=== PATIENT | female | born 1935 | race Caucasian/White ===

== ENCOUNTER 2020-07-31 12:13 | Inpatient (IN) | payer MEDICARE ==
[~2020-07-31] VITALS: Ht 152.4 cm; Wt 54.7 kg
[2020-07-31] MEDS ORDERED: MAGNESIUM HYDROXIDE 2,400 MG/30 ML ORAL.SUSP. PO PRN ×2 (13:15→14:15)
[2020-07-31] MEDS ORDERED: MAG HYDROX/AL HYDROX/SIMETH 30 ML ORAL.SUSP PO PRN ×2 (13:15→14:15)
[2020-07-31] MEDS ORDERED: METHYL SALICYLATE/MENTHOL TOPICAL OINTMENT 57GM TUBE. TP PRN (13:15)
[2020-07-31 13:17] VITALS: BP 157/71
--- NOTE | 2020-07-31 13:22 | NUR ---
Admission Note with Justification for Admission to [facility] Patient admitted to [facility] for protective oversight for emergency stabilization of acute psychiatric crisis. Pt admitted from: [facility] Mode of arrival: Secure Transport Accompanied By: Secure Transport Precipitating behaviors that initiated intake and admission: threatens to kill staff, name calling, belligerent, aggressive towards staff, throws stuff at staff, enters others rooms & gets agitated with redirection, pacing, restless Description of failure of out patient attempts at stabilization in previous setting list behavior and medication trials: intervene & redirect, started seroquel, treated for UTI in hospital Behaviors and assessment findings upon admission: Pt is pleasantly confused, oriented to self only. Pt stated she was living in [place] before she came here. She is cooperative with assessment. No skin issues noted. Pt denies having any pain or discomfort. She was given her lunch tray and is currently sitting quietly in her room eating lunch. Will continue to monitor. Plan: Admit for protective oversight for adjustment and stabilization of medications, behaviors and mood. Intense treatment regimen including groups, medication adjustments, therapy, consistent regimen for ADL's, self care, and sleep hygiene. Daily monitoring by Inpatient staff, Psychiatry, and Medical Physician. Addendum: 07/31/20 at 1435 by JAJA BRADLEY RN When attempting to get lab draws, pt began screaming and became combative with staff. Staff x3 assisted with both lab draws and Covid swab.
[2020-07-31 13:50] LABS: BASO # 0.1 x10^3/uL (0.0-0.2); BASO % 0 % (0-3); EOS # 0.2 x10^3/uL (0.0-0.7); EOS % 1 % (0-3); HEMATOCRIT 37.3 % (36.0-47.0); HEMOGLOBIN 12.4 g/dL (12.0-15.5); LYMPH # 15.3 x10^3/uL (1.0-4.8); LYMPH % 68 % (24-48); MEAN CORPUSCULAR HEMOGLOBIN 30 pg (25-35); MEAN CORPUSCULAR HGB CONC 33 g/dL (31-37); MEAN CORPUSCULAR VOLUME 90 fL (79-100); MONO # 0.8 x10^3/uL (0.0-1.1); MONO % 4 % (0-9); NEUT # 6.2 x10^3uL (1.8-7.7); NEUT % 27 % (31-73); PLATELET COUNT 328 x10^3/uL (140-400); RED BLOOD COUNT 4.14 x10^6/uL (3.50-5.40); RED CELL DISTRIBUTION WIDTH 14.3 % (11.5-14.5); WHITE BLOOD COUNT 22.5 x10^3/uL (4.0-11.0)
[2020-07-31 14:00] LABS: ALBUMIN 3.4 g/dL (3.4-5.0); ALBUMIN/GLOBULIN RATIO 0.8 (1.0-1.7); CALCIUM 8.7 mg/dL (8.5-10.1); CREATININE 0.9 mg/dL (0.6-1.0); GFR 59.7; MAGNESIUM 2.1 mg/dL (1.8-2.4); POTASSIUM 3.7 mmol/L (3.5-5.1); TOTAL BILIRUBIN 0.3 mg/dL (0.2-1.0); TOTAL PROTEIN 7.7 g/dL (6.4-8.2)
[2020-07-31] MEDS ORDERED: QUET25TA5 PO (14:11)
[2020-07-31] MEDS ORDERED: LOPE-101 PO ×2 (14:11→14:28)
[2020-07-31] MEDS ORDERED: MAG-115 PO (14:11)
[2020-07-31] MEDS ORDERED: ACET650S11 RC (14:11)
[2020-07-31] MEDS ORDERED: POLY17PO28 PO (14:11)
[2020-07-31] MEDS ORDERED: SENN8.6T11 PO (14:11)
[2020-07-31] MEDS ORDERED: MAGN400O7 PO (14:11)
[2020-07-31] MEDS ORDERED: ACET325T21 PO (14:11)
[2020-07-31] MEDS ORDERED: MELA5TAB20 PO (14:11)
[2020-07-31] MEDS ORDERED: TRAZ-120 PO (14:11)
[2020-07-31] MEDS ORDERED: BISA10SU4 RC (14:11)
[2020-07-31] MEDS ORDERED: CYAN250T PO (14:11)
[2020-07-31] MEDS ORDERED: QUET50TA5 PO (14:11)
[2020-07-31] MEDS ORDERED: BISACODYL 10 MG SUPP.RECT RC PRN (14:15)
[2020-07-31] MEDS ORDERED: ACETAMINOPHEN 650 MG SUPP.RECT. RC PRN (14:15)
[2020-07-31] MEDS ORDERED: LOPERAMIDE 2 MG CAPSULE PO PRN ×2 (14:15→14:45)
[2020-07-31] MEDS ORDERED: ACETAMINOPHEN 325 MG TABLET PO PRN (14:15)
[2020-07-31 14:26] LABS: % LYMPHS 69 % (24-48); % MONOS 4 % (0-10); % SEGS 27 % (35-66)
[2020-07-31 14:27] LABS: PLT ESTIMATE ADEQUATE (ADEQUATE)
--- NOTE | 2020-07-31 16:23 | RAD ---
EXAM: CT HEAD WITHOUT CONTRAST. HISTORY: Subdural hematoma. TECHNIQUE: Computed tomography of the head was performed without intravenous contrast. One or more of the following individualized dose reduction techniques were utilized for this examination: 1. Automated exposure control. 2. Adjustment of the mA and/or kV according to patient size. 3. Use of iterative reconstruction technique. COMPARISON: None. FINDINGS: A right frontal subdural hematoma is mostly low-attenuation, with a few high attenuation el ements along its periphery. It measures up to 2.2 cm in thickness. Leftward midline shift measures 5 mm. The right-sided sulci are relatively compressed. Hypoattenuation within the periventricular white matter indicates mild to moderate chronic microangio pathic change. Prominence of the lateral ventricles and hemispheric sulci indicates moderate atrophy. The visualized paranasal sinuses appear clear. There are changes of bilateral cataract surgery. The t emporal bones are unremarkable. The calvarium reveals no suspicious lesions. A small metallic object is noted along the right temporal inner table. IMPRESSION: 1. A right frontal subdural hematoma has elements of different ages, but is mostly subacute or chroni c. It measures 2.2 cm in thickness with 5 mm leftward midline shift. Comparison with older studies is recommended to assess stability. Ongoing follow-up is recommended. 2. Moderate atrophy and mild to moderate chronic microangiopathic white matter change. Electronically signed by: Katherin Stringer MD (07/31/2020 4:20 PM) [id number]
[2020-07-31 17:37] VITALS: BP 143/81
[2020-07-31 18:16] LABS: BILIRUBIN,URINE NEG (NEG); CLARITY,URINE CLEAR; COLOR,URINE YELLOW; GLUCOSE,URINE NEG (NEG)
[2020-07-31 18:17] LABS: BACTERIA,URINE 0 /HPF (0-FEW); NITRITE,URINE NEG (NEG); RBC,URINE OCC /HPF (0-2); SQUAMOUS EPITHELIAL CELL,UR MANY /LPF; UROBILINOGEN,URINE 0.2 mg/dL (0.2 mg/dL)
--- NOTE | 2020-07-31 19:39 | CONS ---
DATE OF CONSULTATION: 07/31/2020 REASON FOR CONSULTATION: Medical management. HISTORY OF PRESENT ILLNESS: The patient is an 85-year-old female patient, a resident at [facility] who was [facility] on account of threatening to kill staff, name calling, belligerent, aggressive towards staff, throws stuff at staff, enters other's rooms and gets agitated with redirection, and pacing restless, all this in a background of Lewy body dementia, Alzheimer's disease with behavioral disorder. She is here for inpatient psychiatric stabilization. The patient herself is very confused, disoriented, does not give any useful information. PAST MEDICAL HISTORY: Significant for Alzheimer's dementia with behavioral disturbances, essential hypertension, hyperlipidemia, hyponatremia. She has a fall with subdural hematoma. She is also known to have sleep disorder, urinary incontinence, and impaired mobility and activities of daily living. PAST SURGICAL HISTORY: Unobtainable. ALLERGIES: She has no known drug allergies. MEDICATIONS: She is currently on following medications: She is on acetaminophen 650 mg every 6 hours and she is also on acetaminophen suppository 650 mg rectally every 4 hours, trazodone 50 mg at bedtime, quetiapine fumarate 50 mg daily and quetiapine fumarate 25 mg at bedtime, Mylanta maximum strength in 15 mL after meals and as needed, loperamide 2 mg as needed for diarrhea, loperamide 4 mg as needed for diarrhea, bisacodyl 10 mg suppository rectally daily p.r.n. for constipation, milk of magnesia 30 mL p.o. daily p.r.n. for constipation, polyethylene glycol 17 grams daily, senna 1 tablet twice a day, cyanocobalamin 250 mcg once a day, melatonin 5 mg at bedtime. FAMILY HISTORY: Unobtainable. SOCIAL HISTORY: She is a resident at [facility]. No further information available. REVIEW OF SYSTEMS: Also is unobtainable. PHYSICAL EXAMINATION: GENERAL: When I examined her, she looked well and was clearly in no apparent respiratory distress. There is no pallor, jaundice, cyanosis or thyromegaly. No jugular venous distention. No lower limb edema. VITAL SIGNS: Her heart rate was 77, blood pressure was 157/71, temperature was 97.8, respiratory rate was 18, and oxygen saturation was 99% on room air. HEAD, EYES, EARS, NOSE AND THROAT: Showed normocephalic, atraumatic. NECK: Supple. HEART: Normal first and second heart sounds. No gallop, rub or murmur. CHEST: Clear to auscultation. No crepitation or rhonchi. ABDOMEN: Distended, soft, nontender. NEUROLOGIC: She is demented, but without any obvious lateralizing sign. All her cranial nerves are intact. EXTREMITIES: She moves extremities without difficulty. She ambulates without assistance or assistive devices. LABORATORY DATA: Showed a white cell count of 22,500, hemoglobin 12.4, hematocrit 37.3, MCV 90, and platelet count 327,000 with a manual differential showed 27% polymorphs, 68% lymphocytes and 4% monocytes. Her D-dimer was high at 4.31. Her chemistry showed a serum sodium 138, potassium 3.7, chloride 103, bicarbonate 26, anion gap of 9, BUN 8, creatinine 0.9, estimated GFR was 59 mL per minute. Her glucose was 153, calcium was 8.7, magnesium was 2.1. Total bilirubin, AST, ALT, and alkaline phosphatase were normal. Total protein was 7.7, albumin was 3.4. IMPRESSION AND PLAN: In summary, this is an 85-year-old female patient, a resident at [facility] in [place], [place], who was admitted on account of threatening to kill staff, name calling, belligerent, aggressive towards staff, throws stuff at staff, enters other residents' rooms, and gets agitated with the redirection, pacing and restless. She apparently was treated for UTI in the hospital and was started on Seroquel without much improvement and, therefore, she was [facility] for inpatient psychiatric stabilization. Her past medical history significant for hypertension and hyperlipidemia. She probably has chronic lymphatic leukemia, had had a fall and subdural hematoma. Past psychiatric history significant for Lewy body dementia and sleep disorder. From the medical point of view, the patient seems to be all in all stable. Her vital signs are stable. All her lab work seems to be within acceptable range except that she has leukocytosis with predominance of lymphocytes, indicating probably she has chronic lymphatic leukemia. Her chemistry is within acceptable range. I would probably order a CT scan of the head as a baseline for comparison and perhaps get some more information about the patient regarding her leukocytosis as a differential diagnosis as more consistent with chronic lymphatic leukemia, which is common in the elderly people. Thank you, Dr. Hernandez, for allowing me to participate in the care of this patient. MICHELLE LEBLANC MD DR: LAUREN/marcin JOB#: [id number] / [id number]
[2020-07-31] MEDS: SENNOSIDES 8.6 MG TABLET PO SCH (20:18)
[2020-07-31] MEDS: QUEtiapine 25 MG TABLET. PO SCH (20:19)
[2020-07-31] MEDS: MELATONIN 3 MG TABLET PO SCH (20:19)
[2020-07-31] MEDS: traZODone 50 MG TABLET. PO SCH (20:19)
--- NOTE | 2020-07-31 20:49 | PDOC ---
Exam Note: Andrés Note: Please also refer to the separate dictated note~for this date of service dictated separately.~Patient seen individually. Discussed the patient with Nursing staff reviewed the chart.~Reviewed interim history and current functioning. Reviewed vital signs,~Labs/ Radiology~and current medications noted below. Continue current treatment with the changes noted in the dictated addendum note Assessment: Vital Signs/I&O: Vital Signs Date Time Temp Pulse Resp B/P (MAP) Pulse Ox O2 Delivery O2 Flow Rate FiO2 07/31/20 17:37 98.5 82 20 143/81 (101) 98 Labs: Laboratory Tests Test 07/31/20 13:35 07/31/20 17:46 White Blood Count 22.5 x10^3/uL (4.0-11.0) H Red Blood Count 4.14 x10^6/uL (3.50-5.40) Hemoglobin 12.4 g/dL (12.0-15.5) Hematocrit 37.3 % (36.0-47.0) Mean Corpuscular Volume 90 fL (79-100) Mean Corpuscular Hemoglobin 30 pg (25-35) Mean Corpuscular Hemoglobin Concent 33 g/dL (31-37) Red Cell Distribution Width 14.3 % (11.5-14.5) Platelet Count 328 x10^3/uL (140-400) Neutrophils (%) (Auto) 27 % (31-73) L Lymphocytes (%) (Auto) 68 % (24-48) H Monocytes (%) (Auto) 4 % (0-9) Eosinophils (%) (Auto) 1 % (0-3) Basophils (%) (Auto) 0 % (0-3) Neutrophils # (Auto) 6.2 x10^3uL (1.8-7.7) Lymphocytes # (Auto) 15.3 x10^3/uL (1.0-4.8) H Monocytes # (Auto) 0.8 x10^3/uL (0.0-1.1) Eosinophils # (Auto) 0.2 x10^3/uL (0.0-0.7) Basophils # (Auto) 0.1 x10^3/uL (0.0-0.2) Segmented Neutrophils % 27 % (35-66) L Lymphocytes % 69 % (24-48) H Monocytes % 4 % (0-10) Platelet Estimate Adequate (ADEQUATE) D-Dimer (Norma) 4.31 mg/L (0.00-0.50) H Sodium Level 138 mmol/L (136-145) Potassium Level 3.7 mmol/L (3.5-5.1) Chloride Level 103 mmol/L (98-107) Carbon Dioxide Level 26 mmol/L (21-32) Anion Gap 9 (6-14) Blood Urea Nitrogen 8 mg/dL (7-20) Creatinine 0.9 mg/dL (0.6-1.0) Estimated GFR (Cockcroft-Gault) 59.7 BUN/Creatinine Ratio 9 (6-20) Glucose Level 153 mg/dL (70-99) H Calcium Level 8.7 mg/dL (8.5-10.1) Magnesium Level 2.1 mg/dL (1.8-2.4) Total Bilirubin 0.3 mg/dL (0.2-1.0) Aspartate Amino Transferase (AST) 17 U/L (15-37) Alanine Aminotransferase (ALT) 23 U/L (14-59) Alkaline Phosphatase 77 U/L (46-116) Total Protein 7.7 g/dL (6.4-8.2) Albumin 3.4 g/dL (3.4-5.0) Albumin/Globulin Ratio 0.8 (1.0-1.7) L Urine Collection Type Unknown Urine Color Yellow Urine Clarity Clear Urine pH 6.0 Urine Specific [place] 1.015 Urine Protein Neg (NEG-TRACE) Urine Glucose (UA) Neg mg/dL (NEG) Urine Ketones (Stick) Neg mg/dL (NEG) Urine Blood Neg (NEG) Urine Nitrite Neg (NEG) Urine Bilirubin Neg (NEG) Urine Urobilinogen Dipstick 0.2 mg/dL (0.2 mg/dL) Urine Leukocyte Esterase Trace (NEG) Urine RBC Occ /HPF (0-2) Urine WBC 5-10 /HPF (0-4) Urine Squamous Epithelial Cells Many /LPF Urine Bacteria 0 /HPF (0-FEW) Current Medications: Meds: Current Medications Medications (Trade) Dose Ordered Sig/Stephenie Route PRN Reason Start Time Stop Time Status Last Admin Dose Admin Quetiapine Fumarate (SEROquel) 25 mg QHS PO 07/31/20 21:00 07/31/20 20:19 Sennosides (Senna) 8.6 mg BID PO 07/31/20 21:00 07/31/20 20:18 Trazodone HCl (Desyrel) 50 mg QHS PO 07/31/20 21:00 07/31/20 20:19 Melatonin (Melatonin) 3 mg QHS PO 07/31/20 21:00 07/31/20 20:19 I have reviewed the current psychotropics carefully including drug interactions. Risk benefit ratio favors no change other than as noted in my dictated progress note. Diagnosis: Problems: (1) Major neurocognitive disorder (2) Dementia of the Alzheimer's type with early onset with behavioral disturbance FARSHAD CHEEMA MD Jul 31, 2020 20:49
--- NOTE | 2020-07-31 21:28 | HP ---
ADMIT DATE: 07/31/2020 ADMISSION HISTORY/EVALUATION This note covers elements not covered in my initial note of 07/31/2020. SUBJECTIVE: I met with the patient evening of 07/31/2020, discussed with nursing staff, previously discussed with Cathi White, clinic office coordinator. IDENTIFYING DATA: The patient is an 85-year-old female referred to us from [facility], referred by her psychiatrist/primary care physician on account of worsening confusion, paranoia, delusions, threatening to kill staff. She is extremely agitated, name calling, belligerent, aggressive towards staff, throwing different things at staff members, could have injured them. She is getting into the room of other residents, getting agitated with redirection, pacing, restless. She had failed outpatient psychiatric interventions resulting in this referral. CHIEF COMPLAINT: "No." The patient is quite confused. Before I met with the patient, I had been called as an emergency by the nursing staff due to her agitation. We did add a p.r.n. to assist with this. HISTORY OF PRESENT ILLNESS: The patient reportedly has a history of Lewy body dementia versus dementia, Alzheimer's, vascular with delusion, depression, behavioral disturbance. Additionally, she had a recent subdural hematoma, status post fall, which has since reportedly resolved, but resulted in increased agitation as well. She has had some sleep and appetite changes. No active suicidal or homicidal ideation. No clear history of bipolar disorder. PAST PSYCHIATRIC HISTORY: As above. MEDICAL HISTORY: Hypertension, hyperlipidemia, anemia, elevated WBC, hypomagnesemia, hypo-osmolality, history of hyponatremia. ALLERGIES: Negative. CODE STATUS: DNR. DIET: Regular, mechanical soft. CURRENT PSYCHOTROPICS: Melatonin 3 mg at bedtime, Seroquel 50 mg a.m., 25 mg at bedtime, trazodone 50 mg at bedtime. FAMILY HISTORY: Noncontributory. SOCIAL HISTORY: No history of alcohol, drug abuse, physical, sexual or elder abuse. She is not known to be a perpetrator. REACTION TO HOSPITALIZATION: The patient oblivious of this. ASSETS: Supportive, living at the above facility. REVIEW OF SYSTEMS: No CV, , pulmonary, eye system symptoms on review. Reliability poor. MENTAL STATUS EXAMINATION: Oriented to herself. Insight, judgment, recent and remote memory, attention, concentration, fund of knowledge poor, consistent with her diagnoses. IMPRESSION: Major neurocognitive disorder, Alzheimer, vascular with delusion, depression, behavioral disturbance; anxiety disorder, unspecified; impulse control disorder, unspecified; abnormal WBCs, defer to Dr. Nguyen. Rest unchanged. PLAN: Admit to Geropsychiatry Unit at [facility]. I will see the patient daily individually from a psychiatric standpoint. Medical followup with Dr. Nguyen/Dr. Vieyra. Continue the patient on her current psychotropics. Observe baseline. Consider CT head given a history of subdural hematoma and falls. We will make further adjustments as clinically indicated. ESTIMATED LENGTH OF STAY: 10-12 days. DISPOSITION: Plans back to shelter when stable. MAN Jessica CHEEMA MD DR: JOEL/marcin JOB#: [id number] / [id number]
[2020-08-01 01:07] LABS: HEMOGLOBIN A1C 5.9 % (4.8-5.6)
--- NOTE | 2020-08-01 01:22 | NUR ---
Last evening pt sat quietly in the day room. She was pleasant and cooperative meds were taken whole with prompting. She is only able to give first name and year of . She has had no behaviors tonight and has been sleeping.
[2020-08-01 06:18] VITALS: BP 113/63
[2020-08-01] MEDS: SENNOSIDES 8.6 MG TABLET PO SCH ×2 (08:40→19:47)
[2020-08-01] MEDS: POLYETHYLENE GLYCOL 3350 17 GM PACKET. PO SCH (08:40)
[2020-08-01] MEDS: QUEtiapine 50 MG TABLET. PO SCH (08:40)
[2020-08-01] MEDS: CYANOCOBALAMIN (VITAMIN B-12) 250 MCG TABLET. PO SCH (08:40)
--- NOTE | 2020-08-01 10:46 | NUR ---
WEEKLY ACTIVITY THERAPY NOTE Date of Admission: 07/31/2020 Date of AT Assessment: TBD Precipitating behaviors that initiated intake and admission: threatens to kill staff, name calling, belligerent, aggressive towards staff, throws stuff at staff, enters others rooms & gets agitated with redirection, pacing, restless Goal aimed: TBD Initial Goal: TBD Weekly progress towards goal: NA Group participation level: 1 min Weekly highlights: arrived on unit Behaviors observed: new admit Plan: meet/ assess Pt Beneficial adaptations:
[2020-08-01 14:23] LABS: THYROID STIM HORMONE (TSH) 3.586 uIU/mL (0.358-3.740)
--- NOTE | 2020-08-01 15:44 | NUR ---
Treatment team was held today as pt was admitted last night. Pt is combative, door checking and appears at times, to be looking for her baby. Pt can take her meds whole but needs prompting in the process; however, this morning, pt refused medications and had to be given by oral syringe. Pt does do some door checking and is not so easily redirected. Pt was calm this morning during her CT. At this time pt will start Zoloft 25mg for three days then increase 50mg, Exelon Patch 4.6mg with an increase after 3 days to 9.5mg. Pt did not have a PRN established; Zyprexa 2.5mg q 2 hours was ordered; as well as Trazodone to aid in sleep. Pt SW will return tomorrow and will complete the Psychosocial Assessment.
[2020-08-01] MEDS ORDERED: CHOLECALCIFEROL (VITAMIN D3) 50,000 UNIT CAPSULE PO SCH (17:00)
--- NOTE | 2020-08-01 17:45 | NUR ---
Nursing note: Pt has been very restless, anxious and uncooperative this shift. Pt's AM meds were attempted to be given whole, she began yelling and cursing, swinging her hands at this nurse and knocked the pill cup away. Pt then became disruptive in group and had to be escorted out. Pt's AM seroquel was crushed and administered sublingually with staff x3 assistance as pt was screaming, kicking, hitting and attempting to bite staff. Pt later began door checking, looking for her baby, and causing disruption to other pt's on the unit. Pt was brought to the [facility] where she continued to curse and yell at staff. Treatment team was held and received new PRN orders. Pt continued to be agitated at lunch time. PRN was attempted to be given whole and pt refused slapping her butt stating "oh kiss my ass!" PRN was syringed staff x3 assist with no effect. Pt began hallucinating this afternoon, she watched her dog run away and was worried about it, wanting to find it. A second PRN was administered with staff x3 assist with very little effect. Dr. Hernandez notified of pt's continued behaviors and new order received to increase Zyprexa Zydis to 5mg PRN Q2HRS max 20mg/24hrs. Will continue to monitor and report to oncoming shift.
[2020-08-01] MEDS: MELATONIN 3 MG TABLET PO SCH (19:47)
[2020-08-01] MEDS: traZODone 50 MG TABLET. PO SCH (19:47)
[2020-08-01] MEDS: QUEtiapine 25 MG TABLET. PO SCH (19:47)
--- NOTE | 2020-08-01 21:03 | PDOC ---
Exam Note: Andrés Note: Please also refer to the separate dictated note~for this date of service dictated separately.~Patient seen individually. Discussed the patient with Nursing staff reviewed the chart.~Reviewed interim history and current functioning. Reviewed vital signs,~Labs/ Radiology~and current medications noted below. Continue current treatment with the changes noted in the dictated addendum note Assessment: Vital Signs/I&O: Vital Signs Date Time Temp Pulse Resp B/P (MAP) Pulse Ox O2 Delivery O2 Flow Rate FiO2 08/01/20 06:18 97.8 69 16 113/63 (80) 97 Room Air I & O 07/31/20 07/31/20 08/01/20 15:00 23:00 07:00 Intake Total 80 ml 460 ml Balance 80 ml 460 ml Current Medications: Meds: Current Medications Medications (Trade) Dose Ordered Sig/Stephenie Route PRN Reason Start Time Stop Time Status Last Admin Dose Admin Acetaminophen (Tylenol) 650 mg PRN Q6HRS PRN PO MILD PAIN / TEMP > 100.3'F 07/31/20 13:15 Multi-Ingredient Ointment (Analgesic Coden) 1 han PRN QID PRN TP MUSCLE PAIN 07/31/20 13:15 Al Hydroxide/Mg Hydroxide (Mylanta Plus Xs) 15 ml PRN AFTMEALHC PRN PO DYSPEPSIA 07/31/20 13:15 Magnesium Hydroxide (Milk Of Magnesia) 2,400 mg PRN QHS PRN PO CONSTIPATION 07/31/20 13:15 Acetaminophen (Tylenol) 650 mg PRN Q6HRS PRN PO MILD PAIN / TEMP > 100.3'F 07/31/20 14:15 Cancel Acetaminophen (Tylenol Supp) 650 mg PRN Q4HRS PRN RC MILD PAIN / TEMP > 100.3'F 07/31/20 14:15 Bisacodyl (Dulcolax Supp) 10 mg PRN DAILY PRN RC CONSTIPATION 07/31/20 14:15 Cyanocobalamin (Vitamin B-12) 250 mcg DAILY PO 08/01/20 09:00 08/01/20 08:40 Loperamide HCl (Imodium) 2 mg PRN Q1HR PRN PO DIARRHEA 07/31/20 14:15 Al Hydroxide/Mg Hydroxide (Mylanta Plus Xs) 15 ml PRN AFTMEALHC PRN PO INDIGESTION 07/31/20 14:15 Cancel Magnesium Hydroxide (Milk Of Magnesia) 2,400 mg PRN QHS PRN PO constipation 07/31/20 14:15 Cancel Polyethylene Glycol (miraLAX) 17 gm DAILY PO 08/01/20 09:00 08/01/20 08:40 Quetiapine Fumarate (SEROquel) 25 mg QHS PO 07/31/20 21:00 08/01/20 19:47 Quetiapine Fumarate (SEROquel) 50 mg DAILY PO 08/01/20 09:00 08/01/20 08:40 Sennosides (Senna) 8.6 mg BID PO 07/31/20 21:00 08/01/20 19:47 Trazodone HCl (Desyrel) 50 mg QHS PO 07/31/20 21:00 08/01/20 19:47 Melatonin (Melatonin) 3 mg QHS PO 07/31/20 21:00 08/01/20 19:47 Loperamide HCl (Imodium) 4 mg PRN DAILY PRN PO DIARRHEA 07/31/20 14:45 Rivastigmine (Exelon) 1 patch DAILY TD 08/02/20 09:00 08/05/20 21:00 Rivastigmine (Exelon) 1 patch DAILY TD 08/06/20 09:00 Sertraline HCl (Zoloft) 25 mg DAILY PO 08/02/20 09:00 08/05/20 21:00 Sertraline HCl (Zoloft) 50 mg DAILY PO 08/06/20 09:00 Olanzapine (ZyPREXA ZYDIS) 2.5 mg PRN Q2HRS PRN PO PSYCHOSIS 08/01/20 11:15 08/01/20 18:34 DC 08/01/20 17:17 Trazodone HCl (Desyrel) 50 mg PRN QHS PRN PO INSOMNIA, MAY REPEAT IN 1HR 08/01/20 11:15 Vitamin D (Vitamin D3) 50,000 unit WEEKLY PO 08/01/20 17:00 08/01/20 17:31 DC Vitamin D (Vitamin D3) 50,000 unit WEEKLY PO 08/02/20 09:00 Olanzapine (ZyPREXA ZYDIS) 5 mg PRN Q2HRS PRN PO PSYCHOSIS 08/01/20 18:45 Current Medications Medications (Trade) Dose Ordered Sig/Stephenie Route PRN Reason Start Time Stop Time Status Last Admin Dose Admin Cyanocobalamin (Vitamin B-12) 250 mcg DAILY PO 08/01/20 09:00 08/01/20 08:40 Polyethylene Glycol (miraLAX) 17 gm DAILY PO 08/01/20 09:00 08/01/20 08:40 Quetiapine Fumarate (SEROquel) 50 mg DAILY PO 08/01/20 09:00 08/01/20 08:40 Olanzapine (ZyPREXA ZYDIS) 2.5 mg PRN Q2HRS PRN PO PSYCHOSIS 08/01/20 11:15 08/01/20 18:34 DC 08/01/20 17:17 I have reviewed the current psychotropics carefully including drug interactions. Risk benefit ratio favors no change other than as noted in my dictated progress note. Diagnosis: Problems: (1) Dementia in Alzheimer's disease with delusions (2) Dementia in Alzheimer's disease with depression (3) Dementia, vascular, with delusions (4) Dementia, vascular, with depression (5) Anxiety disorder, unspecified (6) Impulse control disorder, unspecified (7) Abnormal WBC count (8) Dementia of the Alzheimer's type with early onset with behavioral dis turbance (9) Major neurocognitive disorder FARSHAD CHEEMA MD Aug 01, 2020 21:03
--- NOTE | 2020-08-02 02:00 | NUR ---
Last evening pt walked around unit at times she would go into peers rooms, she remains very confused. Meds were taken whole with prompting she has had no aggression tonight. After getting her settled into her room she has been sleeping.
[2020-08-02 06:02] VITALS: BP 136/83
--- NOTE | 2020-08-02 07:30 | PDOC ---
Exam Note: Andrés Note: This note is a late entry for 08/01/2020 covers elements not covered in my initial note. Subjective: The patient was seen face to face in the evening of 08/01/2020 with Myah JAMESON. Discussed with nursing staff, reviewed the chart. The patient slept 3-3/4 hours previous night. Previous night the patient was extremely agitated, aggressive, disruptive, verbally, physically threatening and demanding, swatting at staff, looking for a baby screaming, yelling, had to be in the West hallway. CT head is clinically insignificant. She is running up and down the hallway. It is difficult to redirect. On evening rounds, she continues to be combative, hallucinating, agitated. Medications had to be syringed but Zyprexa 2.5 mg p.r.n. has little effect. We will increase to 5 mg q.2h. p.r.n. psychosis and agitation, max 20 mg in 24 hours. Review of Systems: Ambulation impaired. No CV, , pulmonary, eye, ENT system symptoms on review. Mental Status Exam: The patient is reasonably oriented. I met with her in her room. She was confused, not able to figure out how to switch the lights on or off and I assisted her with this. Insight and judgment, recent and remote memory, attention and concentration, fund of knowledge is poor consistent with her diagnoses. Laboratory Data: Reviewed. 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 Anxiety disorder unspecified. Impulse control disorder unspecified. Status post subdural hematoma. Current CT head non-contributory. Rest unchanged from previous note. Plan: Given her diagnosis of Lewy body dementia, we will start Exelon patch 4.6 mg a day for 3 days and 9.5 mg a day. Start Zoloft 25 mg a day for 3 days and 50 mg a day for mood and anxiety symptoms. Zyprexa is being used p.r.n. Maintain melatonin, Seroquel at current dosage, trazodone p.r.n. Adjust further as clinically indicated. Assessment: Vital Signs/I&O: Vital Signs Date Time Temp Pulse Resp B/P (MAP) Pulse Ox O2 Delivery O2 Flow Rate FiO2 08/02/20 06:02 98.4 65 20 136/83 (100) 98 Room Air I & O 08/01/20 08/01/20 08/02/20 15:00 23:00 07:00 Intake Total 360 ml 240 ml Balance 360 ml 240 ml Current Medications: Meds: Current Medications Medications (Trade) Dose Ordered Sig/Stephenie Route PRN Reason Start Time Stop Time Status Last Admin Dose Admin Acetaminophen (Tylenol) 650 mg PRN Q6HRS PRN PO MILD PAIN / TEMP > 100.3'F 07/31/20 13:15 Multi-Ingredient Ointment (Analgesic [place]) 1 han PRN QID PRN TP MUSCLE PAIN 07/31/20 13:15 Al Hydroxide/Mg Hydroxide (Mylanta Plus Xs) 15 ml PRN AFTMEALHC PRN PO DYSPEPSIA 07/31/20 13:15 Magnesium Hydroxide (Milk Of Magnesia) 2,400 mg PRN QHS PRN PO CONSTIPATION 07/31/20 13:15 Acetaminophen (Tylenol) 650 mg PRN Q6HRS PRN PO MILD PAIN / TEMP > 100.3'F 07/31/20 14:15 Cancel Acetaminophen (Tylenol Supp) 650 mg PRN Q4HRS PRN RC MILD PAIN / TEMP > 100.3'F 07/31/20 14:15 Bisacodyl (Dulcolax Supp) 10 mg PRN DAILY PRN RC CONSTIPATION 07/31/20 14:15 Cyanocobalamin (Vitamin B-12) 250 mcg DAILY PO 08/01/20 09:00 08/01/20 08:40 Loperamide HCl (Imodium) 2 mg PRN Q1HR PRN PO DIARRHEA 07/31/20 14:15 Al Hydroxide/Mg Hydroxide (Mylanta Plus Xs) 15 ml PRN AFTMEALHC PRN PO INDIGESTION 07/31/20 14:15 Cancel Magnesium Hydroxide (Milk Of Magnesia) 2,400 mg PRN QHS PRN PO constipation 07/31/20 14:15 Cancel Polyethylene Glycol (miraLAX) 17 gm DAILY PO 08/01/20 09:00 08/01/20 08:40 Quetiapine Fumarate (SEROquel) 25 mg QHS PO 07/31/20 21:00 08/01/20 19:47 Quetiapine Fumarate (SEROquel) 50 mg DAILY PO 08/01/20 09:00 08/01/20 08:40 Sennosides (Senna) 8.6 mg BID PO 07/31/20 21:00 08/01/20 19:47 Trazodone HCl (Desyrel) 50 mg QHS PO 07/31/20 21:00 08/01/20 19:47 Melatonin (Melatonin) 3 mg QHS PO 07/31/20 21:00 08/01/20 19:47 Loperamide HCl (Imodium) 4 mg PRN DAILY PRN PO DIARRHEA 07/31/20 14:45 Rivastigmine (Exelon) 1 patch DAILY TD 08/02/20 09:00 08/05/20 21:00 Rivastigmine (Exelon) 1 patch DAILY TD 08/06/20 09:00 Sertraline HCl (Zoloft) 25 mg DAILY PO 08/02/20 09:00 08/05/20 21:00 Sertraline HCl (Zoloft) 50 mg DAILY PO 08/06/20 09:00 Olanzapine (ZyPREXA ZYDIS) 2.5 mg PRN Q2HRS PRN PO PSYCHOSIS 08/01/20 11:15 08/01/20 18:34 DC 08/01/20 17:17 Trazodone HCl (Desyrel) 50 mg PRN QHS PRN PO INSOMNIA, MAY REPEAT IN 1HR 08/01/20 11:15 Vitamin D (Vitamin D3) 50,000 unit WEEKLY PO 08/01/20 17:00 08/01/20 17:31 DC Vitamin D (Vitamin D3) 50,000 unit WEEKLY PO 08/02/20 09:00 Olanzapine (ZyPREXA ZYDIS) 5 mg PRN Q2HRS PRN PO PSYCHOSIS 08/01/20 18:45 Current Medications Medications (Trade) Dose Ordered Sig/Stephenie Route PRN Reason Start Time Stop Time Status Last Admin Dose Admin Cyanocobalamin (Vitamin B-12) 250 mcg DAILY PO 08/01/20 09:00 08/01/20 08:40 Polyethylene Glycol (miraLAX) 17 gm DAILY PO 08/01/20 09:00 08/01/20 08:40 Quetiapine Fumarate (SEROquel) 50 mg DAILY PO 08/01/20 09:00 08/01/20 08:40 Olanzapine (ZyPREXA ZYDIS) 2.5 mg PRN Q2HRS PRN PO PSYCHOSIS 08/01/20 11:15 08/01/20 18:34 DC 08/01/20 17:17 I have reviewed the current psychotropics carefully including drug interactions. Risk benefit ratio favors no change other than as noted in my dictated progress note. Diagnosis: Problems: (1) Major neurocognitive disorder (2) Impulse control disorder, unspecified (3) Anxiety disorder, unspecified (4) Dementia, vascular, with depression (5) Dementia, vascular, with delusions (6) Dementia in Alzheimer's disease with depression (7) Dementia in Alzheimer's disease with delusions (8) Lewy body dementia with behavioral disturbance FARSHAD CHEEMA MD Aug 02, 2020 07:30
[2020-08-02] MEDS: SENNOSIDES 8.6 MG TABLET PO SCH ×2 (08:25→21:09)
[2020-08-02] MEDS: CYANOCOBALAMIN (VITAMIN B-12) 250 MCG TABLET. PO SCH (08:25)
[2020-08-02] MEDS: QUEtiapine 50 MG TABLET. PO SCH (08:25)
[2020-08-02] MEDS: POLYETHYLENE GLYCOL 3350 17 GM PACKET. PO SCH (08:25)
[2020-08-02] MEDS: RIVASTIGMINE 4.6MG PATCH. TD SCH (08:27)
[2020-08-02] MEDS: SERTRALINE 25 MG TABLET. PO SCH (08:27)
[2020-08-02] MEDS: CHOLECALCIFEROL (VITAMIN D3) 50,000 UNIT CAPSULE PO SCH (08:27)
--- NOTE | 2020-08-02 15:03 | NUR ---
Pt angry and tearful. Stated a staff member made her angry but did not elaborate. Zydis given dissolved in punch.
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
--- NOTE | 2020-08-02 21:05 | PDOC ---
Exam Note: Andrés Note: Please also refer to the separate dictated note~for this date of service dictated separately.~Patient seen individually. Discussed the patient with Nursing staff reviewed the chart.~Reviewed interim history and current functioning. Reviewed vital signs,~Labs/ Radiology~and current medications noted below. Continue current treatment with the changes noted in the dictated addendum note Assessment: Vital Signs/I&O: Vital Signs Date Time Temp Pulse Resp B/P (MAP) Pulse Ox O2 Delivery O2 Flow Rate FiO2 08/02/20 06:02 98.4 65 20 136/83 (100) 98 Room Air I & O 08/01/20 08/01/20 08/02/20 15:00 23:00 07:00 Intake Total 360 ml 240 ml Balance 360 ml 240 ml Current Medications: Meds: Current Medications Medications (Trade) Dose Ordered Sig/Stephenie Route PRN Reason Start Time Stop Time Status Last Admin Dose Admin Acetaminophen (Tylenol) 650 mg PRN Q6HRS PRN PO MILD PAIN / TEMP > 100.3'F 07/31/20 13:15 Multi-Ingredient Ointment (Analgesic [place]) 1 han PRN QID PRN TP MUSCLE PAIN 07/31/20 13:15 Al Hydroxide/Mg Hydroxide (Mylanta Plus Xs) 15 ml PRN AFTMEALHC PRN PO DYSPEPSIA 07/31/20 13:15 Magnesium Hydroxide (Milk Of Magnesia) 2,400 mg PRN QHS PRN PO CONSTIPATION 07/31/20 13:15 Acetaminophen (Tylenol) 650 mg PRN Q6HRS PRN PO MILD PAIN / TEMP > 100.3'F 07/31/20 14:15 Cancel Acetaminophen (Tylenol Supp) 650 mg PRN Q4HRS PRN RC MILD PAIN / TEMP > 100.3'F 07/31/20 14:15 Bisacodyl (Dulcolax Supp) 10 mg PRN DAILY PRN RC CONSTIPATION 07/31/20 14:15 Cyanocobalamin (Vitamin B-12) 250 mcg DAILY PO 08/01/20 09:00 08/02/20 08:25 Loperamide HCl (Imodium) 2 mg PRN Q1HR PRN PO DIARRHEA 07/31/20 14:15 Al Hydroxide/Mg Hydroxide (Mylanta Plus Xs) 15 ml PRN AFTMEALHC PRN PO INDIGESTION 07/31/20 14:15 Cancel Magnesium Hydroxide (Milk Of Magnesia) 2,400 mg PRN QHS PRN PO constipation 07/31/20 14:15 Cancel Polyethylene Glycol (miraLAX) 17 gm DAILY PO 08/01/20 09:00 08/02/20 08:25 Quetiapine Fumarate (SEROquel) 25 mg QHS PO 07/31/20 21:00 08/01/20 19:47 Quetiapine Fumarate (SEROquel) 50 mg DAILY PO 08/01/20 09:00 08/02/20 08:25 Sennosides (Senna) 8.6 mg BID PO 07/31/20 21:00 08/02/20 08:25 Trazodone HCl (Desyrel) 50 mg QHS PO 07/31/20 21:00 08/01/20 19:47 Melatonin (Melatonin) 3 mg QHS PO 07/31/20 21:00 08/01/20 19:47 Loperamide HCl (Imodium) 4 mg PRN DAILY PRN PO DIARRHEA 07/31/20 14:45 Rivastigmine (Exelon) 1 patch DAILY TD 08/02/20 09:00 08/05/20 21:00 08/02/20 08:27 Rivastigmine (Exelon) 1 patch DAILY TD 08/06/20 09:00 Sertraline HCl (Zoloft) 25 mg DAILY PO 08/02/20 09:00 08/05/20 21:00 08/02/20 08:27 Sertraline HCl (Zoloft) 50 mg DAILY PO 08/06/20 09:00 Olanzapine (ZyPREXA ZYDIS) 2.5 mg PRN Q2HRS PRN PO PSYCHOSIS 08/01/20 11:15 08/01/20 18:34 DC 08/01/20 17:17 Trazodone HCl (Desyrel) 50 mg PRN QHS PRN PO INSOMNIA, MAY REPEAT IN 1HR 08/01/20 11:15 Vitamin D (Vitamin D3) 50,000 unit WEEKLY PO 08/01/20 17:00 08/01/20 17:31 DC Vitamin D (Vitamin D3) 50,000 unit WEEKLY PO 08/02/20 09:00 08/02/20 08:27 Olanzapine (ZyPREXA ZYDIS) 5 mg PRN Q2HRS PRN PO PSYCHOSIS 08/01/20 18:45 08/02/20 18:05 Current Medications Medications (Trade) Dose Ordered Sig/Stephenie Route PRN Reason Start Time Stop Time Status Last Admin Dose Admin Rivastigmine (Exelon) 1 patch DAILY TD 08/02/20 09:00 08/05/20 21:00 08/02/20 08:27 Sertraline HCl (Zoloft) 25 mg DAILY PO 08/02/20 09:00 08/05/20 21:00 08/02/20 08:27 Vitamin D (Vitamin D3) 50,000 unit WEEKLY PO 08/02/20 09:00 08/02/20 08:27 I have reviewed the current psychotropics carefully including drug interactions. Risk benefit ratio favors no change other than as noted in my dictated progress note. Diagnosis: Problems: (1) Major neurocognitive disorder (2) Impulse control disorder, unspecified (3) Anxiety disorder, unspecified (4) Dementia, vascular, with depression (5) Dementia, vascular, with delusions (6) Dementia in Alzheimer's disease with depression (7) Dementia in Alzheimer's disease with delusions (8) Lewy body dementia with behavioral disturbance FARSHAD CHEEMA MD Aug 02, 2020 21:05
[2020-08-02] MEDS: QUEtiapine 25 MG TABLET. PO SCH (21:08)
[2020-08-02] MEDS: traZODone 50 MG TABLET. PO SCH (21:09)
[2020-08-02] MEDS: MELATONIN 3 MG TABLET PO SCH (21:09)
--- NOTE | 2020-08-02 22:12 | NUR ---
This evening pt has been quiet on unit mainly walking around doing some exit seeking and looking for something familiar. HS meds were taken whole without as much prompting tonight. After meds she sat and was social with nurse and has been walking around in her room.
[2020-08-03 06:04] VITALS: BP 148/74
[2020-08-03] MEDS: CYANOCOBALAMIN (VITAMIN B-12) 250 MCG TABLET. PO SCH (07:46)
[2020-08-03] MEDS: SERTRALINE 25 MG TABLET. PO SCH (07:46)
[2020-08-03] MEDS: RIVASTIGMINE 4.6MG PATCH. TD SCH (07:46)
[2020-08-03] MEDS: QUEtiapine 50 MG TABLET. PO SCH (07:46)
[2020-08-03] MEDS: SENNOSIDES 8.6 MG TABLET PO SCH ×2 (07:46→20:40)
[2020-08-03] MEDS: POLYETHYLENE GLYCOL 3350 17 GM PACKET. PO SCH (07:46)
--- NOTE | 2020-08-03 11:20 | NUR ---
ACTIVITY THERAPY ASSESSMENT completed based on notes, observation and interview. Pt was labile, restless, tearful and became agitated with redirection during time of the assessment. Pt was standing in the hallway holding a brown paper sack. Pt at this time was restless and tearful. Pt had spilt water in her room and tried to clean it up. AT assured pt that staff would help her clean it up.Another pt was sitting outside of pt's room and was influencing what pt was saying. The other pt was not redirectable and made it harder to redirect pt. Pt had accepted magazines from the activity cart earlier on so AT grabbed another magazine to help redirect pt. Pt took magazine from AT and her mood changed. Pt started to wander down the torres so AT walked alongside the pt. Pt started to answer some of the questions for AT. Pt said that she likes baby-sitting, reading magazines and watching movies. Per notes pt also likes dancing, being outdoors, keeping busy, doing yard work and car rides. Pt continued to wander through the halls as AT followed next to her. During this time pt became restless and tearful. AT tried to ask pt about her family and pt often responded with "Why should I tell you?" AT explained why she would like this information and pt became agitated with redirection. Pt gave minimal answers about her family during time of assessment. Pt said that she was and had three children. Pt said that her oldest was 55 and when AT asked later on pt said that her oldest was not 55 and said that was too old as she laughed. Pt has participated in Activity Therapy groups and remained calm and controlled. Initial goal aimed to increase time management and stress management/relaxation skills. Pt will participate in at least three individual or group Activity Therapy sessions per week. Addendum: 08/08/20 at 1151 by ISAAC BEE ACT Goal changed 08/08: Pt. will participate in at least one Activity Therapy group per day
[2020-08-03 15:00] VITALS: BP 150/81
--- NOTE | 2020-08-03 16:58 | NUR ---
Pt up adl in halls. Has been pleasantly confused. Compliant with meds and cares thus far. Pt spoke with family. Visit went well but staff had difficulty getting her to give back the phone.
[2020-08-03] MEDS: QUEtiapine 25 MG TABLET. PO SCH (20:40)
[2020-08-03] MEDS: traZODone 50 MG TABLET. PO SCH (20:40)
[2020-08-03] MEDS: MELATONIN 3 MG TABLET PO SCH (20:40)
--- NOTE | 2020-08-03 20:58 | PDOC ---
Exam Note: Andrés Note: Please also refer to the separate dictated note~for this date of service dictated separately.~Patient seen individually. Discussed the patient with Nursing staff reviewed the chart.~Reviewed interim history and current functioning. Reviewed vital signs,~Labs/ Radiology~and current medications noted below. Continue current treatment with the changes noted in the dictated addendum note Assessment: Vital Signs/I&O: Vital Signs Date Time Temp Pulse Resp B/P (MAP) Pulse Ox O2 Delivery O2 Flow Rate FiO2 08/03/20 15:00 97.6 72 18 150/81 (104) 97 Room Air I & O 08/02/20 08/02/20 08/03/20 14:59 22:59 06:59 Intake Total 720 ml 120 ml Balance 720 ml 120 ml Current Medications: Meds: Current Medications Medications (Trade) Dose Ordered Sig/Stephenie Route PRN Reason Start Time Stop Time Status Last Admin Dose Admin Acetaminophen (Tylenol) 650 mg PRN Q6HRS PRN PO MILD PAIN / TEMP > 100.3'F 07/31/20 13:15 Multi-Ingredient Ointment (Analgesic [place]) 1 han PRN QID PRN TP MUSCLE PAIN 07/31/20 13:15 Al Hydroxide/Mg Hydroxide (Mylanta Plus Xs) 15 ml PRN AFTMEALHC PRN PO DYSPEPSIA 07/31/20 13:15 Magnesium Hydroxide (Milk Of Magnesia) 2,400 mg PRN QHS PRN PO CONSTIPATION 07/31/20 13:15 Acetaminophen (Tylenol) 650 mg PRN Q6HRS PRN PO MILD PAIN / TEMP > 100.3'F 07/31/20 14:15 Cancel Acetaminophen (Tylenol Supp) 650 mg PRN Q4HRS PRN RC MILD PAIN / TEMP > 100.3'F 07/31/20 14:15 Bisacodyl (Dulcolax Supp) 10 mg PRN DAILY PRN RC CONSTIPATION 07/31/20 14:15 Cyanocobalamin (Vitamin B-12) 250 mcg DAILY PO 08/01/20 09:00 08/03/20 07:46 Loperamide HCl (Imodium) 2 mg PRN Q1HR PRN PO DIARRHEA 07/31/20 14:15 Al Hydroxide/Mg Hydroxide (Mylanta Plus Xs) 15 ml PRN AFTMEALHC PRN PO INDIGESTION 07/31/20 14:15 Cancel Magnesium Hydroxide (Milk Of Magnesia) 2,400 mg PRN QHS PRN PO constipation 07/31/20 14:15 Cancel Polyethylene Glycol (miraLAX) 17 gm DAILY PO 08/01/20 09:00 08/03/20 07:46 Quetiapine Fumarate (SEROquel) 25 mg QHS PO 07/31/20 21:00 08/03/20 20:40 Quetiapine Fumarate (SEROquel) 50 mg DAILY PO 08/01/20 09:00 08/03/20 07:46 Sennosides (Senna) 8.6 mg BID PO 07/31/20 21:00 08/03/20 20:40 Trazodone HCl (Desyrel) 50 mg QHS PO 07/31/20 21:00 08/03/20 20:40 Melatonin (Melatonin) 3 mg QHS PO 07/31/20 21:00 08/03/20 20:40 Loperamide HCl (Imodium) 4 mg PRN DAILY PRN PO DIARRHEA 07/31/20 14:45 Rivastigmine (Exelon) 1 patch DAILY TD 08/02/20 09:00 08/05/20 21:00 08/03/20 07:46 Rivastigmine (Exelon) 1 patch DAILY TD 08/06/20 09:00 Sertraline HCl (Zoloft) 25 mg DAILY PO 08/02/20 09:00 08/05/20 21:00 08/03/20 07:46 Sertraline HCl (Zoloft) 50 mg DAILY PO 08/06/20 09:00 Olanzapine (ZyPREXA ZYDIS) 2.5 mg PRN Q2HRS PRN PO PSYCHOSIS 08/01/20 11:15 08/01/20 18:34 DC 08/01/20 17:17 Trazodone HCl (Desyrel) 50 mg PRN QHS PRN PO INSOMNIA, MAY REPEAT IN 1HR 08/01/20 11:15 Vitamin D (Vitamin D3) 50,000 unit WEEKLY PO 08/01/20 17:00 08/01/20 17:31 DC Vitamin D (Vitamin D3) 50,000 unit WEEKLY PO 08/02/20 09:00 08/02/20 08:27 Olanzapine (ZyPREXA ZYDIS) 5 mg PRN Q2HRS PRN PO PSYCHOSIS 08/01/20 18:45 08/03/20 07:48 I have reviewed the current psychotropics carefully including drug interactions. Risk benefit ratio favors no change other than as noted in my dictated progress note. Diagnosis: Problems: (1) Major neurocognitive disorder (2) Impulse control disorder, unspecified (3) Anxiety disorder, unspecified (4) Dementia, vascular, with depression (5) Dementia, vascular, with delusions (6) Dementia in Alzheimer's disease with depression (7) Dementia in Alzheimer's disease with delusions (8) Lewy body dementia with behavioral disturbance FARSHAD CHEEMA MD Aug 03, 2020 20:58
--- NOTE | 2020-08-03 23:12 | NUR ---
Pt located in her room this evening. Pt in bed asleep. A/O to name, . Compliant with whole medications. No behaviors, pt went right back to sleep.
[2020-08-04] MEDS: traZODone 50 MG TABLET. PO PRN (00:21)
[2020-08-04 06:25] VITALS: BP 151/80
[2020-08-04] MEDS: POLYETHYLENE GLYCOL 3350 17 GM PACKET. PO SCH (07:45)
[2020-08-04] MEDS: QUEtiapine 50 MG TABLET. PO SCH (07:45)
[2020-08-04] MEDS: CYANOCOBALAMIN (VITAMIN B-12) 250 MCG TABLET. PO SCH (07:45)
[2020-08-04] MEDS: RIVASTIGMINE 4.6MG PATCH. TD SCH (07:45)
[2020-08-04] MEDS: SERTRALINE 25 MG TABLET. PO SCH (07:46)
[2020-08-04] MEDS: SENNOSIDES 8.6 MG TABLET PO SCH ×2 (07:46→20:38)
[2020-08-04 16:33] VITALS: BP 138/68
--- NOTE | 2020-08-04 17:42 | NUR ---
Pt up adl in halls. Pt tearful at breakfast. Zydis given. Has wandered in halls with another peer. Has been pleasantly confused. Compliant with meds and cares.
[2020-08-04] MEDS: traZODone 50 MG TABLET. PO SCH (20:38)
[2020-08-04] MEDS: QUEtiapine 25 MG TABLET. PO SCH (20:38)
[2020-08-04] MEDS: MELATONIN 3 MG TABLET PO SCH (20:38)
[2020-08-04] MEDS: DIVALPROEX 125 MG CAP.SPRINK PO SCH (20:40)
--- NOTE | 2020-08-04 20:51 | PDOC ---
Exam Note: Andrés Note: This note is a late entry for 08/02/2020 covers elements not covered in my initial note. Subjective: The patient was seen face to face in the evening of 08/02/2020 with Adriana JAMESON. Discussed with nursing staff, reviewed the chart. The patient slept 7 hours previous night. The patient remains confused, was joking in the morning. She was agitated for a couple of hours earlier in the day since she was upset Bingo was being played for fun rather than for money. Review of Systems: Ambulation impaired. No CV, , pulmonary, eye, ENT system symptoms on review. Reliability poor. Mental Status Exam: The patient is oriented to herself. Insight and judgment, recent and remote memory, attention and concentration, fund of knowledge is poor consistent with her diagnoses. Laboratory Data: Reviewed. 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 Anxiety disorder unspecified. Impulse control disorder unspecified. Plan: We will increase the Exelon patch given her diagnosis of Lewy body dementia. Maintain Zoloft, trazodone, melatonin, Seroquel. Adjust further as clinically indicated. Assessment: Vital Signs/I&O: Vital Signs Date Time Temp Pulse Resp B/P (MAP) Pulse Ox O2 Delivery O2 Flow Rate FiO2 08/04/20 16:33 97.5 85 18 138/68 (91) 97 08/04/20 06:25 Room Air I & O 08/03/20 08/03/20 08/04/20 15:00 23:00 07:00 Intake Total 480 ml 360 ml Balance 480 ml 360 ml Current Medications: Meds: Current Medications Medications (Trade) Dose Ordered Sig/Stephenie Route PRN Reason Start Time Stop Time Status Last Admin Dose Admin Acetaminophen (Tylenol) 650 mg PRN Q6HRS PRN PO MILD PAIN / TEMP > 100.3'F 07/31/20 13:15 Multi-Ingredient Ointment (Analgesic [place]) 1 han PRN QID PRN TP MUSCLE PAIN 07/31/20 13:15 Al Hydroxide/Mg Hydroxide (Mylanta Plus Xs) 15 ml PRN AFTMEALHC PRN PO DYSPEPSIA 07/31/20 13:15 Magnesium Hydroxide (Milk Of Magnesia) 2,400 mg PRN QHS PRN PO CONSTIPATION 07/31/20 13:15 Acetaminophen (Tylenol) 650 mg PRN Q6HRS PRN PO MILD PAIN / TEMP > 100.3'F 07/31/20 14:15 Cancel Acetaminophen (Tylenol Supp) 650 mg PRN Q4HRS PRN RC MILD PAIN / TEMP > 100.3'F 07/31/20 14:15 Bisacodyl (Dulcolax Supp) 10 mg PRN DAILY PRN RC CONSTIPATION 07/31/20 14:15 Cyanocobalamin (Vitamin B-12) 250 mcg DAILY PO 08/01/20 09:00 08/04/20 07:45 Loperamide HCl (Imodium) 2 mg PRN Q1HR PRN PO DIARRHEA 07/31/20 14:15 Al Hydroxide/Mg Hydroxide (Mylanta Plus Xs) 15 ml PRN AFTMEALHC PRN PO INDIGESTION 07/31/20 14:15 Cancel Magnesium Hydroxide (Milk Of Magnesia) 2,400 mg PRN QHS PRN PO constipation 07/31/20 14:15 Cancel Polyethylene Glycol (miraLAX) 17 gm DAILY PO 08/01/20 09:00 08/04/20 07:45 Quetiapine Fumarate (SEROquel) 25 mg QHS PO 07/31/20 21:00 08/04/20 20:38 Quetiapine Fumarate (SEROquel) 50 mg DAILY PO 08/01/20 09:00 08/04/20 07:45 Sennosides (Senna) 8.6 mg BID PO 07/31/20 21:00 08/04/20 20:38 Trazodone HCl (Desyrel) 50 mg QHS PO 07/31/20 21:00 08/04/20 20:38 Melatonin (Melatonin) 3 mg QHS PO 07/31/20 21:00 08/04/20 20:38 Loperamide HCl (Imodium) 4 mg PRN DAILY PRN PO DIARRHEA 07/31/20 14:45 Rivastigmine (Exelon) 1 patch DAILY TD 08/02/20 09:00 08/05/20 21:00 08/04/20 07:45 Rivastigmine (Exelon) 1 patch DAILY TD 08/06/20 09:00 Sertraline HCl (Zoloft) 25 mg DAILY PO 08/02/20 09:00 08/05/20 21:00 08/04/20 07:46 Sertraline HCl (Zoloft) 50 mg DAILY PO 08/06/20 09:00 Olanzapine (ZyPREXA ZYDIS) 2.5 mg PRN Q2HRS PRN PO PSYCHOSIS 08/01/20 11:15 08/01/20 18:34 DC 08/01/20 17:17 Trazodone HCl (Desyrel) 50 mg PRN QHS PRN PO INSOMNIA, MAY REPEAT IN 1HR 08/01/20 11:15 08/04/20 00:21 Vitamin D (Vitamin D3) 50,000 unit WEEKLY PO 08/01/20 17:00 08/01/20 17:31 DC Vitamin D (Vitamin D3) 50,000 unit WEEKLY PO 08/02/20 09:00 08/02/20 08:27 Olanzapine (ZyPREXA ZYDIS) 5 mg PRN Q2HRS PRN PO PSYCHOSIS 08/01/20 18:45 08/04/20 07:47 Divalproex Sodium (Depakote Sprinkles) 250 mg HS PO 08/04/20 21:00 08/04/20 20:40 Current Medications Medications (Trade) Dose Ordered Sig/Stephenie Route PRN Reason Start Time Stop Time Status Last Admin Dose Admin Divalproex Sodium (Depakote Sprinkles) 250 mg HS PO 08/04/20 21:00 08/04/20 20:40 I have reviewed the current psychotropics carefully including drug interactions. Risk benefit ratio favors no change other than as noted in my dictated progress note. Diagnosis: Problems: (1) Major neurocognitive disorder (2) Impulse control disorder, unspecified (3) Anxiety disorder, unspecified (4) Dementia, vascular, with depression (5) Dementia, vascular, with delusions (6) Abnormal WBC count (7) Dementia in Alzheimer's disease with depression (8) Dementia in Alzheimer's disease with delusions (9) Lewy body dementia with behavioral disturbance FARSHAD CEHEMA MD Aug 04, 2020 20:51
--- NOTE | 2020-08-04 21:26 | PDOC ---
Exam Note: Andrés Note: This note is a late entry for 08/03/2020 covers elements not covered in my initial note. Subjective: The patient was seen face to face in the evening of 08/03/2020 with Adriana JAMESON. Discussed with nursing staff, reviewed the chart. The patient slept 6 hours previous night. She remains confused, spends much time in her room, restless, anxious. She received Zyprexa in the morning which was helpful. She had a telephone call from what appeared to be her grandson and she did well during the call. Review of Systems: Ambulation impaired. No CV, , pulmonary, eye, ENT system symptoms on review. Reliability poor. Mental Status Exam: The patient is reasonably oriented. Insight and judgment, recent and remote memory, attention and concentration, fund of knowledge is poor consistent with her diagnoses. Laboratory Data: Reviewed. 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 Anxiety disorder unspecified. Impulse control disorder unspecified. Plan: No change from initial note. Continue to adjust the psychotropics gradually. Assessment: Vital Signs/I&O: Vital Signs Date Time Temp Pulse Resp B/P (MAP) Pulse Ox O2 Delivery O2 Flow Rate FiO2 08/04/20 16:33 97.5 85 18 138/68 (91) 97 08/04/20 06:25 Room Air I & O 08/03/20 08/03/20 08/04/20 14:59 22:59 06:59 Intake Total 480 ml 360 ml Balance 480 ml 360 ml Current Medications: Meds: Current Medications Medications (Trade) Dose Ordered Sig/Stephenie Route PRN Reason Start Time Stop Time Status Last Admin Dose Admin Acetaminophen (Tylenol) 650 mg PRN Q6HRS PRN PO MILD PAIN / TEMP > 100.3'F 07/31/20 13:15 Multi-Ingredient Ointment (Analgesic [place]) 1 han PRN QID PRN TP MUSCLE PAIN 07/31/20 13:15 Al Hydroxide/Mg Hydroxide (Mylanta Plus Xs) 15 ml PRN AFTMEALHC PRN PO DYSPEPSIA 07/31/20 13:15 Magnesium Hydroxide (Milk Of Magnesia) 2,400 mg PRN QHS PRN PO CONSTIPATION 07/31/20 13:15 Acetaminophen (Tylenol) 650 mg PRN Q6HRS PRN PO MILD PAIN / TEMP > 100.3'F 07/31/20 14:15 Cancel Acetaminophen (Tylenol Supp) 650 mg PRN Q4HRS PRN RC MILD PAIN / TEMP > 100.3'F 07/31/20 14:15 Bisacodyl (Dulcolax Supp) 10 mg PRN DAILY PRN RC CONSTIPATION 07/31/20 14:15 Cyanocobalamin (Vitamin B-12) 250 mcg DAILY PO 08/01/20 09:00 08/04/20 07:45 Loperamide HCl (Imodium) 2 mg PRN Q1HR PRN PO DIARRHEA 07/31/20 14:15 Al Hydroxide/Mg Hydroxide (Mylanta Plus Xs) 15 ml PRN AFTMEALHC PRN PO INDIGESTION 07/31/20 14:15 Cancel Magnesium Hydroxide (Milk Of Magnesia) 2,400 mg PRN QHS PRN PO constipation 07/31/20 14:15 Cancel Polyethylene Glycol (miraLAX) 17 gm DAILY PO 08/01/20 09:00 08/04/20 07:45 Quetiapine Fumarate (SEROquel) 25 mg QHS PO 07/31/20 21:00 08/04/20 20:38 Quetiapine Fumarate (SEROquel) 50 mg DAILY PO 08/01/20 09:00 08/04/20 07:45 Sennosides (Senna) 8.6 mg BID PO 07/31/20 21:00 08/04/20 20:38 Trazodone HCl (Desyrel) 50 mg QHS PO 07/31/20 21:00 08/04/20 20:38 Melatonin (Melatonin) 3 mg QHS PO 07/31/20 21:00 08/04/20 20:38 Loperamide HCl (Imodium) 4 mg PRN DAILY PRN PO DIARRHEA 07/31/20 14:45 Rivastigmine (Exelon) 1 patch DAILY TD 08/02/20 09:00 08/05/20 21:00 08/04/20 07:45 Rivastigmine (Exelon) 1 patch DAILY TD 08/06/20 09:00 Sertraline HCl (Zoloft) 25 mg DAILY PO 08/02/20 09:00 08/05/20 21:00 08/04/20 07:46 Sertraline HCl (Zoloft) 50 mg DAILY PO 08/06/20 09:00 Olanzapine (ZyPREXA ZYDIS) 2.5 mg PRN Q2HRS PRN PO PSYCHOSIS 08/01/20 11:15 08/01/20 18:34 DC 08/01/20 17:17 Trazodone HCl (Desyrel) 50 mg PRN QHS PRN PO INSOMNIA, MAY REPEAT IN 1HR 08/01/20 11:15 08/04/20 00:21 Vitamin D (Vitamin D3) 50,000 unit WEEKLY PO 08/01/20 17:00 08/01/20 17:31 DC Vitamin D (Vitamin D3) 50,000 unit WEEKLY PO 08/02/20 09:00 08/02/20 08:27 Olanzapine (ZyPREXA ZYDIS) 5 mg PRN Q2HRS PRN PO PSYCHOSIS 08/01/20 18:45 08/04/20 07:47 Divalproex Sodium (Depakote Sprinkles) 250 mg HS PO 08/04/20 21:00 08/04/20 20:40 Current Medications Medications (Trade) Dose Ordered Sig/Stephenie Route PRN Reason Start Time Stop Time Status Last Admin Dose Admin Divalproex Sodium (Depakote Sprinkles) 250 mg HS PO 08/04/20 21:00 08/04/20 20:40 I have reviewed the current psychotropics carefully including drug interactions. Risk benefit ratio favors no change other than as noted in my dictated progress note. Diagnosis: Problems: (1) Major neurocognitive disorder (2) Impulse control disorder, unspecified (3) Anxiety disorder, unspecified (4) Dementia, vascular, with depression (5) Dementia, vascular, with delusions (6) Abnormal WBC count (7) Dementia in Alzheimer's disease with depression (8) Dementia in Alzheimer's disease with delusions (9) Lewy body dementia with behavioral disturbance FARSHAD CHEEMA MD Aug 04, 2020 21:26
--- NOTE | 2020-08-04 21:27 | PDOC ---
Exam Note: Andrés Note: Please also refer to the separate dictated note~for this date of service dictated separately.~Patient seen individually. Discussed the patient with Nursing staff reviewed the chart.~Reviewed interim history and current functioning. Reviewed vital signs,~Labs/ Radiology~and current medications noted below. Continue current treatment with the changes noted in the dictated addendum note Assessment: Vital Signs/I&O: Vital Signs Date Time Temp Pulse Resp B/P (MAP) Pulse Ox O2 Delivery O2 Flow Rate FiO2 08/04/20 16:33 97.5 85 18 138/68 (91) 97 08/04/20 06:25 Room Air I & O 08/03/20 08/03/20 08/04/20 14:59 22:59 06:59 Intake Total 480 ml 360 ml Balance 480 ml 360 ml Current Medications: Meds: Current Medications Medications (Trade) Dose Ordered Sig/Stephenie Route PRN Reason Start Time Stop Time Status Last Admin Dose Admin Acetaminophen (Tylenol) 650 mg PRN Q6HRS PRN PO MILD PAIN / TEMP > 100.3'F 07/31/20 13:15 Multi-Ingredient Ointment (Analgesic [place]) 1 han PRN QID PRN TP MUSCLE PAIN 07/31/20 13:15 Al Hydroxide/Mg Hydroxide (Mylanta Plus Xs) 15 ml PRN AFTMEALHC PRN PO DYSPEPSIA 07/31/20 13:15 Magnesium Hydroxide (Milk Of Magnesia) 2,400 mg PRN QHS PRN PO CONSTIPATION 07/31/20 13:15 Acetaminophen (Tylenol) 650 mg PRN Q6HRS PRN PO MILD PAIN / TEMP > 100.3'F 07/31/20 14:15 Cancel Acetaminophen (Tylenol Supp) 650 mg PRN Q4HRS PRN RC MILD PAIN / TEMP > 100.3'F 07/31/20 14:15 Bisacodyl (Dulcolax Supp) 10 mg PRN DAILY PRN RC CONSTIPATION 07/31/20 14:15 Cyanocobalamin (Vitamin B-12) 250 mcg DAILY PO 08/01/20 09:00 08/04/20 07:45 Loperamide HCl (Imodium) 2 mg PRN Q1HR PRN PO DIARRHEA 07/31/20 14:15 Al Hydroxide/Mg Hydroxide (Mylanta Plus Xs) 15 ml PRN AFTMEALHC PRN PO INDIGESTION 07/31/20 14:15 Cancel Magnesium Hydroxide (Milk Of Magnesia) 2,400 mg PRN QHS PRN PO constipation 07/31/20 14:15 Cancel Polyethylene Glycol (miraLAX) 17 gm DAILY PO 08/01/20 09:00 08/04/20 07:45 Quetiapine Fumarate (SEROquel) 25 mg QHS PO 07/31/20 21:00 08/04/20 20:38 Quetiapine Fumarate (SEROquel) 50 mg DAILY PO 08/01/20 09:00 08/04/20 07:45 Sennosides (Senna) 8.6 mg BID PO 07/31/20 21:00 08/04/20 20:38 Trazodone HCl (Desyrel) 50 mg QHS PO 07/31/20 21:00 08/04/20 20:38 Melatonin (Melatonin) 3 mg QHS PO 07/31/20 21:00 08/04/20 20:38 Loperamide HCl (Imodium) 4 mg PRN DAILY PRN PO DIARRHEA 07/31/20 14:45 Rivastigmine (Exelon) 1 patch DAILY TD 08/02/20 09:00 08/05/20 21:00 08/04/20 07:45 Rivastigmine (Exelon) 1 patch DAILY TD 08/06/20 09:00 Sertraline HCl (Zoloft) 25 mg DAILY PO 08/02/20 09:00 08/05/20 21:00 08/04/20 07:46 Sertraline HCl (Zoloft) 50 mg DAILY PO 08/06/20 09:00 Olanzapine (ZyPREXA ZYDIS) 2.5 mg PRN Q2HRS PRN PO PSYCHOSIS 08/01/20 11:15 08/01/20 18:34 DC 08/01/20 17:17 Trazodone HCl (Desyrel) 50 mg PRN QHS PRN PO INSOMNIA, MAY REPEAT IN 1HR 08/01/20 11:15 08/04/20 00:21 Vitamin D (Vitamin D3) 50,000 unit WEEKLY PO 08/01/20 17:00 08/01/20 17:31 DC Vitamin D (Vitamin D3) 50,000 unit WEEKLY PO 08/02/20 09:00 08/02/20 08:27 Olanzapine (ZyPREXA ZYDIS) 5 mg PRN Q2HRS PRN PO PSYCHOSIS 08/01/20 18:45 08/04/20 07:47 Divalproex Sodium (Depakote Sprinkles) 250 mg HS PO 08/04/20 21:00 08/04/20 20:40 Current Medications Medications (Trade) Dose Ordered Sig/Stephenie Route PRN Reason Start Time Stop Time Status Last Admin Dose Admin Divalproex Sodium (Depakote Sprinkles) 250 mg HS PO 08/04/20 21:00 08/04/20 20:40 I have reviewed the current psychotropics carefully including drug interactions. Risk benefit ratio favors no change other than as noted in my dictated progress note. Diagnosis: Problems: (1) Major neurocognitive disorder (2) Impulse control disorder, unspecified (3) Anxiety disorder, unspecified (4) Dementia, vascular, with depression (5) Dementia, vascular, with delusions (6) Dementia in Alzheimer's disease with depression (7) Dementia in Alzheimer's disease with delusions (8) Lewy body dementia with behavioral disturbance FARSHAD CHEEMA MD Aug 04, 2020 21:27
--- NOTE | 2020-08-04 23:17 | NUR ---
Pt located in her room this evening. Calm and pleasantly confused. Compliant with whole medications.
[2020-08-05 06:09] VITALS: BP 145/76
--- NOTE | 2020-08-05 08:13 | PDOC ---
Exam Note: Andrés Note: This note is a late entry for 08/04/2020 covers elements not covered in my initial note. Subjective: The patient was seen face to face in the evening of 08/04/2020 with Adriana JAMESON. Discussed with nursing staff, reviewed the chart. The patient slept 8 hours previous night. She remains confused, compliant with her medications, tearful at times, irritable at other times. She was holding hands with one of the other demented patients on the unit. She seems to have a [place] accent. Review of Systems: Ambulation impaired. No CV, , pulmonary, eye, ENT system symptoms on review. Reliability poor. Mental Status Exam: The patient is oriented to herself. I met with the patient in her room. Insight and judgment, recent and remote memory, attention and concentration, fund of knowledge is poor consistent with her diagnoses. Laboratory Data: Reviewed. 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 Anxiety disorder unspecified. Impulse control disorder unspecified. Plan: Continue psychotropics from initial note. Start Depakote Sprinkles 250 mg h.s. Check CBC, CMP, valproic acid level in 3 days. Rest unchanged for now. Adjust to reach therapeutic level. Assessment: Vital Signs/I&O: Vital Signs Date Time Temp Pulse Resp B/P (MAP) Pulse Ox O2 Delivery O2 Flow Rate FiO2 08/05/20 06:09 98.5 65 18 145/76 (99) 98 Room Air I & O 08/04/20 08/04/20 08/05/20 14:59 22:59 06:59 Intake Total 480 ml 240 ml Balance 480 ml 240 ml Current Medications: Meds: Current Medications Medications (Trade) Dose Ordered Sig/Stephenie Route PRN Reason Start Time Stop Time Status Last Admin Dose Admin Acetaminophen (Tylenol) 650 mg PRN Q6HRS PRN PO MILD PAIN / TEMP > 100.3'F 07/31/20 13:15 Multi-Ingredient Ointment (Analgesic [place]) 1 han PRN QID PRN TP MUSCLE PAIN 07/31/20 13:15 Al Hydroxide/Mg Hydroxide (Mylanta Plus Xs) 15 ml PRN AFTMEALHC PRN PO DYSPEPSIA 07/31/20 13:15 Magnesium Hydroxide (Milk Of Magnesia) 2,400 mg PRN QHS PRN PO CONSTIPATION 07/31/20 13:15 Acetaminophen (Tylenol) 650 mg PRN Q6HRS PRN PO MILD PAIN / TEMP > 100.3'F 07/31/20 14:15 Cancel Acetaminophen (Tylenol Supp) 650 mg PRN Q4HRS PRN RC MILD PAIN / TEMP > 100.3'F 07/31/20 14:15 Bisacodyl (Dulcolax Supp) 10 mg PRN DAILY PRN RC CONSTIPATION 07/31/20 14:15 Cyanocobalamin (Vitamin B-12) 250 mcg DAILY PO 08/01/20 09:00 08/04/20 07:45 Loperamide HCl (Imodium) 2 mg PRN Q1HR PRN PO DIARRHEA 07/31/20 14:15 Al Hydroxide/Mg Hydroxide (Mylanta Plus Xs) 15 ml PRN AFTMEALHC PRN PO INDIGESTION 07/31/20 14:15 Cancel Magnesium Hydroxide (Milk Of Magnesia) 2,400 mg PRN QHS PRN PO constipation 07/31/20 14:15 Cancel Polyethylene Glycol (miraLAX) 17 gm DAILY PO 08/01/20 09:00 08/04/20 07:45 Quetiapine Fumarate (SEROquel) 25 mg QHS PO 07/31/20 21:00 08/04/20 20:38 Quetiapine Fumarate (SEROquel) 50 mg DAILY PO 08/01/20 09:00 08/04/20 07:45 Sennosides (Senna) 8.6 mg BID PO 07/31/20 21:00 08/04/20 20:38 Trazodone HCl (Desyrel) 50 mg QHS PO 07/31/20 21:00 08/04/20 20:38 Melatonin (Melatonin) 3 mg QHS PO 07/31/20 21:00 08/04/20 20:38 Loperamide HCl (Imodium) 4 mg PRN DAILY PRN PO DIARRHEA 07/31/20 14:45 Rivastigmine (Exelon) 1 patch DAILY TD 08/02/20 09:00 08/05/20 21:00 08/04/20 07:45 Rivastigmine (Exelon) 1 patch DAILY TD 08/06/20 09:00 Sertraline HCl (Zoloft) 25 mg DAILY PO 08/02/20 09:00 08/05/20 21:00 08/04/20 07:46 Sertraline HCl (Zoloft) 50 mg DAILY PO 08/06/20 09:00 Olanzapine (ZyPREXA ZYDIS) 2.5 mg PRN Q2HRS PRN PO PSYCHOSIS 08/01/20 11:15 08/01/20 18:34 DC 08/01/20 17:17 Trazodone HCl (Desyrel) 50 mg PRN QHS PRN PO INSOMNIA, MAY REPEAT IN 1HR 08/01/20 11:15 08/04/20 00:21 Vitamin D (Vitamin D3) 50,000 unit WEEKLY PO 08/01/20 17:00 08/01/20 17:31 DC Vitamin D (Vitamin D3) 50,000 unit WEEKLY PO 08/02/20 09:00 08/02/20 08:27 Olanzapine (ZyPREXA ZYDIS) 5 mg PRN Q2HRS PRN PO PSYCHOSIS 08/01/20 18:45 08/04/20 07:47 Divalproex Sodium (Depakote Sprinkles) 250 mg HS PO 08/04/20 21:00 08/04/20 20:40 Current Medications Medications (Trade) Dose Ordered Sig/Stephenie Route PRN Reason Start Time Stop Time Status Last Admin Dose Admin Divalproex Sodium (Depakote Sprinkles) 250 mg HS PO 08/04/20 21:00 08/04/20 20:40 I have reviewed the current psychotropics carefully including drug interactions. Risk benefit ratio favors no change other than as noted in my dictated progress note. Diagnosis: Problems: (1) Major neurocognitive disorder (2) Impulse control disorder, unspecified (3) Anxiety disorder, unspecified (4) Dementia, vascular, with depression (5) Dementia, vascular, with delusions (6) Abnormal WBC count (7) Dementia in Alzheimer's disease with depression (8) Dementia in Alzheimer's disease with delusions (9) Lewy body dementia with behavioral disturbance FARSHAD CHEEMA MD Aug 05, 2020 08:13
[2020-08-05] MEDS: POLYETHYLENE GLYCOL 3350 17 GM PACKET. PO SCH ×2 (09:00→09:22)
[2020-08-05] MEDS: CYANOCOBALAMIN (VITAMIN B-12) 250 MCG TABLET. PO SCH ×2 (09:00→09:23)
[2020-08-05] MEDS: RIVASTIGMINE 4.6MG PATCH. TD SCH ×2 (09:00→09:23)
[2020-08-05] MEDS: SENNOSIDES 8.6 MG TABLET PO SCH ×3 (09:00→20:29)
[2020-08-05] MEDS: SERTRALINE 25 MG TABLET. PO SCH (09:22)
[2020-08-05] MEDS: QUEtiapine 50 MG TABLET. PO SCH (09:22)
--- NOTE | 2020-08-05 14:56 | NUR ---
Faxed current notes, medication list, and labs to Maria Luisa at [facility] per request for review.
--- NOTE | 2020-08-05 15:05 | NUR ---
Nursing note: Pt in her room at time of AM med pass and assessment. She was very resistive with her meds, yelling at staff and refusing her meds. Psych meds were crushed and given sublingually with staff assist x3. Pt has been socializing and spending most of the shift with another female pt on the unit. Will continue to monitor.
[2020-08-05 16:16] VITALS: BP 184/74
[2020-08-05] MEDS: MELATONIN 3 MG TABLET PO SCH (20:29)
[2020-08-05] MEDS: DIVALPROEX 125 MG CAP.SPRINK PO SCH (20:29)
[2020-08-05] MEDS: QUEtiapine 25 MG TABLET. PO SCH (20:29)
[2020-08-05] MEDS: traZODone 50 MG TABLET. PO SCH (20:29)
--- NOTE | 2020-08-05 21:00 | PDOC ---
Exam Note: Andrés Note: Please also refer to the separate dictated note~for this date of service dictated separately.~Patient seen individually. Discussed the patient with Nursing staff reviewed the chart.~Reviewed interim history and current functioning. Reviewed vital signs,~Labs/ Radiology~and current medications noted below. Continue current treatment with the changes noted in the dictated addendum note Assessment: Vital Signs/I&O: Vital Signs Date Time Temp Pulse Resp B/P (MAP) Pulse Ox O2 Delivery O2 Flow Rate FiO2 08/05/20 16:16 98.1 81 20 184/74 (110) 96 08/05/20 06:09 Room Air I & O 08/04/20 08/04/20 08/05/20 15:00 23:00 07:00 Intake Total 480 ml 240 ml Balance 480 ml 240 ml Current Medications: Meds: Current Medications Medications (Trade) Dose Ordered Sig/Stephenie Route PRN Reason Start Time Stop Time Status Last Admin Dose Admin Acetaminophen (Tylenol) 650 mg PRN Q6HRS PRN PO MILD PAIN / TEMP > 100.3'F 07/31/20 13:15 Multi-Ingredient Ointment (Analgesic [place]) 1 han PRN QID PRN TP MUSCLE PAIN 07/31/20 13:15 Al Hydroxide/Mg Hydroxide (Mylanta Plus Xs) 15 ml PRN AFTMEALHC PRN PO DYSPEPSIA 07/31/20 13:15 Magnesium Hydroxide (Milk Of Magnesia) 2,400 mg PRN QHS PRN PO 1ST CHOICE CONSTIPATION 07/31/20 13:15 Acetaminophen (Tylenol) 650 mg PRN Q6HRS PRN PO MILD PAIN / TEMP > 100.3'F 07/31/20 14:15 Cancel Acetaminophen (Tylenol Supp) 650 mg PRN Q4HRS PRN RC MILD PAIN / TEMP > 100.3'F 07/31/20 14:15 Bisacodyl (Dulcolax Supp) 10 mg PRN DAILY PRN RC 2ND CHOICE CONSTIPATION 07/31/20 14:15 Cyanocobalamin (Vitamin B-12) 250 mcg DAILY PO 08/01/20 09:00 08/04/20 07:45 Loperamide HCl (Imodium) 2 mg PRN Q1HR PRN PO MOD-SEVERE DIARRHEA 07/31/20 14:15 Al Hydroxide/Mg Hydroxide (Mylanta Plus Xs) 15 ml PRN AFTMEALHC PRN PO INDIGESTION 07/31/20 14:15 Cancel Magnesium Hydroxide (Milk Of Magnesia) 2,400 mg PRN QHS PRN PO constipation 07/31/20 14:15 Cancel Polyethylene Glycol (miraLAX) 17 gm DAILY PO 08/01/20 09:00 08/04/20 07:45 Quetiapine Fumarate (SEROquel) 25 mg QHS PO 07/31/20 21:00 08/05/20 20:29 Quetiapine Fumarate (SEROquel) 50 mg DAILY PO 08/01/20 09:00 08/05/20 09:22 Sennosides (Senna) 8.6 mg BID PO 07/31/20 21:00 08/05/20 20:29 Trazodone HCl (Desyrel) 50 mg QHS PO 07/31/20 21:00 08/05/20 20:29 Melatonin (Melatonin) 3 mg QHS PO 07/31/20 21:00 08/05/20 20:29 Loperamide HCl (Imodium) 4 mg PRN DAILY PRN PO MILD DIARRHEA 07/31/20 14:45 Rivastigmine (Exelon) 1 patch DAILY TD 08/02/20 09:00 08/05/20 21:00 08/04/20 07:45 Rivastigmine (Exelon) 1 patch DAILY TD 08/06/20 09:00 Sertraline HCl (Zoloft) 25 mg DAILY PO 08/02/20 09:00 08/05/20 21:00 08/05/20 09:22 Sertraline HCl (Zoloft) 50 mg DAILY PO 08/06/20 09:00 Olanzapine (ZyPREXA ZYDIS) 2.5 mg PRN Q2HRS PRN PO PSYCHOSIS 08/01/20 11:15 08/01/20 18:34 DC 08/01/20 17:17 Trazodone HCl (Desyrel) 50 mg PRN QHS PRN PO INSOMNIA, MAY REPEAT IN 1HR 08/01/20 11:15 08/04/20 00:21 Vitamin D (Vitamin D3) 50,000 unit WEEKLY PO 08/01/20 17:00 08/01/20 17:31 DC Vitamin D (Vitamin D3) 50,000 unit WEEKLY PO 08/02/20 09:00 08/02/20 08:27 Olanzapine (ZyPREXA ZYDIS) 5 mg PRN Q2HRS PRN PO PSYCHOSIS 08/01/20 18:45 08/04/20 07:47 Divalproex Sodium (Depakote Sprinkles) 250 mg HS PO 08/04/20 21:00 08/05/20 20:29 Current Medications Medications (Trade) Dose Ordered Sig/Stephenie Route PRN Reason Start Time Stop Time Status Last Admin Dose Admin Divalproex Sodium (Depakote Sprinkles) 250 mg HS PO 08/04/20 21:00 08/05/20 20:29 I have reviewed the current psychotropics carefully including drug interactions. Risk benefit ratio favors no change other than as noted in my dictated progress note. Diagnosis: Problems: (1) Major neurocognitive disorder (2) Impulse control disorder, unspecified (3) Anxiety disorder, unspecified (4) Dementia, vascular, with depression (5) Dementia, vascular, with delusions (6) Dementia in Alzheimer's disease with depression (7) Dementia in Alzheimer's disease with delusions (8) Lewy body dementia with behavioral disturbance FARSHAD CHEEMA MD Aug 05, 2020 21:00
--- NOTE | 2020-08-05 23:02 | NUR ---
Pt was in her room all evening sleeping in bed. Pt pleasant when woken up and was compliant with whole medications. No agitation this evening.
[2020-08-06 06:27] VITALS: BP 116/69
[2020-08-06] MEDS: SENNOSIDES 8.6 MG TABLET PO SCH ×2 (07:57→20:33)
[2020-08-06] MEDS: CYANOCOBALAMIN (VITAMIN B-12) 250 MCG TABLET. PO SCH (07:57)
[2020-08-06] MEDS: QUEtiapine 50 MG TABLET. PO SCH (07:57)
[2020-08-06] MEDS: POLYETHYLENE GLYCOL 3350 17 GM PACKET. PO SCH (07:58)
[2020-08-06] MEDS: RIVASTIGMINE 9.5MG PATCH. TD SCH (08:01)
[2020-08-06] MEDS: SERTRALINE 50 MG TABLET. PO SCH (08:01)
[2020-08-06] MEDS: QUEtiapine 25 MG TABLET. PO SCH ×2 (12:35→20:33)
[2020-08-06 15:34] VITALS: BP 115/52
[2020-08-06] MEDS: MELATONIN 3 MG TABLET PO SCH (20:33)
[2020-08-06] MEDS: DIVALPROEX 125 MG CAP.SPRINK PO SCH (20:33)
[2020-08-06] MEDS: traZODone 50 MG TABLET. PO SCH (20:33)
--- NOTE | 2020-08-06 20:55 | PDOC ---
Exam Note: Andrés Note: Please also refer to the separate dictated note~for this date of service dictated separately.~Patient seen individually. Discussed the patient with Nursing staff reviewed the chart.~Reviewed interim history and current functioning. Reviewed vital signs,~Labs/ Radiology~and current medications noted below. Continue current treatment with the changes noted in the dictated addendum note Assessment: Vital Signs/I&O: Vital Signs Date Time Temp Pulse Resp B/P (MAP) Pulse Ox O2 Delivery O2 Flow Rate FiO2 08/06/20 15:34 97.2 71 16 115/52 (73) 95 08/06/20 06:27 Room Air I & O 08/05/20 08/05/20 08/06/20 15:00 23:00 07:00 Intake Total 360 ml 320 ml Balance 360 ml 320 ml Current Medications: Meds: Current Medications Medications (Trade) Dose Ordered Sig/Stephenie Route PRN Reason Start Time Stop Time Status Last Admin Dose Admin Acetaminophen (Tylenol) 650 mg PRN Q6HRS PRN PO MILD PAIN / TEMP > 100.3'F 07/31/20 13:15 Multi-Ingredient Ointment (Analgesic [place]) 1 han PRN QID PRN TP MUSCLE PAIN 07/31/20 13:15 Al Hydroxide/Mg Hydroxide (Mylanta Plus Xs) 15 ml PRN AFTMEALHC PRN PO DYSPEPSIA 07/31/20 13:15 Magnesium Hydroxide (Milk Of Magnesia) 2,400 mg PRN QHS PRN PO 1ST CHOICE CONSTIPATION 07/31/20 13:15 Acetaminophen (Tylenol) 650 mg PRN Q6HRS PRN PO MILD PAIN / TEMP > 100.3'F 07/31/20 14:15 Cancel Acetaminophen (Tylenol Supp) 650 mg PRN Q4HRS PRN RC MILD PAIN / TEMP > 100.3'F 07/31/20 14:15 Bisacodyl (Dulcolax Supp) 10 mg PRN DAILY PRN RC 2ND CHOICE CONSTIPATION 07/31/20 14:15 Cyanocobalamin (Vitamin B-12) 250 mcg DAILY PO 08/01/20 09:00 08/06/20 07:57 Loperamide HCl (Imodium) 2 mg PRN Q1HR PRN PO MOD-SEVERE DIARRHEA 07/31/20 14:15 Al Hydroxide/Mg Hydroxide (Mylanta Plus Xs) 15 ml PRN AFTMEALHC PRN PO INDIGESTION 07/31/20 14:15 Cancel Magnesium Hydroxide (Milk Of Magnesia) 2,400 mg PRN QHS PRN PO constipation 07/31/20 14:15 Cancel Polyethylene Glycol (miraLAX) 17 gm DAILY PO 08/01/20 09:00 08/06/20 07:58 Quetiapine Fumarate (SEROquel) 25 mg QHS PO 07/31/20 21:00 08/06/20 20:33 Quetiapine Fumarate (SEROquel) 50 mg DAILY PO 08/01/20 09:00 08/06/20 07:57 Sennosides (Senna) 8.6 mg BID PO 07/31/20 21:00 08/06/20 20:33 Trazodone HCl (Desyrel) 50 mg QHS PO 07/31/20 21:00 08/06/20 20:33 Melatonin (Melatonin) 3 mg QHS PO 07/31/20 21:00 08/06/20 20:33 Loperamide HCl (Imodium) 4 mg PRN DAILY PRN PO MILD DIARRHEA 07/31/20 14:45 Rivastigmine (Exelon) 1 patch DAILY TD 08/02/20 09:00 08/05/20 21:00 DC 08/04/20 07:45 Rivastigmine (Exelon) 1 patch DAILY TD 08/06/20 09:00 08/06/20 08:01 Sertraline HCl (Zoloft) 25 mg DAILY PO 08/02/20 09:00 08/05/20 21:00 DC 08/05/20 09:22 Sertraline HCl (Zoloft) 50 mg DAILY PO 08/06/20 09:00 08/06/20 08:01 Olanzapine (ZyPREXA ZYDIS) 2.5 mg PRN Q2HRS PRN PO PSYCHOSIS 08/01/20 11:15 08/01/20 18:34 DC 08/01/20 17:17 Trazodone HCl (Desyrel) 50 mg PRN QHS PRN PO INSOMNIA, MAY REPEAT IN 1HR 08/01/20 11:15 08/04/20 00:21 Vitamin D (Vitamin D3) 50,000 unit WEEKLY PO 08/01/20 17:00 08/01/20 17:31 DC Vitamin D (Vitamin D3) 50,000 unit WEEKLY PO 08/02/20 09:00 08/02/20 08:27 Olanzapine (ZyPREXA ZYDIS) 5 mg PRN Q2HRS PRN PO PSYCHOSIS 08/01/20 18:45 08/04/20 07:47 Divalproex Sodium (Depakote Sprinkles) 250 mg HS PO 08/04/20 21:00 08/06/20 20:33 Quetiapine Fumarate (SEROquel) 25 mg DAILY@1300 PO 08/06/20 13:00 08/06/20 12:35 Current Medications Medications (Trade) Dose Ordered Sig/Stephenie Route PRN Reason Start Time Stop Time Status Last Admin Dose Admin Rivastigmine (Exelon) 1 patch DAILY TD 08/06/20 09:00 08/06/20 08:01 Sertraline HCl (Zoloft) 50 mg DAILY PO 08/06/20 09:00 08/06/20 08:01 Quetiapine Fumarate (SEROquel) 25 mg DAILY@1300 PO 08/06/20 13:00 08/06/20 12:35 I have reviewed the current psychotropics carefully including drug interactions. Risk benefit ratio favors no change other than as noted in my dictated progress note. Diagnosis: Problems: (1) Major neurocognitive disorder (2) Impulse control disorder, unspecified (3) Anxiety disorder, unspecified (4) Dementia, vascular, with depression (5) Dementia, vascular, with delusions (6) Dementia in Alzheimer's disease with depression (7) Dementia in Alzheimer's disease with delusions (8) Lewy body dementia with behavioral disturbance FARSHAD CHEEMA MD Aug 06, 2020 20:55
--- NOTE | 2020-08-06 21:00 | NUR ---
Last evening pt was up and around in her room. She took HS meds without difficulty and put her self in bed when she was ready, She remains confused and has had no behaviors tonight.
[2020-08-07 06:18] VITALS: BP 143/81
[2020-08-07 07:06] LABS: ALBUMIN 2.8 g/dL (3.4-5.0); ALBUMIN/GLOBULIN RATIO 0.8 (1.0-1.7); ALK PHOS 58 U/L (46-116); ALT (SGPT) 17 U/L (14-59); ANION GAP 6 (6-14); AST (SGOT) 15 U/L (15-37); BLOOD UREA NITROGEN 8 mg/dL (7-20); BUN/CREATININE RATIO 10 (6-20); CALCIUM 8.2 mg/dL (8.5-10.1); CARBON DIOXIDE 28 mmol/L (21-32); CHLORIDE 106 mmol/L (98-107); CREATININE 0.8 mg/dL (0.6-1.0); GFR 68.3; GLUCOSE 99 mg/dL (70-99); SODIUM 140 mmol/L (136-145); TOTAL BILIRUBIN 0.4 mg/dL (0.2-1.0); TOTAL PROTEIN 6.5 g/dL (6.4-8.2)
[2020-08-07 08:07] LABS: BASO % 0 % (0-3); EOS # 0.2 x10^3/uL (0.0-0.7); EOS % 2 % (0-3); HEMATOCRIT 36.2 % (36.0-47.0); HEMOGLOBIN 11.7 g/dL (12.0-15.5); LYMPH # 7.6 x10^3/uL (1.0-4.8); LYMPH % 64 % (24-48); MEAN CORPUSCULAR HEMOGLOBIN 30 pg (25-35); MEAN CORPUSCULAR HGB CONC 32 g/dL (31-37); MEAN CORPUSCULAR VOLUME 92 fL (79-100); MONO # 0.6 x10^3/uL (0.0-1.1); MONO % 5 % (0-9); NEUT # 3.4 x10^3uL (1.8-7.7); NEUT % 28 % (31-73); PLATELET COUNT 193 x10^3/uL (140-400); RED BLOOD COUNT 3.95 x10^6/uL (3.50-5.40); RED CELL DISTRIBUTION WIDTH 14.3 % (11.5-14.5); WHITE BLOOD COUNT 11.8 x10^3/uL (4.0-11.0)
[2020-08-07 08:16] LABS: VAL ACID 28 mcg/mL (50-100)
[2020-08-07] MEDS: POLYETHYLENE GLYCOL 3350 17 GM PACKET. PO SCH (08:30)
[2020-08-07] MEDS: CYANOCOBALAMIN (VITAMIN B-12) 250 MCG TABLET. PO SCH (08:30)
[2020-08-07] MEDS: RIVASTIGMINE 9.5MG PATCH. TD SCH (08:30)
[2020-08-07] MEDS: QUEtiapine 50 MG TABLET. PO SCH (08:30)
[2020-08-07] MEDS: SERTRALINE 50 MG TABLET. PO SCH (08:30)
[2020-08-07] MEDS: SENNOSIDES 8.6 MG TABLET PO SCH ×2 (08:30→20:30)
--- NOTE | 2020-08-07 08:40 | PDOC ---
Exam Note: Andrés Note: This note is a late entry for 08/05/2020 covers elements not covered in my initial note. Subjective: The patient was seen face to face in the evening of 08/05/2020 with Lily JAMESON. Discussed with nursing staff, reviewed the chart. The patient slept 7 hours previous night. She was somewhat agitated in the afternoon. Received Seroquel at 1 p.m. She is compliant with her medications. Later in the day she was irritable, angry, hitting Myah the nursing staff, yelling. She needed her medications syringed for p.r.n., less psychotic after that. Review of Systems: Ambulation impaired. No CV, , pulmonary, eye, ENT system symptoms on review. Reliability poor. Mental Status Exam: The patient is oriented to herself. I met with the patient in her room. Insight and judgment, recent and remote memory, attention and concentration, fund of knowledge is poor consistent with her diagnoses. Laboratory Data: Reviewed. 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 Anxiety disorder unspecified. Impulse control disorder unspecified. Plan: Continue psychotropics from initial note. Use the p.r.n.s as needed. Check labs level on the Depakote on Aug 07 and then adjust to reach therapeutic level. We may need to increase Seroquel as well. Assessment: Vital Signs/I&O: Vital Signs Date Time Temp Pulse Resp B/P (MAP) Pulse Ox O2 Delivery O2 Flow Rate FiO2 08/07/20 06:18 97.8 74 19 143/81 (101) 97 Room Air I & O 08/06/20 08/06/20 08/07/20 15:00 23:00 07:00 Intake Total 720 ml 340 ml Balance 720 ml 340 ml Labs: Laboratory Tests Test 08/07/20 06:30 White Blood Count 11.8 x10^3/uL (4.0-11.0) H Red Blood Count 3.95 x10^6/uL (3.50-5.40) Hemoglobin 11.7 g/dL (12.0-15.5) L Hematocrit 36.2 % (36.0-47.0) Mean Corpuscular Volume 92 fL (79-100) Mean Corpuscular Hemoglobin 30 pg (25-35) Mean Corpuscular Hemoglobin Concent 32 g/dL (31-37) Red Cell Distribution Width 14.3 % (11.5-14.5) Platelet Count 193 x10^3/uL (140-400) Neutrophils (%) (Auto) 28 % (31-73) L Lymphocytes (%) (Auto) 64 % (24-48) H Monocytes (%) (Auto) 5 % (0-9) Eosinophils (%) (Auto) 2 % (0-3) Basophils (%) (Auto) 0 % (0-3) Neutrophils # (Auto) 3.4 x10^3uL (1.8-7.7) Lymphocytes # (Auto) 7.6 x10^3/uL (1.0-4.8) H Monocytes # (Auto) 0.6 x10^3/uL (0.0-1.1) Eosinophils # (Auto) 0.2 x10^3/uL (0.0-0.7) Basophils # (Auto) 0.0 x10^3/uL (0.0-0.2) Platelet Estimate Pending Sodium Level 140 mmol/L (136-145) Potassium Level 4.0 mmol/L (3.5-5.1) Chloride Level 106 mmol/L (98-107) Carbon Dioxide Level 28 mmol/L (21-32) Anion Gap 6 (6-14) Blood Urea Nitrogen 8 mg/dL (7-20) Creatinine 0.8 mg/dL (0.6-1.0) Estimated GFR (Cockcroft-Gault) 68.3 BUN/Creatinine Ratio 10 (6-20) Glucose Level 99 mg/dL (70-99) Calcium Level 8.2 mg/dL (8.5-10.1) L Total Bilirubin 0.4 mg/dL (0.2-1.0) Aspartate Amino Transferase (AST) 15 U/L (15-37) Alanine Aminotransferase (ALT) 17 U/L (14-59) Alkaline Phosphatase 58 U/L (46-116) Total Protein 6.5 g/dL (6.4-8.2) Albumin 2.8 g/dL (3.4-5.0) L Albumin/Globulin Ratio 0.8 (1.0-1.7) L Valproic Acid Level 28 mcg/mL (50-100) L Valproic Acid Last Dose Date 08/06/20 Valproic Acid Last Dose Time 2100 Current Medications: Meds: Laboratory Tests Test 08/07/20 06:30 White Blood Count 11.8 x10^3/uL Red Blood Count 3.95 x10^6/uL Hemoglobin 11.7 g/dL Hematocrit 36.2 % Mean Corpuscular Volume 92 fL Mean Corpuscular Hemoglobin 30 pg Mean Corpuscular Hemoglobin Concent 32 g/dL Red Cell Distribution Width 14.3 % Platelet Count 193 x10^3/uL Neutrophils (%) (Auto) 28 % Lymphocytes (%) (Auto) 64 % Monocytes (%) (Auto) 5 % Eosinophils (%) (Auto) 2 % Basophils (%) (Auto) 0 % Neutrophils # (Auto) 3.4 x10^3uL Lymphocytes # (Auto) 7.6 x10^3/uL Monocytes # (Auto) 0.6 x10^3/uL Eosinophils # (Auto) 0.2 x10^3/uL Basophils # (Auto) 0.0 x10^3/uL Platelet Estimate Pending Sodium Level 140 mmol/L Potassium Level 4.0 mmol/L Chloride Level 106 mmol/L Carbon Dioxide Level 28 mmol/L Anion Gap 6 Blood Urea Nitrogen 8 mg/dL Creatinine 0.8 mg/dL Estimated GFR (Cockcroft-Gault) 68.3 BUN/Creatinine Ratio 10 Glucose Level 99 mg/dL Calcium Level 8.2 mg/dL Total Bilirubin 0.4 mg/dL Aspartate Amino Transf (AST/SGOT) 15 U/L Alanine Aminotransferase (ALT/SGPT) 17 U/L Alkaline Phosphatase 58 U/L Total Protein 6.5 g/dL Albumin 2.8 g/dL Albumin/Globulin Ratio 0.8 Valproic Acid (Depakene) Level 28 mcg/mL Valproic Acid Last Dose Date 08/06/20 Valproic Acid Last Dose Time 2100 Current Medications Medications (Trade) Dose Ordered Sig/Stephenie Route PRN Reason Start Time Stop Time Status Last Admin Dose Admin Acetaminophen (Tylenol) 650 mg PRN Q6HRS PRN PO MILD PAIN / TEMP > 100.3'F 07/31/20 13:15 Multi-Ingredient Ointment (Analgesic [place]) 1 han PRN QID PRN TP MUSCLE PAIN 07/31/20 13:15 Al Hydroxide/Mg Hydroxide (Mylanta Plus Xs) 15 ml PRN AFTMEALHC PRN PO DYSPEPSIA 07/31/20 13:15 Magnesium Hydroxide (Milk Of Magnesia) 2,400 mg PRN QHS PRN PO 1ST CHOICE CONSTIPATION 07/31/20 13:15 Acetaminophen (Tylenol) 650 mg PRN Q6HRS PRN PO MILD PAIN / TEMP > 100.3'F 07/31/20 14:15 Cancel Acetaminophen (Tylenol Supp) 650 mg PRN Q4HRS PRN RC MILD PAIN / TEMP > 100.3'F 07/31/20 14:15 Bisacodyl (Dulcolax Supp) 10 mg PRN DAILY PRN RC 2ND CHOICE CONSTIPATION 07/31/20 14:15 Cyanocobalamin (Vitamin B-12) 250 mcg DAILY PO 08/01/20 09:00 08/07/20 08:30 Loperamide HCl (Imodium) 2 mg PRN Q1HR PRN PO MOD-SEVERE DIARRHEA 07/31/20 14:15 Al Hydroxide/Mg Hydroxide (Mylanta Plus Xs) 15 ml PRN AFTMEALHC PRN PO INDIGESTION 07/31/20 14:15 Cancel Magnesium Hydroxide (Milk Of Magnesia) 2,400 mg PRN QHS PRN PO constipation 07/31/20 14:15 Cancel Polyethylene Glycol (miraLAX) 17 gm DAILY PO 08/01/20 09:00 08/07/20 08:30 Quetiapine Fumarate (SEROquel) 25 mg QHS PO 07/31/20 21:00 08/06/20 20:33 Quetiapine Fumarate (SEROquel) 50 mg DAILY PO 08/01/20 09:00 08/07/20 08:30 Sennosides (Senna) 8.6 mg BID PO 07/31/20 21:00 08/07/20 08:30 Trazodone HCl (Desyrel) 50 mg QHS PO 07/31/20 21:00 08/06/20 20:33 Melatonin (Melatonin) 3 mg QHS PO 07/31/20 21:00 08/06/20 20:33 Loperamide HCl (Imodium) 4 mg PRN DAILY PRN PO MILD DIARRHEA 07/31/20 14:45 Rivastigmine (Exelon) 1 patch DAILY TD 08/02/20 09:00 08/05/20 21:00 DC 08/04/20 07:45 Rivastigmine (Exelon) 1 patch DAILY TD 08/06/20 09:00 08/07/20 08:30 Sertraline HCl (Zoloft) 25 mg DAILY PO 08/02/20 09:00 08/05/20 21:00 DC 08/05/20 09:22 Sertraline HCl (Zoloft) 50 mg DAILY PO 08/06/20 09:00 08/07/20 08:30 Olanzapine (ZyPREXA ZYDIS) 2.5 mg PRN Q2HRS PRN PO PSYCHOSIS 08/01/20 11:15 08/01/20 18:34 DC 08/01/20 17:17 Trazodone HCl (Desyrel) 50 mg PRN QHS PRN PO INSOMNIA, MAY REPEAT IN 1HR 08/01/20 11:15 08/04/20 00:21 Vitamin D (Vitamin D3) 50,000 unit WEEKLY PO 08/01/20 17:00 08/01/20 17:31 DC Vitamin D (Vitamin D3) 50,000 unit WEEKLY PO 08/02/20 09:00 08/02/20 08:27 Olanzapine (ZyPREXA ZYDIS) 5 mg PRN Q2HRS PRN PO PSYCHOSIS 08/01/20 18:45 08/04/20 07:47 Divalproex Sodium (Depakote Sprinkles) 250 mg HS PO 08/04/20 21:00 08/06/20 20:33 Quetiapine Fumarate (SEROquel) 25 mg DAILY@1300 PO 08/06/20 13:00 08/06/20 12:35 Current Medications Medications (Trade) Dose Ordered Sig/Stephenie Route PRN Reason Start Time Stop Time Status Last Admin Dose Admin Rivastigmine (Exelon) 1 patch DAILY TD 08/06/20 09:00 08/07/20 08:30 Sertraline HCl (Zoloft) 50 mg DAILY PO 08/06/20 09:00 08/07/20 08:30 Quetiapine Fumarate (SEROquel) 25 mg DAILY@1300 PO 08/06/20 13:00 08/06/20 12:35 I have reviewed the current psychotropics carefully including drug interactions. Risk benefit ratio favors no change other than as noted in my dictated progress note. Diagnosis: Problems: (1) Dementia of the Alzheimer's type with early onset with behavioral disturbance (2) Major neurocognitive disorder (3) Impulse control disorder, unspecified (4) Anxiety disorder, unspecified (5) Dementia, vascular, with depression (6) Dementia, vascular, with delusions (7) Dementia in Alzheimer's disease with depression (8) Dementia in Alzheimer's disease with delusions (9) Lewy body dementia with behavioral disturbance FARSHAD CHEEMA MD Aug 07, 2020 08:40
--- NOTE | 2020-08-07 09:04 | PDOC ---
Exam Note: Andrés Note: This note is a late entry for 08/06/2020 covers elements not covered in my initial note. Subjective: The patient was seen face to face in the evening of 08/06/2020 with Wilner JAMESON. Discussed with nursing staff, reviewed the chart. The patient slept 7-3/4 hours previous night. She remains confused. Frequently standing in her doorway. She did well in the morning but became more agitated in the afternoon. Received Seroquel at 1300 p.r.n. Review of Systems: Ambulation impaired. No CV, , pulmonary, eye, ENT system symptoms on review. Mental Status Exam: The patient is oriented to herself. The patient was able to read her name off the nameplate outside her room but very easily distracted and anxious. Short-term memory is impaired. No suicidal or homicidal ideation. Laboratory Data: Reviewed. 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 Anxiety disorder unspecified. Impulse control disorder unspecified. Plan: Continue psychotropics from initial note. Assessment: Vital Signs/I&O: Vital Signs Date Time Temp Pulse Resp B/P (MAP) Pulse Ox O2 Delivery O2 Flow Rate FiO2 08/07/20 06:18 97.8 74 19 143/81 (101) 97 Room Air I & O 08/06/20 08/06/20 08/07/20 15:00 23:00 07:00 Intake Total 720 ml 340 ml Balance 720 ml 340 ml Labs: Laboratory Tests Test 08/07/20 06:30 White Blood Count 11.8 x10^3/uL (4.0-11.0) H Red Blood Count 3.95 x10^6/uL (3.50-5.40) Hemoglobin 11.7 g/dL (12.0-15.5) L Hematocrit 36.2 % (36.0-47.0) Mean Corpuscular Volume 92 fL (79-100) Mean Corpuscular Hemoglobin 30 pg (25-35) Mean Corpuscular Hemoglobin Concent 32 g/dL (31-37) Red Cell Distribution Width 14.3 % (11.5-14.5) Platelet Count 193 x10^3/uL (140-400) Neutrophils (%) (Auto) 28 % (31-73) L Lymphocytes (%) (Auto) 64 % (24-48) H Monocytes (%) (Auto) 5 % (0-9) Eosinophils (%) (Auto) 2 % (0-3) Basophils (%) (Auto) 0 % (0-3) Neutrophils # (Auto) 3.4 x10^3uL (1.8-7.7) Lymphocytes # (Auto) 7.6 x10^3/uL (1.0-4.8) H Monocytes # (Auto) 0.6 x10^3/uL (0.0-1.1) Eosinophils # (Auto) 0.2 x10^3/uL (0.0-0.7) Basophils # (Auto) 0.0 x10^3/uL (0.0-0.2) Platelet Estimate Pending Sodium Level 140 mmol/L (136-145) Potassium Level 4.0 mmol/L (3.5-5.1) Chloride Level 106 mmol/L (98-107) Carbon Dioxide Level 28 mmol/L (21-32) Anion Gap 6 (6-14) Blood Urea Nitrogen 8 mg/dL (7-20) Creatinine 0.8 mg/dL (0.6-1.0) Estimated GFR (Cockcroft-Gault) 68.3 BUN/Creatinine Ratio 10 (6-20) Glucose Level 99 mg/dL (70-99) Calcium Level 8.2 mg/dL (8.5-10.1) L Total Bilirubin 0.4 mg/dL (0.2-1.0) Aspartate Amino Transferase (AST) 15 U/L (15-37) Alanine Aminotransferase (ALT) 17 U/L (14-59) Alkaline Phosphatase 58 U/L (46-116) Total Protein 6.5 g/dL (6.4-8.2) Albumin 2.8 g/dL (3.4-5.0) L Albumin/Globulin Ratio 0.8 (1.0-1.7) L Valproic Acid Level 28 mcg/mL (50-100) L Valproic Acid Last Dose Date 08/06/20 Valproic Acid Last Dose Time 2100 Current Medications: Meds: Laboratory Tests Test 08/07/20 06:30 White Blood Count 11.8 x10^3/uL Red Blood Count 3.95 x10^6/uL Hemoglobin 11.7 g/dL Hematocrit 36.2 % Mean Corpuscular Volume 92 fL Mean Corpuscular Hemoglobin 30 pg Mean Corpuscular Hemoglobin Concent 32 g/dL Red Cell Distribution Width 14.3 % Platelet Count 193 x10^3/uL Neutrophils (%) (Auto) 28 % Lymphocytes (%) (Auto) 64 % Monocytes (%) (Auto) 5 % Eosinophils (%) (Auto) 2 % Basophils (%) (Auto) 0 % Neutrophils # (Auto) 3.4 x10^3uL Lymphocytes # (Auto) 7.6 x10^3/uL Monocytes # (Auto) 0.6 x10^3/uL Eosinophils # (Auto) 0.2 x10^3/uL Basophils # (Auto) 0.0 x10^3/uL Platelet Estimate Pending Sodium Level 140 mmol/L Potassium Level 4.0 mmol/L Chloride Level 106 mmol/L Carbon Dioxide Level 28 mmol/L Anion Gap 6 Blood Urea Nitrogen 8 mg/dL Creatinine 0.8 mg/dL Estimated GFR (Cockcroft-Gault) 68.3 BUN/Creatinine Ratio 10 Glucose Level 99 mg/dL Calcium Level 8.2 mg/dL Total Bilirubin 0.4 mg/dL Aspartate Amino Transf (AST/SGOT) 15 U/L Alanine Aminotransferase (ALT/SGPT) 17 U/L Alkaline Phosphatase 58 U/L Total Protein 6.5 g/dL Albumin 2.8 g/dL Albumin/Globulin Ratio 0.8 Valproic Acid (Depakene) Level 28 mcg/mL Valproic Acid Last Dose Date 08/06/20 Valproic Acid Last Dose Time 2100 Current Medications Medications (Trade) Dose Ordered Sig/Stephenie Route PRN Reason Start Time Stop Time Status Last Admin Dose Admin Acetaminophen (Tylenol) 650 mg PRN Q6HRS PRN PO MILD PAIN / TEMP > 100.3'F 07/31/20 13:15 Multi-Ingredient Ointment (Analgesic [place]) 1 han PRN QID PRN TP MUSCLE PAIN 07/31/20 13:15 Al Hydroxide/Mg Hydroxide (Mylanta Plus Xs) 15 ml PRN AFTMEALHC PRN PO DYSPEPSIA 07/31/20 13:15 Magnesium Hydroxide (Milk Of Magnesia) 2,400 mg PRN QHS PRN PO 1ST CHOICE CONSTIPATION 07/31/20 13:15 Acetaminophen (Tylenol) 650 mg PRN Q6HRS PRN PO MILD PAIN / TEMP > 100.3'F 07/31/20 14:15 Cancel Acetaminophen (Tylenol Supp) 650 mg PRN Q4HRS PRN RC MILD PAIN / TEMP > 100.3'F 07/31/20 14:15 Bisacodyl (Dulcolax Supp) 10 mg PRN DAILY PRN RC 2ND CHOICE CONSTIPATION 07/31/20 14:15 Cyanocobalamin (Vitamin B-12) 250 mcg DAILY PO 08/01/20 09:00 08/07/20 08:30 Loperamide HCl (Imodium) 2 mg PRN Q1HR PRN PO MOD-SEVERE DIARRHEA 07/31/20 14:15 Al Hydroxide/Mg Hydroxide (Mylanta Plus Xs) 15 ml PRN AFTMEALHC PRN PO INDIGESTION 07/31/20 14:15 Cancel Magnesium Hydroxide (Milk Of Magnesia) 2,400 mg PRN QHS PRN PO constipation 07/31/20 14:15 Cancel Polyethylene Glycol (miraLAX) 17 gm DAILY PO 08/01/20 09:00 08/07/20 08:30 Quetiapine Fumarate (SEROquel) 25 mg QHS PO 07/31/20 21:00 08/06/20 20:33 Quetiapine Fumarate (SEROquel) 50 mg DAILY PO 08/01/20 09:00 08/07/20 08:30 Sennosides (Senna) 8.6 mg BID PO 07/31/20 21:00 08/07/20 08:30 Trazodone HCl (Desyrel) 50 mg QHS PO 07/31/20 21:00 08/06/20 20:33 Melatonin (Melatonin) 3 mg QHS PO 07/31/20 21:00 08/06/20 20:33 Loperamide HCl (Imodium) 4 mg PRN DAILY PRN PO MILD DIARRHEA 07/31/20 14:45 Rivastigmine (Exelon) 1 patch DAILY TD 08/02/20 09:00 08/05/20 21:00 DC 08/04/20 07:45 Rivastigmine (Exelon) 1 patch DAILY TD 08/06/20 09:00 08/07/20 08:30 Sertraline HCl (Zoloft) 25 mg DAILY PO 08/02/20 09:00 08/05/20 21:00 DC 08/05/20 09:22 Sertraline HCl (Zoloft) 50 mg DAILY PO 08/06/20 09:00 08/07/20 08:30 Olanzapine (ZyPREXA ZYDIS) 2.5 mg PRN Q2HRS PRN PO PSYCHOSIS 08/01/20 11:15 08/01/20 18:34 DC 08/01/20 17:17 Trazodone HCl (Desyrel) 50 mg PRN QHS PRN PO INSOMNIA, MAY REPEAT IN 1HR 08/01/20 11:15 08/04/20 00:21 Vitamin D (Vitamin D3) 50,000 unit WEEKLY PO 08/01/20 17:00 08/01/20 17:31 DC Vitamin D (Vitamin D3) 50,000 unit WEEKLY PO 08/02/20 09:00 08/02/20 08:27 Olanzapine (ZyPREXA ZYDIS) 5 mg PRN Q2HRS PRN PO PSYCHOSIS 08/01/20 18:45 08/04/20 07:47 Divalproex Sodium (Depakote Sprinkles) 250 mg HS PO 08/04/20 21:00 08/06/20 20:33 Quetiapine Fumarate (SEROquel) 25 mg DAILY@1300 PO 08/06/20 13:00 08/06/20 12:35 Current Medications Medications (Trade) Dose Ordered Sig/Stephenie Route PRN Reason Start Time Stop Time Status Last Admin Dose Admin Quetiapine Fumarate (SEROquel) 25 mg DAILY@1300 PO 08/06/20 13:00 08/06/20 12:35 I have reviewed the current psychotropics carefully including drug interactions. Risk benefit ratio favors no change other than as noted in my dictated progress note. Diagnosis: Problems: (1) Dementia of the Alzheimer's type with early onset with behavioral disturbance (2) Major neurocognitive disorder (3) Impulse control disorder, unspecified (4) Anxiety disorder, unspecified (5) Dementia, vascular, with depression (6) Dementia, vascular, with delusions (7) Dementia in Alzheimer's disease with depression (8) Dementia in Alzheimer's disease with delusions (9) Lewy body dementia with behavioral disturbance FARSHAD CHEEMA MD Aug 07, 2020 09:04
[2020-08-07] MEDS: QUEtiapine 25 MG TABLET. PO SCH ×2 (12:55→20:30)
--- NOTE | 2020-08-07 14:28 | NUR ---
Nursing note: Pt in her room at AM med pass and assessment. Pt was initially very pleasant and was cooperative with her assessment, but was refusing to take her meds. Pt stated "I believe in God and God will take care of me!" Pt roommate attempted to persuade pt to take her meds. After much encouragement, pt eventually was compliant in taking her psych meds whole. Pt is tearful at times, but is able to be redirected. She is currently sitting in her room socializing with her roommate. Will continue to monitor.
[2020-08-07 15:59] VITALS: BP 130/84
[2020-08-07] MEDS: DIVALPROEX 125 MG CAP.SPRINK PO SCH (20:30)
[2020-08-07] MEDS: traZODone 50 MG TABLET. PO SCH (20:30)
[2020-08-07] MEDS: MELATONIN 3 MG TABLET PO SCH (20:30)
--- NOTE | 2020-08-07 20:55 | PDOC ---
Exam Note: Andrés Note: Please also refer to the separate dictated note~for this date of service dictated separately.~Patient seen individually. Discussed the patient with Nursing staff reviewed the chart.~Reviewed interim history and current functioning. Reviewed vital signs,~Labs/ Radiology~and current medications noted below. Continue current treatment with the changes noted in the dictated addendum note Assessment: Vital Signs/I&O: Vital Signs Date Time Temp Pulse Resp B/P (MAP) Pulse Ox O2 Delivery O2 Flow Rate FiO2 08/07/20 15:59 98.0 65 19 130/84 (99) 96 08/07/20 06:18 Room Air I & O 08/06/20 08/06/20 08/07/20 15:00 23:00 07:00 Intake Total 720 ml 340 ml Balance 720 ml 340 ml Labs: Laboratory Tests Test 08/07/20 06:30 White Blood Count 11.8 x10^3/uL (4.0-11.0) H Red Blood Count 3.95 x10^6/uL (3.50-5.40) Hemoglobin 11.7 g/dL (12.0-15.5) L Hematocrit 36.2 % (36.0-47.0) Mean Corpuscular Volume 92 fL (79-100) Mean Corpuscular Hemoglobin 30 pg (25-35) Mean Corpuscular Hemoglobin Concent 32 g/dL (31-37) Red Cell Distribution Width 14.3 % (11.5-14.5) Platelet Count 193 x10^3/uL (140-400) Neutrophils (%) (Auto) 28 % (31-73) L Lymphocytes (%) (Auto) 64 % (24-48) H Monocytes (%) (Auto) 5 % (0-9) Eosinophils (%) (Auto) 2 % (0-3) Basophils (%) (Auto) 0 % (0-3) Neutrophils # (Auto) 3.4 x10^3uL (1.8-7.7) Lymphocytes # (Auto) 7.6 x10^3/uL (1.0-4.8) H Monocytes # (Auto) 0.6 x10^3/uL (0.0-1.1) Eosinophils # (Auto) 0.2 x10^3/uL (0.0-0.7) Basophils # (Auto) 0.0 x10^3/uL (0.0-0.2) Platelet Estimate Pending Sodium Level 140 mmol/L (136-145) Potassium Level 4.0 mmol/L (3.5-5.1) Chloride Level 106 mmol/L (98-107) Carbon Dioxide Level 28 mmol/L (21-32) Anion Gap 6 (6-14) Blood Urea Nitrogen 8 mg/dL (7-20) Creatinine 0.8 mg/dL (0.6-1.0) Estimated GFR (Cockcroft-Gault) 68.3 BUN/Creatinine Ratio 10 (6-20) Glucose Level 99 mg/dL (70-99) Calcium Level 8.2 mg/dL (8.5-10.1) L Total Bilirubin 0.4 mg/dL (0.2-1.0) Aspartate Amino Transferase (AST) 15 U/L (15-37) Alanine Aminotransferase (ALT) 17 U/L (14-59) Alkaline Phosphatase 58 U/L (46-116) Total Protein 6.5 g/dL (6.4-8.2) Albumin 2.8 g/dL (3.4-5.0) L Albumin/Globulin Ratio 0.8 (1.0-1.7) L Valproic Acid Level 28 mcg/mL (50-100) L Valproic Acid Last Dose Date 08/06/20 Valproic Acid Last Dose Time 2100 Current Medications: Meds: Laboratory Tests Test 08/07/20 06:30 White Blood Count 11.8 x10^3/uL Red Blood Count 3.95 x10^6/uL Hemoglobin 11.7 g/dL Hematocrit 36.2 % Mean Corpuscular Volume 92 fL Mean Corpuscular Hemoglobin 30 pg Mean Corpuscular Hemoglobin Concent 32 g/dL Red Cell Distribution Width 14.3 % Platelet Count 193 x10^3/uL Neutrophils (%) (Auto) 28 % Lymphocytes (%) (Auto) 64 % Monocytes (%) (Auto) 5 % Eosinophils (%) (Auto) 2 % Basophils (%) (Auto) 0 % Neutrophils # (Auto) 3.4 x10^3uL Lymphocytes # (Auto) 7.6 x10^3/uL Monocytes # (Auto) 0.6 x10^3/uL Eosinophils # (Auto) 0.2 x10^3/uL Basophils # (Auto) 0.0 x10^3/uL Platelet Estimate Pending Sodium Level 140 mmol/L Potassium Level 4.0 mmol/L Chloride Level 106 mmol/L Carbon Dioxide Level 28 mmol/L Anion Gap 6 Blood Urea Nitrogen 8 mg/dL Creatinine 0.8 mg/dL Estimated GFR (Cockcroft-Gault) 68.3 BUN/Creatinine Ratio 10 Glucose Level 99 mg/dL Calcium Level 8.2 mg/dL Total Bilirubin 0.4 mg/dL Aspartate Amino Transf (AST/SGOT) 15 U/L Alanine Aminotransferase (ALT/SGPT) 17 U/L Alkaline Phosphatase 58 U/L Total Protein 6.5 g/dL Albumin 2.8 g/dL Albumin/Globulin Ratio 0.8 Valproic Acid (Depakene) Level 28 mcg/mL Valproic Acid Last Dose Date 08/06/20 Valproic Acid Last Dose Time 2100 Current Medications Medications (Trade) Dose Ordered Sig/Stephenie Route PRN Reason Start Time Stop Time Status Last Admin Dose Admin Acetaminophen (Tylenol) 650 mg PRN Q6HRS PRN PO MILD PAIN / TEMP > 100.3'F 07/31/20 13:15 Multi-Ingredient Ointment (Analgesic [place]) 1 han PRN QID PRN TP MUSCLE PAIN 07/31/20 13:15 Al Hydroxide/Mg Hydroxide (Mylanta Plus Xs) 15 ml PRN AFTMEALHC PRN PO DYSPEPSIA 07/31/20 13:15 Magnesium Hydroxide (Milk Of Magnesia) 2,400 mg PRN QHS PRN PO 1ST CHOICE CONSTIPATION 07/31/20 13:15 Acetaminophen (Tylenol) 650 mg PRN Q6HRS PRN PO MILD PAIN / TEMP > 100.3'F 07/31/20 14:15 Cancel Acetaminophen (Tylenol Supp) 650 mg PRN Q4HRS PRN RC MILD PAIN / TEMP > 100.3'F 07/31/20 14:15 Bisacodyl (Dulcolax Supp) 10 mg PRN DAILY PRN RC 2ND CHOICE CONSTIPATION 07/31/20 14:15 Cyanocobalamin (Vitamin B-12) 250 mcg DAILY PO 08/01/20 09:00 08/07/20 08:30 Loperamide HCl (Imodium) 2 mg PRN Q1HR PRN PO MOD-SEVERE DIARRHEA 07/31/20 14:15 Al Hydroxide/Mg Hydroxide (Mylanta Plus Xs) 15 ml PRN AFTMEALHC PRN PO INDIGESTION 07/31/20 14:15 Cancel Magnesium Hydroxide (Milk Of Magnesia) 2,400 mg PRN QHS PRN PO constipation 07/31/20 14:15 Cancel Polyethylene Glycol (miraLAX) 17 gm DAILY PO 08/01/20 09:00 08/07/20 08:30 Quetiapine Fumarate (SEROquel) 25 mg QHS PO 07/31/20 21:00 08/07/20 20:30 Quetiapine Fumarate (SEROquel) 50 mg DAILY PO 08/01/20 09:00 08/07/20 08:30 Sennosides (Senna) 8.6 mg BID PO 07/31/20 21:00 08/07/20 20:30 Trazodone HCl (Desyrel) 50 mg QHS PO 07/31/20 21:00 08/07/20 20:30 Melatonin (Melatonin) 3 mg QHS PO 07/31/20 21:00 08/07/20 20:30 Loperamide HCl (Imodium) 4 mg PRN DAILY PRN PO MILD DIARRHEA 07/31/20 14:45 Rivastigmine (Exelon) 1 patch DAILY TD 08/02/20 09:00 08/05/20 21:00 DC 08/04/20 07:45 Rivastigmine (Exelon) 1 patch DAILY TD 08/06/20 09:00 08/07/20 08:30 Sertraline HCl (Zoloft) 25 mg DAILY PO 08/02/20 09:00 08/05/20 21:00 DC 08/05/20 09:22 Sertraline HCl (Zoloft) 50 mg DAILY PO 08/06/20 09:00 08/07/20 08:30 Olanzapine (ZyPREXA ZYDIS) 2.5 mg PRN Q2HRS PRN PO PSYCHOSIS 08/01/20 11:15 08/01/20 18:34 DC 08/01/20 17:17 Trazodone HCl (Desyrel) 50 mg PRN QHS PRN PO INSOMNIA, MAY REPEAT IN 1HR 08/01/20 11:15 08/04/20 00:21 Vitamin D (Vitamin D3) 50,000 unit WEEKLY PO 08/01/20 17:00 08/01/20 17:31 DC Vitamin D (Vitamin D3) 50,000 unit WEEKLY PO 08/02/20 09:00 08/02/20 08:27 Olanzapine (ZyPREXA ZYDIS) 5 mg PRN Q2HRS PRN PO PSYCHOSIS 08/01/20 18:45 08/04/20 07:47 Divalproex Sodium (Depakote Sprinkles) 250 mg HS PO 08/04/20 21:00 08/07/20 16:50 DC 08/06/20 20:33 Quetiapine Fumarate (SEROquel) 25 mg DAILY@1300 PO 08/06/20 13:00 08/07/20 12:55 Divalproex Sodium (Depakote Sprinkles) 500 mg HS PO 08/07/20 21:00 08/07/20 20:30 Current Medications Medications (Trade) Dose Ordered Sig/Stephenie Route PRN Reason Start Time Stop Time Status Last Admin Dose Admin Divalproex Sodium (Depakote Sprinkles) 500 mg HS PO 08/07/20 21:00 08/07/20 20:30 I have reviewed the current psychotropics carefully including drug interactions. Risk benefit ratio favors no change other than as noted in my dictated progress note. Diagnosis: Problems: (1) Dementia of the Alzheimer's type with early onset with behavioral disturbance (2) Major neurocognitive disorder (3) Impulse control disorder, unspecified (4) Anxiety disorder, unspecified (5) Dementia, vascular, with depression (6) Dementia, vascular, with delusions (7) Dementia in Alzheimer's disease with depression (8) Dementia in Alzheimer's disease with delusions (9) Lewy body dementia with behavioral disturbance FARSHAD CHEEMA MD Aug 07, 2020 20:55
[2020-08-07 21:10] LABS: % ATYL 26 % (0-0); % EOS 2 % (0-5); % LYMPHS 33 % (24-48); % MONOS 3 % (0-10); % SEGS 36 % (35-66); PLT ESTIMATE DECREASED (ADEQUATE)
--- NOTE | 2020-08-07 22:35 | PN ---
DATE: 08/07/2020 PSYCHIATRIC PROGRESS NOTE This note covers elements not covered in my initial note 08/07/2020. SUBJECTIVE: I met with the patient individually in her room. Discussed with nursing staff, reviewed the chart. Per GISELL Arce., the patient slept 7-3/4 hours previous night. She remains tearful in the morning, had difficulty accepting her medications, noncompliant, but later took it. REVIEW OF SYSTEMS: No CV, , pulmonary, eye, ENT system symptoms on review. Reliability poor. MENTAL STATUS EXAM: Oriented to herself. Insight, judgment, recent and remote memory, attention, concentration, fund of knowledge poor, consistent with her diagnosis. Valproic acid level today is 28, subtherapeutic on Depakote Sprinkles 250 mg at bedtime. LABORATORY DATA: Reviewed. IMPRESSION: Unchanged from initial note. PLAN: Increase Depakote Sprinkles to 500 mg at bedtime. Check CBC, CMP, valproic acid level in 3 days. Continue rest of the psychotropics unchanged. FARSHAD CHEEMA MD DR: JOEL/marcin JOB#: [id number] / [id number]
--- NOTE | 2020-08-08 02:14 | NUR ---
Pt has been in her room tonight mainly sleeping. She took meds whole without difficulty. She has had no behaviors and gets along with roommate well.
[2020-08-08 05:53] VITALS: BP 153/82
[2020-08-08] MEDS: POLYETHYLENE GLYCOL 3350 17 GM PACKET. PO SCH (07:57)
[2020-08-08] MEDS: SENNOSIDES 8.6 MG TABLET PO SCH ×2 (07:58→20:18)
[2020-08-08] MEDS: QUEtiapine 50 MG TABLET. PO SCH (07:58)
[2020-08-08] MEDS: RIVASTIGMINE 9.5MG PATCH. TD SCH (07:58)
[2020-08-08] MEDS: CYANOCOBALAMIN (VITAMIN B-12) 250 MCG TABLET. PO SCH (07:58)
[2020-08-08] MEDS: SERTRALINE 50 MG TABLET. PO SCH (07:58)
--- NOTE | 2020-08-08 10:44 | NUR ---
WEEKLY ACTIVITY THERAPY NOTE Date of Admission: 07/31/2020 Date of AT Assessment: 08/03 Precipitating behaviors that initiated intake and admission: threatens to kill staff, name calling, belligerent, aggressive towards staff, throws stuff at staff, enters others rooms & gets agitated with redirection, pacing, restless Goal aimed: increase time management and stress management/relaxation skills Initial Goal: Pt will participate in at least three individual or group Activity Therapy sessions per week. Weekly progress towards goal: exceeded 10/3 Group participation level: 6 min, 4 full Weekly highlights: engaged well over Wednesday and Wednesday morning Behaviors observed: enjoys a roommate but can sometimes be over helpful, group engagement varies, in secured hallway/ increased confusion towards the beginning of the week, struggles to express her concerns clearly but appeared to appreciate someone listening and consoling her Plan: change goal to: Pt. will participate in at least one Activity Therapy group per day Beneficial adaptations: direct prompting needed at times in group
--- NOTE | 2020-08-08 12:01 | TX PLAN ---
Interdisciplinary Tx Plan Admission Information Jul 31, 2020 at 12:35 Legal Status (on Admission): Voluntary, Court Appointed Guardian DPOA/Guardian Name: Piero Johnston- grandson-guardian Contact Other Contact Name: Stacy- clinical coordinator Other Contact Verified Code Status: DNR Allergies: Coded Allergies: No Known Drug Allergies (Unverified , 07/31/20) Estimated Length of Stay: 14 Diagnoses Primary Diagnosis: Major neurocognitive d/o, vascular, alzheimers with delusions, depression, BD Anxiety d/o unspecified Impulse Control D/O Reasons for Admission: Aggressive, Agitated, Angry, Grief, Anxiety/Panic, Combative, Homicidal Ideation, Confusion/Disoriented, Poor impulse control Problem in Patient's Words: Per Delbert, "I have to go home, where I live." Per family and care facility, see above description of mood and behavioral concerns. Additional Admission Comments: Per intake record, threatens to kill staff, name calling, belligerent, aggressive towards staff, throws stuff at staff, enters others rooms and gets agitated with re-direction, pacing, restless. Problems Active Problems: Agitated Aggressive Medication resistant Wandering/Pacing Inactive Problems: Adequate intake Pt Strengths/Limitations Ability for Hayes: Poor Cognitive Functioning/Ability: Poor Communication Skills/Ability: Fair Financial Resources: Fair Insight/Judgement: Poor Intellectual Ability: Fair Physical Health: Fair Social Skills: Fair Stability in Family: Fair Verbal Skills: Fair Discharge Criteria Discharge Criteria: Adequate arrangements @DC, Improved behavior, Improved mood/thought Preliminary Discharge Plan Preliminary DC Plan: Memory Care Other Arrangements: [facility] Special Precautions Special Precautions: Agitation/Assault Fall Risk: High Initial D/C Plan Delbert will return to [facility] once stable Identified Discharge Needs: F/U with PCP and out patient psychiatry if available. Currently Utilized Resources Currently Utilized Resources/P: PCP Referrals Community Resources: Out patient psychiatry if available Identified Problems/Hx/Goals Objectives/Short-Term Goals Short Term Goals: Control abnormal behavior, Dec. Aggression, Dec. Outbursts, Medication Stabilization, Monitor Med Effects, No Suicidal/Conor. ideation Short Term Goals in Patient's: When asked Delbert spoke about going home. Per lila, for Delbert to be "happy and comfortable." Interventions/Frequency Staff Interventions/Frequency&: Nursing to provide routine safety checks, medication administration, and ADL support. Psychiatry to see three times weekly. SW to see twice weekly. Recreational and SW groups as Delbert will be involved. 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 Social: Delbert enjoyes the outdoors, doing yard work, and going for car drives. Education: Delbert attended primary school in [place] from the age of [age]. 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 Her mood is labile with periods of tearfulness, agitation, and anxiousness. Delbert continues to have periods of pacing, yelling out, exit seeking, and needs staff encouragement to take her medications as prescribed. Delbert is in the quiet torres this morning due to increased agitation and need for decreased stimuli and she has received prn zydis. At other times, Delbert has attended group activities with minimal to full participation. Medications are being adjusted. Delbert will return to [facility] once stable. Fredrick, guardian/grandson, participated in team meeting via phone on this date. Fredrick reported that the weather has a real effect on Delbert's mood and that she prefers and does better on sujatha days. KENYETTA CERDA Aug 08, 2020 12:01
[2020-08-08] MEDS: QUEtiapine 25 MG TABLET. PO SCH ×2 (12:57→20:18)
--- NOTE | 2020-08-08 13:42 | NUR ---
Treatment team meeting was held this morning and Fredrick, grandson/guardian, participated via phone. SW updated Stacy, clinical coordinator and Sharee Shaffer, and faxed update for review.
--- NOTE | 2020-08-08 15:40 | NUR ---
Nursing note: Pt was in her room at time of AM med pass and assessment. She was very tearful and worried about her roommate. Pt was very resistive with her medications and began threatening to throw a cup of hot tea on me. Pt was left alone with the plan to attempt her meds again at a later time once she had relaxed a little bit more. Pt began pacing in the hallway, refusing to take a shower and yelling out calling staff names. Pt's meds were attempted to be crushed and mixed in ensure. Pt refused the drink and became screaming even more. She was escorted to the [facility] where she pounded on all the doors and shook the door handles. AM psych meds & zydis were given sublingually with staff assist x4. Pt eventually calmed down at lunch time and went to her room for lunch. She then was compliant with taking her 1300 seroquel and the rest of her AM meds whole. Pt has been very pleasant this afternoon. She continues to walk around the unit concerned about other pt's. Will continue to monitor.
[2020-08-08 15:56] VITALS: BP 108/70
[2020-08-08] MEDS: MELATONIN 3 MG TABLET PO SCH (20:18)
[2020-08-08] MEDS: traZODone 50 MG TABLET. PO SCH (20:18)
[2020-08-08] MEDS: DIVALPROEX 125 MG CAP.SPRINK PO SCH (20:19)
--- NOTE | 2020-08-08 21:03 | PDOC ---
Exam Note: Andrés Note: Please also refer to the separate dictated note~for this date of service dictated separately.~Patient seen individually. Discussed the patient with Nursing staff reviewed the chart.~Reviewed interim history and current functioning. Reviewed vital signs,~Labs/ Radiology~and current medications noted below. Continue current treatment with the changes noted in the dictated addendum note Assessment: Vital Signs/I&O: Vital Signs Date Time Temp Pulse Resp B/P (MAP) Pulse Ox O2 Delivery O2 Flow Rate FiO2 08/08/20 15:56 97.8 75 16 108/70 (83) 96 08/07/20 06:18 Room Air I & O 08/07/20 08/07/20 08/08/20 15:00 23:00 07:00 Intake Total 120 ml 120 ml Balance 120 ml 120 ml Current Medications: Meds: Current Medications Medications (Trade) Dose Ordered Sig/Stephenie Route PRN Reason Start Time Stop Time Status Last Admin Dose Admin Acetaminophen (Tylenol) 650 mg PRN Q6HRS PRN PO MILD PAIN / TEMP > 100.3'F 07/31/20 13:15 Multi-Ingredient Ointment (Analgesic [place]) 1 han PRN QID PRN TP MUSCLE PAIN 07/31/20 13:15 Al Hydroxide/Mg Hydroxide (Mylanta Plus Xs) 15 ml PRN AFTMEALHC PRN PO DYSPEPSIA 07/31/20 13:15 Magnesium Hydroxide (Milk Of Magnesia) 2,400 mg PRN QHS PRN PO 1ST CHOICE CONSTIPATION 07/31/20 13:15 Acetaminophen (Tylenol) 650 mg PRN Q6HRS PRN PO MILD PAIN / TEMP > 100.3'F 07/31/20 14:15 Cancel Acetaminophen (Tylenol Supp) 650 mg PRN Q4HRS PRN RC MILD PAIN / TEMP > 100.3'F 07/31/20 14:15 Bisacodyl (Dulcolax Supp) 10 mg PRN DAILY PRN RC 2ND CHOICE CONSTIPATION 07/31/20 14:15 Cyanocobalamin (Vitamin B-12) 250 mcg DAILY PO 08/01/20 09:00 08/08/20 07:58 Loperamide HCl (Imodium) 2 mg PRN Q1HR PRN PO MOD-SEVERE DIARRHEA 07/31/20 14:15 Al Hydroxide/Mg Hydroxide (Mylanta Plus Xs) 15 ml PRN AFTMEALHC PRN PO INDIGESTION 07/31/20 14:15 Cancel Magnesium Hydroxide (Milk Of Magnesia) 2,400 mg PRN QHS PRN PO constipation 07/31/20 14:15 Cancel Polyethylene Glycol (miraLAX) 17 gm DAILY PO 08/01/20 09:00 08/08/20 07:57 Quetiapine Fumarate (SEROquel) 25 mg QHS PO 07/31/20 21:00 08/08/20 20:18 Quetiapine Fumarate (SEROquel) 50 mg DAILY PO 08/01/20 09:00 08/08/20 07:58 Sennosides (Senna) 8.6 mg BID PO 07/31/20 21:00 08/08/20 20:18 Trazodone HCl (Desyrel) 50 mg QHS PO 07/31/20 21:00 08/08/20 20:18 Melatonin (Melatonin) 3 mg QHS PO 07/31/20 21:00 08/08/20 20:18 Loperamide HCl (Imodium) 4 mg PRN DAILY PRN PO MILD DIARRHEA 07/31/20 14:45 Rivastigmine (Exelon) 1 patch DAILY TD 08/02/20 09:00 08/05/20 21:00 DC 08/04/20 07:45 Rivastigmine (Exelon) 1 patch DAILY TD 08/06/20 09:00 08/08/20 07:58 Sertraline HCl (Zoloft) 25 mg DAILY PO 08/02/20 09:00 08/05/20 21:00 DC 08/05/20 09:22 Sertraline HCl (Zoloft) 50 mg DAILY PO 08/06/20 09:00 08/08/20 07:58 Olanzapine (ZyPREXA ZYDIS) 2.5 mg PRN Q2HRS PRN PO PSYCHOSIS 08/01/20 11:15 08/01/20 18:34 DC 08/01/20 17:17 Trazodone HCl (Desyrel) 50 mg PRN QHS PRN PO INSOMNIA, MAY REPEAT IN 1HR 08/01/20 11:15 08/04/20 00:21 Vitamin D (Vitamin D3) 50,000 unit WEEKLY PO 08/01/20 17:00 08/01/20 17:31 DC Vitamin D (Vitamin D3) 50,000 unit WEEKLY PO 08/02/20 09:00 08/02/20 08:27 Olanzapine (ZyPREXA ZYDIS) 5 mg PRN Q2HRS PRN PO PSYCHOSIS 08/01/20 18:45 08/08/20 10:17 Divalproex Sodium (Depakote Sprinkles) 250 mg HS PO 08/04/20 21:00 08/07/20 16:50 DC 08/06/20 20:33 Quetiapine Fumarate (SEROquel) 25 mg DAILY@1300 PO 08/06/20 13:00 08/08/20 12:57 Divalproex Sodium (Depakote Sprinkles) 500 mg HS PO 08/07/20 21:00 08/08/20 20:19 I have reviewed the current psychotropics carefully including drug interactions. Risk benefit ratio favors no change other than as noted in my dictated progress note. Diagnosis: Problems: (1) Major neurocognitive disorder (2) Impulse control disorder, unspecified (3) Anxiety disorder, unspecified (4) Dementia, vascular, with depression (5) Dementia, vascular, with delusions (6) Abnormal WBC count (7) Dementia in Alzheimer's disease with depression (8) Dementia in Alzheimer's disease with delusions (9) Lewy body dementia with behavioral disturbance FARSHAD CHEEMA MD Aug 08, 2020 21:03
--- NOTE | 2020-08-09 00:16 | NUR ---
Pt has been pleasant and cooperative tonight. She remains very confused and has had no behaviors tonight. Meds were taken whole without issues. After meds she went to bed and has been sleeping.
[2020-08-09] MEDS: SERTRALINE 50 MG TABLET. PO SCH (05:39)
[2020-08-09] MEDS: RIVASTIGMINE 9.5MG PATCH. TD SCH (05:39)
[2020-08-09] MEDS: SENNOSIDES 8.6 MG TABLET PO SCH ×2 (05:39→19:45)
[2020-08-09] MEDS: QUEtiapine 50 MG TABLET. PO SCH (05:39)
[2020-08-09] MEDS: CYANOCOBALAMIN (VITAMIN B-12) 250 MCG TABLET. PO SCH (05:39)
[2020-08-09] MEDS: POLYETHYLENE GLYCOL 3350 17 GM PACKET. PO SCH (05:39)
[2020-08-09 06:20] VITALS: BP 123/76
[2020-08-09] MEDS: QUEtiapine 25 MG TABLET. PO SCH ×2 (12:02→19:46)
[2020-08-09] MEDS: CHOLECALCIFEROL (VITAMIN D3) 50,000 UNIT CAPSULE PO SCH (12:02)
--- NOTE | 2020-08-09 12:48 | NUR ---
Nursing note: Pt is pleasant and med compliant. She is walking around the unit and is tearful at times as she is "looking for a way out". Will continue to monitor.
--- NOTE | 2020-08-09 15:34 | NUR ---
Delbert was wandering the unit this afternoon voicing an uncertainty of where she should go or what she should do. SW assisted her to locate her room and spent time socializing and providing reassurance to Delbert. While she has much difficulty recalling recent events, she remembers her grandson Fredrick and if prompted with questions is able to answer them. Delbert appeared more relaxed at end of visit and was going to rest for a while before dinner was served.
[2020-08-09 15:49] VITALS: BP 115/58
[2020-08-09] MEDS: traZODone 50 MG TABLET. PO SCH (19:45)
[2020-08-09] MEDS: MELATONIN 3 MG TABLET PO SCH (19:45)
[2020-08-09] MEDS: DIVALPROEX 125 MG CAP.SPRINK PO SCH (19:46)
--- NOTE | 2020-08-09 20:44 | PDOC ---
Exam Note: Andrés Note: Please also refer to the separate dictated note~for this date of service dictated separately.~Patient seen individually. Discussed the patient with Nursing staff reviewed the chart.~Reviewed interim history and current functioning. Reviewed vital signs,~Labs/ Radiology~and current medications noted below. Continue current treatment with the changes noted in the dictated addendum note Assessment: Vital Signs/I&O: Vital Signs Date Time Temp Pulse Resp B/P (MAP) Pulse Ox O2 Delivery O2 Flow Rate FiO2 08/09/20 15:49 97.8 68 18 115/58 (77) 97 08/07/20 06:18 Room Air I & O 08/08/20 08/08/20 08/09/20 15:00 23:00 07:00 Intake Total 720 ml 360 ml Balance 720 ml 360 ml Current Medications: Meds: Current Medications Medications (Trade) Dose Ordered Sig/Stephenie Route PRN Reason Start Time Stop Time Status Last Admin Dose Admin Acetaminophen (Tylenol) 650 mg PRN Q6HRS PRN PO MILD PAIN / TEMP > 100.3'F 07/31/20 13:15 Multi-Ingredient Ointment (Analgesic [place]) 1 han PRN QID PRN TP MUSCLE PAIN 07/31/20 13:15 Al Hydroxide/Mg Hydroxide (Mylanta Plus Xs) 15 ml PRN AFTMEALHC PRN PO DYSPEPSIA 07/31/20 13:15 Magnesium Hydroxide (Milk Of Magnesia) 2,400 mg PRN QHS PRN PO 1ST CHOICE CONSTIPATION 07/31/20 13:15 Acetaminophen (Tylenol) 650 mg PRN Q6HRS PRN PO MILD PAIN / TEMP > 100.3'F 07/31/20 14:15 Cancel Acetaminophen (Tylenol Supp) 650 mg PRN Q4HRS PRN RC MILD PAIN / TEMP > 100.3'F 07/31/20 14:15 Bisacodyl (Dulcolax Supp) 10 mg PRN DAILY PRN RC 2ND CHOICE CONSTIPATION 07/31/20 14:15 Cyanocobalamin (Vitamin B-12) 250 mcg DAILY PO 08/01/20 09:00 08/09/20 05:39 Loperamide HCl (Imodium) 2 mg PRN Q1HR PRN PO MOD-SEVERE DIARRHEA 07/31/20 14:15 Al Hydroxide/Mg Hydroxide (Mylanta Plus Xs) 15 ml PRN AFTMEALHC PRN PO INDIGESTION 07/31/20 14:15 Cancel Magnesium Hydroxide (Milk Of Magnesia) 2,400 mg PRN QHS PRN PO constipation 07/31/20 14:15 Cancel Polyethylene Glycol (miraLAX) 17 gm DAILY PO 08/01/20 09:00 08/09/20 05:39 Quetiapine Fumarate (SEROquel) 25 mg QHS PO 07/31/20 21:00 08/09/20 19:46 Quetiapine Fumarate (SEROquel) 50 mg DAILY PO 08/01/20 09:00 08/09/20 05:39 Sennosides (Senna) 8.6 mg BID PO 07/31/20 21:00 08/09/20 19:45 Trazodone HCl (Desyrel) 50 mg QHS PO 07/31/20 21:00 08/09/20 19:45 Melatonin (Melatonin) 3 mg QHS PO 07/31/20 21:00 08/09/20 19:45 Loperamide HCl (Imodium) 4 mg PRN DAILY PRN PO MILD DIARRHEA 07/31/20 14:45 Rivastigmine (Exelon) 1 patch DAILY TD 08/02/20 09:00 08/05/20 21:00 DC 08/04/20 07:45 Rivastigmine (Exelon) 1 patch DAILY TD 08/06/20 09:00 08/09/20 05:39 Sertraline HCl (Zoloft) 25 mg DAILY PO 08/02/20 09:00 08/05/20 21:00 DC 08/05/20 09:22 Sertraline HCl (Zoloft) 50 mg DAILY PO 08/06/20 09:00 08/09/20 05:39 Olanzapine (ZyPREXA ZYDIS) 2.5 mg PRN Q2HRS PRN PO PSYCHOSIS 08/01/20 11:15 08/01/20 18:34 DC 08/01/20 17:17 Trazodone HCl (Desyrel) 50 mg PRN QHS PRN PO INSOMNIA, MAY REPEAT IN 1HR 08/01/20 11:15 08/04/20 00:21 Vitamin D (Vitamin D3) 50,000 unit WEEKLY PO 08/01/20 17:00 08/01/20 17:31 DC Vitamin D (Vitamin D3) 50,000 unit WEEKLY PO 08/02/20 09:00 08/09/20 12:02 Olanzapine (ZyPREXA ZYDIS) 5 mg PRN Q2HRS PRN PO PSYCHOSIS 08/01/20 18:45 08/08/20 10:17 Divalproex Sodium (Depakote Sprinkles) 250 mg HS PO 08/04/20 21:00 08/07/20 16:50 DC 08/06/20 20:33 Quetiapine Fumarate (SEROquel) 25 mg DAILY@1300 PO 08/06/20 13:00 08/09/20 12:02 Divalproex Sodium (Depakote Sprinkles) 500 mg HS PO 08/07/20 21:00 08/09/20 19:46 I have reviewed the current psychotropics carefully including drug interactions. Risk benefit ratio favors no change other than as noted in my dictated progress note. Diagnosis: Problems: (1) Major neurocognitive disorder (2) Impulse control disorder, unspecified (3) Anxiety disorder, unspecified (4) Dementia, vascular, with depression (5) Dementia, vascular, with delusions (6) Dementia in Alzheimer's disease with depression (7) Dementia in Alzheimer's disease with delusions (8) Lewy body dementia with behavioral disturbance FASRHAD CHEEMA MD Aug 09, 2020 20:44
--- NOTE | 2020-08-09 22:23 | NUR ---
Patient is in her room on assumption of care, awake in bed. She is in pleasant spirits. Disorganized, confused. She has voiced no delusions so far this shift. No agitation. Denies any pain or discomfort. She appears to be sleeping comfortably at present time. Will continue to monitor.
[2020-08-10 06:21] VITALS: BP 129/65
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
--- NOTE | 2020-08-10 07:32 | PDOC ---
Exam Note: Andrés Note: This note is a late entry for 08/09/2020 covers elements not covered in my initial note. Subjective: The patient was seen face to face in the evening of 08/09/2020 with Myah JAMESON. Discussed with nursing staff, reviewed the chart. The patient slept 8-3/4 hours previous night. She remains somewhat delusional, believes this is her house, labile and tearful at times, anxious but redirects. Review of Systems: Ambulation impaired. No CV, , pulmonary, eye, ENT system symptoms on review. Reliability poor. Mental Status Exam: The patient is oriented to herself. Insight and judgment, recent and remote memory, attention and concentration, fund of knowledge is poor consistent with her diagnosis. Laboratory Data: Reviewed. 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 Anxiety disorder unspecified. Impulse control disorder unspecified. Plan: Continue psychotropics from initial note. Assessment: Vital Signs/I&O: Vital Signs Date Time Temp Pulse Resp B/P (MAP) Pulse Ox O2 Delivery O2 Flow Rate FiO2 08/10/20 06:21 97.8 58 18 129/65 (86) 99 08/07/20 06:18 Room Air I & O 08/09/20 08/09/20 08/10/20 15:00 23:00 07:00 Intake Total 480 ml 360 ml Balance 480 ml 360 ml Current Medications: Meds: Current Medications Medications (Trade) Dose Ordered Sig/Stephenie Route PRN Reason Start Time Stop Time Status Last Admin Dose Admin Acetaminophen (Tylenol) 650 mg PRN Q6HRS PRN PO MILD PAIN / TEMP > 100.3'F 07/31/20 13:15 Multi-Ingredient Ointment (Analgesic [place]) 1 han PRN QID PRN TP MUSCLE PAIN 07/31/20 13:15 Al Hydroxide/Mg Hydroxide (Mylanta Plus Xs) 15 ml PRN AFTMEALHC PRN PO DYSPEPSIA 07/31/20 13:15 Magnesium Hydroxide (Milk Of Magnesia) 2,400 mg PRN QHS PRN PO 1ST CHOICE CONSTIPATION 07/31/20 13:15 Acetaminophen (Tylenol) 650 mg PRN Q6HRS PRN PO MILD PAIN / TEMP > 100.3'F 07/31/20 14:15 Cancel Acetaminophen (Tylenol Supp) 650 mg PRN Q4HRS PRN RC MILD PAIN / TEMP > 100.3'F 07/31/20 14:15 Bisacodyl (Dulcolax Supp) 10 mg PRN DAILY PRN RC 2ND CHOICE CONSTIPATION 07/31/20 14:15 Cyanocobalamin (Vitamin B-12) 250 mcg DAILY PO 08/01/20 09:00 08/09/20 05:39 Loperamide HCl (Imodium) 2 mg PRN Q1HR PRN PO MOD-SEVERE DIARRHEA 07/31/20 14:15 Al Hydroxide/Mg Hydroxide (Mylanta Plus Xs) 15 ml PRN AFTMEALHC PRN PO INDIGESTION 07/31/20 14:15 Cancel Magnesium Hydroxide (Milk Of Magnesia) 2,400 mg PRN QHS PRN PO constipation 07/31/20 14:15 Cancel Polyethylene Glycol (miraLAX) 17 gm DAILY PO 08/01/20 09:00 08/09/20 05:39 Quetiapine Fumarate (SEROquel) 25 mg QHS PO 07/31/20 21:00 08/09/20 19:46 Quetiapine Fumarate (SEROquel) 50 mg DAILY PO 08/01/20 09:00 08/09/20 05:39 Sennosides (Senna) 8.6 mg BID PO 07/31/20 21:00 08/09/20 19:45 Trazodone HCl (Desyrel) 50 mg QHS PO 07/31/20 21:00 08/09/20 19:45 Melatonin (Melatonin) 3 mg QHS PO 07/31/20 21:00 08/09/20 19:45 Loperamide HCl (Imodium) 4 mg PRN DAILY PRN PO MILD DIARRHEA 07/31/20 14:45 Rivastigmine (Exelon) 1 patch DAILY TD 08/02/20 09:00 08/05/20 21:00 DC 08/04/20 07:45 Rivastigmine (Exelon) 1 patch DAILY TD 08/06/20 09:00 08/09/20 05:39 Sertraline HCl (Zoloft) 25 mg DAILY PO 08/02/20 09:00 08/05/20 21:00 DC 08/05/20 09:22 Sertraline HCl (Zoloft) 50 mg DAILY PO 08/06/20 09:00 08/09/20 05:39 Olanzapine (ZyPREXA ZYDIS) 2.5 mg PRN Q2HRS PRN PO PSYCHOSIS 08/01/20 11:15 08/01/20 18:34 DC 08/01/20 17:17 Trazodone HCl (Desyrel) 50 mg PRN QHS PRN PO INSOMNIA, MAY REPEAT IN 1HR 08/01/20 11:15 08/04/20 00:21 Vitamin D (Vitamin D3) 50,000 unit WEEKLY PO 08/01/20 17:00 08/01/20 17:31 DC Vitamin D (Vitamin D3) 50,000 unit WEEKLY PO 08/02/20 09:00 08/09/20 12:02 Olanzapine (ZyPREXA ZYDIS) 5 mg PRN Q2HRS PRN PO PSYCHOSIS 08/01/20 18:45 08/08/20 10:17 Divalproex Sodium (Depakote Sprinkles) 250 mg HS PO 08/04/20 21:00 08/07/20 16:50 DC 08/06/20 20:33 Quetiapine Fumarate (SEROquel) 25 mg DAILY@1300 PO 08/06/20 13:00 08/09/20 12:02 Divalproex Sodium (Depakote Sprinkles) 500 mg HS PO 08/07/20 21:00 08/09/20 19:46 I have reviewed the current psychotropics carefully including drug interactions. Risk benefit ratio favors no change other than as noted in my dictated progress note. Diagnosis: Problems: (1) Dementia of the Alzheimer's type with early onset with behavioral disturbance (2) Major neurocognitive disorder (3) Impulse control disorder, unspecified (4) Anxiety disorder, unspecified (5) Dementia, vascular, with depression (6) Dementia, vascular, with delusions (7) Dementia in Alzheimer's disease with depression (8) Dementia in Alzheimer's disease with delusions (9) Lewy body dementia with behavioral disturbance FARSHAD CHEEMA MD Aug 10, 2020 07:32
[2020-08-10] MEDS: QUEtiapine 50 MG TABLET. PO SCH (08:44)
[2020-08-10] MEDS: SERTRALINE 50 MG TABLET. PO SCH (08:44)
[2020-08-10] MEDS: SENNOSIDES 8.6 MG TABLET PO SCH ×2 (08:44→20:12)
[2020-08-10] MEDS: CYANOCOBALAMIN (VITAMIN B-12) 250 MCG TABLET. PO SCH (08:44)
[2020-08-10] MEDS: RIVASTIGMINE 9.5MG PATCH. TD SCH (08:45)
[2020-08-10] MEDS: POLYETHYLENE GLYCOL 3350 17 GM PACKET. PO SCH (08:45)
[2020-08-10] MEDS: ACETAMINOPHEN 325 MG TABLET PO PRN (10:53)
[2020-08-10 11:07] LABS: BASO % 0 % (0-3); EOS # 0.2 x10^3/uL (0.0-0.7); EOS % 1 % (0-3); HEMATOCRIT 40.3 % (36.0-47.0); HEMOGLOBIN 13.1 g/dL (12.0-15.5); LYMPH # 9.5 x10^3/uL (1.0-4.8); LYMPH % 64 % (24-48); MEAN CORPUSCULAR HEMOGLOBIN 30 pg (25-35); MEAN CORPUSCULAR HGB CONC 33 g/dL (31-37); MEAN CORPUSCULAR VOLUME 91 fL (79-100); MONO # 0.6 x10^3/uL (0.0-1.1); MONO % 4 % (0-9); NEUT # 4.6 x10^3uL (1.8-7.7); NEUT % 31 % (31-73); PLATELET COUNT 197 x10^3/uL (140-400); RED BLOOD COUNT 4.42 x10^6/uL (3.50-5.40); RED CELL DISTRIBUTION WIDTH 14.7 % (11.5-14.5); WHITE BLOOD COUNT 14.9 x10^3/uL (4.0-11.0)
[2020-08-10 11:17] LABS: ALBUMIN 3.3 g/dL (3.4-5.0); ALBUMIN/GLOBULIN RATIO 0.8 (1.0-1.7); ALK PHOS 66 U/L (46-116); ALT (SGPT) 16 U/L (14-59); ANION GAP 7 (6-14); AST (SGOT) 15 U/L (15-37); BLOOD UREA NITROGEN 14 mg/dL (7-20); BUN/CREATININE RATIO 16 (6-20); CALCIUM 8.9 mg/dL (8.5-10.1); CARBON DIOXIDE 27 mmol/L (21-32); CHLORIDE 105 mmol/L (98-107); CREATININE 0.9 mg/dL (0.6-1.0); GFR 59.7; GLUCOSE 110 mg/dL (70-99); POTASSIUM 4.8 mmol/L (3.5-5.1); SODIUM 139 mmol/L (136-145); TOTAL BILIRUBIN 0.4 mg/dL (0.2-1.0); TOTAL PROTEIN 7.4 g/dL (6.4-8.2)
[2020-08-10 11:25] LABS: VAL ACID 56 mcg/mL (50-100)
[2020-08-10 11:41] LABS: % ATYL 1 % (0-0); % BANDS 1 % (0-9); % EOS 2 % (0-5); % LYMPHS 66 % (24-48); % MONOS 3 % (0-10); % SEGS 27 % (35-66); PLT ESTIMATE ADEQUATE (ADEQUATE)
[2020-08-10] MEDS: QUEtiapine 25 MG TABLET. PO SCH ×2 (12:25→20:12)
[2020-08-10 15:53] VITALS: BP 122/78
[2020-08-10] MEDS: traZODone 50 MG TABLET. PO SCH (20:11)
[2020-08-10] MEDS: MELATONIN 3 MG TABLET PO SCH (20:12)
[2020-08-10] MEDS: DIVALPROEX 125 MG CAP.SPRINK PO SCH (20:13)
--- NOTE | 2020-08-10 20:59 | PDOC ---
Exam Note: Andrés Note: Please also refer to the separate dictated note~for this date of service dictated separately.~Patient seen individually. Discussed the patient with Nursing staff reviewed the chart.~Reviewed interim history and current functioning. Reviewed vital signs,~Labs/ Radiology~and current medications noted below. Continue current treatment with the changes noted in the dictated addendum note Assessment: Vital Signs/I&O: Vital Signs Date Time Temp Pulse Resp B/P (MAP) Pulse Ox O2 Delivery O2 Flow Rate FiO2 08/10/20 15:53 97.3 69 18 122/78 (93) 98 08/07/20 06:18 Room Air I & O 08/09/20 08/09/20 08/10/20 15:00 23:00 07:00 Intake Total 480 ml 360 ml Balance 480 ml 360 ml Labs: Laboratory Tests Test 08/10/20 10:40 White Blood Count 14.9 x10^3/uL (4.0-11.0) H Red Blood Count 4.42 x10^6/uL (3.50-5.40) Hemoglobin 13.1 g/dL (12.0-15.5) Hematocrit 40.3 % (36.0-47.0) Mean Corpuscular Volume 91 fL (79-100) Mean Corpuscular Hemoglobin 30 pg (25-35) Mean Corpuscular Hemoglobin Concent 33 g/dL (31-37) Red Cell Distribution Width 14.7 % (11.5-14.5) H Platelet Count 197 x10^3/uL (140-400) Neutrophils (%) (Auto) 31 % (31-73) Lymphocytes (%) (Auto) 64 % (24-48) H Monocytes (%) (Auto) 4 % (0-9) Eosinophils (%) (Auto) 1 % (0-3) Basophils (%) (Auto) 0 % (0-3) Neutrophils # (Auto) 4.6 x10^3uL (1.8-7.7) Lymphocytes # (Auto) 9.5 x10^3/uL (1.0-4.8) H Monocytes # (Auto) 0.6 x10^3/uL (0.0-1.1) Eosinophils # (Auto) 0.2 x10^3/uL (0.0-0.7) Basophils # (Auto) 0.0 x10^3/uL (0.0-0.2) Segmented Neutrophils % 27 % (35-66) L Band Neutrophils % 1 % (0-9) Lymphocytes % 66 % (24-48) H Atypical Lymphocytes % (Manual) 1 % (0-0) H Monocytes % 3 % (0-10) Eosinophils % 2 % (0-5) Platelet Estimate Adequate (ADEQUATE) Sodium Level 139 mmol/L (136-145) Potassium Level 4.8 mmol/L (3.5-5.1) Chloride Level 105 mmol/L (98-107) Carbon Dioxide Level 27 mmol/L (21-32) Anion Gap 7 (6-14) Blood Urea Nitrogen 14 mg/dL (7-20) Creatinine 0.9 mg/dL (0.6-1.0) Estimated GFR (Cockcroft-Gault) 59.7 BUN/Creatinine Ratio 16 (6-20) Glucose Level 110 mg/dL (70-99) H Calcium Level 8.9 mg/dL (8.5-10.1) Total Bilirubin 0.4 mg/dL (0.2-1.0) Aspartate Amino Transferase (AST) 15 U/L (15-37) Alanine Aminotransferase (ALT) 16 U/L (14-59) Alkaline Phosphatase 66 U/L (46-116) Total Protein 7.4 g/dL (6.4-8.2) Albumin 3.3 g/dL (3.4-5.0) L Albumin/Globulin Ratio 0.8 (1.0-1.7) L Valproic Acid Level 56 mcg/mL (50-100) Valproic Acid Last Dose Date 08/09/20 Valproic Acid Last Dose Time 2100 Current Medications: Meds: Laboratory Tests Test 08/10/20 10:40 White Blood Count 14.9 x10^3/uL Red Blood Count 4.42 x10^6/uL Hemoglobin 13.1 g/dL Hematocrit 40.3 % Mean Corpuscular Volume 91 fL Mean Corpuscular Hemoglobin 30 pg Mean Corpuscular Hemoglobin Concent 33 g/dL Red Cell Distribution Width 14.7 % Platelet Count 197 x10^3/uL Neutrophils (%) (Auto) 31 % Lymphocytes (%) (Auto) 64 % Monocytes (%) (Auto) 4 % Eosinophils (%) (Auto) 1 % Basophils (%) (Auto) 0 % Neutrophils # (Auto) 4.6 x10^3uL Lymphocytes # (Auto) 9.5 x10^3/uL Monocytes # (Auto) 0.6 x10^3/uL Eosinophils # (Auto) 0.2 x10^3/uL Basophils # (Auto) 0.0 x10^3/uL Segmented Neutrophils % 27 % Band Neutrophils % 1 % Lymphocytes % 66 % Atypical Lymphocytes % (Manual) 1 % Monocytes % 3 % Eosinophils % 2 % Platelet Estimate Adequate Sodium Level 139 mmol/L Potassium Level 4.8 mmol/L Chloride Level 105 mmol/L Carbon Dioxide Level 27 mmol/L Anion Gap 7 Blood Urea Nitrogen 14 mg/dL Creatinine 0.9 mg/dL Estimated GFR (Cockcroft-Gault) 59.7 BUN/Creatinine Ratio 16 Glucose Level 110 mg/dL Calcium Level 8.9 mg/dL Total Bilirubin 0.4 mg/dL Aspartate Amino Transf (AST/SGOT) 15 U/L Alanine Aminotransferase (ALT/SGPT) 16 U/L Alkaline Phosphatase 66 U/L Total Protein 7.4 g/dL Albumin 3.3 g/dL Albumin/Globulin Ratio 0.8 Valproic Acid (Depakene) Level 56 mcg/mL Valproic Acid Last Dose Date 08/09/20 Valproic Acid Last Dose Time 2100 Current Medications Medications (Trade) Dose Ordered Sig/Stephenie Route PRN Reason Start Time Stop Time Status Last Admin Dose Admin Acetaminophen (Tylenol) 650 mg PRN Q6HRS PRN PO MILD PAIN / TEMP > 100.3'F 07/31/20 13:15 08/10/20 10:53 Multi-Ingredient Ointment (Analgesic [place]) 1 han PRN QID PRN TP MUSCLE PAIN 07/31/20 13:15 Al Hydroxide/Mg Hydroxide (Mylanta Plus Xs) 15 ml PRN AFTMEALHC PRN PO DYSPEPSIA 07/31/20 13:15 Magnesium Hydroxide (Milk Of Magnesia) 2,400 mg PRN QHS PRN PO 1ST CHOICE CONSTIPATION 07/31/20 13:15 Acetaminophen (Tylenol) 650 mg PRN Q6HRS PRN PO MILD PAIN / TEMP > 100.3'F 07/31/20 14:15 Cancel Acetaminophen (Tylenol Supp) 650 mg PRN Q4HRS PRN RC MILD PAIN / TEMP > 100.3'F 07/31/20 14:15 Bisacodyl (Dulcolax Supp) 10 mg PRN DAILY PRN RC 2ND CHOICE CONSTIPATION 07/31/20 14:15 Cyanocobalamin (Vitamin B-12) 250 mcg DAILY PO 08/01/20 09:00 08/10/20 08:44 Loperamide HCl (Imodium) 2 mg PRN Q1HR PRN PO MOD-SEVERE DIARRHEA 07/31/20 14:15 Al Hydroxide/Mg Hydroxide (Mylanta Plus Xs) 15 ml PRN AFTMEALHC PRN PO INDIGESTION 07/31/20 14:15 Cancel Magnesium Hydroxide (Milk Of Magnesia) 2,400 mg PRN QHS PRN PO constipation 07/31/20 14:15 Cancel Polyethylene Glycol (miraLAX) 17 gm DAILY PO 08/01/20 09:00 08/10/20 08:45 Quetiapine Fumarate (SEROquel) 25 mg QHS PO 07/31/20 21:00 08/10/20 20:12 Quetiapine Fumarate (SEROquel) 50 mg DAILY PO 08/01/20 09:00 08/10/20 08:44 Sennosides (Senna) 8.6 mg BID PO 07/31/20 21:00 08/10/20 20:12 Trazodone HCl (Desyrel) 50 mg QHS PO 07/31/20 21:00 08/10/20 20:11 Melatonin (Melatonin) 3 mg QHS PO 07/31/20 21:00 08/10/20 20:12 Loperamide HCl (Imodium) 4 mg PRN DAILY PRN PO MILD DIARRHEA 07/31/20 14:45 Rivastigmine (Exelon) 1 patch DAILY TD 08/02/20 09:00 08/05/20 21:00 DC 08/04/20 07:45 Rivastigmine (Exelon) 1 patch DAILY TD 08/06/20 09:00 08/10/20 08:45 Sertraline HCl (Zoloft) 25 mg DAILY PO 08/02/20 09:00 08/05/20 21:00 DC 08/05/20 09:22 Sertraline HCl (Zoloft) 50 mg DAILY PO 08/06/20 09:00 08/10/20 18:28 DC 08/10/20 08:44 Olanzapine (ZyPREXA ZYDIS) 2.5 mg PRN Q2HRS PRN PO PSYCHOSIS 08/01/20 11:15 08/01/20 18:34 DC 08/01/20 17:17 Trazodone HCl (Desyrel) 50 mg PRN QHS PRN PO INSOMNIA, MAY REPEAT IN 1HR 08/01/20 11:15 08/04/20 00:21 Vitamin D (Vitamin D3) 50,000 unit WEEKLY PO 08/01/20 17:00 08/01/20 17:31 DC Vitamin D (Vitamin D3) 50,000 unit WEEKLY PO 08/02/20 09:00 08/09/20 12:02 Olanzapine (ZyPREXA ZYDIS) 5 mg PRN Q2HRS PRN PO PSYCHOSIS 08/01/20 18:45 08/10/20 10:53 Divalproex Sodium (Depakote Sprinkles) 250 mg HS PO 08/04/20 21:00 08/07/20 16:50 DC 08/06/20 20:33 Quetiapine Fumarate (SEROquel) 25 mg DAILY@1300 PO 08/06/20 13:00 08/10/20 12:25 Divalproex Sodium (Depakote Sprinkles) 500 mg HS PO 08/07/20 21:00 08/10/20 20:13 Sertraline HCl (Zoloft) 75 mg DAILY PO 08/11/20 09:00 I have reviewed the current psychotropics carefully including drug interactions. Risk benefit ratio favors no change other than as noted in my dictated progress note. Diagnosis: Problems: (1) Major neurocognitive disorder (2) Impulse control disorder, unspecified (3) Anxiety disorder, unspecified (4) Dementia, vascular, with depression (5) Dementia, vascular, with delusions (6) Dementia in Alzheimer's disease with depression (7) Dementia in Alzheimer's disease with delusions (8) Lewy body dementia with behavioral disturbance FARSHAD CHEEMA MD Aug 10, 2020 20:59
[2020-08-11 05:58] VITALS: BP 111/64
--- NOTE | 2020-08-11 08:01 | PDOC ---
Exam Note: Andrés Note: This note is a late entry for 08/10/2020 covers elements not covered in my initial note. Subjective: The patient was seen on telehealth rounds in the evening of 08/10/2020 with Nilesh JAMESON. Discussed with nursing staff, reviewed the chart. The patient slept 7-1/2 hours previous night. She remains confused, has been angry, anxious, yelling at staff, calling staff members whores. She was asleep in the evening on rounds but per observation by nursing staff assessment remains confused. She was later calmer. Review of Systems: No CV, , pulmonary, eye, ENT system symptoms on review. Mental Status Exam: The patient is oriented to herself. Insight and judgment, recent and remote memory, attention and concentration, fund of knowledge is poor consistent with her diagnosis per nursing assessment and my overall assessment. Laboratory Data: Reviewed. 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 Anxiety disorder unspecified. Impulse control disorder unspecified. Plan: Continue psychotropics from initial note. Increase Zoloft from 50 mg a day to 75 mg a day. Rest unchanged for now. We may need to increase Seroquel in due course. Assessment: Vital Signs/I&O: Vital Signs Date Time Temp Pulse Resp B/P (MAP) Pulse Ox O2 Delivery O2 Flow Rate FiO2 08/11/20 05:58 97.9 57 16 111/64 (80) 98 08/07/20 06:18 Room Air I & O 08/10/20 08/10/20 08/11/20 15:00 23:00 07:00 Intake Total 360 ml 360 ml Balance 360 ml 360 ml Labs: Laboratory Tests Test 08/10/20 10:40 White Blood Count 14.9 x10^3/uL (4.0-11.0) H Red Blood Count 4.42 x10^6/uL (3.50-5.40) Hemoglobin 13.1 g/dL (12.0-15.5) Hematocrit 40.3 % (36.0-47.0) Mean Corpuscular Volume 91 fL (79-100) Mean Corpuscular Hemoglobin 30 pg (25-35) Mean Corpuscular Hemoglobin Concent 33 g/dL (31-37) Red Cell Distribution Width 14.7 % (11.5-14.5) H Platelet Count 197 x10^3/uL (140-400) Neutrophils (%) (Auto) 31 % (31-73) Lymphocytes (%) (Auto) 64 % (24-48) H Monocytes (%) (Auto) 4 % (0-9) Eosinophils (%) (Auto) 1 % (0-3) Basophils (%) (Auto) 0 % (0-3) Neutrophils # (Auto) 4.6 x10^3uL (1.8-7.7) Lymphocytes # (Auto) 9.5 x10^3/uL (1.0-4.8) H Monocytes # (Auto) 0.6 x10^3/uL (0.0-1.1) Eosinophils # (Auto) 0.2 x10^3/uL (0.0-0.7) Basophils # (Auto) 0.0 x10^3/uL (0.0-0.2) Segmented Neutrophils % 27 % (35-66) L Band Neutrophils % 1 % (0-9) Lymphocytes % 66 % (24-48) H Atypical Lymphocytes % (Manual) 1 % (0-0) H Monocytes % 3 % (0-10) Eosinophils % 2 % (0-5) Platelet Estimate Adequate (ADEQUATE) Sodium Level 139 mmol/L (136-145) Potassium Level 4.8 mmol/L (3.5-5.1) Chloride Level 105 mmol/L (98-107) Carbon Dioxide Level 27 mmol/L (21-32) Anion Gap 7 (6-14) Blood Urea Nitrogen 14 mg/dL (7-20) Creatinine 0.9 mg/dL (0.6-1.0) Estimated GFR (Cockcroft-Gault) 59.7 BUN/Creatinine Ratio 16 (6-20) Glucose Level 110 mg/dL (70-99) H Calcium Level 8.9 mg/dL (8.5-10.1) Total Bilirubin 0.4 mg/dL (0.2-1.0) Aspartate Amino Transferase (AST) 15 U/L (15-37) Alanine Aminotransferase (ALT) 16 U/L (14-59) Alkaline Phosphatase 66 U/L (46-116) Total Protein 7.4 g/dL (6.4-8.2) Albumin 3.3 g/dL (3.4-5.0) L Albumin/Globulin Ratio 0.8 (1.0-1.7) L Valproic Acid Level 56 mcg/mL (50-100) Valproic Acid Last Dose Date 08/09/20 Valproic Acid Last Dose Time 2100 Current Medications: Meds: Laboratory Tests Test 08/10/20 10:40 White Blood Count 14.9 x10^3/uL Red Blood Count 4.42 x10^6/uL Hemoglobin 13.1 g/dL Hematocrit 40.3 % Mean Corpuscular Volume 91 fL Mean Corpuscular Hemoglobin 30 pg Mean Corpuscular Hemoglobin Concent 33 g/dL Red Cell Distribution Width 14.7 % Platelet Count 197 x10^3/uL Neutrophils (%) (Auto) 31 % Lymphocytes (%) (Auto) 64 % Monocytes (%) (Auto) 4 % Eosinophils (%) (Auto) 1 % Basophils (%) (Auto) 0 % Neutrophils # (Auto) 4.6 x10^3uL Lymphocytes # (Auto) 9.5 x10^3/uL Monocytes # (Auto) 0.6 x10^3/uL Eosinophils # (Auto) 0.2 x10^3/uL Basophils # (Auto) 0.0 x10^3/uL Segmented Neutrophils % 27 % Band Neutrophils % 1 % Lymphocytes % 66 % Atypical Lymphocytes % (Manual) 1 % Monocytes % 3 % Eosinophils % 2 % Platelet Estimate Adequate Sodium Level 139 mmol/L Potassium Level 4.8 mmol/L Chloride Level 105 mmol/L Carbon Dioxide Level 27 mmol/L Anion Gap 7 Blood Urea Nitrogen 14 mg/dL Creatinine 0.9 mg/dL Estimated GFR (Cockcroft-Gault) 59.7 BUN/Creatinine Ratio 16 Glucose Level 110 mg/dL Calcium Level 8.9 mg/dL Total Bilirubin 0.4 mg/dL Aspartate Amino Transf (AST/SGOT) 15 U/L Alanine Aminotransferase (ALT/SGPT) 16 U/L Alkaline Phosphatase 66 U/L Total Protein 7.4 g/dL Albumin 3.3 g/dL Albumin/Globulin Ratio 0.8 Valproic Acid (Depakene) Level 56 mcg/mL Valproic Acid Last Dose Date 08/09/20 Valproic Acid Last Dose Time 2100 Current Medications Medications (Trade) Dose Ordered Sig/Stephenie Route PRN Reason Start Time Stop Time Status Last Admin Dose Admin Acetaminophen (Tylenol) 650 mg PRN Q6HRS PRN PO MILD PAIN / TEMP > 100.3'F 07/31/20 13:15 08/10/20 10:53 Multi-Ingredient Ointment (Analgesic [place]) 1 han PRN QID PRN TP MUSCLE PAIN 07/31/20 13:15 Al Hydroxide/Mg Hydroxide (Mylanta Plus Xs) 15 ml PRN AFTMEALHC PRN PO DYSPEPSIA 07/31/20 13:15 Magnesium Hydroxide (Milk Of Magnesia) 2,400 mg PRN QHS PRN PO 1ST CHOICE CONSTIPATION 07/31/20 13:15 Acetaminophen (Tylenol) 650 mg PRN Q6HRS PRN PO MILD PAIN / TEMP > 100.3'F 07/31/20 14:15 Cancel Acetaminophen (Tylenol Supp) 650 mg PRN Q4HRS PRN RC MILD PAIN / TEMP > 100.3'F 07/31/20 14:15 Bisacodyl (Dulcolax Supp) 10 mg PRN DAILY PRN RC 2ND CHOICE CONSTIPATION 07/31/20 14:15 Cyanocobalamin (Vitamin B-12) 250 mcg DAILY PO 08/01/20 09:00 08/10/20 08:44 Loperamide HCl (Imodium) 2 mg PRN Q1HR PRN PO MOD-SEVERE DIARRHEA 07/31/20 14:15 Al Hydroxide/Mg Hydroxide (Mylanta Plus Xs) 15 ml PRN AFTMEALHC PRN PO INDIGESTION 07/31/20 14:15 Cancel Magnesium Hydroxide (Milk Of Magnesia) 2,400 mg PRN QHS PRN PO constipation 07/31/20 14:15 Cancel Polyethylene Glycol (miraLAX) 17 gm DAILY PO 08/01/20 09:00 08/10/20 08:45 Quetiapine Fumarate (SEROquel) 25 mg QHS PO 07/31/20 21:00 08/10/20 20:12 Quetiapine Fumarate (SEROquel) 50 mg DAILY PO 08/01/20 09:00 08/10/20 08:44 Sennosides (Senna) 8.6 mg BID PO 07/31/20 21:00 08/10/20 20:12 Trazodone HCl (Desyrel) 50 mg QHS PO 07/31/20 21:00 08/10/20 20:11 Melatonin (Melatonin) 3 mg QHS PO 07/31/20 21:00 08/10/20 20:12 Loperamide HCl (Imodium) 4 mg PRN DAILY PRN PO MILD DIARRHEA 07/31/20 14:45 Rivastigmine (Exelon) 1 patch DAILY TD 08/02/20 09:00 08/05/20 21:00 DC 08/04/20 07:45 Rivastigmine (Exelon) 1 patch DAILY TD 08/06/20 09:00 08/10/20 08:45 Sertraline HCl (Zoloft) 25 mg DAILY PO 08/02/20 09:00 08/05/20 21:00 DC 08/05/20 09:22 Sertraline HCl (Zoloft) 50 mg DAILY PO 08/06/20 09:00 08/10/20 18:28 DC 08/10/20 08:44 Olanzapine (ZyPREXA ZYDIS) 2.5 mg PRN Q2HRS PRN PO PSYCHOSIS 08/01/20 11:15 08/01/20 18:34 DC 08/01/20 17:17 Trazodone HCl (Desyrel) 50 mg PRN QHS PRN PO INSOMNIA, MAY REPEAT IN 1HR 08/01/20 11:15 08/04/20 00:21 Vitamin D (Vitamin D3) 50,000 unit WEEKLY PO 08/01/20 17:00 08/01/20 17:31 DC Vitamin D (Vitamin D3) 50,000 unit WEEKLY PO 08/02/20 09:00 08/09/20 12:02 Olanzapine (ZyPREXA ZYDIS) 5 mg PRN Q2HRS PRN PO PSYCHOSIS 08/01/20 18:45 08/10/20 10:53 Divalproex Sodium (Depakote Sprinkles) 250 mg HS PO 08/04/20 21:00 08/07/20 16:50 DC 08/06/20 20:33 Quetiapine Fumarate (SEROquel) 25 mg DAILY@1300 PO 08/06/20 13:00 08/10/20 12:25 Divalproex Sodium (Depakote Sprinkles) 500 mg HS PO 08/07/20 21:00 08/10/20 20:13 Sertraline HCl (Zoloft) 75 mg DAILY PO 08/11/20 09:00 I have reviewed the current psychotropics carefully including drug interactions. Risk benefit ratio favors no change other than as noted in my dictated progress note. Diagnosis: Problems: (1) Major neurocognitive disorder (2) Impulse control disorder, unspecified (3) Anxiety disorder, unspecified (4) Dementia, vascular, with depression (5) Dementia, vascular, with delusions (6) Dementia in Alzheimer's disease with depression (7) Dementia in Alzheimer's disease with delusions (8) Lewy body dementia with behavioral disturbance FARSHAD CHEEMA MD Aug 11, 2020 08:01
[2020-08-11] MEDS: SENNOSIDES 8.6 MG TABLET PO SCH ×2 (08:10→19:52)
[2020-08-11] MEDS: QUEtiapine 50 MG TABLET. PO SCH (08:10)
[2020-08-11] MEDS: CYANOCOBALAMIN (VITAMIN B-12) 250 MCG TABLET. PO SCH (08:10)
[2020-08-11] MEDS: RIVASTIGMINE 9.5MG PATCH. TD SCH (08:10)
[2020-08-11] MEDS: POLYETHYLENE GLYCOL 3350 17 GM PACKET. PO SCH (08:10)
[2020-08-11] MEDS: SERTRALINE 25 MG TABLET. PO SCH (09:44)
--- NOTE | 2020-08-11 11:18 | NUR ---
Nursing Note Pt in room crying loudly wanting her "momma" not able to be redirected. I validated her feelings and told her that her mother went out on errands and would return directly. The distraction worked long enough for the Zydis to start working. Zydis given with AM meds, seemed to be quite effective, no more crying or looking for her mother. Now wandering halls with peers.
[2020-08-11] MEDS: QUEtiapine 25 MG TABLET. PO SCH ×2 (12:14→19:53)
[2020-08-11 15:00] VITALS: BP 134/82
[2020-08-11] MEDS: MELATONIN 3 MG TABLET PO SCH (19:53)
[2020-08-11] MEDS: traZODone 50 MG TABLET. PO SCH (19:53)
[2020-08-11] MEDS: DIVALPROEX 125 MG CAP.SPRINK PO SCH (19:54)
--- NOTE | 2020-08-11 20:55 | PDOC ---
Exam Note: Andrés Note: Please also refer to the separate dictated note~for this date of service dictated separately.~Patient seen individually. Discussed the patient with Nursing staff reviewed the chart.~Reviewed interim history and current functioning. Reviewed vital signs,~Labs/ Radiology~and current medications noted below. Continue current treatment with the changes noted in the dictated addendum note Assessment: Vital Signs/I&O: Vital Signs Date Time Temp Pulse Resp B/P (MAP) Pulse Ox O2 Delivery O2 Flow Rate FiO2 08/11/20 15:00 98.2 72 20 134/82 (99) 98 Room Air I & O 08/10/20 08/10/20 08/11/20 15:00 23:00 07:00 Intake Total 360 ml 360 ml Balance 360 ml 360 ml Current Medications: Meds: Current Medications Medications (Trade) Dose Ordered Sig/Stephenie Route PRN Reason Start Time Stop Time Status Last Admin Dose Admin Acetaminophen (Tylenol) 650 mg PRN Q6HRS PRN PO MILD PAIN / TEMP > 100.3'F 07/31/20 13:15 08/10/20 10:53 Multi-Ingredient Ointment (Analgesic [place]) 1 han PRN QID PRN TP MUSCLE PAIN 07/31/20 13:15 Al Hydroxide/Mg Hydroxide (Mylanta Plus Xs) 15 ml PRN AFTMEALHC PRN PO DYSPEPSIA 07/31/20 13:15 Magnesium Hydroxide (Milk Of Magnesia) 2,400 mg PRN QHS PRN PO 1ST CHOICE CONSTIPATION 07/31/20 13:15 Acetaminophen (Tylenol) 650 mg PRN Q6HRS PRN PO MILD PAIN / TEMP > 100.3'F 07/31/20 14:15 Cancel Acetaminophen (Tylenol Supp) 650 mg PRN Q4HRS PRN RC MILD PAIN / TEMP > 100.3'F 07/31/20 14:15 Bisacodyl (Dulcolax Supp) 10 mg PRN DAILY PRN RC 2ND CHOICE CONSTIPATION 07/31/20 14:15 Cyanocobalamin (Vitamin B-12) 250 mcg DAILY PO 08/01/20 09:00 08/11/20 08:10 Loperamide HCl (Imodium) 2 mg PRN Q1HR PRN PO MOD-SEVERE DIARRHEA 07/31/20 14:15 Al Hydroxide/Mg Hydroxide (Mylanta Plus Xs) 15 ml PRN AFTMEALHC PRN PO INDIGESTION 07/31/20 14:15 Cancel Magnesium Hydroxide (Milk Of Magnesia) 2,400 mg PRN QHS PRN PO constipation 07/31/20 14:15 Cancel Polyethylene Glycol (miraLAX) 17 gm DAILY PO 08/01/20 09:00 08/11/20 08:10 Quetiapine Fumarate (SEROquel) 25 mg QHS PO 07/31/20 21:00 08/11/20 19:53 Quetiapine Fumarate (SEROquel) 50 mg DAILY PO 08/01/20 09:00 08/11/20 08:10 Sennosides (Senna) 8.6 mg BID PO 07/31/20 21:00 08/11/20 19:52 Trazodone HCl (Desyrel) 50 mg QHS PO 07/31/20 21:00 08/11/20 19:53 Melatonin (Melatonin) 3 mg QHS PO 07/31/20 21:00 08/11/20 19:53 Loperamide HCl (Imodium) 4 mg PRN DAILY PRN PO MILD DIARRHEA 07/31/20 14:45 Rivastigmine (Exelon) 1 patch DAILY TD 08/02/20 09:00 08/05/20 21:00 DC 08/04/20 07:45 Rivastigmine (Exelon) 1 patch DAILY TD 08/06/20 09:00 08/11/20 08:10 Sertraline HCl (Zoloft) 25 mg DAILY PO 08/02/20 09:00 08/05/20 21:00 DC 08/05/20 09:22 Sertraline HCl (Zoloft) 50 mg DAILY PO 08/06/20 09:00 08/10/20 18:28 DC 08/10/20 08:44 Olanzapine (ZyPREXA ZYDIS) 2.5 mg PRN Q2HRS PRN PO PSYCHOSIS 08/01/20 11:15 08/01/20 18:34 DC 08/01/20 17:17 Trazodone HCl (Desyrel) 50 mg PRN QHS PRN PO INSOMNIA, MAY REPEAT IN 1HR 08/01/20 11:15 08/04/20 00:21 Vitamin D (Vitamin D3) 50,000 unit WEEKLY PO 08/01/20 17:00 08/01/20 17:31 DC Vitamin D (Vitamin D3) 50,000 unit WEEKLY PO 08/02/20 09:00 08/09/20 12:02 Olanzapine (ZyPREXA ZYDIS) 5 mg PRN Q2HRS PRN PO PSYCHOSIS 08/01/20 18:45 08/11/20 08:56 Divalproex Sodium (Depakote Sprinkles) 250 mg HS PO 08/04/20 21:00 08/07/20 16:50 DC 08/06/20 20:33 Quetiapine Fumarate (SEROquel) 25 mg DAILY@1300 PO 08/06/20 13:00 08/11/20 12:14 Divalproex Sodium (Depakote Sprinkles) 500 mg HS PO 08/07/20 21:00 08/11/20 19:54 Sertraline HCl (Zoloft) 75 mg DAILY PO 08/11/20 09:00 08/11/20 09:44 Current Medications Medications (Trade) Dose Ordered Sig/Stephenie Route PRN Reason Start Time Stop Time Status Last Admin Dose Admin Sertraline HCl (Zoloft) 75 mg DAILY PO 08/11/20 09:00 08/11/20 09:44 I have reviewed the current psychotropics carefully including drug interactions. Risk benefit ratio favors no change other than as noted in my dictated progress note. Diagnosis: Problems: (1) Major neurocognitive disorder (2) Impulse control disorder, unspecified (3) Anxiety disorder, unspecified (4) Dementia, vascular, with depression (5) Dementia, vascular, with delusions (6) Dementia in Alzheimer's disease with depression (7) Dementia in Alzheimer's disease with delusions (8) Lewy body dementia with behavioral disturbance FARSHAD CHEEMA MD Aug 11, 2020 20:55
--- NOTE | 2020-08-11 21:44 | PN ---
DATE: 08/11/2020 PSYCHIATRIC PROGRESS NOTE This note covers elements not covered in my initial note 08/11/2020. SUBJECTIVE: I met with the patient evening of 08/11/2020 on telehealth rounds. Per GISELL Payton, the patient slept 9-3/4 hours previous night. Reviewed the chart and interim history. She has been anxious, restless, agitated and received p.r.n. Zyprexa in the morning at 8:30 a.m. She was later tearful, looking for her mother, believes people are stealing from her. REVIEW OF SYSTEMS: No CV, , pulmonary, eye, ENT system symptoms on review. Reliability poor. MENTAL STATUS EXAM: Oriented to herself. Insight, judgment, recent and remote memory, attention, concentration, fund of knowledge poor, consistent with her diagnosis. As I talked to her, I mentioned her grandson's name Piero and she had a spark in eyes. 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 LABORATORY DATA: Reviewed. IMPRESSION: Major neurocognitive disorder, Alzheimer, vascular with delusion, depression, behavioral disturbance. Rest unchanged. PLAN: Continue current psychotropics along with Zyprexa p.r.n. We will adjust Depakote post-labs level. Rest unchanged for now. Last valproic acid level subtherapeutic at 28. FARSHAD CHEEMA MD DR: JOEL/marcin JOB#: [id number] / [id number]
[2020-08-12 06:17] VITALS: BP 127/73
[2020-08-12] MEDS: SENNOSIDES 8.6 MG TABLET PO SCH ×2 (08:23→19:47)
[2020-08-12] MEDS: CYANOCOBALAMIN (VITAMIN B-12) 250 MCG TABLET. PO SCH (08:23)
[2020-08-12] MEDS: RIVASTIGMINE 9.5MG PATCH. TD SCH (08:23)
[2020-08-12] MEDS: QUEtiapine 50 MG TABLET. PO SCH (08:23)
[2020-08-12] MEDS: POLYETHYLENE GLYCOL 3350 17 GM PACKET. PO SCH (08:23)
[2020-08-12] MEDS: SERTRALINE 25 MG TABLET. PO SCH (08:23)
[2020-08-12] MEDS: QUEtiapine 25 MG TABLET. PO SCH ×2 (12:58→19:47)
[2020-08-12 15:14] VITALS: BP 121/73
--- NOTE | 2020-08-12 17:13 | NUR ---
Nursing note: Pt has remained in her room for the majority of the shift, but will occasionally walk around the unit. She is disorganized and can be tearful at times but is able to be redirected. Pt has been med resistive at times, but is compliant with meds whole with encouragement. She is currently in her room eating supper. Will continue to monitor.
[2020-08-12] MEDS: traZODone 50 MG TABLET. PO SCH (19:47)
[2020-08-12] MEDS: MELATONIN 3 MG TABLET PO SCH (19:47)
[2020-08-12] MEDS: DIVALPROEX 125 MG CAP.SPRINK PO SCH (19:47)
--- NOTE | 2020-08-12 21:28 | PDOC ---
Exam Note: Andrés Note: Please also refer to the separate dictated note~for this date of service dictated separately.~Patient seen individually. Discussed the patient with Nursing staff reviewed the chart.~Reviewed interim history and current functioning. Reviewed vital signs,~Labs/ Radiology~and current medications noted below. Continue current treatment with the changes noted in the dictated addendum note Assessment: Vital Signs/I&O: Vital Signs Date Time Temp Pulse Resp B/P (MAP) Pulse Ox O2 Delivery O2 Flow Rate FiO2 08/12/20 15:14 97.9 85 16 121/73 (89) 95 08/11/20 15:00 Room Air I & O 08/11/20 08/11/20 08/12/20 14:59 22:59 06:59 Intake Total 240 ml 300 ml Balance 240 ml 300 ml Current Medications: I have reviewed the current psychotropics carefully including drug interactions. Risk benefit ratio favors no change other than as noted in my dictated progress note. Diagnosis: Problems: (1) Major neurocognitive disorder (2) Impulse control disorder, unspecified (3) Anxiety disorder, unspecified (4) Dementia, vascular, with depression (5) Dementia, vascular, with delusions (6) Dementia in Alzheimer's disease with depression (7) Dementia in Alzheimer's disease with delusions (8) Lewy body dementia with behavioral disturbance FARSHAD CHEEMA MD Aug 12, 2020 21:28
--- NOTE | 2020-08-12 22:47 | NUR ---
Nursing Note Pt in her room at shift change, confused, seems to not know what to do with the meds. Moves them around in her mouth then finally swallows once I put the straw in her mouth. Improved over recent behaviors, has been crying for her parents as of yesterday but not today.
[2020-08-13 06:14] VITALS: BP 127/63
--- NOTE | 2020-08-13 08:25 | PDOC ---
Exam Note: Andrés Note: This note is a late entry for 08/12/2020 covers elements not covered in my initial note. Subjective: The patient was seen face to face in the evening of 08/12/2020 with Myah JAMESON, reviewed the chart. The patient slept 8-3/4 hours previous night. She remains confused, wanders the hallways, does redirect. She did get Zyprexa p.r.n. Review of Systems: No CV, , pulmonary, eye system symptoms on review. Reliability poor. Mental Status Exam: The patient is oriented to herself. Insight and judgment, recent and remote memory, attention and concentration, fund of knowledge is poor consistent with her diagnosis. Laboratory Data: Reviewed. 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 Anxiety disorder unspecified. Impulse control disorder unspecified. Plan: No change from initial note. Assessment: Vital Signs/I&O: Vital Signs Date Time Temp Pulse Resp B/P (MAP) Pulse Ox O2 Delivery O2 Flow Rate FiO2 08/13/20 06:14 97.9 55 16 127/63 (84) 98 08/11/20 15:00 Room Air I & O 08/12/20 08/12/20 08/13/20 15:00 23:00 07:00 Intake Total 400 ml 460 ml Balance 400 ml 460 ml Current Medications: Meds: Current Medications Medications (Trade) Dose Ordered Sig/Stephenie Route PRN Reason Start Time Stop Time Status Last Admin Dose Admin Acetaminophen (Tylenol) 650 mg PRN Q6HRS PRN PO MILD PAIN / TEMP > 100.3'F 07/31/20 13:15 08/10/20 10:53 Multi-Ingredient Ointment (Analgesic [place]) 1 han PRN QID PRN TP MUSCLE PAIN 07/31/20 13:15 Al Hydroxide/Mg Hydroxide (Mylanta Plus Xs) 15 ml PRN AFTMEALHC PRN PO DYSPEPSIA 07/31/20 13:15 Magnesium Hydroxide (Milk Of Magnesia) 2,400 mg PRN QHS PRN PO 1ST CHOICE CONSTIPATION 07/31/20 13:15 Acetaminophen (Tylenol) 650 mg PRN Q6HRS PRN PO MILD PAIN / TEMP > 100.3'F 07/31/20 14:15 Cancel Acetaminophen (Tylenol Supp) 650 mg PRN Q4HRS PRN RC MILD PAIN / TEMP > 100.3'F 07/31/20 14:15 Bisacodyl (Dulcolax Supp) 10 mg PRN DAILY PRN RC 2ND CHOICE CONSTIPATION 07/31/20 14:15 Cyanocobalamin (Vitamin B-12) 250 mcg DAILY PO 08/01/20 09:00 08/12/20 08:23 Loperamide HCl (Imodium) 2 mg PRN Q1HR PRN PO MOD-SEVERE DIARRHEA 07/31/20 14:15 Al Hydroxide/Mg Hydroxide (Mylanta Plus Xs) 15 ml PRN AFTMEALHC PRN PO INDIGESTION 07/31/20 14:15 Cancel Magnesium Hydroxide (Milk Of Magnesia) 2,400 mg PRN QHS PRN PO constipation 07/31/20 14:15 Cancel Polyethylene Glycol (miraLAX) 17 gm DAILY PO 08/01/20 09:00 08/12/20 08:23 Quetiapine Fumarate (SEROquel) 25 mg QHS PO 07/31/20 21:00 08/12/20 19:47 Quetiapine Fumarate (SEROquel) 50 mg DAILY PO 08/01/20 09:00 08/12/20 08:23 Sennosides (Senna) 8.6 mg BID PO 07/31/20 21:00 08/12/20 19:47 Trazodone HCl (Desyrel) 50 mg QHS PO 07/31/20 21:00 08/12/20 19:47 Melatonin (Melatonin) 3 mg QHS PO 07/31/20 21:00 08/12/20 19:47 Loperamide HCl (Imodium) 4 mg PRN DAILY PRN PO MILD DIARRHEA 07/31/20 14:45 Rivastigmine (Exelon) 1 patch DAILY TD 08/02/20 09:00 08/05/20 21:00 DC 08/04/20 07:45 Rivastigmine (Exelon) 1 patch DAILY TD 08/06/20 09:00 08/12/20 08:23 Sertraline HCl (Zoloft) 25 mg DAILY PO 08/02/20 09:00 08/05/20 21:00 DC 08/05/20 09:22 Sertraline HCl (Zoloft) 50 mg DAILY PO 08/06/20 09:00 08/10/20 18:28 DC 08/10/20 08:44 Olanzapine (ZyPREXA ZYDIS) 2.5 mg PRN Q2HRS PRN PO PSYCHOSIS 08/01/20 11:15 08/01/20 18:34 DC 08/01/20 17:17 Trazodone HCl (Desyrel) 50 mg PRN QHS PRN PO INSOMNIA, MAY REPEAT IN 1HR 08/01/20 11:15 08/04/20 00:21 Vitamin D (Vitamin D3) 50,000 unit WEEKLY PO 08/01/20 17:00 08/01/20 17:31 DC Vitamin D (Vitamin D3) 50,000 unit WEEKLY PO 08/02/20 09:00 08/09/20 12:02 Olanzapine (ZyPREXA ZYDIS) 5 mg PRN Q2HRS PRN PO PSYCHOSIS 08/01/20 18:45 08/12/20 08:33 Divalproex Sodium (Depakote Sprinkles) 250 mg HS PO 08/04/20 21:00 08/07/20 16:50 DC 08/06/20 20:33 Quetiapine Fumarate (SEROquel) 25 mg DAILY@1300 PO 08/06/20 13:00 08/12/20 12:58 Divalproex Sodium (Depakote Sprinkles) 500 mg HS PO 08/07/20 21:00 08/12/20 19:47 Sertraline HCl (Zoloft) 75 mg DAILY PO 08/11/20 09:00 08/12/20 08:23 I have reviewed the current psychotropics carefully including drug interactions. Risk benefit ratio favors no change other than as noted in my dictated progress note. Diagnosis: Problems: (1) Major neurocognitive disorder (2) Impulse control disorder, unspecified (3) Anxiety disorder, unspecified (4) Dementia, vascular, with depression (5) Dementia, vascular, with delusions (6) Dementia in Alzheimer's disease with depression (7) Dementia in Alzheimer's disease with delusions (8) Lewy body dementia with behavioral disturbance FARSHAD CHEEMA MD Aug 13, 2020 08:25
[2020-08-13] MEDS: RIVASTIGMINE 9.5MG PATCH. TD SCH (08:38)
[2020-08-13] MEDS: SERTRALINE 25 MG TABLET. PO SCH (08:39)
[2020-08-13] MEDS: QUEtiapine 50 MG TABLET. PO SCH (08:39)
[2020-08-13] MEDS: POLYETHYLENE GLYCOL 3350 17 GM PACKET. PO SCH (08:39)
[2020-08-13] MEDS: CYANOCOBALAMIN (VITAMIN B-12) 250 MCG TABLET. PO SCH (08:39)
[2020-08-13] MEDS: SENNOSIDES 8.6 MG TABLET PO SCH ×2 (08:39→19:59)
--- NOTE | 2020-08-13 09:44 | NUR ---
Nursing note: Pt sitting in the hallway at time of AM med pass and assessment. She is compliant with meds whole and cooperative with assessment. She denies having any pain, but is tearful because "I want my papa to come back". Pt has become increasingly tearful as the morning has progressed and more difficult to redirect. PRN administered. She is currently sitting in the day room for group. Will continue to monitor.
--- NOTE | 2020-08-13 11:36 | NUR ---
SW provided update to Maria Luisa at [facility] and faxed current notes/medication list/labs for review. SW spent time with Delbert who was tearful and expressed she was sad about "everything" when asked. SW provided reassurance to Delbert that she was in a safe place and that her family/grandson knows where she is and will likely call once off work. Delbert calmed. Delbert attended recreational therapy group this morning.
[2020-08-13] MEDS: QUEtiapine 25 MG TABLET. PO SCH ×2 (13:02→19:59)
[2020-08-13 15:43] VITALS: BP 137/77
[2020-08-13] MEDS: MELATONIN 3 MG TABLET PO SCH (19:59)
[2020-08-13] MEDS: traZODone 50 MG TABLET. PO SCH ×2 (19:59→22:00)
[2020-08-13] MEDS: DIVALPROEX 125 MG CAP.SPRINK PO SCH (19:59)
--- NOTE | 2020-08-13 20:55 | PDOC ---
Exam Note: Andrés Note: Please also refer to the separate dictated note~for this date of service dictated separately.~Patient seen individually. Discussed the patient with Nursing staff reviewed the chart.~Reviewed interim history and current functioning. Reviewed vital signs,~Labs/ Radiology~and current medications noted below. Continue current treatment with the changes noted in the dictated addendum note Assessment: Vital Signs/I&O: Vital Signs Date Time Temp Pulse Resp B/P (MAP) Pulse Ox O2 Delivery O2 Flow Rate FiO2 08/13/20 15:43 97.8 85 18 137/77 (97) 98 08/11/20 15:00 Room Air I & O 08/12/20 08/12/20 08/13/20 15:00 23:00 07:00 Intake Total 400 ml 460 ml Balance 400 ml 460 ml Current Medications: Meds: Current Medications Medications (Trade) Dose Ordered Sig/Stephenie Route PRN Reason Start Time Stop Time Status Last Admin Dose Admin Acetaminophen (Tylenol) 650 mg PRN Q6HRS PRN PO MILD PAIN / TEMP > 100.3'F 07/31/20 13:15 08/10/20 10:53 Multi-Ingredient Ointment (Analgesic [place]) 1 han PRN QID PRN TP MUSCLE PAIN 07/31/20 13:15 Al Hydroxide/Mg Hydroxide (Mylanta Plus Xs) 15 ml PRN AFTMEALHC PRN PO DYSPEPSIA 07/31/20 13:15 Magnesium Hydroxide (Milk Of Magnesia) 2,400 mg PRN QHS PRN PO 1ST CHOICE CONSTIPATION 07/31/20 13:15 Acetaminophen (Tylenol) 650 mg PRN Q6HRS PRN PO MILD PAIN / TEMP > 100.3'F 07/31/20 14:15 Cancel Acetaminophen (Tylenol Supp) 650 mg PRN Q4HRS PRN RC MILD PAIN / TEMP > 100.3'F 07/31/20 14:15 Bisacodyl (Dulcolax Supp) 10 mg PRN DAILY PRN RC 2ND CHOICE CONSTIPATION 07/31/20 14:15 Cyanocobalamin (Vitamin B-12) 250 mcg DAILY PO 08/01/20 09:00 08/13/20 08:39 Loperamide HCl (Imodium) 2 mg PRN Q1HR PRN PO MOD-SEVERE DIARRHEA 07/31/20 14:15 Al Hydroxide/Mg Hydroxide (Mylanta Plus Xs) 15 ml PRN AFTMEALHC PRN PO INDIGESTION 07/31/20 14:15 Cancel Magnesium Hydroxide (Milk Of Magnesia) 2,400 mg PRN QHS PRN PO constipation 07/31/20 14:15 Cancel Polyethylene Glycol (miraLAX) 17 gm DAILY PO 08/01/20 09:00 08/13/20 08:39 Quetiapine Fumarate (SEROquel) 25 mg QHS PO 07/31/20 21:00 08/13/20 19:59 Quetiapine Fumarate (SEROquel) 50 mg DAILY PO 08/01/20 09:00 08/13/20 08:39 Sennosides (Senna) 8.6 mg BID PO 07/31/20 21:00 08/13/20 19:59 Trazodone HCl (Desyrel) 50 mg QHS PO 07/31/20 21:00 08/13/20 19:59 Melatonin (Melatonin) 3 mg QHS PO 07/31/20 21:00 08/13/20 19:59 Loperamide HCl (Imodium) 4 mg PRN DAILY PRN PO MILD DIARRHEA 07/31/20 14:45 Rivastigmine (Exelon) 1 patch DAILY TD 08/02/20 09:00 08/05/20 21:00 DC 08/04/20 07:45 Rivastigmine (Exelon) 1 patch DAILY TD 08/06/20 09:00 08/13/20 08:38 Sertraline HCl (Zoloft) 25 mg DAILY PO 08/02/20 09:00 08/05/20 21:00 DC 08/05/20 09:22 Sertraline HCl (Zoloft) 50 mg DAILY PO 08/06/20 09:00 08/10/20 18:28 DC 08/10/20 08:44 Olanzapine (ZyPREXA ZYDIS) 2.5 mg PRN Q2HRS PRN PO PSYCHOSIS 08/01/20 11:15 08/01/20 18:34 DC 08/01/20 17:17 Trazodone HCl (Desyrel) 50 mg PRN QHS PRN PO INSOMNIA, MAY REPEAT IN 1HR 08/01/20 11:15 08/04/20 00:21 Vitamin D (Vitamin D3) 50,000 unit WEEKLY PO 08/01/20 17:00 08/01/20 17:31 DC Vitamin D (Vitamin D3) 50,000 unit WEEKLY PO 08/02/20 09:00 08/09/20 12:02 Olanzapine (ZyPREXA ZYDIS) 5 mg PRN Q2HRS PRN PO PSYCHOSIS 08/01/20 18:45 08/13/20 09:33 Divalproex Sodium (Depakote Sprinkles) 250 mg HS PO 08/04/20 21:00 08/07/20 16:50 DC 08/06/20 20:33 Quetiapine Fumarate (SEROquel) 25 mg DAILY@1300 PO 08/06/20 13:00 08/13/20 13:02 Divalproex Sodium (Depakote Sprinkles) 500 mg HS PO 08/07/20 21:00 08/13/20 19:59 Sertraline HCl (Zoloft) 75 mg DAILY PO 08/11/20 09:00 08/13/20 17:51 DC 08/13/20 08:39 Sertraline HCl (Zoloft) 100 mg DAILY PO 08/14/20 09:00 I have reviewed the current psychotropics carefully including drug interactions. Risk benefit ratio favors no change other than as noted in my dictated progress note. Diagnosis: Problems: (1) Major neurocognitive disorder (2) Impulse control disorder, unspecified (3) Anxiety disorder, unspecified (4) Dementia, vascular, with depression (5) Dementia, vascular, with delusions (6) Dementia in Alzheimer's disease with depression (7) Dementia in Alzheimer's disease with delusions (8) Lewy body dementia with behavioral disturbance FARSHAD CHEEMA MD Aug 13, 2020 20:55
[2020-08-13] MEDS: traZODone 50 MG TABLET. PO PRN (22:00)
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
[2020-08-14 05:53] VITALS: BP 136/58
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
[2020-08-14] MEDS: CYANOCOBALAMIN (VITAMIN B-12) 250 MCG TABLET. PO SCH (08:44)
[2020-08-14] MEDS: SENNOSIDES 8.6 MG TABLET PO SCH ×2 (08:44→20:16)
[2020-08-14] MEDS: QUEtiapine 50 MG TABLET. PO SCH (08:44)
[2020-08-14] MEDS: RIVASTIGMINE 9.5MG PATCH. TD SCH (08:44)
[2020-08-14] MEDS: POLYETHYLENE GLYCOL 3350 17 GM PACKET. PO SCH (08:44)
[2020-08-14] MEDS: SERTRALINE 100 MG TABLET. PO SCH (08:45)
[2020-08-14] MEDS: QUEtiapine 25 MG TABLET. PO SCH ×2 (12:31→20:17)
[2020-08-14 16:24] VITALS: BP 144/90
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
[2020-08-14] MEDS: MELATONIN 3 MG TABLET PO SCH (20:16)
[2020-08-14] MEDS: traZODone 50 MG TABLET. PO SCH (20:16)
[2020-08-14] MEDS: DIVALPROEX 125 MG CAP.SPRINK PO SCH (20:17)
--- NOTE | 2020-08-14 20:54 | PDOC ---
Exam Note: Andrés Note: Please also refer to the separate dictated note~for this date of service dictated separately.~Patient seen individually. Discussed the patient with Nursing staff reviewed the chart.~Reviewed interim history and current functioning. Reviewed vital signs,~Labs/ Radiology~and current medications noted below. Continue current treatment with the changes noted in the dictated addendum note Assessment: Vital Signs/I&O: Vital Signs Date Time Temp Pulse Resp B/P (MAP) Pulse Ox O2 Delivery O2 Flow Rate FiO2 08/14/20 16:24 97.8 67 18 144/90 (108) 97 08/11/20 15:00 Room Air I & O 08/13/20 08/13/20 08/14/20 15:00 23:00 07:00 Intake Total 720 ml 220 ml Balance 720 ml 220 ml Current Medications: Meds: Current Medications Medications (Trade) Dose Ordered Sig/Stephenie Route PRN Reason Start Time Stop Time Status Last Admin Dose Admin Acetaminophen (Tylenol) 650 mg PRN Q6HRS PRN PO MILD PAIN / TEMP > 100.3'F 07/31/20 13:15 08/10/20 10:53 Multi-Ingredient Ointment (Analgesic [place]) 1 han PRN QID PRN TP MUSCLE PAIN 07/31/20 13:15 Al Hydroxide/Mg Hydroxide (Mylanta Plus Xs) 15 ml PRN AFTMEALHC PRN PO DYSPEPSIA 07/31/20 13:15 Magnesium Hydroxide (Milk Of Magnesia) 2,400 mg PRN QHS PRN PO 1ST CHOICE CONSTIPATION 07/31/20 13:15 Acetaminophen (Tylenol) 650 mg PRN Q6HRS PRN PO MILD PAIN / TEMP > 100.3'F 07/31/20 14:15 Cancel Acetaminophen (Tylenol Supp) 650 mg PRN Q4HRS PRN RC MILD PAIN / TEMP > 100.3'F 07/31/20 14:15 Bisacodyl (Dulcolax Supp) 10 mg PRN DAILY PRN RC 2ND CHOICE CONSTIPATION 07/31/20 14:15 Cyanocobalamin (Vitamin B-12) 250 mcg DAILY PO 08/01/20 09:00 08/14/20 08:44 Loperamide HCl (Imodium) 2 mg PRN Q1HR PRN PO MOD-SEVERE DIARRHEA 07/31/20 14:15 Al Hydroxide/Mg Hydroxide (Mylanta Plus Xs) 15 ml PRN AFTMEALHC PRN PO INDIGESTION 07/31/20 14:15 Cancel Magnesium Hydroxide (Milk Of Magnesia) 2,400 mg PRN QHS PRN PO constipation 07/31/20 14:15 Cancel Polyethylene Glycol (miraLAX) 17 gm DAILY PO 08/01/20 09:00 08/14/20 08:44 Quetiapine Fumarate (SEROquel) 25 mg QHS PO 07/31/20 21:00 08/14/20 20:17 Quetiapine Fumarate (SEROquel) 50 mg DAILY PO 08/01/20 09:00 08/14/20 08:44 Sennosides (Senna) 8.6 mg BID PO 07/31/20 21:00 08/14/20 20:16 Trazodone HCl (Desyrel) 50 mg QHS PO 07/31/20 21:00 08/14/20 20:16 Melatonin (Melatonin) 3 mg QHS PO 07/31/20 21:00 08/14/20 20:16 Loperamide HCl (Imodium) 4 mg PRN DAILY PRN PO MILD DIARRHEA 07/31/20 14:45 Rivastigmine (Exelon) 1 patch DAILY TD 08/02/20 09:00 08/05/20 21:00 DC 08/04/20 07:45 Rivastigmine (Exelon) 1 patch DAILY TD 08/06/20 09:00 08/14/20 08:44 Sertraline HCl (Zoloft) 25 mg DAILY PO 08/02/20 09:00 08/05/20 21:00 DC 08/05/20 09:22 Sertraline HCl (Zoloft) 50 mg DAILY PO 08/06/20 09:00 08/10/20 18:28 DC 08/10/20 08:44 Olanzapine (ZyPREXA ZYDIS) 2.5 mg PRN Q2HRS PRN PO PSYCHOSIS 08/01/20 11:15 08/01/20 18:34 DC 08/01/20 17:17 Trazodone HCl (Desyrel) 50 mg PRN QHS PRN PO INSOMNIA, MAY REPEAT IN 1HR 08/01/20 11:15 08/13/20 22:00 Vitamin D (Vitamin D3) 50,000 unit WEEKLY PO 08/01/20 17:00 08/01/20 17:31 DC Vitamin D (Vitamin D3) 50,000 unit WEEKLY PO 08/02/20 09:00 08/09/20 12:02 Olanzapine (ZyPREXA ZYDIS) 5 mg PRN Q2HRS PRN PO PSYCHOSIS 08/01/20 18:45 08/13/20 09:33 Divalproex Sodium (Depakote Sprinkles) 250 mg HS PO 08/04/20 21:00 08/07/20 16:50 DC 08/06/20 20:33 Quetiapine Fumarate (SEROquel) 25 mg DAILY@1300 PO 08/06/20 13:00 08/14/20 12:31 Divalproex Sodium (Depakote Sprinkles) 500 mg HS PO 08/07/20 21:00 08/14/20 20:17 Sertraline HCl (Zoloft) 75 mg DAILY PO 08/11/20 09:00 08/13/20 17:51 DC 08/13/20 08:39 Sertraline HCl (Zoloft) 100 mg DAILY PO 08/14/20 09:00 08/14/20 08:45 Current Medications Medications (Trade) Dose Ordered Sig/Stephenie Route PRN Reason Start Time Stop Time Status Last Admin Dose Admin Sertraline HCl (Zoloft) 100 mg DAILY PO 08/14/20 09:00 08/14/20 08:45 I have reviewed the current psychotropics carefully including drug interactions. Risk benefit ratio favors no change other than as noted in my dictated progress note. Diagnosis: Problems: (1) Major neurocognitive disorder (2) Impulse control disorder, unspecified (3) Anxiety disorder, unspecified (4) Dementia, vascular, with depression (5) Dementia, vascular, with delusions (6) Dementia in Alzheimer's disease with depression (7) Dementia in Alzheimer's disease with delusions (8) Lewy body dementia with behavioral disturbance FARSHAD CHEEMA MD Aug 14, 2020 20:54
--- NOTE | 2020-08-15 00:06 | NUR ---
Nursing Note Pt pleasant cooperative and compliant. Confused wandering the unit, in and out of rooms. Redirects easily.
[2020-08-15 05:27] VITALS: BP 118/74
--- NOTE | 2020-08-15 07:54 | PDOC ---
Exam Note: Andrés Note: This note is a late entry for 08/14/2020 covers elements not covered in my initial note. Subjective: The patient was seen face to face in the evening of 08/14/2020 with Myah JAMESON, discussed and reviewed the chart. The patient slept 5-1/2 hours previous night. She was moved out of the room of another patient who became extremely agitated at the patient who was threatening to kill this patient. She was tearful, delusional, but is better today. She responded very positively when I mentioned to her that her grandson Fredrick was inquiring about her progress. Review of Systems: No CV, , pulmonary, eye system symptoms on review. Mental Status Exam: The patient is oriented to herself. Insight and judgment, recent and remote memory, attention and concentration, fund of knowledge is poor consistent with her diagnosis. Laboratory Data: Reviewed. 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 Anxiety disorder unspecified. Impulse control disorder unspecified. Plan: We have increased the Zoloft to 100 mg a day. We may need to increase further. Assessment: Vital Signs/I&O: Vital Signs Date Time Temp Pulse Resp B/P (MAP) Pulse Ox O2 Delivery O2 Flow Rate FiO2 08/15/20 05:27 97.7 59 18 118/74 (89) 97 08/11/20 15:00 Room Air I & O 08/14/20 08/14/20 08/15/20 15:00 23:00 07:00 Intake Total 840 ml 360 ml Balance 840 ml 360 ml Current Medications: Meds: Current Medications Medications (Trade) Dose Ordered Sig/Stephenie Route PRN Reason Start Time Stop Time Status Last Admin Dose Admin Acetaminophen (Tylenol) 650 mg PRN Q6HRS PRN PO MILD PAIN / TEMP > 100.3'F 07/31/20 13:15 08/10/20 10:53 Multi-Ingredient Ointment (Analgesic [place]) 1 han PRN QID PRN TP MUSCLE PAIN 07/31/20 13:15 Al Hydroxide/Mg Hydroxide (Mylanta Plus Xs) 15 ml PRN AFTMEALHC PRN PO DYSPEPSIA 07/31/20 13:15 Magnesium Hydroxide (Milk Of Magnesia) 2,400 mg PRN QHS PRN PO 1ST CHOICE CONSTIPATION 07/31/20 13:15 Acetaminophen (Tylenol) 650 mg PRN Q6HRS PRN PO MILD PAIN / TEMP > 100.3'F 07/31/20 14:15 Cancel Acetaminophen (Tylenol Supp) 650 mg PRN Q4HRS PRN RC MILD PAIN / TEMP > 100.3'F 07/31/20 14:15 Bisacodyl (Dulcolax Supp) 10 mg PRN DAILY PRN RC 2ND CHOICE CONSTIPATION 07/31/20 14:15 Cyanocobalamin (Vitamin B-12) 250 mcg DAILY PO 08/01/20 09:00 08/14/20 08:44 Loperamide HCl (Imodium) 2 mg PRN Q1HR PRN PO MOD-SEVERE DIARRHEA 07/31/20 14:15 Al Hydroxide/Mg Hydroxide (Mylanta Plus Xs) 15 ml PRN AFTMEALHC PRN PO INDIGESTION 07/31/20 14:15 Cancel Magnesium Hydroxide (Milk Of Magnesia) 2,400 mg PRN QHS PRN PO constipation 07/31/20 14:15 Cancel Polyethylene Glycol (miraLAX) 17 gm DAILY PO 08/01/20 09:00 08/14/20 08:44 Quetiapine Fumarate (SEROquel) 25 mg QHS PO 07/31/20 21:00 08/14/20 20:17 Quetiapine Fumarate (SEROquel) 50 mg DAILY PO 08/01/20 09:00 08/14/20 08:44 Sennosides (Senna) 8.6 mg BID PO 07/31/20 21:00 08/14/20 20:16 Trazodone HCl (Desyrel) 50 mg QHS PO 07/31/20 21:00 08/14/20 20:16 Melatonin (Melatonin) 3 mg QHS PO 07/31/20 21:00 08/14/20 20:16 Loperamide HCl (Imodium) 4 mg PRN DAILY PRN PO MILD DIARRHEA 07/31/20 14:45 Rivastigmine (Exelon) 1 patch DAILY TD 08/02/20 09:00 08/05/20 21:00 DC 08/04/20 07:45 Rivastigmine (Exelon) 1 patch DAILY TD 08/06/20 09:00 08/14/20 08:44 Sertraline HCl (Zoloft) 25 mg DAILY PO 08/02/20 09:00 08/05/20 21:00 DC 08/05/20 09:22 Sertraline HCl (Zoloft) 50 mg DAILY PO 08/06/20 09:00 08/10/20 18:28 DC 08/10/20 08:44 Olanzapine (ZyPREXA ZYDIS) 2.5 mg PRN Q2HRS PRN PO PSYCHOSIS 08/01/20 11:15 08/01/20 18:34 DC 08/01/20 17:17 Trazodone HCl (Desyrel) 50 mg PRN QHS PRN PO INSOMNIA, MAY REPEAT IN 1HR 08/01/20 11:15 08/13/20 22:00 Vitamin D (Vitamin D3) 50,000 unit WEEKLY PO 08/01/20 17:00 08/01/20 17:31 DC Vitamin D (Vitamin D3) 50,000 unit WEEKLY PO 08/02/20 09:00 08/09/20 12:02 Olanzapine (ZyPREXA ZYDIS) 5 mg PRN Q2HRS PRN PO PSYCHOSIS 08/01/20 18:45 08/13/20 09:33 Divalproex Sodium (Depakote Sprinkles) 250 mg HS PO 08/04/20 21:00 08/07/20 16:50 DC 08/06/20 20:33 Quetiapine Fumarate (SEROquel) 25 mg DAILY@1300 PO 08/06/20 13:00 08/14/20 12:31 Divalproex Sodium (Depakote Sprinkles) 500 mg HS PO 08/07/20 21:00 08/14/20 20:17 Sertraline HCl (Zoloft) 75 mg DAILY PO 08/11/20 09:00 08/13/20 17:51 DC 08/13/20 08:39 Sertraline HCl (Zoloft) 100 mg DAILY PO 08/14/20 09:00 08/14/20 08:45 Current Medications Medications (Trade) Dose Ordered Sig/Stephenie Route PRN Reason Start Time Stop Time Status Last Admin Dose Admin Sertraline HCl (Zoloft) 100 mg DAILY PO 08/14/20 09:00 08/14/20 08:45 I have reviewed the current psychotropics carefully including drug interactions. Risk benefit ratio favors no change other than as noted in my dictated progress note. Diagnosis: Problems: (1) Major neurocognitive disorder (2) Impulse control disorder, unspecified (3) Anxiety disorder, unspecified (4) Dementia, vascular, with depression (5) Dementia, vascular, with delusions (6) Dementia in Alzheimer's disease with depression (7) Dementia in Alzheimer's disease with delusions (8) Lewy body dementia with behavioral disturbance FARSHAD CHEEMA MD Aug 15, 2020 07:54
[2020-08-15] MEDS: POLYETHYLENE GLYCOL 3350 17 GM PACKET. PO SCH (08:06)
[2020-08-15] MEDS: SENNOSIDES 8.6 MG TABLET PO SCH ×2 (08:06→19:39)
[2020-08-15] MEDS: SERTRALINE 100 MG TABLET. PO SCH (08:06)
[2020-08-15] MEDS: RIVASTIGMINE 9.5MG PATCH. TD SCH (08:06)
[2020-08-15] MEDS: QUEtiapine 50 MG TABLET. PO SCH (08:06)
[2020-08-15] MEDS: CYANOCOBALAMIN (VITAMIN B-12) 250 MCG TABLET. PO SCH (08:06)
--- NOTE | 2020-08-15 10:04 | NUR ---
WEEKLY ACTIVITY THERAPY NOTE Date of Admission: 07/31/2020 Date of AT Assessment: 08/03 Precipitating behaviors that initiated intake and admission: threatens to kill staff, name calling, belligerent, aggressive towards staff, throws stuff at staff, enters others rooms & gets agitated with redirection, pacing, restless Goal aimed: increase time management and stress management/relaxation skills Initial Goal: Pt will participate in at least three individual or group Activity Therapy sessions per week. Goal changed 08/08: Pt. will participate in at least one Activity Therapy group per day Weekly progress towards goal: did not meet, no groups , Wed, Wed, or Wed Group participation level: 1 min, 1 mod, 1 full Weekly highlights: Howard [employer] exercises on Wednesday, craft kit on Wednesday Behaviors observed: group participation increasing towards end of the week, stands in her doorway, confused but redirects often with reassurance, tearful moments, wanders with and without peer influence, more difficult to engage this week, concerned with safety and tries to get others to leave with her Plan: no change to goal Beneficial adaptations: direct prompting needed at times in group
[2020-08-15] MEDS: QUEtiapine 25 MG TABLET. PO SCH ×2 (13:00→19:39)
[2020-08-15] MEDS: ACETAMINOPHEN 325 MG TABLET PO PRN (13:20)
--- NOTE | 2020-08-15 14:22 | TX PLAN ---
Interdisciplinary Tx Plan Admission Information Jul 31, 2020 at 12:35 Legal Status (on Admission): Voluntary, Court Appointed Guardian DPOA/Guardian Name: Piero Johnston- grandson-guardian Contact Other Contact Name: Stacy- clinical coordinator Other Contact Verified Code Status: DNR Allergies: Coded Allergies: No Known Drug Allergies (Unverified , 07/31/20) Estimated Length of Stay: 14 Diagnoses Primary Diagnosis: Major neurocognitive d/o, vascular, alzheimers with delusions, depression, BD Anxiety d/o unspecified Impulse Control D/O Reasons for Admission: Aggressive, Agitated, Angry, Grief, Anxiety/Panic, Combative, Homicidal Ideation, Confusion/Disoriented, Poor impulse control Problem in Patient's Words: Per Delbert, "I have to go home, where I live." Per family and care facility, see above description of mood and behavioral concerns. Additional Admission Comments: Per intake record, threatens to kill staff, name calling, belligerent, aggressive towards staff, throws stuff at staff, enters others rooms and gets agitated with re-direction, pacing, restless. Problems Active Problems: Agitated Aggressive Medication resistant Wandering/Pacing Inactive Problems: Adequate intake Pt Strengths/Limitations Ability for Hugo: Poor Cognitive Functioning/Ability: Poor Communication Skills/Ability: Fair Financial Resources: Fair Insight/Judgement: Poor Intellectual Ability: Fair Physical Health: Fair Social Skills: Fair Stability in Family: Fair Verbal Skills: Fair Discharge Criteria Discharge Criteria: Adequate arrangements @DC, Improved behavior, Improved mood/thought Preliminary Discharge Plan Preliminary DC Plan: Memory Care Other Arrangements: [facility] Special Precautions Special Precautions: Agitation/Assault Fall Risk: High Initial D/C Plan Delbert will return to [facility] once stable Identified Discharge Needs: F/U with PCP and out patient psychiatry if available. Currently Utilized Resources Currently Utilized Resources/P: PCP Referrals Community Resources: Out patient psychiatry if available Identified Problems/Hx/Goals Objectives/Short-Term Goals Short Term Goals: Control abnormal behavior, Dec. Aggression, Dec. Outbursts, Medication Stabilization, Monitor Med Effects, No Suicidal/Conor. ideation Short Term Goals in Patient's: When asked Delbert spoke about going home. Per lila, for Delbert to be "happy and comfortable." Interventions/Frequency Staff Interventions/Frequency&: Nursing to provide routine safety checks, medication administration, and ADL support. Psychiatry to see three times weekly. SW to see twice weekly. Recreational and SW groups as Delbert will be involved. 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 Social: Delbert enjoyes the outdoors, doing yard work, and going for car drives. Education: Delbert attended primary school in [place] from the age of [age]. 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 Her mood is labile with periods of tearfulness. She has been medication compliant and has not be aggressive. She is confused and will look for her parents at times. She has been easily redirected and responds well to reassurance and support. She has had increased engagement in groups and liked the Howard Chi exercise session. D/C to [facility] on 08/19/20. Fredrick, grandson/guardian, was involved in team meeting via phone on this date. KENYETTA CERDA Aug 15, 2020 14:22
--- NOTE | 2020-08-15 14:51 | NUR ---
Fredrick, grandson/guardian, participated in team meeting via phone this date. SOL contacted Stacy at [facility] to coordinate d/c planning for 08/19/20. [facility] requires a Covid swab that has been completed no more than 72 hours prior to admission to their community. Stacy will call SOL back with transport time once arranged.
--- NOTE | 2020-08-15 17:36 | NUR ---
Patient is in her room eating breakfast at time of assessment. Patient is cooperative and takes medications whole with no problems. Patient is Labile as usual and planned discharge for next week. Patient has no complaints and there are no concerns at this time.
[2020-08-15] MEDS: MELATONIN 3 MG TABLET PO SCH (19:38)
[2020-08-15] MEDS: DIVALPROEX 125 MG CAP.SPRINK PO SCH (19:39)
[2020-08-15] MEDS: traZODone 50 MG TABLET. PO SCH (19:41)
--- NOTE | 2020-08-15 20:57 | PDOC ---
Exam Note: Andrés Note: Please also refer to the separate dictated note~for this date of service dictated separately.~Patient seen individually. Discussed the patient with Nursing staff reviewed the chart.~Reviewed interim history and current functioning. Reviewed vital signs,~Labs/ Radiology~and current medications noted below. Continue current treatment with the changes noted in the dictated addendum note Assessment: Vital Signs/I&O: Vital Signs Date Time Temp Pulse Resp B/P (MAP) Pulse Ox O2 Delivery O2 Flow Rate FiO2 08/15/20 05:27 97.7 59 18 118/74 (89) 97 08/11/20 15:00 Room Air I & O 08/14/20 08/14/20 08/15/20 14:59 22:59 06:59 Intake Total 840 ml 360 ml Balance 840 ml 360 ml Current Medications: Meds: Current Medications Medications (Trade) Dose Ordered Sig/Stephenie Route PRN Reason Start Time Stop Time Status Last Admin Dose Admin Acetaminophen (Tylenol) 650 mg PRN Q6HRS PRN PO MILD PAIN / TEMP > 100.3'F 07/31/20 13:15 08/15/20 13:20 Multi-Ingredient Ointment (Analgesic [place]) 1 ahn PRN QID PRN TP MUSCLE PAIN 07/31/20 13:15 Al Hydroxide/Mg Hydroxide (Mylanta Plus Xs) 15 ml PRN AFTMEALHC PRN PO DYSPEPSIA 07/31/20 13:15 Magnesium Hydroxide (Milk Of Magnesia) 2,400 mg PRN QHS PRN PO 1ST CHOICE CONSTIPATION 07/31/20 13:15 Acetaminophen (Tylenol) 650 mg PRN Q6HRS PRN PO MILD PAIN / TEMP > 100.3'F 07/31/20 14:15 Cancel Acetaminophen (Tylenol Supp) 650 mg PRN Q4HRS PRN RC MILD PAIN / TEMP > 100.3'F 07/31/20 14:15 Bisacodyl (Dulcolax Supp) 10 mg PRN DAILY PRN RC 2ND CHOICE CONSTIPATION 07/31/20 14:15 Cyanocobalamin (Vitamin B-12) 250 mcg DAILY PO 08/01/20 09:00 08/15/20 08:06 Loperamide HCl (Imodium) 2 mg PRN Q1HR PRN PO MOD-SEVERE DIARRHEA 07/31/20 14:15 Al Hydroxide/Mg Hydroxide (Mylanta Plus Xs) 15 ml PRN AFTMEALHC PRN PO INDIGESTION 07/31/20 14:15 Cancel Magnesium Hydroxide (Milk Of Magnesia) 2,400 mg PRN QHS PRN PO constipation 07/31/20 14:15 Cancel Polyethylene Glycol (miraLAX) 17 gm DAILY PO 08/01/20 09:00 08/15/20 08:06 Quetiapine Fumarate (SEROquel) 25 mg QHS PO 07/31/20 21:00 08/15/20 19:39 Quetiapine Fumarate (SEROquel) 50 mg DAILY PO 08/01/20 09:00 08/15/20 08:06 Sennosides (Senna) 8.6 mg BID PO 07/31/20 21:00 08/15/20 19:39 Trazodone HCl (Desyrel) 50 mg QHS PO 07/31/20 21:00 08/15/20 19:41 Melatonin (Melatonin) 3 mg QHS PO 07/31/20 21:00 08/15/20 19:38 Loperamide HCl (Imodium) 4 mg PRN DAILY PRN PO MILD DIARRHEA 07/31/20 14:45 Rivastigmine (Exelon) 1 patch DAILY TD 08/02/20 09:00 08/05/20 21:00 DC 08/04/20 07:45 Rivastigmine (Exelon) 1 patch DAILY TD 08/06/20 09:00 08/15/20 08:06 Sertraline HCl (Zoloft) 25 mg DAILY PO 08/02/20 09:00 08/05/20 21:00 DC 08/05/20 09:22 Sertraline HCl (Zoloft) 50 mg DAILY PO 08/06/20 09:00 08/10/20 18:28 DC 08/10/20 08:44 Olanzapine (ZyPREXA ZYDIS) 2.5 mg PRN Q2HRS PRN PO PSYCHOSIS 08/01/20 11:15 08/01/20 18:34 DC 08/01/20 17:17 Trazodone HCl (Desyrel) 50 mg PRN QHS PRN PO INSOMNIA, MAY REPEAT IN 1HR 08/01/20 11:15 08/13/20 22:00 Vitamin D (Vitamin D3) 50,000 unit WEEKLY PO 08/01/20 17:00 08/01/20 17:31 DC Vitamin D (Vitamin D3) 50,000 unit WEEKLY PO 08/02/20 09:00 08/09/20 12:02 Olanzapine (ZyPREXA ZYDIS) 5 mg PRN Q2HRS PRN PO PSYCHOSIS 08/01/20 18:45 08/13/20 09:33 Divalproex Sodium (Depakote Sprinkles) 250 mg HS PO 08/04/20 21:00 08/07/20 16:50 DC 08/06/20 20:33 Quetiapine Fumarate (SEROquel) 25 mg DAILY@1300 PO 08/06/20 13:00 08/15/20 13:00 Divalproex Sodium (Depakote Sprinkles) 500 mg HS PO 08/07/20 21:00 08/15/20 19:39 Sertraline HCl (Zoloft) 75 mg DAILY PO 08/11/20 09:00 08/13/20 17:51 DC 08/13/20 08:39 Sertraline HCl (Zoloft) 100 mg DAILY PO 08/14/20 09:00 08/15/20 08:06 I have reviewed the current psychotropics carefully including drug interactions. Risk benefit ratio favors no change other than as noted in my dictated progress note. Diagnosis: Problems: (1) Major neurocognitive disorder (2) Impulse control disorder, unspecified (3) Anxiety disorder, unspecified (4) Dementia, vascular, with depression (5) Dementia, vascular, with delusions (6) Abnormal WBC count (7) Dementia in Alzheimer's disease with depression (8) Dementia in Alzheimer's disease with delusions (9) Lewy body dementia with behavioral disturbance FARSHAD CHEEMA MD Aug 15, 2020 20:57
--- NOTE | 2020-08-16 01:33 | NUR ---
Nursing Note The patient was anxious, irritable and disorganized this shift. The patient was very resistive with all interactions with this nurse. The patient refused to take any medication from this nurse and required a female nurse in order to be medication compliant. The patient did eventually take her medication whole. The patient wandered the unit with peers while awake.
[2020-08-16 05:41] VITALS: BP 131/73
[2020-08-16] MEDS: CYANOCOBALAMIN (VITAMIN B-12) 250 MCG TABLET. PO SCH (09:00)
[2020-08-16] MEDS: QUEtiapine 50 MG TABLET. PO SCH (09:00)
[2020-08-16] MEDS: SERTRALINE 100 MG TABLET. PO SCH (09:00)
[2020-08-16] MEDS: SENNOSIDES 8.6 MG TABLET PO SCH ×2 (09:00→19:22)
[2020-08-16] MEDS: CHOLECALCIFEROL (VITAMIN D3) 50,000 UNIT CAPSULE PO SCH (09:00)
[2020-08-16] MEDS: RIVASTIGMINE 9.5MG PATCH. TD SCH (09:00)
[2020-08-16] MEDS: POLYETHYLENE GLYCOL 3350 17 GM PACKET. PO SCH (09:00)
--- NOTE | 2020-08-16 09:31 | NUR ---
[facility] Social Work Discharge Planning Form Patient Name MENDEZ HUDDLESTON Admit Date: 07/31/20 DISCHARGE PLAN Discharge Destination: [facility] Care Assessment: Previously completed Transportation: [facility] to transport on 08/20/20, excelsior picker time TBD. Special Instructions/Notes: Upon return to [facility], arrange for f/u appointments with house physician and house psychiatrist in 7-10 days. DISCHARGE TO FACILITY Facility: [facility] Address: [address] [place] [address] Contact Name: Stacy Clinical Coordinator Contact Name: nurse Maria Luisa PCP: Dr. Brothers [phone], (fax) Psychiatrist: Facility provider
--- NOTE | 2020-08-16 10:59 | NUR ---
Patient is calm and cooperative this morning. Takes her medications whole with no problems. Patient is alert and oriented to self only. Patient not crying or having any hallucinations or delusions this morning. No crying or screaming out. Patient has no complaints and there are no further concerns at this time.
[2020-08-16] MEDS: QUEtiapine 25 MG TABLET. PO SCH ×2 (13:00→19:22)
--- NOTE | 2020-08-16 15:08 | NUR ---
SOL has yet to receive a call back from [facility] with transport time on 08/19/20. SOL left two messages for Maria Luisa, internet marketing intern, and one message for Stacy, clinical coordinator. Awaiting return phone call. Addendum: 08/16/20 at 1513 by KENYETTA HORTON Received call back from Stacy indicating that they will cigar packer and picker Delbert on 08/19/20 at 11am.
[2020-08-16] MEDS: traZODone 50 MG TABLET. PO SCH (19:22)
[2020-08-16] MEDS: MELATONIN 3 MG TABLET PO SCH (19:22)
[2020-08-16] MEDS: DIVALPROEX 125 MG CAP.SPRINK PO SCH (19:23)
--- NOTE | 2020-08-17 01:34 | NUR ---
Nursing Note The patient was calm and compliant this shift. The patient was disorganized during interactions with this nurse but was compliant with her medication and took them whole. The patient was pleasant during her assessment but remains confused and unable to answer any questions except her name.
[2020-08-17 05:51] VITALS: BP 130/79
[2020-08-17] MEDS: RIVASTIGMINE 9.5MG PATCH. TD SCH (08:50)
[2020-08-17] MEDS: SENNOSIDES 8.6 MG TABLET PO SCH ×3 (08:50→21:00)
[2020-08-17] MEDS: SERTRALINE 100 MG TABLET. PO SCH (08:50)
[2020-08-17] MEDS: QUEtiapine 50 MG TABLET. PO SCH (08:50)
[2020-08-17] MEDS: CYANOCOBALAMIN (VITAMIN B-12) 250 MCG TABLET. PO SCH (08:50)
[2020-08-17] MEDS: POLYETHYLENE GLYCOL 3350 17 GM PACKET. PO SCH (09:00)
[2020-08-17 09:24] LABS: BASO # 0.1 x10^3/uL (0.0-0.2); BASO % 1 % (0-3); EOS # 0.2 x10^3/uL (0.0-0.7); EOS % 2 % (0-3); HEMATOCRIT 41.1 % (36.0-47.0); LYMPH # 8.3 x10^3/uL (1.0-4.8); LYMPH % 58 % (24-48); MEAN CORPUSCULAR HEMOGLOBIN 29 pg (25-35); MEAN CORPUSCULAR HGB CONC 32 g/dL (31-37); MEAN CORPUSCULAR VOLUME 93 fL (79-100); MONO # 0.6 x10^3/uL (0.0-1.1); MONO % 4 % (0-9); NEUT # 5.2 x10^3uL (1.8-7.7); NEUT % 36 % (31-73); PLATELET COUNT 159 x10^3/uL (140-400); RED BLOOD COUNT 4.42 x10^6/uL (3.50-5.40); WHITE BLOOD COUNT 14.4 x10^3/uL (4.0-11.0)
[2020-08-17 09:40] LABS: ALBUMIN 3.2 g/dL (3.4-5.0); ALBUMIN/GLOBULIN RATIO 0.8 (1.0-1.7); CALCIUM 8.6 mg/dL (8.5-10.1); CREATININE 0.8 mg/dL (0.6-1.0); GFR 68.3; POTASSIUM 4.3 mmol/L (3.5-5.1); TOTAL BILIRUBIN 0.3 mg/dL (0.2-1.0); TOTAL PROTEIN 7.2 g/dL (6.4-8.2)
--- NOTE | 2020-08-17 10:36 | NUR ---
Pt is was calm and cooperative and confused in the morning. She was delusional and crying after her shower and stated "they hit me, they laughed at me." Staff provided emotional support and redirection however, pt was not able to be redirected. PRN rose garcia given.
--- NOTE | 2020-08-17 10:43 | NUR ---
Pt just approached the nurses station window knocked on the window and yelled "Britany whore! Stay in there!" Pt then walked away.
[2020-08-17] MEDS: QUEtiapine 25 MG TABLET. PO SCH ×4 (12:43→21:00)
[2020-08-17 15:41] VITALS: BP 113/72
[2020-08-17] MEDS: DIVALPROEX 125 MG CAP.SPRINK PO SCH ×2 (19:50→21:00)
[2020-08-17] MEDS: MELATONIN 3 MG TABLET PO SCH ×2 (19:50→21:00)
[2020-08-17] MEDS: traZODone 50 MG TABLET. PO SCH ×2 (19:50→21:00)
--- NOTE | 2020-08-17 20:58 | PDOC ---
Exam Note: Andrés Note: Late entry for 08/16/2020. Please also refer to the separate dictated note~for this date of service dictated separately.~Patient seen individually. Discussed the patient with Nursing staff reviewed the chart.~Reviewed interim history and current functioning. Reviewed vital signs,~Labs/ Radiology~and current medic ations noted below. Continue current treatment with the changes noted in the dictated addendum note Assessment: Vital Signs/I&O: Vital Signs Date Time Temp Pulse Resp B/P (MAP) Pulse Ox O2 Delivery O2 Flow Rate FiO2 08/17/20 15:41 98.1 72 16 113/72 (86) 95 08/17/20 05:51 Room Air I & O 0 08/16/20 08/16/20 08/17/20 15:00 23:00 07:00 Intake Total 360 ml 360 ml Balance 360 ml 360 ml Labs: Laboratory Tests Test 08/17/20 06:00 08/17/20 09:02 Coronavirus (PCR) Not detected (Not Detected) White Blood Count 14.4 x10^3/uL (4.0-11.0) H Red Blood Count 4.42 x10^6/uL (3.50-5.40) Hemoglobin 13.0 g/dL (12.0-15.5) Hematocrit 41.1 % (36.0-47.0) Mean Corpuscular Volume 93 fL (79-100) Mean Corpuscular Hemoglobin 29 pg (25-35) Mean Corpuscular Hemoglobin Concent 32 g/dL (31-37) Red Cell Distribution Width 15.0 % (11.5-14.5) H Platelet Count 159 x10^3/uL (140-400) Neutrophils (%) (Auto) 36 % (31-73) Lymphocytes (%) (Auto) 58 % (24-48) H Monocytes (%) (Auto) 4 % (0-9) Eosinophils (%) (Auto) 2 % (0-3) Basophils (%) (Auto) 1 % (0-3) Neutrophils # (Auto) 5.2 x10^3uL (1.8-7.7) Lymphocytes # (Auto) 8.3 x10^3/uL (1.0-4.8) H Monocytes # (Auto) 0.6 x10^3/uL (0.0-1.1) Eosinophils # (Auto) 0.2 x10^3/uL (0.0-0.7) Basophils # (Auto) 0.1 x10^3/uL (0.0-0.2) Sodium Level 140 mmol/L (136-145) Potassium Level 4.3 mmol/L (3.5-5.1) Chloride Level 104 mmol/L (98-107) Carbon Dioxide Level 28 mmol/L (21-32) Anion Gap 8 (6-14) Blood Urea Nitrogen 13 mg/dL (7-20) Creatinine 0.8 mg/dL (0.6-1.0) Estimated GFR (Cockcroft-Gault) 68.3 BUN/Creatinine Ratio 16 (6-20) Glucose Level 147 mg/dL (70-99) H Calcium Level 8.6 mg/dL (8.5-10.1) Total Bilirubin 0.3 mg/dL (0.2-1.0) Aspartate Amino Transferase (AST) 16 U/L (15-37) Alanine Aminotransferase (ALT) 18 U/L (14-59) Alkaline Phosphatase 65 U/L (46-116) Total Protein 7.2 g/dL (6.4-8.2) Albumin 3.2 g/dL (3.4-5.0) L Albumin/Globulin Ratio 0.8 (1.0-1.7) L Current Medications: I have reviewed the current psychotropics carefully including drug interactions. Risk benefit ratio favors no change other than as noted in my dictated progress note. Diagnosis: Problems: (1) Major neurocognitive disorder (2) Impulse control disorder, unspecified (3) Anxiety disorder, unspecified (4) Dementia, vascular, with depression (5) Dementia, vascular, with delusions (6) Dementia in Alzheimer's disease with depression (7) Dementia in Alzheimer's disease with delusions (8) Lewy body dementia with behavioral disturbance FARSHAD CHEEMA MD Aug 17, 2020 20:57
--- NOTE | 2020-08-17 22:48 | NUR ---
Nursing Note The patient was located in her room sleeping in bed when approached for her assessment and medication. The patients medications were held this shift r/t drowsiness. The patient remains in her bed sleeping at this time.
[2020-08-18 06:09] VITALS: BP 137/82
--- NOTE | 2020-08-18 07:38 | PDOC ---
Exam Note: Andrés Note: This note is a late entry for 08/15/2020 covers elements not covered in my initial note. Subjective: The patient was seen face to face in the morning of 08/15/2020 for a treatment team meeting with Cathi Decker, Marika Perez and Tanesha (community mental health social worker), Nalini Mcallister, activity therapy and Elizabeth JAMESON, discussed and reviewed the chart. The patients americo Alcala attended the treatment team meeting. He slept 9 hours previous night. She remains confused, anxious, restless, somewhat labile at times but generally redirectable. Review of Systems: No CV, , pulmonary, eye system symptoms on review. Mental Status Exam: The patient is oriented to herself. Insight and judgment, recent and remote memory, attention and concentration, fund of knowledge is poor consistent with her diagnosis. Laboratory Data: Reviewed. 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 Anxiety disorder unspecified. Impulse control disorder unspecified. Plan: We will adjust psychotropics as clinically indicated. Assessment: Vital Signs/I&O: Vital Signs Date Time Temp Pulse Resp B/P (MAP) Pulse Ox O2 Delivery O2 Flow Rate FiO2 08/18/20 06:09 97.4 60 18 137/82 (100) 97 08/17/20 05:51 Room Air I & O 08/17/20 08/17/20 08/18/20 15:00 23:00 07:00 Intake Total 480 ml 480 ml Balance 480 ml 480 ml Labs: Laboratory Tests Test 08/17/20 09:02 White Blood Count 14.4 x10^3/uL (4.0-11.0) H Red Blood Count 4.42 x10^6/uL (3.50-5.40) Hemoglobin 13.0 g/dL (12.0-15.5) Hematocrit 41.1 % (36.0-47.0) Mean Corpuscular Volume 93 fL (79-100) Mean Corpuscular Hemoglobin 29 pg (25-35) Mean Corpuscular Hemoglobin Concent 32 g/dL (31-37) Red Cell Distribution Width 15.0 % (11.5-14.5) H Platelet Count 159 x10^3/uL (140-400) Neutrophils (%) (Auto) 36 % (31-73) Lymphocytes (%) (Auto) 58 % (24-48) H Monocytes (%) (Auto) 4 % (0-9) Eosinophils (%) (Auto) 2 % (0-3) Basophils (%) (Auto) 1 % (0-3) Neutrophils # (Auto) 5.2 x10^3uL (1.8-7.7) Lymphocytes # (Auto) 8.3 x10^3/uL (1.0-4.8) H Monocytes # (Auto) 0.6 x10^3/uL (0.0-1.1) Eosinophils # (Auto) 0.2 x10^3/uL (0.0-0.7) Basophils # (Auto) 0.1 x10^3/uL (0.0-0.2) Sodium Level 140 mmol/L (136-145) Potassium Level 4.3 mmol/L (3.5-5.1) Chloride Level 104 mmol/L (98-107) Carbon Dioxide Level 28 mmol/L (21-32) Anion Gap 8 (6-14) Blood Urea Nitrogen 13 mg/dL (7-20) Creatinine 0.8 mg/dL (0.6-1.0) Estimated GFR (Cockcroft-Gault) 68.3 BUN/Creatinine Ratio 16 (6-20) Glucose Level 147 mg/dL (70-99) H Calcium Level 8.6 mg/dL (8.5-10.1) Total Bilirubin 0.3 mg/dL (0.2-1.0) Aspartate Amino Transferase (AST) 16 U/L (15-37) Alanine Aminotransferase (ALT) 18 U/L (14-59) Alkaline Phosphatase 65 U/L (46-116) Total Protein 7.2 g/dL (6.4-8.2) Albumin 3.2 g/dL (3.4-5.0) L Albumin/Globulin Ratio 0.8 (1.0-1.7) L Current Medications: I have reviewed the current psychotropics carefully including drug interactions. Risk benefit ratio favors no change other than as noted in my dictated progress note. Diagnosis: Problems: (1) Major neurocognitive disorder (2) Impulse control disorder, unspecified (3) Anxiety disorder, unspecified (4) Dementia, vascular, with depression (5) Dementia, vascular, with delusions (6) Dementia in Alzheimer's disease with depression (7) Dementia in Alzheimer's disease with delusions (8) Lewy body dementia with behavioral disturbance FARSHAD CHEEMA MD Aug 18, 2020 07:38
--- NOTE | 2020-08-18 07:42 | PDOC ---
Exam Note: Andrés Note: This note is a late entry for 08/16/2020 covers elements not covered in my initial note. Subjective: The patient was seen face to face in the evening of 08/16/2020 with Elizabeth JAMESON, discussed and reviewed the chart. The patient slept 7 hours previous night. She did well in the morning group. Review of Systems: No CV, , pulmonary, eye system symptoms on review. Mental Status Exam: The patient is oriented to herself. Insight and judgment, recent and remote memory, attention and concentration, fund of knowledge is poor consistent with her diagnosis. Laboratory Data: Reviewed. 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 Anxiety disorder unspecified. Impulse control disorder unspecified. Plan: We will consider discharge on 08/19/2020 depending on her progress. Assessment: Vital Signs/I&O: Vital Signs Date Time Temp Pulse Resp B/P (MAP) Pulse Ox O2 Delivery O2 Flow Rate FiO2 08/18/20 06:09 97.4 60 18 137/82 (100) 97 08/17/20 05:51 Room Air I & O 08/17/20 08/17/20 08/18/20 15:00 23:00 07:00 Intake Total 480 ml 480 ml Balance 480 ml 480 ml Labs: Laboratory Tests Test 08/17/20 09:02 White Blood Count 14.4 x10^3/uL (4.0-11.0) H Red Blood Count 4.42 x10^6/uL (3.50-5.40) Hemoglobin 13.0 g/dL (12.0-15.5) Hematocrit 41.1 % (36.0-47.0) Mean Corpuscular Volume 93 fL (79-100) Mean Corpuscular Hemoglobin 29 pg (25-35) Mean Corpuscular Hemoglobin Concent 32 g/dL (31-37) Red Cell Distribution Width 15.0 % (11.5-14.5) H Platelet Count 159 x10^3/uL (140-400) Neutrophils (%) (Auto) 36 % (31-73) Lymphocytes (%) (Auto) 58 % (24-48) H Monocytes (%) (Auto) 4 % (0-9) Eosinophils (%) (Auto) 2 % (0-3) Basophils (%) (Auto) 1 % (0-3) Neutrophils # (Auto) 5.2 x10^3uL (1.8-7.7) Lymphocytes # (Auto) 8.3 x10^3/uL (1.0-4.8) H Monocytes # (Auto) 0.6 x10^3/uL (0.0-1.1) Eosinophils # (Auto) 0.2 x10^3/uL (0.0-0.7) Basophils # (Auto) 0.1 x10^3/uL (0.0-0.2) Sodium Level 140 mmol/L (136-145) Potassium Level 4.3 mmol/L (3.5-5.1) Chloride Level 104 mmol/L (98-107) Carbon Dioxide Level 28 mmol/L (21-32) Anion Gap 8 (6-14) Blood Urea Nitrogen 13 mg/dL (7-20) Creatinine 0.8 mg/dL (0.6-1.0) Estimated GFR (Cockcroft-Gault) 68.3 BUN/Creatinine Ratio 16 (6-20) Glucose Level 147 mg/dL (70-99) H Calcium Level 8.6 mg/dL (8.5-10.1) Total Bilirubin 0.3 mg/dL (0.2-1.0) Aspartate Amino Transferase (AST) 16 U/L (15-37) Alanine Aminotransferase (ALT) 18 U/L (14-59) Alkaline Phosphatase 65 U/L (46-116) Total Protein 7.2 g/dL (6.4-8.2) Albumin 3.2 g/dL (3.4-5.0) L Albumin/Globulin Ratio 0.8 (1.0-1.7) L Current Medications: I have reviewed the current psychotropics carefully including drug interactions. Risk benefit ratio favors no change other than as noted in my dictated progress note. Diagnosis: Problems: (1) Major neurocognitive disorder (2) Impulse control disorder, unspecified (3) Anxiety disorder, unspecified (4) Dementia, vascular, with depression (5) Dementia, vascular, with delusions (6) Dementia in Alzheimer's disease with depression (7) Dementia in Alzheimer's disease with delusions (8) Lewy body dementia with behavioral disturbance FARSHAD CHEEMA MD Aug 18, 2020 07:42
--- NOTE | 2020-08-18 07:44 | PDOC ---
Exam Note: Andrés Note: This note is a late entry for 08/17/2020 covers elements not covered in my initial note. Subjective: The patient was seen face to face in the evening of 08/17/2020 with Rosalinda JAMESON, discussed and reviewed the chart. The patient slept 8-1/2 hours previous night. Overall the patient has had a difficult day. She has been anxious, labile, disruptive, delusional. Review of Systems: No CV, , pulmonary, eye system symptoms on review. Re liability poor. Mental Status Exam: The patient is oriented to herself. Insight and judgment, recent and remote memory, attention and concentration, fund of knowledge is poor consistent with her diagnosis. Laboratory Data: Reviewed. 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 Anxiety disorder unspecified. Impulse control disorder unspecified. Plan: Change Depakote Sprinkle 500 mg h.s. to 250 mg twice a day. Check CBC, CMP, valproic acid level in 3 days. Increase Seroquel from 50 mg a.m. and 25 mg 1 p.m. and 25 mg h.s. We will make the 1 p.m. dosage increased to 50 mg a day to help with mood lability. Adjust further as clinically indicated. At one point she was laughing and inappropriate, anxious but then redirected. Assessment: Vital Signs/I&O: Vital Signs Date Time Temp Pulse Resp B/P (MAP) Pulse Ox O2 Delivery O2 Flow Rate FiO2 08/18/20 06:09 97.4 60 18 137/82 (100) 97 08/17/20 05:51 Room Air I & O 08/17/20 08/17/20 08/18/20 15:00 23:00 07:00 Intake Total 480 ml 480 ml Balance 480 ml 480 ml Labs: Laboratory Tests Test 08/17/20 09:02 White Blood Count 14.4 x10^3/uL (4.0-11.0) H Red Blood Count 4.42 x10^6/uL (3.50-5.40) Hemoglobin 13.0 g/dL (12.0-15.5) Hematocrit 41.1 % (36.0-47.0) Mean Corpuscular Volume 93 fL (79-100) Mean Corpuscular Hemoglobin 29 pg (25-35) Mean Corpuscular Hemoglobin Concent 32 g/dL (31-37) Red Cell Distribution Width 15.0 % (11.5-14.5) H Platelet Count 159 x10^3/uL (140-400) Neutrophils (%) (Auto) 36 % (31-73) Lymphocytes (%) (Auto) 58 % (24-48) H Monocytes (%) (Auto) 4 % (0-9) Eosinophils (%) (Auto) 2 % (0-3) Basophils (%) (Auto) 1 % (0-3) Neutrophils # (Auto) 5.2 x10^3uL (1.8-7.7) Lymphocytes # (Auto) 8.3 x10^3/uL (1.0-4.8) H Monocytes # (Auto) 0.6 x10^3/uL (0.0-1.1) Eosinophils # (Auto) 0.2 x10^3/uL (0.0-0.7) Basophils # (Auto) 0.1 x10^3/uL (0.0-0.2) Sodium Level 140 mmol/L (136-145) Potassium Level 4.3 mmol/L (3.5-5.1) Chloride Level 104 mmol/L (98-107) Carbon Dioxide Level 28 mmol/L (21-32) Anion Gap 8 (6-14) Blood Urea Nitrogen 13 mg/dL (7-20) Creatinine 0.8 mg/dL (0.6-1.0) Estimated GFR (Cockcroft-Gault) 68.3 BUN/Creatinine Ratio 16 (6-20) Glucose Level 147 mg/dL (70-99) H Calcium Level 8.6 mg/dL (8.5-10.1) Total Bilirubin 0.3 mg/dL (0.2-1.0) Aspartate Amino Transferase (AST) 16 U/L (15-37) Alanine Aminotransferase (ALT) 18 U/L (14-59) Alkaline Phosphatase 65 U/L (46-116) Total Protein 7.2 g/dL (6.4-8.2) Albumin 3.2 g/dL (3.4-5.0) L Albumin/Globulin Ratio 0.8 (1.0-1.7) L Current Medications: I have reviewed the current psychotropics carefully including drug interactions. Risk benefit ratio favors no change other than as noted in my dictated progress note. Diagnosis: Problems: (1) Major neurocognitive disorder (2) Impulse control disorder, unspecified (3) Anxiety disorder, unspecified (4) Dementia, vascular, with depression (5) Dementia, vascular, with delusions (6) Dementia in Alzheimer's disease with depression (7) Dementia in Alzheimer's disease with delusions (8) Lewy body dementia with behavioral disturbance FARSHAD CHEEMA MD Aug 18, 2020 07:44
[2020-08-18] MEDS: CYANOCOBALAMIN (VITAMIN B-12) 250 MCG TABLET. PO SCH (08:59)
[2020-08-18] MEDS: QUEtiapine 50 MG TABLET. PO SCH (08:59)
[2020-08-18] MEDS: POLYETHYLENE GLYCOL 3350 17 GM PACKET. PO SCH (08:59)
[2020-08-18] MEDS: DIVALPROEX 125 MG CAP.SPRINK PO SCH ×2 (08:59→18:35)
[2020-08-18] MEDS: SENNOSIDES 8.6 MG TABLET PO SCH ×2 (08:59→18:35)
[2020-08-18] MEDS: RIVASTIGMINE 9.5MG PATCH. TD SCH (08:59)
[2020-08-18] MEDS: SERTRALINE 100 MG TABLET. PO SCH (08:59)
--- NOTE | 2020-08-18 10:10 | NUR ---
Pt is delusional and believes she is at a bahai, she stated "I'm scared." She appeared tearful. She wanders the unit with other peers and is not redirectable at this time. PRN zyprexa zydis given with her am medication. She is compliant with her medication and assessment
[2020-08-18] MEDS: QUEtiapine 25 MG TABLET. PO SCH ×2 (12:44→18:35)
[2020-08-18 15:24] VITALS: BP 133/74
[2020-08-18] MEDS: MELATONIN 3 MG TABLET PO SCH (18:35)
[2020-08-18] MEDS: traZODone 50 MG TABLET. PO SCH (18:35)
--- NOTE | 2020-08-18 20:50 | PDOC ---
Exam Note: Andrés Note: Please also refer to the separate dictated note~for this date of service dictated separately.~Patient seen individually. Discussed the patient with Nursing staff reviewed the chart.~Reviewed interim history and current functioning. Reviewed vital signs,~Labs/ Radiology~and current medications noted below. Continue current treatment with the changes noted in the dictated addendum note Assessment: Vital Signs/I&O: Vital Signs Date Time Temp Pulse Resp B/P (MAP) Pulse Ox O2 Delivery O2 Flow Rate FiO2 08/18/20 15:24 98.0 91 16 133/74 (93) 94 Room Air I & O 08/17/20 08/17/20 08/18/20 15:00 23:00 07:00 Intake Total 480 ml 480 ml Balance 480 ml 480 ml Current Medications: Meds: Current Medications Medications (Trade) Dose Ordered Sig/Stephenie Route PRN Reason Start Time Stop Time Status Last Admin Dose Admin Quetiapine Fumarate (SEROquel) 50 mg DAILY@1300 PO 08/18/20 13:00 08/18/20 12:44 Divalproex Sodium (Depakote Sprinkles) 250 mg BID PO 08/18/20 09:00 08/18/20 18:35 I have reviewed the current psychotropics carefully including drug interactions. Risk benefit ratio favors no change other than as noted in my dictated progress note. Diagnosis: Problems: (1) Major neurocognitive disorder (2) Impulse control disorder, unspecified (3) Anxiety disorder, unspecified (4) Dementia, vascular, with depression (5) Dementia, vascular, with delusions (6) Dementia in Alzheimer's disease with depression (7) Dementia in Alzheimer's disease with delusions (8) Lewy body dementia with behavioral disturbance FARSHAD CHEEMA MD Aug 18, 2020 20:50
--- NOTE | 2020-08-18 22:43 | NUR ---
Pt located in her room this evening. Compliant with whole medications. Delusional at times.
[2020-08-19] MEDS ORDERED: CHOL500021 PO (02:42)
[2020-08-19] MEDS ORDERED: DIVA125C2 PO (02:42)
[2020-08-19] MEDS ORDERED: OLAN5TAB99 PO (02:43)
[2020-08-19] MEDS ORDERED: METH57CR17 TP (02:43)
[2020-08-19] MEDS ORDERED: QUET50TA5 PO (02:50)
[2020-08-19] MEDS ORDERED: RIVA1PAT23 TD (02:50)
[2020-08-19] MEDS ORDERED: SERT100T PO (02:51)
[2020-08-19] MEDS ORDERED: TRAZ-120 PO (02:52)
[2020-08-19 06:18] VITALS: BP 152/76
--- NOTE | 2020-08-19 08:27 | PDOC ---
Exam Note: Andrés Note: This note is a late entry for 08/18/2020 covers elements not covered in my initial note. Subjective: The patient was seen face to face in the evening of 08/18/2020 with Rosalinda JAMESON, discussed and reviewed the chart. The patient slept 10-1/2 hours previous night. The patient has did well at night though she refused her bedtime medications, somewhat sleepy, tired in the morning, tearful. Received Zyprexa p.r.n., then did better. She was wandering around the unit, redirectable. Review of Systems: No CV, , pulmonary, eye system symptoms on review. Reliability poor. Mental Status Exam: The patient is oriented to herself. Insight and judgment, recent and remote memory, attention and concentration, fund of knowledge is poor consistent with her diagnosis. As I met with her individually in the hallway, I told her that I had talked to Fredrick her grandson and she is very animated to hear this, wanting to hold my hand, wanting to know how I knew Fredrick but she is quite confused. Laboratory Data: Reviewed. 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 Anxiety disorder unspecified. Impulse control disorder unspecified. Plan: No change from initial note. Assessment: Vital Signs/I&O: Vital Signs Date Time Temp Pulse Resp B/P (MAP) Pulse Ox O2 Delivery O2 Flow Rate FiO2 08/19/20 06:18 97.8 65 16 152/76 (101) 97 Room Air I & O 08/18/20 08/18/20 08/19/20 15:00 23:00 07:00 Intake Total 600 ml 240 ml 120 ml Balance 600 ml 240 ml 120 ml Current Medications: Meds: Current Medications Medications (Trade) Dose Ordered Sig/Stephenie Route PRN Reason Start Time Stop Time Status Last Admin Dose Admin Acetaminophen (Tylenol) 650 mg PRN Q6HRS PRN PO MILD PAIN / TEMP > 100.3'F 07/31/20 13:15 08/15/20 13:20 Multi-Ingredient Ointment (Analgesic [place]) 1 han PRN QID PRN TP MUSCLE PAIN 07/31/20 13:15 Al Hydroxide/Mg Hydroxide (Mylanta Plus Xs) 15 ml PRN AFTMEALHC PRN PO DYSPEPSIA 07/31/20 13:15 Magnesium Hydroxide (Milk Of Magnesia) 2,400 mg PRN QHS PRN PO 1ST CHOICE CONSTIPATION 07/31/20 13:15 Acetaminophen (Tylenol) 650 mg PRN Q6HRS PRN PO MILD PAIN / TEMP > 100.3'F 07/31/20 14:15 Cancel Acetaminophen (Tylenol Supp) 650 mg PRN Q4HRS PRN RC MILD PAIN / TEMP > 100.3'F 07/31/20 14:15 Bisacodyl (Dulcolax Supp) 10 mg PRN DAILY PRN RC 2ND CHOICE CONSTIPATION 07/31/20 14:15 Cyanocobalamin (Vitamin B-12) 250 mcg DAILY PO 08/01/20 09:00 08/18/20 08:59 Loperamide HCl (Imodium) 2 mg PRN Q1HR PRN PO MOD-SEVERE DIARRHEA 07/31/20 14:15 Al Hydroxide/Mg Hydroxide (Mylanta Plus Xs) 15 ml PRN AFTMEALHC PRN PO INDIGESTION 07/31/20 14:15 Cancel Magnesium Hydroxide (Milk Of Magnesia) 2,400 mg PRN QHS PRN PO constipation 07/31/20 14:15 Cancel Polyethylene Glycol (miraLAX) 17 gm DAILY PO 08/01/20 09:00 08/18/20 08:59 Quetiapine Fumarate (SEROquel) 25 mg QHS PO 07/31/20 21:00 08/18/20 18:35 Quetiapine Fumarate (SEROquel) 50 mg DAILY PO 08/01/20 09:00 08/18/20 08:59 Sennosides (Senna) 8.6 mg BID PO 07/31/20 21:00 08/18/20 18:35 Trazodone HCl (Desyrel) 50 mg QHS PO 07/31/20 21:00 08/18/20 18:35 Melatonin (Melatonin) 3 mg QHS PO 07/31/20 21:00 08/18/20 18:35 Loperamide HCl (Imodium) 4 mg PRN DAILY PRN PO MILD DIARRHEA 07/31/20 14:45 Rivastigmine (Exelon) 1 patch DAILY TD 08/02/20 09:00 08/05/20 21:00 DC 08/04/20 07:45 Rivastigmine (Exelon) 1 patch DAILY TD 08/06/20 09:00 08/18/20 08:59 Sertraline HCl (Zoloft) 25 mg DAILY PO 08/02/20 09:00 08/05/20 21:00 DC 08/05/20 09:22 Sertraline HCl (Zoloft) 50 mg DAILY PO 08/06/20 09:00 08/10/20 18:28 DC 08/10/20 08:44 Olanzapine (ZyPREXA ZYDIS) 2.5 mg PRN Q2HRS PRN PO PSYCHOSIS 08/01/20 11:15 08/01/20 18:34 DC 08/01/20 17:17 Trazodone HCl (Desyrel) 50 mg PRN QHS PRN PO INSOMNIA, MAY REPEAT IN 1HR 08/01/20 11:15 08/13/20 22:00 Vitamin D (Vitamin D3) 50,000 unit WEEKLY PO 08/01/20 17:00 08/01/20 17:31 DC Vitamin D (Vitamin D3) 50,000 unit WEEKLY PO 08/02/20 09:00 08/16/20 09:00 Olanzapine (ZyPREXA ZYDIS) 5 mg PRN Q2HRS PRN PO PSYCHOSIS 08/01/20 18:45 08/18/20 17:31 Divalproex Sodium (Depakote Sprinkles) 250 mg HS PO 08/04/20 21:00 08/07/20 16:50 DC 08/06/20 20:33 Quetiapine Fumarate (SEROquel) 25 mg DAILY@1300 PO 08/06/20 13:00 08/17/20 16:30 DC 08/16/20 13:00 Divalproex Sodium (Depakote Sprinkles) 500 mg HS PO 08/07/20 21:00 08/17/20 21:00 DC 08/16/20 19:23 Sertraline HCl (Zoloft) 75 mg DAILY PO 08/11/20 09:00 08/13/20 17:51 DC 08/13/20 08:39 Sertraline HCl (Zoloft) 100 mg DAILY PO 08/14/20 09:00 08/18/20 08:59 Quetiapine Fumarate (SEROquel) 50 mg DAILY@1300 PO 08/18/20 13:00 08/18/20 12:44 Divalproex Sodium (Depakote Sprinkles) 250 mg BID PO 08/18/20 09:00 08/18/20 18:35 Current Medications Medications (Trade) Dose Ordered Sig/Stephenie Route PRN Reason Start Time Stop Time Status Last Admin Dose Admin Quetiapine Fumarate (SEROquel) 50 mg DAILY@1300 PO 08/18/20 13:00 08/18/20 12:44 Divalproex Sodium (Depakote Sprinkles) 250 mg BID PO 08/18/20 09:00 08/18/20 18:35 I have reviewed the current psychotropics carefully including drug interactions. Risk benefit ratio favors no change other than as noted in my dictated progress note. Diagnosis: Problems: (1) Major neurocognitive disorder (2) Impulse control disorder, unspecified (3) Anxiety disorder, unspecified (4) Dementia, vascular, with depression (5) Dementia, vascular, with delusions (6) Dementia in Alzheimer's disease with depression (7) Dementia in Alzheimer's disease with delusions (8) Lewy body dementia with behavioral disturbance FARSHAD CHEEMA MD Aug 19, 2020 08:27
[2020-08-19] MEDS: SERTRALINE 100 MG TABLET. PO SCH (09:00)
[2020-08-19] MEDS: QUEtiapine 50 MG TABLET. PO SCH (09:00)
[2020-08-19] MEDS: DIVALPROEX 125 MG CAP.SPRINK PO SCH ×2 (09:00→20:23)
[2020-08-19] MEDS: SENNOSIDES 8.6 MG TABLET PO SCH ×2 (09:00→20:24)
[2020-08-19] MEDS: CYANOCOBALAMIN (VITAMIN B-12) 250 MCG TABLET. PO SCH (09:00)
[2020-08-19] MEDS: POLYETHYLENE GLYCOL 3350 17 GM PACKET. PO SCH (09:00)
[2020-08-19] MEDS: RIVASTIGMINE 9.5MG PATCH. TD SCH (09:00)
--- NOTE | 2020-08-19 12:00 | NUR ---
See downtime med rec for am medication administration.
--- NOTE | 2020-08-19 12:37 | NUR ---
Delbert's d/c was postponed due to increased anxiety, restlessness, and delusions. Mood is labile. Notified Sharee Shaffer and Fredrick (grandson/POA) of change in d/c plans. Will follow.
[2020-08-19] MEDS: QUEtiapine 25 MG TABLET. PO SCH ×2 (13:40→20:24)
--- NOTE | 2020-08-19 14:47 | NUR ---
Pt is tearful and wandering. She is delusional stating "my papa is coming." "Where is my papa?" Staff could not redirect. She is compliant with her medication and assessment.
--- NOTE | 2020-08-19 14:54 | NUR ---
PRN zyprexa zydis given with am medication
[2020-08-19 16:09] VITALS: BP 151/81
[2020-08-19] MEDS: MELATONIN 3 MG TABLET PO SCH (20:23)
[2020-08-19] MEDS: traZODone 50 MG TABLET. PO SCH (20:24)
--- NOTE | 2020-08-19 21:00 | PDOC ---
Exam Note: Andrés Note: Please also refer to the separate dictated note~for this date of service dictated separately.~Patient seen individually. Discussed the patient with Nursing staff reviewed the chart.~Reviewed interim history and current functioning. Reviewed vital signs,~Labs/ Radiology~and current medications noted below. Continue current treatment with the changes noted in the dictated addendum note Assessment: Vital Signs/I&O: Vital Signs Date Time Temp Pulse Resp B/P (MAP) Pulse Ox O2 Delivery O2 Flow Rate FiO2 08/19/20 16:09 98.4 75 16 151/81 (104) 97 08/19/20 06:18 Room Air I & O 08/18/20 08/18/20 08/19/20 15:00 23:00 07:00 Intake Total 600 ml 240 ml 120 ml Balance 600 ml 240 ml 120 ml Current Medications: Meds: Current Medications Medications (Trade) Dose Ordered Sig/Stephenie Route PRN Reason Start Time Stop Time Status Last Admin Dose Admin Acetaminophen (Tylenol) 650 mg PRN Q6HRS PRN PO MILD PAIN / TEMP > 100.3'F 07/31/20 13:15 08/15/20 13:20 Multi-Ingredient Ointment (Analgesic [place]) 1 han PRN QID PRN TP MUSCLE PAIN 07/31/20 13:15 Al Hydroxide/Mg Hydroxide (Mylanta Plus Xs) 15 ml PRN AFTMEALHC PRN PO DYSPEPSIA 07/31/20 13:15 Magnesium Hydroxide (Milk Of Magnesia) 2,400 mg PRN QHS PRN PO 1ST CHOICE CONSTIPATION 07/31/20 13:15 Acetaminophen (Tylenol) 650 mg PRN Q6HRS PRN PO MILD PAIN / TEMP > 100.3'F 07/31/20 14:15 Cancel Acetaminophen (Tylenol Supp) 650 mg PRN Q4HRS PRN RC MILD PAIN / TEMP > 100.3'F 07/31/20 14:15 Bisacodyl (Dulcolax Supp) 10 mg PRN DAILY PRN RC 2ND CHOICE CONSTIPATION 07/31/20 14:15 Cyanocobalamin (Vitamin B-12) 250 mcg DAILY PO 08/01/20 09:00 08/18/20 08:59 Loperamide HCl (Imodium) 2 mg PRN Q1HR PRN PO MOD-SEVERE DIARRHEA 07/31/20 14:15 Al Hydroxide/Mg Hydroxide (Mylanta Plus Xs) 15 ml PRN AFTMEALHC PRN PO INDIGESTION 07/31/20 14:15 Cancel Magnesium Hydroxide (Milk Of Magnesia) 2,400 mg PRN QHS PRN PO constipation 07/31/20 14:15 Cancel Polyethylene Glycol (miraLAX) 17 gm DAILY PO 08/01/20 09:00 08/18/20 08:59 Quetiapine Fumarate (SEROquel) 25 mg QHS PO 07/31/20 21:00 08/19/20 20:24 Quetiapine Fumarate (SEROquel) 50 mg DAILY PO 08/01/20 09:00 08/19/20 18:11 DC 08/18/20 08:59 Sennosides (Senna) 8.6 mg BID PO 07/31/20 21:00 08/19/20 20:24 Trazodone HCl (Desyrel) 50 mg QHS PO 07/31/20 21:00 08/19/20 20:24 Melatonin (Melatonin) 3 mg QHS PO 07/31/20 21:00 08/19/20 20:23 Loperamide HCl (Imodium) 4 mg PRN DAILY PRN PO MILD DIARRHEA 07/31/20 14:45 Rivastigmine (Exelon) 1 patch DAILY TD 08/02/20 09:00 08/05/20 21:00 DC 08/04/20 07:45 Rivastigmine (Exelon) 1 patch DAILY TD 08/06/20 09:00 08/18/20 08:59 Sertraline HCl (Zoloft) 25 mg DAILY PO 08/02/20 09:00 08/05/20 21:00 DC 08/05/20 09:22 Sertraline HCl (Zoloft) 50 mg DAILY PO 08/06/20 09:00 08/10/20 18:28 DC 08/10/20 08:44 Olanzapine (ZyPREXA ZYDIS) 2.5 mg PRN Q2HRS PRN PO PSYCHOSIS 08/01/20 11:15 08/01/20 18:34 DC 08/01/20 17:17 Trazodone HCl (Desyrel) 50 mg PRN QHS PRN PO INSOMNIA, MAY REPEAT IN 1HR 08/01/20 11:15 08/13/20 22:00 Vitamin D (Vitamin D3) 50,000 unit WEEKLY PO 08/01/20 17:00 08/01/20 17:31 DC Vitamin D (Vitamin D3) 50,000 unit WEEKLY PO 08/02/20 09:00 08/16/20 09:00 Olanzapine (ZyPREXA ZYDIS) 5 mg PRN Q2HRS PRN PO PSYCHOSIS 08/01/20 18:45 08/18/20 17:31 Divalproex Sodium (Depakote Sprinkles) 250 mg HS PO 08/04/20 21:00 08/07/20 16:50 DC 08/06/20 20:33 Quetiapine Fumarate (SEROquel) 25 mg DAILY@1300 PO 08/06/20 13:00 08/17/20 16:30 DC 08/16/20 13:00 Divalproex Sodium (Depakote Sprinkles) 500 mg HS PO 08/07/20 21:00 08/17/20 21:00 DC 08/16/20 19:23 Sertraline HCl (Zoloft) 75 mg DAILY PO 08/11/20 09:00 08/13/20 17:51 DC 08/13/20 08:39 Sertraline HCl (Zoloft) 100 mg DAILY PO 08/14/20 09:00 08/18/20 08:59 Quetiapine Fumarate (SEROquel) 50 mg DAILY@1300 PO 08/18/20 13:00 08/19/20 13:40 Divalproex Sodium (Depakote Sprinkles) 250 mg BID PO 08/18/20 09:00 08/19/20 20:23 Quetiapine Fumarate (SEROquel) 75 mg DAILY PO 08/20/20 09:00 I have reviewed the current psychotropics carefully including drug interactions. Risk benefit ratio favors no change other than as noted in my dictated progress note. Diagnosis: Problems: (1) Major neurocognitive disorder (2) Impulse control disorder, unspecified (3) Anxiety disorder, unspecified (4) Dementia, vascular, with depression (5) Dementia, vascular, with delusions (6) Dementia in Alzheimer's disease with depression (7) Dementia in Alzheimer's disease with delusions (8) Lewy body dementia with behavioral disturbance FARSHAD CHEEMA MD Aug 19, 2020 21:00
--- NOTE | 2020-08-19 23:10 | NUR ---
Pt withdrawn to her room all night. Pt sitting calmly in the dark in her room. Pleasant when approached. Compliant with whole medications.
[2020-08-20 05:21] VITALS: BP 153/75
[2020-08-20] MEDS: SENNOSIDES 8.6 MG TABLET PO SCH ×2 (09:00→19:54)
[2020-08-20] MEDS: RIVASTIGMINE 9.5MG PATCH. TD SCH (09:00)
[2020-08-20] MEDS: CYANOCOBALAMIN (VITAMIN B-12) 250 MCG TABLET. PO SCH (09:00)
[2020-08-20] MEDS: POLYETHYLENE GLYCOL 3350 17 GM PACKET. PO SCH (09:00)
[2020-08-20] MEDS: SERTRALINE 100 MG TABLET. PO SCH (09:00)
[2020-08-20] MEDS: DIVALPROEX 125 MG CAP.SPRINK PO SCH ×2 (09:00→19:54)
[2020-08-20] MEDS: QUEtiapine 50 MG TABLET. PO SCH (09:00)
[2020-08-20] MEDS: QUEtiapine 25 MG TABLET. PO SCH ×2 (13:00→19:55)
[2020-08-20 16:14] VITALS: BP 133/76
[2020-08-20] MEDS: traZODone 50 MG TABLET. PO SCH (19:54)
[2020-08-20] MEDS: MELATONIN 3 MG TABLET PO SCH (19:54)
--- NOTE | 2020-08-20 21:03 | PDOC ---
Exam Note: Andrés Note: Please also refer to the separate dictated note~for this date of service dictated separately.~Patient seen individually. Discussed the patient with Nursing staff reviewed the chart.~Reviewed interim history and current functioning. Reviewed vital signs,~Labs/ Radiology~and current medications noted below. Continue current treatment with the changes noted in the dictated addendum note Assessment: Vital Signs/I&O: Vital Signs Date Time Temp Pulse Resp B/P (MAP) Pulse Ox O2 Delivery O2 Flow Rate FiO2 08/20/20 16:14 97.8 71 18 133/76 (95) 99 08/19/20 06:18 Room Air I & O 08/19/20 08/19/20 08/20/20 15:00 23:00 07:00 Intake Total 560 ml 600 ml Balance 560 ml 600 ml Current Medications: Meds: Current Medications Medications (Trade) Dose Ordered Sig/Stephenie Route PRN Reason Start Time Stop Time Status Last Admin Dose Admin Acetaminophen (Tylenol) 650 mg PRN Q6HRS PRN PO MILD PAIN / TEMP > 100.3'F 07/31/20 13:15 08/15/20 13:20 Multi-Ingredient Ointment (Analgesic [place]) 1 han PRN QID PRN TP MUSCLE PAIN 07/31/20 13:15 Al Hydroxide/Mg Hydroxide (Mylanta Plus Xs) 15 ml PRN AFTMEALHC PRN PO DYSPEPSIA 07/31/20 13:15 Magnesium Hydroxide (Milk Of Magnesia) 2,400 mg PRN QHS PRN PO 1ST CHOICE CONSTIPATION 07/31/20 13:15 Acetaminophen (Tylenol) 650 mg PRN Q6HRS PRN PO MILD PAIN / TEMP > 100.3'F 07/31/20 14:15 Cancel Acetaminophen (Tylenol Supp) 650 mg PRN Q4HRS PRN RC MILD PAIN / TEMP > 100.3'F 07/31/20 14:15 Bisacodyl (Dulcolax Supp) 10 mg PRN DAILY PRN RC 2ND CHOICE CONSTIPATION 07/31/20 14:15 Cyanocobalamin (Vitamin B-12) 250 mcg DAILY PO 08/01/20 09:00 08/20/20 09:00 Loperamide HCl (Imodium) 2 mg PRN Q1HR PRN PO MOD-SEVERE DIARRHEA 07/31/20 14:15 Al Hydroxide/Mg Hydroxide (Mylanta Plus Xs) 15 ml PRN AFTMEALHC PRN PO INDIGESTION 07/31/20 14:15 Cancel Magnesium Hydroxide (Milk Of Magnesia) 2,400 mg PRN QHS PRN PO constipation 07/31/20 14:15 Cancel Polyethylene Glycol (miraLAX) 17 gm DAILY PO 08/01/20 09:00 08/20/20 09:00 Quetiapine Fumarate (SEROquel) 25 mg QHS PO 07/31/20 21:00 08/20/20 19:55 Quetiapine Fumarate (SEROquel) 50 mg DAILY PO 08/01/20 09:00 08/19/20 18:11 DC 08/18/20 08:59 Sennosides (Senna) 8.6 mg BID PO 07/31/20 21:00 08/20/20 19:54 Trazodone HCl (Desyrel) 50 mg QHS PO 07/31/20 21:00 08/20/20 19:54 Melatonin (Melatonin) 3 mg QHS PO 07/31/20 21:00 08/20/20 19:54 Loperamide HCl (Imodium) 4 mg PRN DAILY PRN PO MILD DIARRHEA 07/31/20 14:45 Rivastigmine (Exelon) 1 patch DAILY TD 08/02/20 09:00 08/05/20 21:00 DC 08/04/20 07:45 Rivastigmine (Exelon) 1 patch DAILY TD 08/06/20 09:00 08/20/20 09:00 Sertraline HCl (Zoloft) 25 mg DAILY PO 08/02/20 09:00 08/05/20 21:00 DC 08/05/20 09:22 Sertraline HCl (Zoloft) 50 mg DAILY PO 08/06/20 09:00 08/10/20 18:28 DC 08/10/20 08:44 Olanzapine (ZyPREXA ZYDIS) 2.5 mg PRN Q2HRS PRN PO PSYCHOSIS 08/01/20 11:15 08/01/20 18:34 DC 08/01/20 17:17 Trazodone HCl (Desyrel) 50 mg PRN QHS PRN PO INSOMNIA, MAY REPEAT IN 1HR 08/01/20 11:15 08/13/20 22:00 Vitamin D (Vitamin D3) 50,000 unit WEEKLY PO 08/01/20 17:00 08/01/20 17:31 DC Vitamin D (Vitamin D3) 50,000 unit WEEKLY PO 08/02/20 09:00 08/16/20 09:00 Olanzapine (ZyPREXA ZYDIS) 5 mg PRN Q2HRS PRN PO PSYCHOSIS 08/01/20 18:45 08/20/20 20:03 Divalproex Sodium (Depakote Sprinkles) 250 mg HS PO 08/04/20 21:00 08/07/20 16:50 DC 08/06/20 20:33 Quetiapine Fumarate (SEROquel) 25 mg DAILY@1300 PO 08/06/20 13:00 08/17/20 16:30 DC 08/16/20 13:00 Divalproex Sodium (Depakote Sprinkles) 500 mg HS PO 08/07/20 21:00 08/17/20 21:00 DC 08/16/20 19:23 Sertraline HCl (Zoloft) 75 mg DAILY PO 08/11/20 09:00 08/13/20 17:51 DC 08/13/20 08:39 Sertraline HCl (Zoloft) 100 mg DAILY PO 08/14/20 09:00 08/20/20 09:00 Quetiapine Fumarate (SEROquel) 50 mg DAILY@1300 PO 08/18/20 13:00 08/20/20 13:00 Divalproex Sodium (Depakote Sprinkles) 250 mg BID PO 08/18/20 09:00 08/20/20 19:54 Quetiapine Fumarate (SEROquel) 75 mg DAILY PO 08/20/20 09:00 08/20/20 09:00 Current Medications Medications (Trade) Dose Ordered Sig/Stephenie Route PRN Reason Start Time Stop Time Status Last Admin Dose Admin Quetiapine Fumarate (SEROquel) 75 mg DAILY PO 08/20/20 09:00 08/20/20 09:00 I have reviewed the current psychotropics carefully including drug interactions. Risk benefit ratio favors no change other than as noted in my dictated progress note. Diagnosis: Problems: (1) Major neurocognitive disorder (2) Impulse control disorder, unspecified (3) Anxiety disorder, unspecified (4) Dementia, vascular, with depression (5) Dementia, vascular, with delusions (6) Dementia in Alzheimer's disease with depression (7) Dementia in Alzheimer's disease with delusions (8) Lewy body dementia with behavioral disturbance FARSHAD CHEEMA MD Aug 20, 2020 21:03
--- NOTE | 2020-08-20 21:03 | PDOC ---
Exam Note: Andrés Note: This note is a late entry for 08/19/2020 covers elements not covered in my initial note. Subjective: The patient was seen face to face in the evening of 08/19/2020 with Rosalinda JAMESON, discussed and reviewed the chart. The patient slept 9-1/2 hours previous night. Plan was for the patient to transition to care home today but she was extremely labile, anxious, crying, wandering, tearful, looking for papa. The patient was anxious, agitated, difficult to redirect and the discharge has been postponed after Cathi Decker, social worker masters called me and previously Rosalinda RN had expressed concerns about discharge. Review of Systems: No CV, , pulmonary, eye system symptoms on review. Reliability poor. Mental Status Exam: The patient is oriented to herself. Insight and judgment, recent and remote memory, attention and concentration, fund of knowledge is poor consistent with her diagnosis. Laboratory Data: Reviewed. 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 Anxiety disorder unspecified. Impulse control disorder unspecified. Plan: No change from initial note. Increase Zoloft from 50 mg a day to 75 mg a day. Continue rest unchanged. Assessment: Vital Signs/I&O: Vital Signs Date Time Temp Pulse Resp B/P (MAP) Pulse Ox O2 Delivery O2 Flow Rate FiO2 08/20/20 16:14 97.8 71 18 133/76 (95) 99 08/19/20 06:18 Room Air I & O 08/19/20 08/19/20 08/20/20 15:00 23:00 07:00 Intake Total 560 ml 600 ml Balance 560 ml 600 ml Current Medications: Meds: Current Medications Medications (Trade) Dose Ordered Sig/Stephenie Route PRN Reason Start Time Stop Time Status Last Admin Dose Admin Acetaminophen (Tylenol) 650 mg PRN Q6HRS PRN PO MILD PAIN / TEMP > 100.3'F 07/31/20 13:15 08/15/20 13:20 Multi-Ingredient Ointment (Analgesic [place]) 1 han PRN QID PRN TP MUSCLE PAIN 07/31/20 13:15 Al Hydroxide/Mg Hydroxide (Mylanta Plus Xs) 15 ml PRN AFTMEALHC PRN PO DYSPEPSIA 07/31/20 13:15 Magnesium Hydroxide (Milk Of Magnesia) 2,400 mg PRN QHS PRN PO 1ST CHOICE CONSTIPATION 07/31/20 13:15 Acetaminophen (Tylenol) 650 mg PRN Q6HRS PRN PO MILD PAIN / TEMP > 100.3'F 07/31/20 14:15 Cancel Acetaminophen (Tylenol Supp) 650 mg PRN Q4HRS PRN RC MILD PAIN / TEMP > 100.3'F 07/31/20 14:15 Bisacodyl (Dulcolax Supp) 10 mg PRN DAILY PRN RC 2ND CHOICE CONSTIPATION 07/31/20 14:15 Cyanocobalamin (Vitamin B-12) 250 mcg DAILY PO 08/01/20 09:00 08/20/20 09:00 Loperamide HCl (Imodium) 2 mg PRN Q1HR PRN PO MOD-SEVERE DIARRHEA 07/31/20 14:15 Al Hydroxide/Mg Hydroxide (Mylanta Plus Xs) 15 ml PRN AFTMEALHC PRN PO INDIGESTION 07/31/20 14:15 Cancel Magnesium Hydroxide (Milk Of Magnesia) 2,400 mg PRN QHS PRN PO constipation 07/31/20 14:15 Cancel Polyethylene Glycol (miraLAX) 17 gm DAILY PO 08/01/20 09:00 08/20/20 09:00 Quetiapine Fumarate (SEROquel) 25 mg QHS PO 07/31/20 21:00 08/20/20 19:55 Quetiapine Fumarate (SEROquel) 50 mg DAILY PO 08/01/20 09:00 08/19/20 18:11 DC 08/18/20 08:59 Sennosides (Senna) 8.6 mg BID PO 07/31/20 21:00 08/20/20 19:54 Trazodone HCl (Desyrel) 50 mg QHS PO 07/31/20 21:00 08/20/20 19:54 Melatonin (Melatonin) 3 mg QHS PO 07/31/20 21:00 08/20/20 19:54 Loperamide HCl (Imodium) 4 mg PRN DAILY PRN PO MILD DIARRHEA 07/31/20 14:45 Rivastigmine (Exelon) 1 patch DAILY TD 08/02/20 09:00 08/05/20 21:00 DC 08/04/20 07:45 Rivastigmine (Exelon) 1 patch DAILY TD 08/06/20 09:00 08/20/20 09:00 Sertraline HCl (Zoloft) 25 mg DAILY PO 08/02/20 09:00 08/05/20 21:00 DC 08/05/20 09:22 Sertraline HCl (Zoloft) 50 mg DAILY PO 08/06/20 09:00 08/10/20 18:28 DC 08/10/20 08:44 Olanzapine (ZyPREXA ZYDIS) 2.5 mg PRN Q2HRS PRN PO PSYCHOSIS 08/01/20 11:15 08/01/20 18:34 DC 08/01/20 17:17 Trazodone HCl (Desyrel) 50 mg PRN QHS PRN PO INSOMNIA, MAY REPEAT IN 1HR 08/01/20 11:15 08/13/20 22:00 Vitamin D (Vitamin D3) 50,000 unit WEEKLY PO 08/01/20 17:00 08/01/20 17:31 DC Vitamin D (Vitamin D3) 50,000 unit WEEKLY PO 08/02/20 09:00 08/16/20 09:00 Olanzapine (ZyPREXA ZYDIS) 5 mg PRN Q2HRS PRN PO PSYCHOSIS 08/01/20 18:45 08/20/20 20:03 Divalproex Sodium (Depakote Sprinkles) 250 mg HS PO 08/04/20 21:00 08/07/20 16:50 DC 08/06/20 20:33 Quetiapine Fumarate (SEROquel) 25 mg DAILY@1300 PO 08/06/20 13:00 08/17/20 16:30 DC 08/16/20 13:00 Divalproex Sodium (Depakote Sprinkles) 500 mg HS PO 08/07/20 21:00 08/17/20 21:00 DC 08/16/20 19:23 Sertraline HCl (Zoloft) 75 mg DAILY PO 08/11/20 09:00 08/13/20 17:51 DC 08/13/20 08:39 Sertraline HCl (Zoloft) 100 mg DAILY PO 08/14/20 09:00 08/20/20 09:00 Quetiapine Fumarate (SEROquel) 50 mg DAILY@1300 PO 08/18/20 13:00 08/20/20 13:00 Divalproex Sodium (Depakote Sprinkles) 250 mg BID PO 08/18/20 09:00 08/20/20 19:54 Quetiapine Fumarate (SEROquel) 75 mg DAILY PO 08/20/20 09:00 08/20/20 09:00 Current Medications Medications (Trade) Dose Ordered Sig/Stephenie Route PRN Reason Start Time Stop Time Status Last Admin Dose Admin Quetiapine Fumarate (SEROquel) 75 mg DAILY PO 08/20/20 09:00 08/20/20 09:00 I have reviewed the current psychotropics carefully including drug interactions. Risk benefit ratio favors no change other than as noted in my dictated progress note. Diagnosis: Problems: (1) Major neurocognitive disorder (2) Impulse control disorder, unspecified (3) Anxiety disorder, unspecified (4) Dementia, vascular, with depression (5) Dementia, vascular, with delusions (6) Dementia in Alzheimer's disease with depression (7) Dementia in Alzheimer's disease with delusions (8) Lewy body dementia with behavioral disturbance FARSHAD CHEEMA MD Aug 20, 2020 21:03
--- NOTE | 2020-08-21 04:05 | NUR ---
Nursing Note The patient was disorganized, resistive and paranoid this shift. The patient was resistive with medications and required much encouragement to take them. The patient refused her assessment. The patient declined to interact with this nurse other than to take medication.
[2020-08-21 05:46] VITALS: BP 148/87
[2020-08-21 06:31] LABS: BASO % 0 % (0-3); EOS # 0.2 x10^3/uL (0.0-0.7); EOS % 2 % (0-3); HEMATOCRIT 36.2 % (36.0-47.0); HEMOGLOBIN 11.8 g/dL (12.0-15.5); LYMPH # 6.9 x10^3/uL (1.0-4.8); LYMPH % 63 % (24-48); MEAN CORPUSCULAR HEMOGLOBIN 30 pg (25-35); MEAN CORPUSCULAR HGB CONC 33 g/dL (31-37); MEAN CORPUSCULAR VOLUME 91 fL (79-100); MONO # 0.6 x10^3/uL (0.0-1.1); MONO % 6 % (0-9); NEUT # 3.2 x10^3uL (1.8-7.7); NEUT % 29 % (31-73); PLATELET COUNT 194 x10^3/uL (140-400); RED BLOOD COUNT 3.98 x10^6/uL (3.50-5.40); RED CELL DISTRIBUTION WIDTH 14.4 % (11.5-14.5); WHITE BLOOD COUNT 10.9 x10^3/uL (4.0-11.0)
[2020-08-21 06:53] LABS: ALBUMIN 2.8 g/dL (3.4-5.0); ALBUMIN/GLOBULIN RATIO 0.8 (1.0-1.7); ALK PHOS 57 U/L (46-116); ALT (SGPT) 15 U/L (14-59); ANION GAP 7 (6-14); AST (SGOT) 11 U/L (15-37); BLOOD UREA NITROGEN 9 mg/dL (7-20); BUN/CREATININE RATIO 13 (6-20); CALCIUM 8.4 mg/dL (8.5-10.1); CARBON DIOXIDE 28 mmol/L (21-32); CHLORIDE 103 mmol/L (98-107); CREATININE 0.7 mg/dL (0.6-1.0); GFR 79.7; GLUCOSE 94 mg/dL (70-99); POTASSIUM 4.1 mmol/L (3.5-5.1); SODIUM 138 mmol/L (136-145); TOTAL BILIRUBIN 0.2 mg/dL (0.2-1.0); TOTAL PROTEIN 6.3 g/dL (6.4-8.2)
--- NOTE | 2020-08-21 07:33 | PDOC ---
Exam Note: Andrés Note: This note is a late entry for 08/20/2020 covers elements not covered in my initial note. Subjective: The patient was seen face to face in the evening of 08/20/2020 with Bayron JAMESON, discussed and reviewed the chart. The patient slept 6-3/4 hours previous night. She remains confused, has been agitated earlier in the morning. Received Zyprexa at 11 a.m. She has been calling out derogatory names to the other patients and staff members. Review of Systems: No CV, , pulmonary, eye system symptoms on review. Reliability poor. Mental Status Exam: The patient is oriented to herself. Insight and judgment, recent and remote memory, attention and concentration, fund of knowledge is poor consistent with her diagnosis. Laboratory Data: Reviewed. 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 Anxiety disorder unspecified. Impulse control disorder unspecified. Plan: No change from initial note. We have increased the Seroquel to 75 mg daily in the morning and 1 p.m. and 25 mg h.s. We will make further adjustments as clinically indicated. Assessment: Vital Signs/I&O: Vital Signs Date Time Temp Pulse Resp B/P (MAP) Pulse Ox O2 Delivery O2 Flow Rate FiO2 08/21/20 05:46 97.8 62 18 148/87 (107) 97 08/19/20 06:18 Room Air I & O 08/20/20 08/20/20 08/21/20 15:00 23:00 07:00 Intake Total 720 ml 480 ml Balance 720 ml 480 ml Labs: Laboratory Tests Test 08/21/20 06:03 White Blood Count 10.9 x10^3/uL (4.0-11.0) Red Blood Count 3.98 x10^6/uL (3.50-5.40) Hemoglobin 11.8 g/dL (12.0-15.5) L Hematocrit 36.2 % (36.0-47.0) Mean Corpuscular Volume 91 fL (79-100) Mean Corpuscular Hemoglobin 30 pg (25-35) Mean Corpuscular Hemoglobin Concent 33 g/dL (31-37) Red Cell Distribution Width 14.4 % (11.5-14.5) Platelet Count 194 x10^3/uL (140-400) Neutrophils (%) (Auto) 29 % (31-73) L Lymphocytes (%) (Auto) 63 % (24-48) H Monocytes (%) (Auto) 6 % (0-9) Eosinophils (%) (Auto) 2 % (0-3) Basophils (%) (Auto) 0 % (0-3) Neutrophils # (Auto) 3.2 x10^3uL (1.8-7.7) Lymphocytes # (Auto) 6.9 x10^3/uL (1.0-4.8) H Monocytes # (Auto) 0.6 x10^3/uL (0.0-1.1) Eosinophils # (Auto) 0.2 x10^3/uL (0.0-0.7) Basophils # (Auto) 0.0 x10^3/uL (0.0-0.2) Platelet Estimate Pending Current Medications: Meds: Laboratory Tests Test 08/21/20 06:03 White Blood Count 10.9 x10^3/uL Red Blood Count 3.98 x10^6/uL Hemoglobin 11.8 g/dL Hematocrit 36.2 % Mean Corpuscular Volume 91 fL Mean Corpuscular Hemoglobin 30 pg Mean Corpuscular Hemoglobin Concent 33 g/dL Red Cell Distribution Width 14.4 % Platelet Count 194 x10^3/uL Neutrophils (%) (Auto) 29 % Lymphocytes (%) (Auto) 63 % Monocytes (%) (Auto) 6 % Eosinophils (%) (Auto) 2 % Basophils (%) (Auto) 0 % Neutrophils # (Auto) 3.2 x10^3uL Lymphocytes # (Auto) 6.9 x10^3/uL Monocytes # (Auto) 0.6 x10^3/uL Eosinophils # (Auto) 0.2 x10^3/uL Basophils # (Auto) 0.0 x10^3/uL Platelet Estimate Pending Current Medications Medications (Trade) Dose Ordered Sig/Stephenie Route PRN Reason Start Time Stop Time Status Last Admin Dose Admin Acetaminophen (Tylenol) 650 mg PRN Q6HRS PRN PO MILD PAIN / TEMP > 100.3'F 07/31/20 13:15 08/15/20 13:20 Multi-Ingredient Ointment (Analgesic [place]) 1 han PRN QID PRN TP MUSCLE PAIN 07/31/20 13:15 Al Hydroxide/Mg Hydroxide (Mylanta Plus Xs) 15 ml PRN AFTMEALHC PRN PO DYSPEPSIA 07/31/20 13:15 Magnesium Hydroxide (Milk Of Magnesia) 2,400 mg PRN QHS PRN PO 1ST CHOICE CONSTIPATION 07/31/20 13:15 Acetaminophen (Tylenol) 650 mg PRN Q6HRS PRN PO MILD PAIN / TEMP > 100.3'F 07/31/20 14:15 Cancel Acetaminophen (Tylenol Supp) 650 mg PRN Q4HRS PRN RC MILD PAIN / TEMP > 100.3'F 07/31/20 14:15 Bisacodyl (Dulcolax Supp) 10 mg PRN DAILY PRN RC 2ND CHOICE CONSTIPATION 07/31/20 14:15 Cyanocobalamin (Vitamin B-12) 250 mcg DAILY PO 08/01/20 09:00 08/20/20 09:00 Loperamide HCl (Imodium) 2 mg PRN Q1HR PRN PO MOD-SEVERE DIARRHEA 07/31/20 14:15 Al Hydroxide/Mg Hydroxide (Mylanta Plus Xs) 15 ml PRN AFTMEALHC PRN PO INDIGESTION 07/31/20 14:15 Cancel Magnesium Hydroxide (Milk Of Magnesia) 2,400 mg PRN QHS PRN PO constipation 07/31/20 14:15 Cancel Polyethylene Glycol (miraLAX) 17 gm DAILY PO 08/01/20 09:00 08/20/20 09:00 Quetiapine Fumarate (SEROquel) 25 mg QHS PO 07/31/20 21:00 08/20/20 19:55 Quetiapine Fumarate (SEROquel) 50 mg DAILY PO 08/01/20 09:00 08/19/20 18:11 DC 08/18/20 08:59 Sennosides (Senna) 8.6 mg BID PO 07/31/20 21:00 08/20/20 19:54 Trazodone HCl (Desyrel) 50 mg QHS PO 07/31/20 21:00 08/20/20 19:54 Melatonin (Melatonin) 3 mg QHS PO 07/31/20 21:00 08/20/20 19:54 Loperamide HCl (Imodium) 4 mg PRN DAILY PRN PO MILD DIARRHEA 07/31/20 14:45 Rivastigmine (Exelon) 1 patch DAILY TD 08/02/20 09:00 08/05/20 21:00 DC 08/04/20 07:45 Rivastigmine (Exelon) 1 patch DAILY TD 08/06/20 09:00 08/20/20 09:00 Sertraline HCl (Zoloft) 25 mg DAILY PO 08/02/20 09:00 08/05/20 21:00 DC 08/05/20 09:22 Sertraline HCl (Zoloft) 50 mg DAILY PO 08/06/20 09:00 08/10/20 18:28 DC 08/10/20 08:44 Olanzapine (ZyPREXA ZYDIS) 2.5 mg PRN Q2HRS PRN PO PSYCHOSIS 08/01/20 11:15 08/01/20 18:34 DC 08/01/20 17:17 Trazodone HCl (Desyrel) 50 mg PRN QHS PRN PO INSOMNIA, MAY REPEAT IN 1HR 08/01/20 11:15 08/13/20 22:00 Vitamin D (Vitamin D3) 50,000 unit WEEKLY PO 08/01/20 17:00 08/01/20 17:31 DC Vitamin D (Vitamin D3) 50,000 unit WEEKLY PO 08/02/20 09:00 08/16/20 09:00 Olanzapine (ZyPREXA ZYDIS) 5 mg PRN Q2HRS PRN PO PSYCHOSIS 08/01/20 18:45 08/20/20 20:03 Divalproex Sodium (Depakote Sprinkles) 250 mg HS PO 08/04/20 21:00 08/07/20 16:50 DC 08/06/20 20:33 Quetiapine Fumarate (SEROquel) 25 mg DAILY@1300 PO 08/06/20 13:00 08/17/20 16:30 DC 08/16/20 13:00 Divalproex Sodium (Depakote Sprinkles) 500 mg HS PO 08/07/20 21:00 08/17/20 21:00 DC 08/16/20 19:23 Sertraline HCl (Zoloft) 75 mg DAILY PO 08/11/20 09:00 08/13/20 17:51 DC 08/13/20 08:39 Sertraline HCl (Zoloft) 100 mg DAILY PO 08/14/20 09:00 08/20/20 09:00 Quetiapine Fumarate (SEROquel) 50 mg DAILY@1300 PO 08/18/20 13:00 08/20/20 13:00 Divalproex Sodium (Depakote Sprinkles) 250 mg BID PO 08/18/20 09:00 08/20/20 19:54 Quetiapine Fumarate (SEROquel) 75 mg DAILY PO 08/20/20 09:00 08/20/20 09:00 Current Medications Medications (Trade) Dose Ordered Sig/Stephenie Route PRN Reason Start Time Stop Time Status Last Admin Dose Admin Quetiapine Fumarate (SEROquel) 75 mg DAILY PO 08/20/20 09:00 08/20/20 09:00 I have reviewed the current psychotropics carefully including drug interactions. Risk benefit ratio favors no change other than as noted in my dictated progress note. Diagnosis: Problems: (1) Major neurocognitive disorder (2) Impulse control disorder, unspecified (3) Anxiety disorder, unspecified (4) Dementia, vascular, with depression (5) Dementia, vascular, with delusions (6) Dementia in Alzheimer's disease with depression (7) Dementia in Alzheimer's disease with delusions (8) Lewy body dementia with behavioral disturbance FARSHAD CHEEMA MD Aug 21, 2020 07:33
[2020-08-21 07:52] LABS: VAL ACID 39 mcg/mL (50-100)
[2020-08-21] MEDS: QUEtiapine 50 MG TABLET. PO SCH (08:26)
[2020-08-21] MEDS: SERTRALINE 100 MG TABLET. PO SCH (08:27)
[2020-08-21] MEDS: SENNOSIDES 8.6 MG TABLET PO SCH ×2 (08:27→20:31)
[2020-08-21] MEDS: RIVASTIGMINE 9.5MG PATCH. TD SCH (08:27)
[2020-08-21] MEDS: DIVALPROEX 125 MG CAP.SPRINK PO SCH ×2 (08:27→20:32)
[2020-08-21] MEDS: CYANOCOBALAMIN (VITAMIN B-12) 250 MCG TABLET. PO SCH (08:27)
[2020-08-21] MEDS: POLYETHYLENE GLYCOL 3350 17 GM PACKET. PO SCH (08:27)
[2020-08-21 11:33] LABS: % ATYL 3 % (0-0); % EOS 4 % (0-5); % LYMPHS 46 % (24-48); % MONOS 7 % (0-10); % OTHERS 1 % (0-0); % SEGS 39 % (35-66); PLT ESTIMATE ADEQUATE (ADEQUATE); SMUDGE CELLS PRESENT
[2020-08-21] MEDS: QUEtiapine 25 MG TABLET. PO SCH (12:41)
--- NOTE | 2020-08-21 16:00 | NUR ---
Patient became very agitated when staff attempted to obtain vital signs. She was yelling loudly that she did not do that type of thing and would not allow staff to obtain vital signs. Prn medication provided per eMAR and patient escorted to her room. Will continue to monitor and report to oncoming shift.
[2020-08-21] MEDS: MELATONIN 3 MG TABLET PO SCH (20:31)
[2020-08-21] MEDS: traZODone 50 MG TABLET. PO SCH (20:32)
--- NOTE | 2020-08-21 21:02 | PDOC ---
Exam Note: Andrés Note: Please also refer to the separate dictated note~for this date of service dictated separately.~Patient seen individually. Discussed the patient with Nursing staff reviewed the chart.~Reviewed interim history and current functioning. Reviewed vital signs,~Labs/ Radiology~and current medications noted below. Continue current treatment with the changes noted in the dictated addendum note Assessment: Vital Signs/I&O: Vital Signs Date Time Temp Pulse Resp B/P (MAP) Pulse Ox O2 Delivery O2 Flow Rate FiO2 08/21/20 05:46 97.8 62 18 148/87 (107) 97 08/19/20 06:18 Room Air I & O 08/20/20 08/20/20 08/21/20 15:00 23:00 07:00 Intake Total 720 ml 480 ml Balance 720 ml 480 ml Labs: Laboratory Tests Test 08/21/20 06:03 White Blood Count 10.9 x10^3/uL (4.0-11.0) Red Blood Count 3.98 x10^6/uL (3.50-5.40) Hemoglobin 11.8 g/dL (12.0-15.5) L Hematocrit 36.2 % (36.0-47.0) Mean Corpuscular Volume 91 fL (79-100) Mean Corpuscular Hemoglobin 30 pg (25-35) Mean Corpuscular Hemoglobin Concent 33 g/dL (31-37) Red Cell Distribution Width 14.4 % (11.5-14.5) Platelet Count 194 x10^3/uL (140-400) Neutrophils (%) (Auto) 29 % (31-73) L Lymphocytes (%) (Auto) 63 % (24-48) H Monocytes (%) (Auto) 6 % (0-9) Eosinophils (%) (Auto) 2 % (0-3) Basophils (%) (Auto) 0 % (0-3) Neutrophils # (Auto) 3.2 x10^3uL (1.8-7.7) Lymphocytes # (Auto) 6.9 x10^3/uL (1.0-4.8) H Monocytes # (Auto) 0.6 x10^3/uL (0.0-1.1) Eosinophils # (Auto) 0.2 x10^3/uL (0.0-0.7) Basophils # (Auto) 0.0 x10^3/uL (0.0-0.2) Segmented Neutrophils % 39 % (35-66) Lymphocytes % 46 % (24-48) Atypical Lymphocytes % (Manual) 3 % (0-0) H Monocytes % 7 % (0-10) Eosinophils % 4 % (0-5) Other Cells % 1 % (0-0) H Smudge Cells Present Platelet Estimate Adequate (ADEQUATE) Sodium Level 138 mmol/L (136-145) Potassium Level 4.1 mmol/L (3.5-5.1) Chloride Level 103 mmol/L (98-107) Carbon Dioxide Level 28 mmol/L (21-32) Anion Gap 7 (6-14) Blood Urea Nitrogen 9 mg/dL (7-20) Creatinine 0.7 mg/dL (0.6-1.0) Estimated GFR (Cockcroft-Gault) 79.7 BUN/Creatinine Ratio 13 (6-20) Glucose Level 94 mg/dL (70-99) Calcium Level 8.4 mg/dL (8.5-10.1) L Total Bilirubin 0.2 mg/dL (0.2-1.0) Aspartate Amino Transferase (AST) 11 U/L (15-37) L Alanine Aminotransferase (ALT) 15 U/L (14-59) Alkaline Phosphatase 57 U/L (46-116) Total Protein 6.3 g/dL (6.4-8.2) L Albumin 2.8 g/dL (3.4-5.0) L Albumin/Globulin Ratio 0.8 (1.0-1.7) L Valproic Acid Level 39 mcg/mL (50-100) L Valproic Acid Last Dose Date 08/20/20 Valproic Acid Last Dose Time 2100 Current Medications: Meds: Laboratory Tests Test 08/21/20 06:03 White Blood Count 10.9 x10^3/uL Red Blood Count 3.98 x10^6/uL Hemoglobin 11.8 g/dL Hematocrit 36.2 % Mean Corpuscular Volume 91 fL Mean Corpuscular Hemoglobin 30 pg Mean Corpuscular Hemoglobin Concent 33 g/dL Red Cell Distribution Width 14.4 % Platelet Count 194 x10^3/uL Neutrophils (%) (Auto) 29 % Lymphocytes (%) (Auto) 63 % Monocytes (%) (Auto) 6 % Eosinophils (%) (Auto) 2 % Basophils (%) (Auto) 0 % Neutrophils # (Auto) 3.2 x10^3uL Lymphocytes # (Auto) 6.9 x10^3/uL Monocytes # (Auto) 0.6 x10^3/uL Eosinophils # (Auto) 0.2 x10^3/uL Basophils # (Auto) 0.0 x10^3/uL Segmented Neutrophils % 39 % Lymphocytes % 46 % Atypical Lymphocytes % (Manual) 3 % Monocytes % 7 % Eosinophils % 4 % Other Cells % 1 % Smudge Cells Present Platelet Estimate Adequate Sodium Level 138 mmol/L Potassium Level 4.1 mmol/L Chloride Level 103 mmol/L Carbon Dioxide Level 28 mmol/L Anion Gap 7 Blood Urea Nitrogen 9 mg/dL Creatinine 0.7 mg/dL Estimated GFR (Cockcroft-Gault) 79.7 BUN/Creatinine Ratio 13 Glucose Level 94 mg/dL Calcium Level 8.4 mg/dL Total Bilirubin 0.2 mg/dL Aspartate Amino Transf (AST/SGOT) 11 U/L Alanine Aminotransferase (ALT/SGPT) 15 U/L Alkaline Phosphatase 57 U/L Total Protein 6.3 g/dL Albumin 2.8 g/dL Albumin/Globulin Ratio 0.8 Valproic Acid (Depakene) Level 39 mcg/mL Valproic Acid Last Dose Date 08/20/20 Valproic Acid Last Dose Time 2100 Current Medications Medications (Trade) Dose Ordered Sig/Stephenie Route PRN Reason Start Time Stop Time Status Last Admin Dose Admin Acetaminophen (Tylenol) 650 mg PRN Q6HRS PRN PO MILD PAIN / TEMP > 100.3'F 07/31/20 13:15 08/15/20 13:20 Multi-Ingredient Ointment (Analgesic [place]) 1 han PRN QID PRN TP MUSCLE PAIN 07/31/20 13:15 Al Hydroxide/Mg Hydroxide (Mylanta Plus Xs) 15 ml PRN AFTMEALHC PRN PO DYSPEPSIA 07/31/20 13:15 Magnesium Hydroxide (Milk Of Magnesia) 2,400 mg PRN QHS PRN PO 1ST CHOICE CONSTIPATION 07/31/20 13:15 Acetaminophen (Tylenol) 650 mg PRN Q6HRS PRN PO MILD PAIN / TEMP > 100.3'F 07/31/20 14:15 Cancel Acetaminophen (Tylenol Supp) 650 mg PRN Q4HRS PRN RC MILD PAIN / TEMP > 100.3'F 07/31/20 14:15 Bisacodyl (Dulcolax Supp) 10 mg PRN DAILY PRN RC 2ND CHOICE CONSTIPATION 07/31/20 14:15 Cyanocobalamin (Vitamin B-12) 250 mcg DAILY PO 08/01/20 09:00 08/21/20 08:27 Loperamide HCl (Imodium) 2 mg PRN Q1HR PRN PO MOD-SEVERE DIARRHEA 07/31/20 14:15 Al Hydroxide/Mg Hydroxide (Mylanta Plus Xs) 15 ml PRN AFTMEALHC PRN PO INDIGESTION 07/31/20 14:15 Cancel Magnesium Hydroxide (Milk Of Magnesia) 2,400 mg PRN QHS PRN PO constipation 07/31/20 14:15 Cancel Polyethylene Glycol (miraLAX) 17 gm DAILY PO 08/01/20 09:00 08/21/20 08:27 Quetiapine Fumarate (SEROquel) 25 mg QHS PO 07/31/20 21:00 08/21/20 18:24 DC 08/20/20 19:55 Quetiapine Fumarate (SEROquel) 50 mg DAILY PO 08/01/20 09:00 08/19/20 18:11 DC 08/18/20 08:59 Sennosides (Senna) 8.6 mg BID PO 07/31/20 21:00 08/21/20 20:31 Trazodone HCl (Desyrel) 50 mg QHS PO 07/31/20 21:00 08/21/20 20:32 Melatonin (Melatonin) 3 mg QHS PO 07/31/20 21:00 08/21/20 20:31 Loperamide HCl (Imodium) 4 mg PRN DAILY PRN PO MILD DIARRHEA 07/31/20 14:45 Rivastigmine (Exelon) 1 patch DAILY TD 08/02/20 09:00 08/05/20 21:00 DC 08/04/20 07:45 Rivastigmine (Exelon) 1 patch DAILY TD 08/06/20 09:00 08/21/20 08:27 Sertraline HCl (Zoloft) 25 mg DAILY PO 08/02/20 09:00 08/05/20 21:00 DC 08/05/20 09:22 Sertraline HCl (Zoloft) 50 mg DAILY PO 08/06/20 09:00 08/10/20 18:28 DC 08/10/20 08:44 Olanzapine (ZyPREXA ZYDIS) 2.5 mg PRN Q2HRS PRN PO PSYCHOSIS 08/01/20 11:15 08/01/20 18:34 DC 08/01/20 17:17 Trazodone HCl (Desyrel) 50 mg PRN QHS PRN PO INSOMNIA, MAY REPEAT IN 1HR 08/01/20 11:15 08/13/20 22:00 Vitamin D (Vitamin D3) 50,000 unit WEEKLY PO 08/01/20 17:00 08/01/20 17:31 DC Vitamin D (Vitamin D3) 50,000 unit WEEKLY PO 08/02/20 09:00 08/16/20 09:00 Olanzapine (ZyPREXA ZYDIS) 5 mg PRN Q2HRS PRN PO PSYCHOSIS 08/01/20 18:45 08/21/20 15:57 Divalproex Sodium (Depakote Sprinkles) 250 mg HS PO 08/04/20 21:00 08/07/20 16:50 DC 08/06/20 20:33 Quetiapine Fumarate (SEROquel) 25 mg DAILY@1300 PO 08/06/20 13:00 08/17/20 16:30 DC 08/16/20 13:00 Divalproex Sodium (Depakote Sprinkles) 500 mg HS PO 08/07/20 21:00 08/17/20 21:00 DC 08/16/20 19:23 Sertraline HCl (Zoloft) 75 mg DAILY PO 08/11/20 09:00 08/13/20 17:51 DC 08/13/20 08:39 Sertraline HCl (Zoloft) 100 mg DAILY PO 08/14/20 09:00 08/21/20 08:27 Quetiapine Fumarate (SEROquel) 50 mg DAILY@1300 PO 08/18/20 13:00 08/21/20 18:24 DC 08/21/20 12:41 Divalproex Sodium (Depakote Sprinkles) 250 mg BID PO 08/18/20 09:00 08/21/20 20:32 Quetiapine Fumarate (SEROquel) 75 mg DAILY PO 08/20/20 09:00 08/21/20 08:26 Quetiapine Fumarate (SEROquel) 100 mg 1300 PO 08/22/20 13:00 I have reviewed the current psychotropics carefully including drug interactions. Risk benefit ratio favors no change other than as noted in my dictated progress note. Diagnosis: Problems: (1) Dementia of the Alzheimer's type with early onset with behavioral disturbance (2) Major neurocognitive disorder (3) Impulse control disorder, unspecified (4) Anxiety disorder, unspecified (5) Dementia, vascular, with depression (6) Dementia, vascular, with delusions (7) Abnormal WBC count (8) Dementia in Alzheimer's disease with depression (9) Dementia in Alzheimer's disease with delusions (10) Lewy body dementia with behavioral disturbance FARSHAD CHEEMA MD Aug 21, 2020 21:01
--- NOTE | 2020-08-21 21:03 | PDOC ---
Exam Note: Andrés Note: Ignore the earlier 08/21/2020 note. Please also refer to the separate dictated note~for this date of service dictated separately.~Patient seen individually. Discussed the patient with Nursing staff reviewed the chart.~Reviewed interim history and current functioning. Reviewed vital signs,~Labs/ Radiology~and curr ent medications noted below. Continue current treatment with the changes noted in the dictated addendum note Assessment: Vital Signs/I&O: Vital Signs Date Time Temp Pulse Resp B/P (MAP) Pulse Ox O2 Delivery O2 Flow Rate FiO2 08/21/20 05:46 97.8 62 18 148/87 (107) 97 08/19/20 06:18 Room Air I & O 08/20/20 08/20/20 08/21/20 15:00 23:00 07:00 Intake Total 720 ml 480 ml Balance 720 ml 480 ml Labs: Laboratory Tests Test 08/21/20 06:03 White Blood Count 10.9 x10^3/uL (4.0-11.0) Red Blood Count 3.98 x10^6/uL (3.50-5.40) Hemoglobin 11.8 g/dL (12.0-15.5) L Hematocrit 36.2 % (36.0-47.0) Mean Corpuscular Volume 91 fL (79-100) Mean Corpuscular Hemoglobin 30 pg (25-35) Mean Corpuscular Hemoglobin Concent 33 g/dL (31-37) Red Cell Distribution Width 14.4 % (11.5-14.5) Platelet Count 194 x10^3/uL (140-400) Neutrophils (%) (Auto) 29 % (31-73) L Lymphocytes (%) (Auto) 63 % (24-48) H Monocytes (%) (Auto) 6 % (0-9) Eosinophils (%) (Auto) 2 % (0-3) Basophils (%) (Auto) 0 % (0-3) Neutrophils # (Auto) 3.2 x10^3uL (1.8-7.7) Lymphocytes # (Auto) 6.9 x10^3/uL (1.0-4.8) H Monocytes # (Auto) 0.6 x10^3/uL (0.0-1.1) Eosinophils # (Auto) 0.2 x10^3/uL (0.0-0.7) Basophils # (Auto) 0.0 x10^3/uL (0.0-0.2) Segmented Neutrophils % 39 % (35-66) Lymphocytes % 46 % (24-48) Atypical Lymphocytes % (Manual) 3 % (0-0) H Monocytes % 7 % (0-10) Eosinophils % 4 % (0-5) Other Cells % 1 % (0-0) H Smudge Cells Present Platelet Estimate Adequate (ADEQUATE) Sodium Level 138 mmol/L (136-145) Potassium Level 4.1 mmol/L (3.5-5.1) Chloride Level 103 mmol/L (98-107) Carbon Dioxide Level 28 mmol/L (21-32) Anion Gap 7 (6-14) Blood Urea Nitrogen 9 mg/dL (7-20) Creatinine 0.7 mg/dL (0.6-1.0) Estimated GFR (Cockcroft-Gault) 79.7 BUN/Creatinine Ratio 13 (6-20) Glucose Level 94 mg/dL (70-99) Calcium Level 8.4 mg/dL (8.5-10.1) L Total Bilirubin 0.2 mg/dL (0.2-1.0) Aspartate Amino Transferase (AST) 11 U/L (15-37) L Alanine Aminotransferase (ALT) 15 U/L (14-59) Alkaline Phosphatase 57 U/L (46-116) Total Protein 6.3 g/dL (6.4-8.2) L Albumin 2.8 g/dL (3.4-5.0) L Albumin/Globulin Ratio 0.8 (1.0-1.7) L Valproic Acid Level 39 mcg/mL (50-100) L Valproic Acid Last Dose Date 08/20/20 Valproic Acid Last Dose Time 2100 Current Medications: I have reviewed the current psychotropics carefully including drug interactions. Risk benefit ratio favors no change other than as noted in my dictated progress note. Diagnosis: Problems: (1) Major neurocognitive disorder (2) Impulse control disorder, unspecified (3) Anxiety disorder, unspecified (4) Dementia, vascular, with depression (5) Dementia, vascular, with delusions (6) Dementia in Alzheimer's disease with depression (7) Dementia in Alzheimer's disease with delusions (8) Dementia of the Alzheimer's type with early onset with behavioral disturbance FARSHAD CHEEMA MD Aug 21, 2020 21:03
--- NOTE | 2020-08-22 01:38 | NUR ---
Nursing Note The patient was located in her room for her assessment and medication pass. The patient took her medication whole and was pleasant during interactions with the nurse that gave the patient her medication. The patient was confused during her assessment.
[2020-08-22 06:11] VITALS: BP 166/89
--- NOTE | 2020-08-22 07:57 | PDOC ---
Exam Note: Andrés Note: This note is a late entry for 08/21/2020 covers elements not covered in my initial note. Subjective: The patient was seen face to face in the evening of 08/21/2020 with Bayron JAMESON, discussed and reviewed the chart. The patient slept 7 hours previous night. Overall the patient has been quite anxious previous evening, restless, confused, looking for her parents. She did well this morning but in the evening again she is tearful intermittently, restless, agitated. Reportedly, she threw a fit for no specific reason in the evening. She remains suspicious. Review of Systems: No CV, , pulmonary, eye system symptoms on review. Mental Status Exam: The patient is oriented to herself. Insight and judgment, recent and remote memory, attention and concentration, fund of knowledge is poor consistent with her diagnosis. Laboratory Data: Reviewed. 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 Anxiety disorder unspecified. Impulse control disorder unspecified. Plan: The patient gets more restless around 5 p.m., paranoid with marked mood lability. We will change the Seroquel from 75 mg a.m. and 1 p.m. and 25 mg h.s. to 75 mg a.m., 100 mg at 1 p.m. Discontinue the 25 mg h.s. dosage but continue the rest of the psychotropics unchanged. Assessment: Vital Signs/I&O: Vital Signs Date Time Temp Pulse Resp B/P (MAP) Pulse Ox O2 Delivery O2 Flow Rate FiO2 08/22/20 06:11 97.2 55 16 166/89 (114) 97 08/19/20 06:18 Room Air I & O 08/21/20 08/21/20 08/22/20 14:59 22:59 06:59 Intake Total 360 ml 380 ml Balance 360 ml 380 ml Current Medications: Meds: Current Medications Medications (Trade) Dose Ordered Sig/Stephenie Route PRN Reason Start Time Stop Time Status Last Admin Dose Admin Acetaminophen (Tylenol) 650 mg PRN Q6HRS PRN PO MILD PAIN / TEMP > 100.3'F 07/31/20 13:15 08/15/20 13:20 Multi-Ingredient Ointment (Analgesic [place]) 1 han PRN QID PRN TP MUSCLE PAIN 07/31/20 13:15 Al Hydroxide/Mg Hydroxide (Mylanta Plus Xs) 15 ml PRN AFTMEALHC PRN PO DYSPEPSIA 07/31/20 13:15 Magnesium Hydroxide (Milk Of Magnesia) 2,400 mg PRN QHS PRN PO 1ST CHOICE CONSTIPATION 07/31/20 13:15 Acetaminophen (Tylenol) 650 mg PRN Q6HRS PRN PO MILD PAIN / TEMP > 100.3'F 07/31/20 14:15 Cancel Acetaminophen (Tylenol Supp) 650 mg PRN Q4HRS PRN RC MILD PAIN / TEMP > 100.3'F 07/31/20 14:15 Bisacodyl (Dulcolax Supp) 10 mg PRN DAILY PRN RC 2ND CHOICE CONSTIPATION 07/31/20 14:15 Cyanocobalamin (Vitamin B-12) 250 mcg DAILY PO 08/01/20 09:00 08/21/20 08:27 Loperamide HCl (Imodium) 2 mg PRN Q1HR PRN PO MOD-SEVERE DIARRHEA 07/31/20 14:15 Al Hydroxide/Mg Hydroxide (Mylanta Plus Xs) 15 ml PRN AFTMEALHC PRN PO INDIGESTION 07/31/20 14:15 Cancel Magnesium Hydroxide (Milk Of Magnesia) 2,400 mg PRN QHS PRN PO constipation 07/31/20 14:15 Cancel Polyethylene Glycol (miraLAX) 17 gm DAILY PO 08/01/20 09:00 08/21/20 08:27 Quetiapine Fumarate (SEROquel) 25 mg QHS PO 07/31/20 21:00 08/21/20 18:24 DC 08/20/20 19:55 Quetiapine Fumarate (SEROquel) 50 mg DAILY PO 08/01/20 09:00 08/19/20 18:11 DC 08/18/20 08:59 Sennosides (Senna) 8.6 mg BID PO 07/31/20 21:00 08/21/20 20:31 Trazodone HCl (Desyrel) 50 mg QHS PO 07/31/20 21:00 08/21/20 20:32 Melatonin (Melatonin) 3 mg QHS PO 07/31/20 21:00 08/21/20 20:31 Loperamide HCl (Imodium) 4 mg PRN DAILY PRN PO MILD DIARRHEA 07/31/20 14:45 Rivastigmine (Exelon) 1 patch DAILY TD 08/02/20 09:00 08/05/20 21:00 DC 08/04/20 07:45 Rivastigmine (Exelon) 1 patch DAILY TD 08/06/20 09:00 08/21/20 08:27 Sertraline HCl (Zoloft) 25 mg DAILY PO 08/02/20 09:00 08/05/20 21:00 DC 08/05/20 09:22 Sertraline HCl (Zoloft) 50 mg DAILY PO 08/06/20 09:00 08/10/20 18:28 DC 08/10/20 08:44 Olanzapine (ZyPREXA ZYDIS) 2.5 mg PRN Q2HRS PRN PO PSYCHOSIS 08/01/20 11:15 08/01/20 18:34 DC 08/01/20 17:17 Trazodone HCl (Desyrel) 50 mg PRN QHS PRN PO INSOMNIA, MAY REPEAT IN 1HR 08/01/20 11:15 08/13/20 22:00 Vitamin D (Vitamin D3) 50,000 unit WEEKLY PO 08/01/20 17:00 08/01/20 17:31 DC Vitamin D (Vitamin D3) 50,000 unit WEEKLY PO 08/02/20 09:00 08/16/20 09:00 Olanzapine (ZyPREXA ZYDIS) 5 mg PRN Q2HRS PRN PO PSYCHOSIS 08/01/20 18:45 08/21/20 15:57 Divalproex Sodium (Depakote Sprinkles) 250 mg HS PO 08/04/20 21:00 08/07/20 16:50 DC 08/06/20 20:33 Quetiapine Fumarate (SEROquel) 25 mg DAILY@1300 PO 08/06/20 13:00 08/17/20 16:30 DC 08/16/20 13:00 Divalproex Sodium (Depakote Sprinkles) 500 mg HS PO 08/07/20 21:00 08/17/20 21:00 DC 08/16/20 19:23 Sertraline HCl (Zoloft) 75 mg DAILY PO 08/11/20 09:00 08/13/20 17:51 DC 08/13/20 08:39 Sertraline HCl (Zoloft) 100 mg DAILY PO 08/14/20 09:00 08/21/20 08:27 Quetiapine Fumarate (SEROquel) 50 mg DAILY@1300 PO 08/18/20 13:00 08/21/20 18:24 DC 08/21/20 12:41 Divalproex Sodium (Depakote Sprinkles) 250 mg BID PO 08/18/20 09:00 08/21/20 20:32 Quetiapine Fumarate (SEROquel) 75 mg DAILY PO 08/20/20 09:00 08/21/20 08:26 Quetiapine Fumarate (SEROquel) 100 mg 1300 PO 08/22/20 13:00 I have reviewed the current psychotropics carefully including drug interactions. Risk benefit ratio favors no change other than as noted in my dictated progress note. Diagnosis: Problems: (1) Major neurocognitive disorder (2) Impulse control disorder, unspecified (3) Anxiety disorder, unspecified (4) Dementia, vascular, with depression (5) Dementia, vascular, with delusions (6) Dementia in Alzheimer's disease with depression (7) Dementia in Alzheimer's disease with delusions (8) Lewy body dementia with behavioral disturbance FARSHAD CHEEMA MD Aug 22, 2020 07:56
--- NOTE | 2020-08-22 09:44 | NUR ---
WEEKLY ACTIVITY THERAPY NOTE Date of Admission: 07/31/2020 Date of AT Assessment: 08/03 Precipitating behaviors that initiated intake and admission: threatens to kill staff, name calling, belligerent, aggressive towards staff, throws stuff at staff, enters others rooms & gets agitated with redirection, pacing, restless Goal aimed: increase time management and stress management/relaxation skills Initial Goal: Pt will participate in at least three individual or group Activity Therapy sessions per week. Goal changed 08/08: Pt. will participate in at least one Activity Therapy group per day Weekly progress towards goal: achieved Group participation level: 4 min, 2 full Weekly highlights: pleasantly engaged in group yesterday (Wednesday) afternoon Behaviors observed: often stands at her door, confused, tearful, wandering with peer, difficult to reassure when anxious, difficulty focusing in groups this week Plan: no change to goal Beneficial adaptations: direct prompting needed at times in group
[2020-08-22] MEDS: SENNOSIDES 8.6 MG TABLET PO SCH ×2 (11:00→19:03)
[2020-08-22] MEDS: QUEtiapine 50 MG TABLET. PO SCH (11:00)
[2020-08-22] MEDS: CYANOCOBALAMIN (VITAMIN B-12) 250 MCG TABLET. PO SCH (11:00)
[2020-08-22] MEDS: SERTRALINE 100 MG TABLET. PO SCH (11:00)
[2020-08-22] MEDS: DIVALPROEX 125 MG CAP.SPRINK PO SCH ×2 (11:00→19:04)
[2020-08-22] MEDS: RIVASTIGMINE 9.5MG PATCH. TD SCH (11:01)
[2020-08-22] MEDS: POLYETHYLENE GLYCOL 3350 17 GM PACKET. PO SCH (11:01)
--- NOTE | 2020-08-22 11:49 | NUR ---
Update provided to Maria Luisa, director dermatology at [facility]. Faxed current notes, medication list, and labs for review. Tentative d/c date of 08/26/20. Maria Luisa is to call SOL back with a transport time. SOL also updated Delbert's nurse at [facility] and told her that a faxed update was sent for review. Team meeting was held on this date, Fredrick (grandson/guardian), was involved via phone.
--- NOTE | 2020-08-22 12:01 | TX PLAN ---
Interdisciplinary Tx Plan Admission Information Jul 31, 2020 at 12:35 Legal Status (on Admission): Voluntary, Court Appointed Guardian DPOA/Guardian Name: Piero Johnston- grandson-guardian Contact Other Contact Name: Stacy- clinical coordinator Other Contact Verified Code Status: DNR Allergies: Coded Allergies: No Known Drug Allergies (Unverified , 07/31/20) Estimated Length of Stay: 14 Diagnoses Primary Diagnosis: Major neurocognitive d/o, vascular, alzheimers with delusions, depression, BD Anxiety d/o unspecified Impulse Control D/O Reasons for Admission: Aggressive, Agitated, Angry, Grief, Anxiety/Panic, Combative, Homicidal Ideation, Confusion/Disoriented, Poor impulse control Problem in Patient's Words: Per Delbert, "I have to go home, where I live." Per family and care facility, see above description of mood and behavioral concerns. Additional Admission Comments: Per intake record, threatens to kill staff, name calling, belligerent, aggressive towards staff, throws stuff at staff, enters others rooms and gets agitated with re-direction, pacing, restless. Problems Active Problems: Agitated Aggressive Medication resistant Wandering/Pacing Inactive Problems: Adequate intake Pt Strengths/Limitations Ability for Kendrick: Poor Cognitive Functioning/Ability: Poor Communication Skills/Ability: Fair Financial Resources: Fair Insight/Judgement: Poor Intellectual Ability: Fair Physical Health: Fair Social Skills: Fair Stability in Family: Fair Verbal Skills: Fair Discharge Criteria Discharge Criteria: Adequate arrangements @DC, Improved behavior, Improved mood/thought Preliminary Discharge Plan Preliminary DC Plan: Memory Care Other Arrangements: [facility] Special Precautions Special Precautions: Agitation/Assault Fall Risk: High Initial D/C Plan Delbert will return to [facility] once stable Identified Discharge Needs: F/U with PCP and out patient psychiatry if available. Currently Utilized Resources Currently Utilized Resources/P: PCP Referrals Community Resources: Out patient psychiatry if available Identified Problems/Hx/Goals Objectives/Short-Term Goals Short Term Goals: Control abnormal behavior, Dec. Aggression, Dec. Outbursts, Medication Stabilization, Monitor Med Effects, No Suicidal/Conor. ideation Short Term Goals in Patient's: When asked Delbert spoke about going home. Per lila, for Delbert to be "happy and comfortable." Interventions/Frequency Staff Interventions/Frequency&: Nursing to provide routine safety checks, medication administration, and ADL support. Psychiatry to see three times weekly. SW to see twice weekly. Recreational and SW groups as Delbert will be involved. 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 Social: Delbert enjoyes the outdoors, doing yard work, and going for car drives. Education: Delbert attended primary school in [place] from the age of [age]. 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 Her mood continues to be labile with periods of anxiousness, tearfulness, and agitation. In between, she can be quite pleasant. Delbert typically responds well to reassurance, support, and distraction. She attended a recreational therapy group on 08/21/20 with SW and stayed for its entirety. Depakote will be increased with labs in three days. Fredrick, americo, participated in team meeting via phone. D/C date of 08/26/20 has been scheduled. SOL updated [facility] and faxed notes for review. Awaiting transport time for 08/26/20 from [facility]. KENYETTA CERDA Aug 22, 2020 12:01
[2020-08-22] MEDS: QUEtiapine 100 MG TABLET. PO SCH (12:54)
--- NOTE | 2020-08-22 14:00 | NUR ---
Patient has been increasingly labile and agitated. After lunch she has been tearful, exit seeking, stating she has to get to her family. She has not responded well to verbal redirection, becoming increasingly agitated with attempts. PRN medication provided per eMAR, will continue to monitor and report to oncoming shift.
[2020-08-22 16:03] VITALS: BP 108/64
[2020-08-22] MEDS: MELATONIN 3 MG TABLET PO SCH (19:03)
[2020-08-22] MEDS: traZODone 50 MG TABLET. PO SCH (19:03)
--- NOTE | 2020-08-22 21:02 | PDOC ---
Exam Note: Andrés Note: Please also refer to the separate dictated note~for this date of service dictated separately.~Patient seen individually. Discussed the patient with Nursing staff reviewed the chart.~Reviewed interim history and current functioning. Reviewed vital signs,~Labs/ Radiology~and current medications noted below. Continue current treatment with the changes noted in the dictated addendum note Assessment: Vital Signs/I&O: Vital Signs Date Time Temp Pulse Resp B/P (MAP) Pulse Ox O2 Delivery O2 Flow Rate FiO2 08/22/20 16:03 98.0 89 20 108/64 (79) 96 08/19/20 06:18 Room Air I & O 08/21/20 08/21/20 08/22/20 15:00 23:00 07:00 Intake Total 360 ml 380 ml Balance 360 ml 380 ml Current Medications: Meds: Current Medications Medications (Trade) Dose Ordered Sig/Stephenie Route PRN Reason Start Time Stop Time Status Last Admin Dose Admin Acetaminophen (Tylenol) 650 mg PRN Q6HRS PRN PO MILD PAIN / TEMP > 100.3'F 07/31/20 13:15 08/15/20 13:20 Multi-Ingredient Ointment (Analgesic [place]) 1 han PRN QID PRN TP MUSCLE PAIN 07/31/20 13:15 Al Hydroxide/Mg Hydroxide (Mylanta Plus Xs) 15 ml PRN AFTMEALHC PRN PO DYSPEPSIA 07/31/20 13:15 Magnesium Hydroxide (Milk Of Magnesia) 2,400 mg PRN QHS PRN PO 1ST CHOICE CONSTIPATION 07/31/20 13:15 Acetaminophen (Tylenol) 650 mg PRN Q6HRS PRN PO MILD PAIN / TEMP > 100.3'F 07/31/20 14:15 Cancel Acetaminophen (Tylenol Supp) 650 mg PRN Q4HRS PRN RC MILD PAIN / TEMP > 100.3'F 07/31/20 14:15 Bisacodyl (Dulcolax Supp) 10 mg PRN DAILY PRN RC 2ND CHOICE CONSTIPATION 07/31/20 14:15 Cyanocobalamin (Vitamin B-12) 250 mcg DAILY PO 08/01/20 09:00 08/22/20 11:00 Loperamide HCl (Imodium) 2 mg PRN Q1HR PRN PO MOD-SEVERE DIARRHEA 07/31/20 14:15 Al Hydroxide/Mg Hydroxide (Mylanta Plus Xs) 15 ml PRN AFTMEALHC PRN PO INDIGESTION 07/31/20 14:15 Cancel Magnesium Hydroxide (Milk Of Magnesia) 2,400 mg PRN QHS PRN PO constipation 07/31/20 14:15 Cancel Polyethylene Glycol (miraLAX) 17 gm DAILY PO 08/01/20 09:00 08/22/20 11:01 Quetiapine Fumarate (SEROquel) 25 mg QHS PO 07/31/20 21:00 08/21/20 18:24 DC 08/20/20 19:55 Quetiapine Fumarate (SEROquel) 50 mg DAILY PO 08/01/20 09:00 08/19/20 18:11 DC 08/18/20 08:59 Sennosides (Senna) 8.6 mg BID PO 07/31/20 21:00 08/22/20 19:03 Trazodone HCl (Desyrel) 50 mg QHS PO 07/31/20 21:00 08/22/20 19:03 Melatonin (Melatonin) 3 mg QHS PO 07/31/20 21:00 08/22/20 19:03 Loperamide HCl (Imodium) 4 mg PRN DAILY PRN PO MILD DIARRHEA 07/31/20 14:45 Rivastigmine (Exelon) 1 patch DAILY TD 08/02/20 09:00 08/05/20 21:00 DC 08/04/20 07:45 Rivastigmine (Exelon) 1 patch DAILY TD 08/06/20 09:00 08/22/20 11:01 Sertraline HCl (Zoloft) 25 mg DAILY PO 08/02/20 09:00 08/05/20 21:00 DC 08/05/20 09:22 Sertraline HCl (Zoloft) 50 mg DAILY PO 08/06/20 09:00 08/10/20 18:28 DC 08/10/20 08:44 Olanzapine (ZyPREXA ZYDIS) 2.5 mg PRN Q2HRS PRN PO PSYCHOSIS 08/01/20 11:15 08/01/20 18:34 DC 08/01/20 17:17 Trazodone HCl (Desyrel) 50 mg PRN QHS PRN PO INSOMNIA, MAY REPEAT IN 1HR 08/01/20 11:15 08/13/20 22:00 Vitamin D (Vitamin D3) 50,000 unit WEEKLY PO 08/01/20 17:00 08/01/20 17:31 DC Vitamin D (Vitamin D3) 50,000 unit WEEKLY PO 08/02/20 09:00 08/16/20 09:00 Olanzapine (ZyPREXA ZYDIS) 5 mg PRN Q2HRS PRN PO PSYCHOSIS 08/01/20 18:45 08/22/20 19:03 Divalproex Sodium (Depakote Sprinkles) 250 mg HS PO 08/04/20 21:00 08/07/20 16:50 DC 08/06/20 20:33 Quetiapine Fumarate (SEROquel) 25 mg DAILY@1300 PO 08/06/20 13:00 08/17/20 16:30 DC 08/16/20 13:00 Divalproex Sodium (Depakote Sprinkles) 500 mg HS PO 08/07/20 21:00 08/17/20 21:00 DC 08/16/20 19:23 Sertraline HCl (Zoloft) 75 mg DAILY PO 08/11/20 09:00 08/13/20 17:51 DC 08/13/20 08:39 Sertraline HCl (Zoloft) 100 mg DAILY PO 08/14/20 09:00 08/22/20 11:00 Quetiapine Fumarate (SEROquel) 50 mg DAILY@1300 PO 08/18/20 13:00 08/21/20 18:24 DC 08/21/20 12:41 Divalproex Sodium (Depakote Sprinkles) 250 mg BID PO 08/18/20 09:00 08/22/20 16:30 DC 08/22/20 11:00 Quetiapine Fumarate (SEROquel) 75 mg DAILY PO 08/20/20 09:00 08/22/20 11:00 Quetiapine Fumarate (SEROquel) 100 mg 1300 PO 08/22/20 13:00 08/22/20 12:54 Divalproex Sodium (Depakote Sprinkles) 375 mg BID PO 08/22/20 21:00 08/22/20 19:04 Current Medications Medications (Trade) Dose Ordered Sig/Stephenie Route PRN Reason Start Time Stop Time Status Last Admin Dose Admin Quetiapine Fumarate (SEROquel) 100 mg 1300 PO 08/22/20 13:00 08/22/20 12:54 Divalproex Sodium (Depakote Sprinkles) 375 mg BID PO 08/22/20 21:00 08/22/20 19:04 I have reviewed the current psychotropics carefully including drug interactions. Risk benefit ratio favors no change other than as noted in my dictated progress note. Diagnosis: Problems: (1) Dementia of the Alzheimer's type with early onset with behavioral disturbance (2) Major neurocognitive disorder (3) Impulse control disorder, unspecified (4) Anxiety disorder, unspecified (5) Dementia, vascular, with depression (6) Dementia, vascular, with delusions (7) Dementia in Alzheimer's disease with depression (8) Dementia in Alzheimer's disease with delusions FARSHAD CHEEMA MD Aug 22, 2020 21:02
--- NOTE | 2020-08-23 03:23 | NUR ---
Nursing Note The patient was compliant with her medication and assessment. The patient was less agitated this shift and was more willing to interact with staff. The patient remains confused and unable to answer assessment questions. The patient took her medication whole.
[2020-08-23 05:39] VITALS: BP 162/79
[2020-08-23] MEDS: RIVASTIGMINE 9.5MG PATCH. TD SCH (08:13)
[2020-08-23] MEDS: POLYETHYLENE GLYCOL 3350 17 GM PACKET. PO SCH (08:13)
[2020-08-23] MEDS: QUEtiapine 50 MG TABLET. PO SCH (08:14)
[2020-08-23] MEDS: SENNOSIDES 8.6 MG TABLET PO SCH ×2 (08:14→20:29)
[2020-08-23] MEDS: CYANOCOBALAMIN (VITAMIN B-12) 250 MCG TABLET. PO SCH (08:14)
[2020-08-23] MEDS: DIVALPROEX 125 MG CAP.SPRINK PO SCH ×2 (08:14→20:28)
[2020-08-23] MEDS: SERTRALINE 100 MG TABLET. PO SCH (08:14)
--- NOTE | 2020-08-23 08:18 | PDOC ---
Exam Note: Andrés Note: This note is a late entry for 08/22/2020 covers elements not covered in my initial note. Subjective: The patient was seen face to face in the morning of 08/22/2020 for a treatment team meeting with Cathi Decker, Marika Perez and Tanesha (social media editor), Nalini Mcallister, activity therapy and Bayron JAMESON, discussed and reviewed the chart. Fredrick, the patients grandson attended the treatment team meeting. The patient slept 7-1/4 hours previous night. She was wandering in the morning, confused. No agitation. Review of Systems: No CV, , pulmonary, eye system symptoms on review. Reliability poor. Mental Status Exam: The patient is oriented to herself. Insight and judgment, recent and remote memory, attention and concentration, fund of knowledge is poor consistent with her diagnosis. Laboratory Data: Reviewed. Valproic acid level is subtherapeutic at 39 on Depakote 250 mg b.i.d. 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 Anxiety disorder unspecified. Impulse control disorder unspecified. Plan: Increase Depakote from 250 mg b.i.d. to 375 mg b.i.d. Check CBC, CMP, valproic acid level in 3 days as a mood stabilizer. Maintain rest of the psychotropics unchanged. We had a lengthy discussion with the grandson about the patients progress and tentative transition to the custodial early next week. Assessment: Vital Signs/I&O: Vital Signs Date Time Temp Pulse Resp B/P (MAP) Pulse Ox O2 Delivery O2 Flow Rate FiO2 08/23/20 05:39 98.0 71 18 162/79 (106) 98 08/19/20 06:18 Room Air I & O 08/22/20 08/22/20 08/23/20 15:00 23:00 07:00 Intake Total 360 ml 240 ml 120 ml Balance 360 ml 240 ml 120 ml Current Medications: Meds: Current Medications Medications (Trade) Dose Ordered Sig/Stephenie Route PRN Reason Start Time Stop Time Status Last Admin Dose Admin Acetaminophen (Tylenol) 650 mg PRN Q6HRS PRN PO MILD PAIN / TEMP > 100.3'F 07/31/20 13:15 08/15/20 13:20 Multi-Ingredient Ointment (Analgesic [place]) 1 han PRN QID PRN TP MUSCLE PAIN 07/31/20 13:15 Al Hydroxide/Mg Hydroxide (Mylanta Plus Xs) 15 ml PRN AFTMEALHC PRN PO DYSPEPSIA 07/31/20 13:15 Magnesium Hydroxide (Milk Of Magnesia) 2,400 mg PRN QHS PRN PO 1ST CHOICE CONSTIPATION 07/31/20 13:15 Acetaminophen (Tylenol) 650 mg PRN Q6HRS PRN PO MILD PAIN / TEMP > 100.3'F 07/31/20 14:15 Cancel Acetaminophen (Tylenol Supp) 650 mg PRN Q4HRS PRN RC MILD PAIN / TEMP > 100.3'F 07/31/20 14:15 Bisacodyl (Dulcolax Supp) 10 mg PRN DAILY PRN RC 2ND CHOICE CONSTIPATION 07/31/20 14:15 Cyanocobalamin (Vitamin B-12) 250 mcg DAILY PO 08/01/20 09:00 08/23/20 08:14 Loperamide HCl (Imodium) 2 mg PRN Q1HR PRN PO MOD-SEVERE DIARRHEA 07/31/20 14:15 Al Hydroxide/Mg Hydroxide (Mylanta Plus Xs) 15 ml PRN AFTMEALHC PRN PO INDIGESTION 07/31/20 14:15 Cancel Magnesium Hydroxide (Milk Of Magnesia) 2,400 mg PRN QHS PRN PO constipation 07/31/20 14:15 Cancel Polyethylene Glycol (miraLAX) 17 gm DAILY PO 08/01/20 09:00 08/23/20 08:13 Quetiapine Fumarate (SEROquel) 25 mg QHS PO 07/31/20 21:00 08/21/20 18:24 DC 08/20/20 19:55 Quetiapine Fumarate (SEROquel) 50 mg DAILY PO 08/01/20 09:00 08/19/20 18:11 DC 08/18/20 08:59 Sennosides (Senna) 8.6 mg BID PO 07/31/20 21:00 08/23/20 08:14 Trazodone HCl (Desyrel) 50 mg QHS PO 07/31/20 21:00 08/22/20 19:03 Melatonin (Melatonin) 3 mg QHS PO 07/31/20 21:00 08/22/20 19:03 Loperamide HCl (Imodium) 4 mg PRN DAILY PRN PO MILD DIARRHEA 07/31/20 14:45 Rivastigmine (Exelon) 1 patch DAILY TD 08/02/20 09:00 08/05/20 21:00 DC 08/04/20 07:45 Rivastigmine (Exelon) 1 patch DAILY TD 08/06/20 09:00 08/23/20 08:13 Sertraline HCl (Zoloft) 25 mg DAILY PO 08/02/20 09:00 08/05/20 21:00 DC 08/05/20 09:22 Sertraline HCl (Zoloft) 50 mg DAILY PO 08/06/20 09:00 08/10/20 18:28 DC 08/10/20 08:44 Olanzapine (ZyPREXA ZYDIS) 2.5 mg PRN Q2HRS PRN PO PSYCHOSIS 08/01/20 11:15 08/01/20 18:34 DC 08/01/20 17:17 Trazodone HCl (Desyrel) 50 mg PRN QHS PRN PO INSOMNIA, MAY REPEAT IN 1HR 08/01/20 11:15 08/13/20 22:00 Vitamin D (Vitamin D3) 50,000 unit WEEKLY PO 08/01/20 17:00 08/01/20 17:31 DC Vitamin D (Vitamin D3) 50,000 unit WEEKLY PO 08/02/20 09:00 08/16/20 09:00 Olanzapine (ZyPREXA ZYDIS) 5 mg PRN Q2HRS PRN PO PSYCHOSIS 08/01/20 18:45 08/22/20 19:03 Divalproex Sodium (Depakote Sprinkles) 250 mg HS PO 08/04/20 21:00 08/07/20 16:50 DC 08/06/20 20:33 Quetiapine Fumarate (SEROquel) 25 mg DAILY@1300 PO 08/06/20 13:00 08/17/20 16:30 DC 08/16/20 13:00 Divalproex Sodium (Depakote Sprinkles) 500 mg HS PO 08/07/20 21:00 08/17/20 21:00 DC 08/16/20 19:23 Sertraline HCl (Zoloft) 75 mg DAILY PO 08/11/20 09:00 08/13/20 17:51 DC 08/13/20 08:39 Sertraline HCl (Zoloft) 100 mg DAILY PO 08/14/20 09:00 08/23/20 08:14 Quetiapine Fumarate (SEROquel) 50 mg DAILY@1300 PO 08/18/20 13:00 08/21/20 18:24 DC 08/21/20 12:41 Divalproex Sodium (Depakote Sprinkles) 250 mg BID PO 08/18/20 09:00 08/22/20 16:30 DC 08/22/20 11:00 Quetiapine Fumarate (SEROquel) 75 mg DAILY PO 08/20/20 09:00 08/23/20 08:14 Quetiapine Fumarate (SEROquel) 100 mg 1300 PO 08/22/20 13:00 08/22/20 12:54 Divalproex Sodium (Depakote Sprinkles) 375 mg BID PO 08/22/20 21:00 08/23/20 08:14 Current Medications Medications (Trade) Dose Ordered Sig/Stephenie Route PRN Reason Start Time Stop Time Status Last Admin Dose Admin Quetiapine Fumarate (SEROquel) 100 mg 1300 PO 08/22/20 13:00 08/22/20 12:54 Divalproex Sodium (Depakote Sprinkles) 375 mg BID PO 08/22/20 21:00 08/23/20 08:14 I have reviewed the current psychotropics carefully including drug interactions. Risk benefit ratio favors no change other than as noted in my dictated progress note. Diagnosis: Problems: (1) Dementia of the Alzheimer's type with early onset with behavioral disturb ance (2) Major neurocognitive disorder (3) Impulse control disorder, unspecified (4) Anxiety disorder, unspecified (5) Dementia, vascular, with depression (6) Dementia, vascular, with delusions (7) Dementia in Alzheimer's disease with depression (8) Dementia in Alzheimer's disease with delusions FARSHAD CHEEMA MD Aug 23, 2020 08:18
[2020-08-23] MEDS: CHOLECALCIFEROL (VITAMIN D3) 50,000 UNIT CAPSULE PO SCH (08:21)
--- NOTE | 2020-08-23 09:52 | NUR ---
Pt has been wandering unit this morning looking for exit. Compliant with whole medications. Participated in morning group.
--- NOTE | 2020-08-23 10:17 | NUR ---
[facility] Social Work Discharge Planning Form Patient Name MENDEZ HUDDLESTON Admit Date: 07/31/2020 DISCHARGE PLAN Discharge Destination: [facility] Care Assessment: Previously completed Transportation: [facility] to transport on 08/26/20, excels[employer] picker time TBD. Special Instructions/Notes: Upon return to [facility], arrange for f/u appointments with house physician and house psychiatrist in 7-10 days. DISCHARGE TO FACILITY Facility: [facility] Address: [address] [place] [address] Contact Name: Stacy clinical coordinator Contact Name: rosette Glass/marketing automation analyst PCP: Dr. Brothers [phone], (fax) Psychiatrist: Facility provider
[2020-08-23] MEDS: QUEtiapine 100 MG TABLET. PO SCH (12:46)
--- NOTE | 2020-08-23 15:26 | NUR ---
Assisted Delbert to have a face time call with her grandson Fredrick on this date. Delbert did well on the call, became tearful with saying goodbye. Reassurance provided that she will be returning to [place] soon and will be able to se Fredrick in person.
[2020-08-23 15:31] VITALS: BP 141/71
[2020-08-23] MEDS: traZODone 50 MG TABLET. PO SCH (20:29)
[2020-08-23] MEDS: MELATONIN 3 MG TABLET PO SCH (20:29)
--- NOTE | 2020-08-23 20:52 | PDOC ---
Exam Note: Andrés Note: Please also refer to the separate dictated note~for this date of service dictated separately.~Patient seen individually. Discussed the patient with Nursing staff reviewed the chart.~Reviewed interim history and current functioning. Reviewed vital signs,~Labs/ Radiology~and current medications noted below. Continue current treatment with the changes noted in the dictated addendum note Assessment: Vital Signs/I&O: Vital Signs Date Time Temp Pulse Resp B/P (MAP) Pulse Ox O2 Delivery O2 Flow Rate FiO2 08/23/20 15:31 97.6 72 16 141/71 (94) 97 08/19/20 06:18 Room Air I & O 08/22/20 08/22/20 08/23/20 14:59 22:59 06:59 Intake Total 360 ml 240 ml 120 ml Balance 360 ml 240 ml 120 ml Current Medications: Meds: Current Medications Medications (Trade) Dose Ordered Sig/Stephenie Route PRN Reason Start Time Stop Time Status Last Admin Dose Admin Acetaminophen (Tylenol) 650 mg PRN Q6HRS PRN PO MILD PAIN / TEMP > 100.3'F 07/31/20 13:15 08/15/20 13:20 Multi-Ingredient Ointment (Analgesic [place]) 1 han PRN QID PRN TP MUSCLE PAIN 07/31/20 13:15 Al Hydroxide/Mg Hydroxide (Mylanta Plus Xs) 15 ml PRN AFTMEALHC PRN PO DYSPEPSIA 07/31/20 13:15 Magnesium Hydroxide (Milk Of Magnesia) 2,400 mg PRN QHS PRN PO 1ST CHOICE CONSTIPATION 07/31/20 13:15 Acetaminophen (Tylenol) 650 mg PRN Q6HRS PRN PO MILD PAIN / TEMP > 100.3'F 07/31/20 14:15 Cancel Acetaminophen (Tylenol Supp) 650 mg PRN Q4HRS PRN RC MILD PAIN / TEMP > 100.3'F 07/31/20 14:15 Bisacodyl (Dulcolax Supp) 10 mg PRN DAILY PRN RC 2ND CHOICE CONSTIPATION 07/31/20 14:15 Cyanocobalamin (Vitamin B-12) 250 mcg DAILY PO 08/01/20 09:00 08/23/20 08:14 Loperamide HCl (Imodium) 2 mg PRN Q1HR PRN PO MOD-SEVERE DIARRHEA 07/31/20 14:15 Al Hydroxide/Mg Hydroxide (Mylanta Plus Xs) 15 ml PRN AFTMEALHC PRN PO INDIGESTION 07/31/20 14:15 Cancel Magnesium Hydroxide (Milk Of Magnesia) 2,400 mg PRN QHS PRN PO constipation 07/31/20 14:15 Cancel Polyethylene Glycol (miraLAX) 17 gm DAILY PO 08/01/20 09:00 08/23/20 08:13 Quetiapine Fumarate (SEROquel) 25 mg QHS PO 07/31/20 21:00 08/21/20 18:24 DC 08/20/20 19:55 Quetiapine Fumarate (SEROquel) 50 mg DAILY PO 08/01/20 09:00 08/19/20 18:11 DC 08/18/20 08:59 Sennosides (Senna) 8.6 mg BID PO 07/31/20 21:00 08/23/20 20:29 Trazodone HCl (Desyrel) 50 mg QHS PO 07/31/20 21:00 08/23/20 20:29 Melatonin (Melatonin) 3 mg QHS PO 07/31/20 21:00 08/23/20 20:29 Loperamide HCl (Imodium) 4 mg PRN DAILY PRN PO MILD DIARRHEA 07/31/20 14:45 Rivastigmine (Exelon) 1 patch DAILY TD 08/02/20 09:00 08/05/20 21:00 DC 08/04/20 07:45 Rivastigmine (Exelon) 1 patch DAILY TD 08/06/20 09:00 08/23/20 08:13 Sertraline HCl (Zoloft) 25 mg DAILY PO 08/02/20 09:00 08/05/20 21:00 DC 08/05/20 09:22 Sertraline HCl (Zoloft) 50 mg DAILY PO 08/06/20 09:00 08/10/20 18:28 DC 08/10/20 08:44 Olanzapine (ZyPREXA ZYDIS) 2.5 mg PRN Q2HRS PRN PO PSYCHOSIS 08/01/20 11:15 08/01/20 18:34 DC 08/01/20 17:17 Trazodone HCl (Desyrel) 50 mg PRN QHS PRN PO INSOMNIA, MAY REPEAT IN 1HR 1/28/21 11:15 08/13/20 22:00 Vitamin D (Vitamin D3) 50,000 unit WEEKLY PO 08/01/20 17:00 08/01/20 17:31 DC Vitamin D (Vitamin D3) 50,000 unit WEEKLY PO 08/02/20 09:00 08/23/20 08:21 Olanzapine (ZyPREXA ZYDIS) 5 mg PRN Q2HRS PRN PO PSYCHOSIS 08/01/20 18:45 08/22/20 19:03 Divalproex Sodium (Depakote Sprinkles) 250 mg HS PO 08/04/20 21:00 08/07/20 16:50 DC 08/06/20 20:33 Quetiapine Fumarate (SEROquel) 25 mg DAILY@1300 PO 08/06/20 13:00 08/17/20 16:30 DC 08/16/20 13:00 Divalproex Sodium (Depakote Sprinkles) 500 mg HS PO 08/07/20 21:00 08/17/20 21:00 DC 08/16/20 19:23 Sertraline HCl (Zoloft) 75 mg DAILY PO 08/11/20 09:00 08/13/20 17:51 DC 08/13/20 08:39 Sertraline HCl (Zoloft) 100 mg DAILY PO 08/14/20 09:00 08/23/20 08:14 Quetiapine Fumarate (SEROquel) 50 mg DAILY@1300 PO 08/18/20 13:00 08/21/20 18:24 DC 08/21/20 12:41 Divalproex Sodium (Depakote Sprinkles) 250 mg BID PO 08/18/20 09:00 08/22/20 16:30 DC 08/22/20 11:00 Quetiapine Fumarate (SEROquel) 75 mg DAILY PO 08/20/20 09:00 08/23/20 08:14 Quetiapine Fumarate (SEROquel) 100 mg 1300 PO 08/22/20 13:00 08/23/20 12:46 Divalproex Sodium (Depakote Sprinkles) 375 mg BID PO 08/22/20 21:00 08/23/20 20:28 Current Medications Medications (Trade) Dose Ordered Sig/Stephenie Route PRN Reason Start Time Stop Time Status Last Admin Dose Admin Divalproex Sodium (Depakote Sprinkles) 375 mg BID PO 08/22/20 21:00 08/23/20 20:28 I have reviewed the current psychotropics carefully including drug interactions. Risk benefit ratio favors no change other than as noted in my dictated progress note. Diagnosis: Problems: (1) Dementia of the Alzheimer's type with early onset with behavioral disturbance (2) Major neurocognitive disorder (3) Impulse control disorder, unspecified (4) Anxiety disorder, unspecified (5) Dementia, vascular, with depression (6) Dementia, vascular, with delusions (7) Dementia in Alzheimer's disease with depression (8) Dementia in Alzheimer's disease with delusions FARSHAD CHEEMA MD Aug 23, 2020 20:52
--- NOTE | 2020-08-23 23:22 | NUR ---
Patient is located in her room on assumption of care, awake in bed. Pleasantly confused. Compliant with assessments and medications taken whole. No agitation. Denies any pain or discomfort. Patient appears to be sleeping comfortably at present time. Will continue to monitor.
[2020-08-24 06:13] VITALS: BP 134/79
--- NOTE | 2020-08-24 07:40 | PDOC ---
Exam Note: Andrés Note: This note is a late entry for 08/23/2020 covers elements not covered in my initial note. Subjective: The patient was seen face to face in the evening of 08/23/2020 with Lily JAMESON, discussed and reviewed the chart. The patient slept 5-1/4 hours previous night. She remains confused, but not agitated or aggressive. She does get more anxious in the evening. Review of Systems: No CV, , pulmonary, eye, ENT system symptoms on review. Reliability poor. Mental Status Exam: The patient is oriented to herself. Insight and judgment, recent and remote memory, attention and concentration, fund of knowledge is poor consistent with her diagnosis. I met with her in her room. Laboratory Data: Reviewed. 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 Anxiety disorder unspecified. Impulse control disorder unspecified. Plan: No change from initial note. Assessment: Vital Signs/I&O: Vital Signs Date Time Temp Pulse Resp B/P (MAP) Pulse Ox O2 Delivery O2 Flow Rate FiO2 08/24/20 06:13 98.1 59 16 134/79 (97) 97 08/19/20 06:18 Room Air I & O 08/23/20 08/23/20 08/24/20 14:59 22:59 06:59 Intake Total 580 ml 480 ml Balance 580 ml 480 ml Current Medications: Meds: Current Medications Medications (Trade) Dose Ordered Sig/Stephenie Route PRN Reason Start Time Stop Time Status Last Admin Dose Admin Acetaminophen (Tylenol) 650 mg PRN Q6HRS PRN PO MILD PAIN / TEMP > 100.3'F 07/31/20 13:15 08/15/20 13:20 Multi-Ingredient Ointment (Analgesic [place]) 1 han PRN QID PRN TP MUSCLE PAIN 07/31/20 13:15 Al Hydroxide/Mg Hydroxide (Mylanta Plus Xs) 15 ml PRN AFTMEALHC PRN PO DYSPEPSIA 07/31/20 13:15 Magnesium Hydroxide (Milk Of Magnesia) 2,400 mg PRN QHS PRN PO 1ST CHOICE CONSTIPATION 07/31/20 13:15 Acetaminophen (Tylenol) 650 mg PRN Q6HRS PRN PO MILD PAIN / TEMP > 100.3'F 07/31/20 14:15 Cancel Acetaminophen (Tylenol Supp) 650 mg PRN Q4HRS PRN RC MILD PAIN / TEMP > 100.3'F 07/31/20 14:15 Bisacodyl (Dulcolax Supp) 10 mg PRN DAILY PRN RC 2ND CHOICE CONSTIPATION 07/31/20 14:15 Cyanocobalamin (Vitamin B-12) 250 mcg DAILY PO 08/01/20 09:00 08/23/20 08:14 Loperamide HCl (Imodium) 2 mg PRN Q1HR PRN PO MOD-SEVERE DIARRHEA 07/31/20 14:15 Al Hydroxide/Mg Hydroxide (Mylanta Plus Xs) 15 ml PRN AFTMEALHC PRN PO INDIGESTION 07/31/20 14:15 Cancel Magnesium Hydroxide (Milk Of Magnesia) 2,400 mg PRN QHS PRN PO constipation 07/31/20 14:15 Cancel Polyethylene Glycol (miraLAX) 17 gm DAILY PO 08/01/20 09:00 08/23/20 08:13 Quetiapine Fumarate (SEROquel) 25 mg QHS PO 07/31/20 21:00 08/21/20 18:24 DC 08/20/20 19:55 Quetiapine Fumarate (SEROquel) 50 mg DAILY PO 08/01/20 09:00 08/19/20 18:11 DC 08/18/20 08:59 Sennosides (Senna) 8.6 mg BID PO 07/31/20 21:00 08/23/20 20:29 Trazodone HCl (Desyrel) 50 mg QHS PO 07/31/20 21:00 08/23/20 20:29 Melatonin (Melatonin) 3 mg QHS PO 07/31/20 21:00 08/23/20 20:29 Loperamide HCl (Imodium) 4 mg PRN DAILY PRN PO MILD DIARRHEA 07/31/20 14:45 Rivastigmine (Exelon) 1 patch DAILY TD 08/02/20 09:00 08/05/20 21:00 DC 08/04/20 07:45 Rivastigmine (Exelon) 1 patch DAILY TD 08/06/20 09:00 08/23/20 08:13 Sertraline HCl (Zoloft) 25 mg DAILY PO 08/02/20 09:00 08/05/20 21:00 DC 08/05/20 09:22 Sertraline HCl (Zoloft) 50 mg DAILY PO 08/06/20 09:00 08/10/20 18:28 DC 08/10/20 08:44 Olanzapine (ZyPREXA ZYDIS) 2.5 mg PRN Q2HRS PRN PO PSYCHOSIS 08/01/20 11:15 08/01/20 18:34 DC 08/01/20 17:17 Trazodone HCl (Desyrel) 50 mg PRN QHS PRN PO INSOMNIA, MAY REPEAT IN 1HR 08/01/20 11:15 08/13/20 22:00 Vitamin D (Vitamin D3) 50,000 unit WEEKLY PO 08/01/20 17:00 08/01/20 17:31 DC Vitamin D (Vitamin D3) 50,000 unit WEEKLY PO 08/02/20 09:00 08/23/20 08:21 Olanzapine (ZyPREXA ZYDIS) 5 mg PRN Q2HRS PRN PO PSYCHOSIS 08/01/20 18:45 08/22/20 19:03 Divalproex Sodium (Depakote Sprinkles) 250 mg HS PO 08/04/20 21:00 08/07/20 16:50 DC 08/06/20 20:33 Quetiapine Fumarate (SEROquel) 25 mg DAILY@1300 PO 08/06/20 13:00 08/17/20 16:30 DC 08/16/20 13:00 Divalproex Sodium (Depakote Sprinkles) 500 mg HS PO 08/07/20 21:00 08/17/20 21:00 DC 08/16/20 19:23 Sertraline HCl (Zoloft) 75 mg DAILY PO 08/11/20 09:00 08/13/20 17:51 DC 08/13/20 08:39 Sertraline HCl (Zoloft) 100 mg DAILY PO 08/14/20 09:00 08/23/20 08:14 Quetiapine Fumarate (SEROquel) 50 mg DAILY@1300 PO 08/18/20 13:00 08/21/20 18:24 DC 08/21/20 12:41 Divalproex Sodium (Depakote Sprinkles) 250 mg BID PO 08/18/20 09:00 08/22/20 16:30 DC 08/22/20 11:00 Quetiapine Fumarate (SEROquel) 75 mg DAILY PO 08/20/20 09:00 08/23/20 08:14 Quetiapine Fumarate (SEROquel) 100 mg 1300 PO 08/22/20 13:00 08/23/20 12:46 Divalproex Sodium (Depakote Sprinkles) 375 mg BID PO 08/22/20 21:00 08/23/20 20:28 I have reviewed the current psychotropics carefully including drug interactions. Risk benefit ratio favors no change other than as noted in my dictated progress note. Diagnosis: Problems: (1) Major neurocognitive disorder (2) Impulse control disorder, unspecified (3) Anxiety disorder, unspecified (4) Dementia, vascular, with depression (5) Dementia, vascular, with delusions (6) Dementia in Alzheimer's disease with depression (7) Dementia in Alzheimer's disease with delusions (8) Lewy body dementia with behavioral disturbance FARSHAD CHEEMA MD Aug 24, 2020 07:40
[2020-08-24] MEDS: SENNOSIDES 8.6 MG TABLET PO SCH ×2 (07:58→19:59)
[2020-08-24] MEDS: POLYETHYLENE GLYCOL 3350 17 GM PACKET. PO SCH (07:58)
[2020-08-24] MEDS: DIVALPROEX 125 MG CAP.SPRINK PO SCH ×2 (07:58→20:00)
[2020-08-24] MEDS: CYANOCOBALAMIN (VITAMIN B-12) 250 MCG TABLET. PO SCH (07:59)
[2020-08-24] MEDS: QUEtiapine 50 MG TABLET. PO SCH (07:59)
[2020-08-24] MEDS: RIVASTIGMINE 9.5MG PATCH. TD SCH (07:59)
[2020-08-24] MEDS: SERTRALINE 100 MG TABLET. PO SCH (07:59)
--- NOTE | 2020-08-24 09:15 | NUR ---
Pt is calm, cooperative and compliant. No agitation, no aggression, no hallucinations or delusions noted. She is pleasantly confused and wanders the unit. She is compliant with medication and assessment.
[2020-08-24] MEDS: ACETAMINOPHEN 325 MG TABLET PO PRN (12:43)
[2020-08-24] MEDS: QUEtiapine 100 MG TABLET. PO SCH (12:43)
[2020-08-24 15:39] VITALS: BP 105/71
[2020-08-24] MEDS: MELATONIN 3 MG TABLET PO SCH (19:59)
[2020-08-24] MEDS: traZODone 50 MG TABLET. PO SCH (20:00)
--- NOTE | 2020-08-24 20:54 | PDOC ---
Exam Note: Andrés Note: Please also refer to the separate dictated note~for this date of service dictated separately.~Patient seen individually. Discussed the patient with Nursing staff reviewed the chart.~Reviewed interim history and current functioning. Reviewed vital signs,~Labs/ Radiology~and current medications noted below. Continue current treatment with the changes noted in the dictated addendum note Assessment: Vital Signs/I&O: Vital Signs Date Time Temp Pulse Resp B/P (MAP) Pulse Ox O2 Delivery O2 Flow Rate FiO2 08/24/20 15:39 97.9 70 18 105/71 (82) 98 Room Air I & O 08/23/20 08/23/20 08/24/20 15:00 23:00 07:00 Intake Total 580 ml 480 ml Balance 580 ml 480 ml Current Medications: Meds: Current Medications Medications (Trade) Dose Ordered Sig/Stephenie Route PRN Reason Start Time Stop Time Status Last Admin Dose Admin Acetaminophen (Tylenol) 650 mg PRN Q6HRS PRN PO MILD PAIN / TEMP > 100.3'F 07/31/20 13:15 08/24/20 12:43 Multi-Ingredient Ointment (Analgesic [place]) 1 han PRN QID PRN TP MUSCLE PAIN 07/31/20 13:15 Al Hydroxide/Mg Hydroxide (Mylanta Plus Xs) 15 ml PRN AFTMEALHC PRN PO DYSPEPSIA 07/31/20 13:15 Magnesium Hydroxide (Milk Of Magnesia) 2,400 mg PRN QHS PRN PO 1ST CHOICE CONSTIPATION 07/31/20 13:15 Acetaminophen (Tylenol) 650 mg PRN Q6HRS PRN PO MILD PAIN / TEMP > 100.3'F 07/31/20 14:15 Cancel Acetaminophen (Tylenol Supp) 650 mg PRN Q4HRS PRN RC MILD PAIN / TEMP > 100.3'F 07/31/20 14:15 Bisacodyl (Dulcolax Supp) 10 mg PRN DAILY PRN RC 2ND CHOICE CONSTIPATION 07/31/20 14:15 Cyanocobalamin (Vitamin B-12) 250 mcg DAILY PO 08/01/20 09:00 08/24/20 07:59 Loperamide HCl (Imodium) 2 mg PRN Q1HR PRN PO MOD-SEVERE DIARRHEA 07/31/20 14:15 Al Hydroxide/Mg Hydroxide (Mylanta Plus Xs) 15 ml PRN AFTMEALHC PRN PO INDIGESTION 07/31/20 14:15 Cancel Magnesium Hydroxide (Milk Of Magnesia) 2,400 mg PRN QHS PRN PO constipation 07/31/20 14:15 Cancel Polyethylene Glycol (miraLAX) 17 gm DAILY PO 08/01/20 09:00 08/24/20 07:58 Quetiapine Fumarate (SEROquel) 25 mg QHS PO 07/31/20 21:00 08/21/20 18:24 DC 08/20/20 19:55 Quetiapine Fumarate (SEROquel) 50 mg DAILY PO 08/01/20 09:00 08/19/20 18:11 DC 08/18/20 08:59 Sennosides (Senna) 8.6 mg BID PO 07/31/20 21:00 08/24/20 19:59 Trazodone HCl (Desyrel) 50 mg QHS PO 07/31/20 21:00 08/24/20 20:00 Melatonin (Melatonin) 3 mg QHS PO 07/31/20 21:00 08/24/20 19:59 Loperamide HCl (Imodium) 4 mg PRN DAILY PRN PO MILD DIARRHEA 07/31/20 14:45 Rivastigmine (Exelon) 1 patch DAILY TD 08/02/20 09:00 08/05/20 21:00 DC 08/04/20 07:45 Rivastigmine (Exelon) 1 patch DAILY TD 08/06/20 09:00 08/24/20 07:59 Sertraline HCl (Zoloft) 25 mg DAILY PO 08/02/20 09:00 08/05/20 21:00 DC 08/05/20 09:22 Sertraline HCl (Zoloft) 50 mg DAILY PO 08/06/20 09:00 08/10/20 18:28 DC 08/10/20 08:44 Olanzapine (ZyPREXA ZYDIS) 2.5 mg PRN Q2HRS PRN PO PSYCHOSIS 08/01/20 11:15 08/01/20 18:34 DC 08/01/20 17:17 Trazodone HCl (Desyrel) 50 mg PRN QHS PRN PO INSOMNIA, MAY REPEAT IN 1HR 08/01/20 11:15 08/13/20 22:00 Vitamin D (Vitamin D3) 50,000 unit WEEKLY PO 08/01/20 17:00 08/01/20 17:31 DC Vitamin D (Vitamin D3) 50,000 unit WEEKLY PO 08/02/20 09:00 08/23/20 08:21 Olanzapine (ZyPREXA ZYDIS) 5 mg PRN Q2HRS PRN PO PSYCHOSIS 08/01/20 18:45 08/22/20 19:03 Divalproex Sodium (Depakote Sprinkles) 250 mg HS PO 08/04/20 21:00 08/07/20 16:50 DC 08/06/20 20:33 Quetiapine Fumarate (SEROquel) 25 mg DAILY@1300 PO 08/06/20 13:00 08/17/20 16:30 DC 08/16/20 13:00 Divalproex Sodium (Depakote Sprinkles) 500 mg HS PO 08/07/20 21:00 08/17/20 21:00 DC 08/16/20 19:23 Sertraline HCl (Zoloft) 75 mg DAILY PO 08/11/20 09:00 08/13/20 17:51 DC 08/13/20 08:39 Sertraline HCl (Zoloft) 100 mg DAILY PO 08/14/20 09:00 08/24/20 07:59 Quetiapine Fumarate (SEROquel) 50 mg DAILY@1300 PO 08/18/20 13:00 08/21/20 18:24 DC 08/21/20 12:41 Divalproex Sodium (Depakote Sprinkles) 250 mg BID PO 08/18/20 09:00 08/22/20 16:30 DC 08/22/20 11:00 Quetiapine Fumarate (SEROquel) 75 mg DAILY PO 08/20/20 09:00 08/24/20 07:59 Quetiapine Fumarate (SEROquel) 100 mg 1300 PO 08/22/20 13:00 08/24/20 12:43 Divalproex Sodium (Depakote Sprinkles) 375 mg BID PO 08/22/20 21:00 08/24/20 20:00 I have reviewed the current psychotropics carefully including drug interactions. Risk benefit ratio favors no change other than as noted in my dictated progress note. Diagnosis: Problems: (1) Dementia of the Alzheimer's type with early onset with behavioral disturbance (2) Major neurocognitive disorder (3) Impulse control disorder, unspecified (4) Anxiety disorder, unspecified (5) Dementia, vascular, with depression (6) Dementia, vascular, with delusions (7) Dementia in Alzheimer's disease with depression (8) Dementia in Alzheimer's disease with delusions (9) Lewy body dementia with behavioral disturbance FARSHAD CHEEMA MD Aug 24, 2020 20:54
[2020-08-25 05:33] VITALS: BP 144/64
[2020-08-25 07:25] LABS: BASO % 0 % (0-3); EOS # 0.2 x10^3/uL (0.0-0.7); EOS % 2 % (0-3); HEMATOCRIT 39.2 % (36.0-47.0); HEMOGLOBIN 12.7 g/dL (12.0-15.5); LYMPH # 6.2 x10^3/uL (1.0-4.8); LYMPH % 55 % (24-48); MEAN CORPUSCULAR HEMOGLOBIN 30 pg (25-35); MEAN CORPUSCULAR HGB CONC 32 g/dL (31-37); MEAN CORPUSCULAR VOLUME 91 fL (79-100); MONO # 0.6 x10^3/uL (0.0-1.1); MONO % 6 % (0-9); NEUT # 4.3 x10^3uL (1.8-7.7); NEUT % 38 % (31-73); PLATELET COUNT 212 x10^3/uL (140-400); RED CELL DISTRIBUTION WIDTH 14.9 % (11.5-14.5); WHITE BLOOD COUNT 11.3 x10^3/uL (4.0-11.0)
[2020-08-25 07:31] LABS: ALBUMIN 3.1 g/dL (3.4-5.0); ALBUMIN/GLOBULIN RATIO 0.8 (1.0-1.7); ALK PHOS 60 U/L (46-116); ANION GAP 7 (6-14); AST (SGOT) 13 U/L (15-37); BLOOD UREA NITROGEN 12 mg/dL (7-20); BUN/CREATININE RATIO 15 (6-20); CALCIUM 8.3 mg/dL (8.5-10.1); CARBON DIOXIDE 27 mmol/L (21-32); CHLORIDE 103 mmol/L (98-107); CREATININE 0.8 mg/dL (0.6-1.0); GFR 68.3; GLUCOSE 117 mg/dL (70-99); POTASSIUM 4.9 mmol/L (3.5-5.1); SODIUM 137 mmol/L (136-145); TOTAL BILIRUBIN 0.2 mg/dL (0.2-1.0)
[2020-08-25 07:41] LABS: ALT (SGPT) 16 U/L (14-59); VAL ACID 58 mcg/mL (50-100)
[2020-08-25] MEDS: DIVALPROEX 125 MG CAP.SPRINK PO SCH ×2 (08:06→20:13)
[2020-08-25] MEDS: POLYETHYLENE GLYCOL 3350 17 GM PACKET. PO SCH (08:06)
[2020-08-25] MEDS: CYANOCOBALAMIN (VITAMIN B-12) 250 MCG TABLET. PO SCH (08:08)
[2020-08-25] MEDS: SENNOSIDES 8.6 MG TABLET PO SCH ×2 (08:08→20:13)
[2020-08-25] MEDS: SERTRALINE 100 MG TABLET. PO SCH (08:08)
[2020-08-25] MEDS: QUEtiapine 50 MG TABLET. PO SCH (08:08)
[2020-08-25] MEDS: RIVASTIGMINE 9.5MG PATCH. TD SCH (08:08)
[2020-08-25 08:38] LABS: % ATYL 2 % (0-0); % BANDS 2 % (0-9); % LYMPHS 50 % (24-48); % MONOS 5 % (0-10); % SEGS 41 % (35-66); SMUDGE CELLS PRESENT
[2020-08-25 08:39] LABS: PLT ESTIMATE ADEQUATE (ADEQUATE); POLYCHROMASIA PRESENT
[2020-08-25 08:40] LABS: OVALOCYTES PRESENT
--- NOTE | 2020-08-25 09:29 | NUR ---
She is compliant with medication and assessment. Pt is calm, cooperative and compliant. No agitation, no aggression, no hallucinations or delusions noted. She is pleasantly confused and wanders the unit.
[2020-08-25] MEDS: QUEtiapine 100 MG TABLET. PO SCH (12:23)
[2020-08-25 15:59] VITALS: BP 111/71
[2020-08-25] MEDS: MELATONIN 3 MG TABLET PO SCH (20:12)
[2020-08-25] MEDS: traZODone 50 MG TABLET. PO SCH (20:13)
--- NOTE | 2020-08-25 20:25 | NUR ---
Patient isin the hallway on assumption of care, walking around the unit with a peer. Pleasantly confused. Compliant with assessments and medications taken whole. No agitation. Denies any pain or discomfort. Patient appears to be sleeping comfortably at present time. Will continue to monitor.
--- NOTE | 2020-08-25 21:25 | PDOC ---
Exam Note: Andrés Note: Please also refer to the separate dictated note~for this date of service dictated separately.~Patient seen individually. Discussed the patient with Nursing staff reviewed the chart.~Reviewed interim history and current functioning. Reviewed vital signs,~Labs/ Radiology~and current medications noted below. Continue current treatment with the changes noted in the dictated addendum note Assessment: Vital Signs/I&O: Vital Signs Date Time Temp Pulse Resp B/P (MAP) Pulse Ox O2 Delivery O2 Flow Rate FiO2 08/25/20 15:59 97.7 77 18 111/71 (84) 98 08/24/20 15:39 Room Air I & O 08/24/20 08/24/20 08/25/20 15:00 23:00 07:00 Intake Total 720 ml 360 ml Balance 720 ml 360 ml Labs: Laboratory Tests Test 08/25/20 07:07 White Blood Count 11.3 x10^3/uL (4.0-11.0) H Red Blood Count 4.30 x10^6/uL (3.50-5.40) Hemoglobin 12.7 g/dL (12.0-15.5) Hematocrit 39.2 % (36.0-47.0) Mean Corpuscular Volume 91 fL (79-100) Mean Corpuscular Hemoglobin 30 pg (25-35) Mean Corpuscular Hemoglobin Concent 32 g/dL (31-37) Red Cell Distribution Width 14.9 % (11.5-14.5) H Platelet Count 212 x10^3/uL (140-400) Neutrophils (%) (Auto) 38 % (31-73) Lymphocytes (%) (Auto) 55 % (24-48) H Monocytes (%) (Auto) 6 % (0-9) Eosinophils (%) (Auto) 2 % (0-3) Basophils (%) (Auto) 0 % (0-3) Neutrophils # (Auto) 4.3 x10^3uL (1.8-7.7) Lymphocytes # (Auto) 6.2 x10^3/uL (1.0-4.8) H Monocytes # (Auto) 0.6 x10^3/uL (0.0-1.1) Eosinophils # (Auto) 0.2 x10^3/uL (0.0-0.7) Basophils # (Auto) 0.0 x10^3/uL (0.0-0.2) Segmented Neutrophils % 41 % (35-66) Band Neutrophils % 2 % (0-9) Lymphocytes % 50 % (24-48) H Atypical Lymphocytes % (Manual) 2 % (0-0) H Monocytes % 5 % (0-10) Smudge Cells Present Platelet Estimate Adequate (ADEQUATE) Polychromasia Present Ovalocytes Present Sodium Level 137 mmol/L (136-145) Potassium Level 4.9 mmol/L (3.5-5.1) Chloride Level 103 mmol/L (98-107) Carbon Dioxide Level 27 mmol/L (21-32) Anion Gap 7 (6-14) Blood Urea Nitrogen 12 mg/dL (7-20) Creatinine 0.8 mg/dL (0.6-1.0) Estimated GFR (Cockcroft-Gault) 68.3 BUN/Creatinine Ratio 15 (6-20) Glucose Level 117 mg/dL (70-99) H Calcium Level 8.3 mg/dL (8.5-10.1) L Total Bilirubin 0.2 mg/dL (0.2-1.0) Aspartate Amino Transferase (AST) 13 U/L (15-37) L Alanine Aminotransferase (ALT) 16 U/L (14-59) Alkaline Phosphatase 60 U/L (46-116) Ammonia 11 mcmol/L (11-34) Total Protein 7.0 g/dL (6.4-8.2) Albumin 3.1 g/dL (3.4-5.0) L Albumin/Globulin Ratio 0.8 (1.0-1.7) L Valproic Acid Level 58 mcg/mL (50-100) Valproic Acid Last Dose Date 08/24/20 Valproic Acid Last Dose Time 2100 Current Medications: I have reviewed the current psychotropics carefully including drug interactions. Risk benefit ratio favors no change other than as noted in my dictated progress note. Diagnosis: Problems: (1) Dementia of the Alzheimer's type with early onset with behavioral disturbance (2) Major neurocognitive disorder (3) Impulse control disorder, unspecified (4) Anxiety disorder, unspecified (5) Dementia, vascular, with depression (6) Dementia, vascular, with delusions (7) Abnormal WBC count (8) Dementia in Alzheimer's disease with depression (9) Dementia in Alzheimer's disease with delusions (10) Lewy body dementia with behavioral disturbance FARSHAD CHEEMA MD Aug 25, 2020 21:25
--- NOTE | 2020-08-25 23:53 | PN ---
DATE: 08/25/2020 PSYCHIATRIC PROGRESS NOTE This note covers elements not covered in my initial note. SUBJECTIVE: I met with the patient in the evening of 08/25/2020. Discussed with GISELL Vale. The patient slept 8-1/4 hours previous night. She did well previous night and better during the day today. She remains confused, less anxious. Not tearful. REVIEW OF SYSTEMS: No CV, , pulmonary, eye, ENT system symptoms on review. Reliability poor. MENTAL STATUS EXAM: Oriented to herself. Insight, judgment, recent and remote memory, attention, concentration, fund of knowledge poor, consistent with her diagnoses. IMPRESSION: Major neurocognitive disorder, Alzheimer, vascular with delusion, depression, behavioral disturbance; anxiety disorder, unspecified; impulse control disorder, unspecified. Rest unchanged. PLAN: Continue current psychotropics. Consider transition to nursing facility this coming week. MAN Jessica CHEEMA MD DR: JOEL/marcin JOB#: [id number] / [id number]
[2020-08-26 05:58] VITALS: BP 132/76
[2020-08-26] MEDS: SENNOSIDES 8.6 MG TABLET PO SCH (08:16)
[2020-08-26] MEDS: CYANOCOBALAMIN (VITAMIN B-12) 250 MCG TABLET. PO SCH (08:16)
[2020-08-26] MEDS: RIVASTIGMINE 9.5MG PATCH. TD SCH (08:16)
[2020-08-26] MEDS: DIVALPROEX 125 MG CAP.SPRINK PO SCH (08:16)
[2020-08-26] MEDS: POLYETHYLENE GLYCOL 3350 17 GM PACKET. PO SCH (08:17)
[2020-08-26] MEDS: QUEtiapine 50 MG TABLET. PO SCH (08:17)
[2020-08-26] MEDS: SERTRALINE 100 MG TABLET. PO SCH (08:17)
--- NOTE | 2020-08-26 10:09 | NUR ---
Patient eating breakfast in dining room at time of assessment. Went to patient room to do physical assessment after she was done eating. Patient was irritated prior to eating because she stated the "girls treat her different at breakfast." She saw another patient being fed and someone else had different food so this is most likely what she was referring to. I did not want her to become upset so she was given PRN Zyprexa to help keep her calm to return home today. She is calm and cooperative and takes her medications whole with no problems. Patient is now smiling and happy and ready to be leaving. There are no further concerns or complaints at this time.
--- NOTE | 2020-08-26 12:23 | NUR ---
Transition Record was faxed to follow-up provider with the following elements: Reason for admission, procedures, tests, principal diagnosis, pending studies, patient instructions, 25/01 contact information for unit, phone number to obtain pending test results, plan for follow-up care, physician follow-up, advanced directive information, and medication list with dose, duration and instructions. This information was included in the following documents: History and physical, lab results, study results, progress notes, social work planning form, DC instruction form, patient visit summary, and medication reconciliation form. Date & time record faxed:08/26/20 Record faxed to: Sharee Shaffer Record discussed with/ report given to: Stacy Clinical Coordinator
--- NOTE | 2020-08-27 08:06 | PDOC ---
Exam Note: Andrés Note: This note is a late entry for 08/24/2020 covers elements not covered in my initial note. Subjective: The patient was seen face to face in the evening of 08/24/2020 with Rosalinda JAMESON, discussed and reviewed the chart. The patient slept 8-3/4 hours previous night. She did well previous night, somewhat exit seeking, better during the day today. No crying spells. Mood lability is improved. Review of Systems: No CV, , pulmonary, eye, ENT system symptoms on review. Reliability poor. Mental Status Exam: The patient is oriented to herself. Insight and judgment, recent and remote memory, attention and concentration, fund of knowledge is poor consistent with her diagnosis. Laboratory Data: Reviewed. 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 Anxiety disorder unspecified. Impulse control disorder unspecified. Plan: No change from initial note. Assessment: Vital Signs/I&O: Vital Signs Date Time Temp Pulse Resp B/P (MAP) Pulse Ox O2 Delivery O2 Flow Rate FiO2 08/26/20 05:58 97.9 64 14 132/76 (94) 97 08/24/20 15:39 Room Air I & O 08/26/20 08/26/20 08/27/20 14:59 22:59 06:59 Intake Total 360 ml Balance 360 ml Current Medications: Meds: Current Medications Medications (Trade) Dose Ordered Sig/Stephenie Route PRN Reason Start Time Stop Time Status Last Admin Dose Admin Acetaminophen (Tylenol) 650 mg PRN Q6HRS PRN PO MILD PAIN / TEMP > 100.3'F 07/31/20 13:15 08/26/20 12:29 DC 08/24/20 12:43 Multi-Ingredient Ointment (Analgesic [place]) 1 han PRN QID PRN TP MUSCLE PAIN 07/31/20 13:15 08/26/20 12:29 DC Al Hydroxide/Mg Hydroxide (Mylanta Plus Xs) 15 ml PRN AFTMEALHC PRN PO DYSPEPSIA 07/31/20 13:15 08/26/20 12:29 DC Magnesium Hydroxide (Milk Of Magnesia) 2,400 mg PRN QHS PRN PO 1ST CHOICE CONSTIPATION 07/31/20 13:15 08/26/20 12:29 DC Acetaminophen (Tylenol) 650 mg PRN Q6HRS PRN PO MILD PAIN / TEMP > 100.3'F 07/31/20 14:15 Cancel Acetaminophen (Tylenol Supp) 650 mg PRN Q4HRS PRN RC MILD PAIN / TEMP > 100.3'F 07/31/20 14:15 08/26/20 12:29 DC Bisacodyl (Dulcolax Supp) 10 mg PRN DAILY PRN RC 2ND CHOICE CONSTIPATION 07/31/20 14:15 08/26/20 12:29 DC Cyanocobalamin (Vitamin B-12) 250 mcg DAILY PO 08/01/20 09:00 08/26/20 12:29 DC 08/26/20 08:16 Loperamide HCl (Imodium) 2 mg PRN Q1HR PRN PO MOD-SEVERE DIARRHEA 07/31/20 14:15 08/26/20 12:29 DC Al Hydroxide/Mg Hydroxide (Mylanta Plus Xs) 15 ml PRN AFTMEALHC PRN PO INDIGESTION 07/31/20 14:15 Cancel Magnesium Hydroxide (Milk Of Magnesia) 2,400 mg PRN QHS PRN PO constipation 07/31/20 14:15 Cancel Polyethylene Glycol (miraLAX) 17 gm DAILY PO 08/01/20 09:00 08/26/20 12:29 DC 08/26/20 08:17 Quetiapine Fumarate (SEROquel) 25 mg QHS PO 07/31/20 21:00 08/21/20 18:24 DC 08/20/20 19:55 Quetiapine Fumarate (SEROquel) 50 mg DAILY PO 08/01/20 09:00 08/19/20 18:11 DC 08/18/20 08:59 Sennosides (Senna) 8.6 mg BID PO 07/31/20 21:00 08/26/20 12:29 DC 08/26/20 08:16 Trazodone HCl (Desyrel) 50 mg QHS PO 07/31/20 21:00 08/26/20 12:30 DC 08/25/20 20:13 Melatonin (Melatonin) 3 mg QHS PO 07/31/20 21:00 08/26/20 12:30 DC 08/25/20 20:12 Loperamide HCl (Imodium) 4 mg PRN DAILY PRN PO MILD DIARRHEA 07/31/20 14:45 08/26/20 12:30 DC Rivastigmine (Exelon) 1 patch DAILY TD 08/02/20 09:00 08/05/20 21:00 DC 08/04/20 07:45 Rivastigmine (Exelon) 1 patch DAILY TD 08/06/20 09:00 08/26/20 12:30 DC 08/26/20 08:16 Sertraline HCl (Zoloft) 25 mg DAILY PO 08/02/20 09:00 08/05/20 21:00 DC 08/05/20 09:22 Sertraline HCl (Zoloft) 50 mg DAILY PO 08/06/20 09:00 08/10/20 18:28 DC 08/10/20 08:44 Olanzapine (ZyPREXA ZYDIS) 2.5 mg PRN Q2HRS PRN PO PSYCHOSIS 08/01/20 11:15 08/01/20 18:34 DC 08/01/20 17:17 Trazodone HCl (Desyrel) 50 mg PRN QHS PRN PO INSOMNIA, MAY REPEAT IN 1HR 08/01/20 11:15 08/26/20 12:30 DC 08/13/20 22:00 Vitamin D (Vitamin D3) 50,000 unit WEEKLY PO 08/01/20 17:00 08/01/20 17:31 DC Vitamin D (Vitamin D3) 50,000 unit WEEKLY PO 08/02/20 09:00 08/26/20 12:30 DC 08/23/20 08:21 Olanzapine (ZyPREXA ZYDIS) 5 mg PRN Q2HRS PRN PO PSYCHOSIS 08/01/20 18:45 08/26/20 12:30 DC 08/26/20 08:17 Divalproex Sodium (Depakote Sprinkles) 250 mg HS PO 08/04/20 21:00 08/07/20 16:50 DC 08/06/20 20:33 Quetiapine Fumarate (SEROquel) 25 mg DAILY@1300 PO 08/06/20 13:00 08/17/20 16:30 DC 08/16/20 13:00 Divalproex Sodium (Depakote Sprinkles) 500 mg HS PO 08/07/20 21:00 08/17/20 21:00 DC 08/16/20 19:23 Sertraline HCl (Zoloft) 75 mg DAILY PO 08/11/20 09:00 08/13/20 17:51 DC 08/13/20 08:39 Sertraline HCl (Zoloft) 100 mg DAILY PO 08/14/20 09:00 08/26/20 12:30 DC 08/26/20 08:17 Quetiapine Fumarate (SEROquel) 50 mg DAILY@1300 PO 08/18/20 13:00 08/21/20 18:24 DC 08/21/20 12:41 Divalproex Sodium (Depakote Sprinkles) 250 mg BID PO 08/18/20 09:00 08/22/20 16:30 DC 08/22/20 11:00 Quetiapine Fumarate (SEROquel) 75 mg DAILY PO 08/20/20 09:00 08/26/20 12:30 DC 08/26/20 08:17 Quetiapine Fumarate (SEROquel) 100 mg 1300 PO 08/22/20 13:00 08/26/20 12:30 DC 08/25/20 12:23 Divalproex Sodium (Depakote Sprinkles) 375 mg BID PO 08/22/20 21:00 08/26/20 12:30 DC 08/26/20 08:16 I have reviewed the current psychotropics carefully including drug interactions. Risk benefit ratio favors no change other than as noted in my dictated progress note. Diagnosis: Problems: (1) Dementia of the Alzheimer's type with early onset with behavioral disturbance (2) Major neurocognitive disorder (3) Impulse control disorder, unspecified (4) Anxiety disorder, unspecified (5) Dementia, vascular, with depression (6) Dementia, vascular, with delusions (7) Dementia in Alzheimer's disease with depression (8) Dementia in Alzheimer's disease with delusions FARSHAD CHEEMA MD Aug 27, 2020 08:06
--- NOTE | 2020-08-27 08:34 | PDOC ---
Exam Note: Andrés Note: Late entry for 08/26/2020. Please also refer to the separate dictated note~for this date of service dictated separately.~Patient seen individually. Discussed the patient with Nursing staff reviewed the chart.~Reviewed interim history and current functioning. Reviewed vital signs,~Labs/ Radiology~and current medic ations noted below. Continue current treatment with the changes noted in the dictated addendum note Assessment: Vital Signs/I&O: Vital Signs Date Time Temp Pulse Resp B/P (MAP) Pulse Ox O2 Delivery O2 Flow Rate FiO2 08/26/20 05:58 97.9 64 14 132/76 (94) 97 08/24/20 15:39 Room Air I & O 0 08/26/20 08/26/20 08/27/20 14:59 22:59 06:59 Intake Total 360 ml Balance 360 ml Current Medications: Meds: Current Medications Medications (Trade) Dose Ordered Sig/Stephenie Route PRN Reason Start Time Stop Time Status Last Admin Dose Admin Acetaminophen (Tylenol) 650 mg PRN Q6HRS PRN PO MILD PAIN / TEMP > 100.3'F 07/31/20 13:15 08/26/20 12:29 DC 08/24/20 12:43 Multi-Ingredient Ointment (Analgesic [place]) 1 han PRN QID PRN TP MUSCLE PAIN 07/31/20 13:15 08/26/20 12:29 DC Al Hydroxide/Mg Hydroxide (Mylanta Plus Xs) 15 ml PRN AFTMEALHC PRN PO DYSPEPSIA 07/31/20 13:15 08/26/20 12:29 DC Magnesium Hydroxide (Milk Of Magnesia) 2,400 mg PRN QHS PRN PO 1ST CHOICE CONSTIPATION 07/31/20 13:15 08/26/20 12:29 DC Acetaminophen (Tylenol) 650 mg PRN Q6HRS PRN PO MILD PAIN / TEMP > 100.3'F 07/31/20 14:15 Cancel Acetaminophen (Tylenol Supp) 650 mg PRN Q4HRS PRN RC MILD PAIN / TEMP > 100.3'F 07/31/20 14:15 08/26/20 12:29 DC Bisacodyl (Dulcolax Supp) 10 mg PRN DAILY PRN RC 2ND CHOICE CONSTIPATION 07/31/20 14:15 08/26/20 12:29 DC Cyanocobalamin (Vitamin B-12) 250 mcg DAILY PO 08/01/20 09:00 08/26/20 12:29 DC 08/26/20 08:16 Loperamide HCl (Imodium) 2 mg PRN Q1HR PRN PO MOD-SEVERE DIARRHEA 07/31/20 14:15 08/26/20 12:29 DC Al Hydroxide/Mg Hydroxide (Mylanta Plus Xs) 15 ml PRN AFTMEALHC PRN PO INDIGESTION 07/31/20 14:15 Cancel Magnesium Hydroxide (Milk Of Magnesia) 2,400 mg PRN QHS PRN PO constipation 07/31/20 14:15 Cancel Polyethylene Glycol (miraLAX) 17 gm DAILY PO 08/01/20 09:00 08/26/20 12:29 DC 08/26/20 08:17 Quetiapine Fumarate (SEROquel) 25 mg QHS PO 07/31/20 21:00 08/21/20 18:24 DC 08/20/20 19:55 Quetiapine Fumarate (SEROquel) 50 mg DAILY PO 08/01/20 09:00 08/19/20 18:11 DC 08/18/20 08:59 Sennosides (Senna) 8.6 mg BID PO 07/31/20 21:00 08/26/20 12:29 DC 08/26/20 08:16 Trazodone HCl (Desyrel) 50 mg QHS PO 07/31/20 21:00 08/26/20 12:30 DC 08/25/20 20:13 Melatonin (Melatonin) 3 mg QHS PO 07/31/20 21:00 08/26/20 12:30 DC 08/25/20 20:12 Loperamide HCl (Imodium) 4 mg PRN DAILY PRN PO MILD DIARRHEA 07/31/20 14:45 08/26/20 12:30 DC Rivastigmine (Exelon) 1 patch DAILY TD 08/02/20 09:00 08/05/20 21:00 DC 08/04/20 07:45 Rivastigmine (Exelon) 1 patch DAILY TD 08/06/20 09:00 08/26/20 12:30 DC 08/26/20 08:16 Sertraline HCl (Zoloft) 25 mg DAILY PO 08/02/20 09:00 08/05/20 21:00 DC 08/05/20 09:22 Sertraline HCl (Zoloft) 50 mg DAILY PO 08/06/20 09:00 08/10/20 18:28 DC 08/10/20 08:44 Olanzapine (ZyPREXA ZYDIS) 2.5 mg PRN Q2HRS PRN PO PSYCHOSIS 08/01/20 11:15 08/01/20 18:34 DC 08/01/20 17:17 Trazodone HCl (Desyrel) 50 mg PRN QHS PRN PO INSOMNIA, MAY REPEAT IN 1HR 08/01/20 11:15 08/26/20 12:30 DC 08/13/20 22:00 Vitamin D (Vitamin D3) 50,000 unit WEEKLY PO 08/01/20 17:00 08/01/20 17:31 DC Vitamin D (Vitamin D3) 50,000 unit WEEKLY PO 08/02/20 09:00 08/26/20 12:30 DC 08/23/20 08:21 Olanzapine (ZyPREXA ZYDIS) 5 mg PRN Q2HRS PRN PO PSYCHOSIS 08/01/20 18:45 08/26/20 12:30 DC 08/26/20 08:17 Divalproex Sodium (Depakote Sprinkles) 250 mg HS PO 08/04/20 21:00 08/07/20 16:50 DC 08/06/20 20:33 Quetiapine Fumarate (SEROquel) 25 mg DAILY@1300 PO 08/06/20 13:00 08/17/20 16:30 DC 08/16/20 13:00 Divalproex Sodium (Depakote Sprinkles) 500 mg HS PO 08/07/20 21:00 08/17/20 21:00 DC 08/16/20 19:23 Sertraline HCl (Zoloft) 75 mg DAILY PO 08/11/20 09:00 08/13/20 17:51 DC 08/13/20 08:39 Sertraline HCl (Zoloft) 100 mg DAILY PO 08/14/20 09:00 08/26/20 12:30 DC 08/26/20 08:17 Quetiapine Fumarate (SEROquel) 50 mg DAILY@1300 PO 08/18/20 13:00 08/21/20 18:24 DC 08/21/20 12:41 Divalproex Sodium (Depakote Sprinkles) 250 mg BID PO 08/18/20 09:00 08/22/20 16:30 DC 08/22/20 11:00 Quetiapine Fumarate (SEROquel) 75 mg DAILY PO 08/20/20 09:00 08/26/20 12:30 DC 08/26/20 08:17 Quetiapine Fumarate (SEROquel) 100 mg 1300 PO 08/22/20 13:00 08/26/20 12:30 DC 08/25/20 12:23 Divalproex Sodium (Depakote Sprinkles) 375 mg BID PO 08/22/20 21:00 08/26/20 12:30 DC 08/26/20 08:16 I have reviewed the current psychotropics carefully including drug interactions. Risk benefit ratio favors no change other than as noted in my dictated progress note. Diagnosis: Problems: (1) Major neurocognitive disorder (2) Impulse control disorder, unspecified (3) Anxiety disorder, unspecified (4) Dementia, vascular, with depression (5) Dementia, vascular, with delusions (6) Dementia in Alzheimer's disease with depression (7) Dementia in Alzheimer's disease with delusions (8) Lewy body dementia with behavioral disturbance FARSHAD CHEEMA MD Aug 27, 2020 08:34
--- NOTE | 2020-08-27 22:10 | DS ---
DATE OF DISCHARGE: 08/26/2020 PSYCHIATRIC DISCHARGE NOTE This late entry date of service 08/26/2020 covers elements not covered in my initial note. REASON FOR ADMISSION: Please refer to the admission history for details. Briefly, the patient is an 85-year-old female referred to us from [facility] on account of worsening confusion, threatening to kill staff, name calling, belligerent, aggressive towards staff, throwing stuff at staff, enters others' rooms and gets agitated with redirection. The patient has been pacing, restless, behaviors deemed dangerous, unmanageable at the facility, having failed outpatient psychiatric interventions, referred for inpatient psychiatric stabilization. SIGNIFICANT FINDINGS AND CLINICAL COURSE: Following admission, the patient was seen daily individually by myself from a psychiatric standpoint, medical followup with Dr. Nguyen/Dr. Vieyra. Adjustments were made in her psychotropics. She remained paranoid, depressed, and gradually seemed to respond to a combination of Seroquel 75 mg daily, 100 mg at 13:00, melatonin 3 mg at bedtime, trazodone 50 mg at bedtime, may repeat x 2 for insomnia, Zyprexa p.r.n., Zoloft 100 mg a day, Exelon patch 9.5 mg daily, Depakote Sprinkles 375 mg b.i.d. Valproic acid level therapeutic at 58. REVIEW OF SYSTEMS: Prior to discharge, no CV, , pulmonary, eye, ENT system symptoms on review. Reliability poor. MENTAL STATUS EXAM: Oriented to herself. Insight, judgment, recent and remote memory, attention, concentration, fund of knowledge poor, consistent with her diagnoses. FINAL DIAGNOSES: Major neurocognitive disorder, Alzheimer, vascular with delusion, depression, behavioral disturbance; anxiety disorder, unspecified; impulse control disorder, unspecified. Rest unchanged. DISCHARGE MEDICATIONS: Please refer to the [facility]. DISCHARGE INSTRUCTIONS: Outpatient psychiatric and medical followup at the longterm. Time for discharge day management greater than 30 minutes. MAN Jessica CHEEMA MD DR: JOEL/marcin JOB#: [id number] / [id number]
== END 2020-08-26 12:29 | DRG 57 ==
LOC: GEROPSY 12:35
PROVIDERS: ADMIT Psychiatry & Neurology Psychiatry; ATTEND Psychiatry & Neurology Psychiatry
DX: G30.8 Other Alzheimer's disease (principal); F01.51 Vascular dementia, unspecified severity, with behavioral disturbance; C91.10 Chronic lymphocytic leukemia of B-cell type not having achieved remission; F02.81 Dementia in other diseases classified elsewhere, unspecified severity, with behavioral disturbance; E78.5 Hyperlipidemia, unspecified; F32.9 Major depressive disorder, single episode, unspecified; F41.9 Anxiety disorder, unspecified; F63.9 Impulse disorder, unspecified; G31.83 Neurocognitive disorder with Lewy bodies; G47.00 Insomnia, unspecified; I10 Essential (primary) hypertension; Z66 Do not resuscitate; Z79.899 Other long term (current) drug therapy; Z91.19 Patient's noncompliance with other medical treatment and regimen; Z20.822 Contact with and (suspected) exposure to COVID-19; F29 Unspecified psychosis not due to a substance or known physiological condition; Z87.440 Personal history of urinary (tract) infections
CPT/HCPCS: 36415; 70450; 80053; 80061; 80164; 81001; 82140; 82306; 82607; 83036; 83540; 83550; 83735; 84436; 84443; 84480; 85007; 85025; 85379; 86592; 87086; U0003; 97116; 97530